=== PATIENT | female | born 1950 | race Caucasian/White ===

== ENCOUNTER 2017-02-03 17:28 | Inpatient (IN) | payer MEDICARE, OTHER ==
[~2017-02-03] VITALS: Ht 162.6 cm; Wt 91.6 kg
[~2017-02-03 17:28] MED LIST: CATALYN PO; CHOL200035 PO; CYRUTA PLUS PO; DICL250C8 PO; DIGO250T15 PO; DILT360C20 PO; DILT360C30 PO; FURO40TA4 PO; GFN600TCR PO; HCT25T PO; KRIL1CAP6 PO; LEVO5TAB12 PO; POTA10TA36 PO; POTA99TA15 PO; Rivaroxaban PO; SITA1TAB2 PO; SITA1TAB3 PO; TRIA1TAB3 PO; UBIQ100C PO; ZOLP12.541 PO; [UNRECOGNIZED DRUG - OTHER] MM
[2017-02-03] MEDS ORDERED: DILTIAZEM 25 MG/5 ML INJ (CARDIZEM) VIAL ONE (17:43)
[2017-02-03] MEDS ORDERED: DILTIAZEM 100 MG/VIAL (CARDIZEM) ADD-VANTAGE IV ONE (17:43)
[2017-02-03] MEDS ORDERED: NS (IVPB) 100 ML ONE (17:44)
[2017-02-03] MEDS ORDERED: SODIUM CHLORIDE (ADD-VANTAGE) 100 ML IV ONE (17:50)
--- NOTE | 2017-02-03 17:52 | ED Cardiac General ---
History of Present Illness General Chief Complaint: Cardiac/General Problems Stated Complaint: AFIB Source: patient Exam Limitations: no limitations (RYLAN EMERY MD) History of Present Illness Time seen by provider: 17:50 Initial Comments Patient has a history of paroxysmal A. fib. She had an episode of A. fib on Saturday which resolved. She woke up this morning with symptoms which did not go away. She is a little short of air and has had some intermittent chest pressure. She has been compliant with her medications. 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 She denies fevers or chills. She denies cough. (RYLAN EMERY MD) Initial Comments Care of this patient was assumed from Dr. Emery. Patient was interviewed and examined. She gives a history of paroxysmal atrial fibrillation with current symptoms starting Saturday and continuing intermittently until now. Her symptoms include irregular tachycardia, chest tightness, and jaw tightness. These are typical symptoms with episodes of atrial fibrillation. She was previously on rate controlling medications including Cardizem, systolic, and digoxin. She does not tolerate rate drooling medications very well due to fatigue and bradycardia. She was most recently on Bystolic which was stopped about 2 weeks ago. She was hoping to be off of rate controlling medications for not coming vacation and sees medications make her so fatigued and ill feeling. She is not presently on any rate controlling medication. Other mild associated symptoms include nausea and headache. She also reports of being on Keflex for a right upper extremity cellulitis which is improving. She sees Dr. Sawant for primary care. Her cardiology team consists of Dr. Baker, Dr. Stovall, and Dr. Stone. (ABIMAEL MAJOR MD) Allergies and Home Medications Allergies Coded Allergies: No Known Drug Allergies (Verified , 12/18/07) Home Medications Cephalexin 500 Mg Capsule, #28 (Reported) Chlorhexidine Gluconate 30 Ml Soln, 15 ML MM HS, (Reported) Dicloxacillin Sodium 250 Mg Capsule, 250 MG PO QID, #40 Ref 0 Prescribed by: BRENDA SAWANT on 03/22/14 0901 Digoxin 0.25 Mg Tab, 0.25 MG PO DAILY, #30 Ref 5 Prescribed by: BRENDA SAWANT on 03/22/14 0901 Diltiazem Hcl 360 Mg Capsule.sa, 360 MG PO DAILY, (Reported) Guaifenesin 600 Mg Tab, 600 MG PO HS, (Reported) Krill/Om3/Dha/Epa/Om6/Lip/Astx 1 Each Capsule, 2 CAP PO DAILY, (Reported) Levocetirizine Dihydrochloride 5 Mg Tablet, 5 MG PO DAILY, (Reported) Potassium Chloride 10 Meq Tab.prt.sr, 20 MEQ PO DAILY, (Reported) TAKES 2 (10MEQ) TABLETS DAILY Sitagliptin Phos/Metformin Hcl 1 Each Tablet, 1 TAB PO DAILY, (Reported) Triamterene/Hydrochlorothiazid 1 Udtab Tablet, 1 TAB PO DAILY, (Reported) Ubiquinol 100 Mg Capsule, 100 MG PO DAILY, (Reported) Zolpidem Tartrate 12.5 Mg Tab.mphase, 12.5 MG PO HS, (Reported) [Catalyn] , 2 CAP PO DAILY, (Reported) [Cyruta Plus] , 2 TAB PO DAILY, (Reported) [Rivaroxaban] 20 MG TABLET, 20 MG PO DAILY@1700, #30 Ref 5 Prescribed by: BRENDA SAWANT on 03/22/14 0901 Review of Systems Constitutional: malaise, weakness EENTM: No Symptoms Reported Respiratory: Shortness of Air Cardiovascular: Chest Pain, Irregular Heart Rate, Palpitations Gastrointestinal: No Symptoms Reported Musculoskeletal: no symptoms reported Skin: no symptoms reported (RYLAN EMERY MD) All Other Systems Reviewed Negative Unless Noted: Yes (RYLAN EMERY MD) Past Nsswedz-Cleumz-Dlcxsy Hx Patient Social History Alcohol Use: Denies Use Smoking Status: Never a Smoker (RYLAN EMERY MD) Immunizations Up To Date Tetanus Booster (TDap): More than 5yrs (RYLAN EMERY MD) Surgeries Surgeries: Cardiac (alcohol septic ablation) (ABIMAEL MAJOR MD) Respiratory Hx Respiratory Disorders: No (RYLAN EMERY MD) Cardiovascular Hx Cardiac Disorders: Yes (MURMUR) (RYLAN EMERY MD) Hx Cardiac Disorders: Yes (hypertrophic obstructive cardiomyopathy) Cardiac Disorders: Atrial Fibrillation (paroxysmal) (ABIMAEL MAJOR MD) Neurological Hx Neurological Disorders: Yes Neurological Disorders: Stroke (ABIMAEL MAJOR MD) 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 System Hx 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 Disorders: No Sexually Transmitted Disease: No HIV/AIDS: No Female 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 Disorders: Denies (RYLAN EMERY MD) Genitourinary Hx Genitourinary Disorders: No (RYLAN EMERY MD) Gastrointestinal Hx Gastrointestinal Disorders: Yes Gastrointestinal Disorders: Gastroesophageal Reflux (RYLAN EMERY MD) Musculoskeletal Hx Musculoskeletal Disorders: Yes Musculoskeletal Disorders: Arthritis (RYLAN EMERY MD) Endocrine Hx Endocrine Disorders: No (RYLAN EMERY MD) HEENT HX ENT Disorders: Yes (CATARACTS REMOVED) HEENT Disorders: Cataract (RYLAN EMERY MD) Cancer Hx Cancer: No (RYLAN EMERY MD) Psychosocial Hx Psychiatric Problems: Yes Behavioral Health Disorders: Sleep Difficulties (RYLAN EMERY MD) Integumentary HX Skin/Integumentary Disorder: No (RYLAN EMERY MD) HX Skin/Integumentary Disorder: Yes (strip cellulitis) (ABIMAEL MAJOR MD) Blood Transfusions Hx Blood Disorders: No (RYLAN EMERY MD) Reviewed Nursing Assessment Reviewed/Agree w Nursing PMH: Yes (RYLAN EMERY MD) Family Medical History Family Medial History: Cataract 19 FATHER Chest pain 19 FATHER Congenital heart disease 19 MOTHER Congestive heart failure 19 MOTHER Family history: Arthritis 19 FATHER 19 MOTHER Family history: Hypertension 19 FATHER 19 MOTHER Headache 19 MOTHER ([place]) Hearing loss 19 FATHER ([place] Myocardial infarction 19 FATHER No Family History of: Abdominal aortic aneurysm Ham's disease Alcoholism Aphasia Cancer Cancer of colon Cystic fibrosis Dementia Dysphagia Family history: Allergy Family history: Alzheimer's disease Family history: Asthma Family history: Breast disease Family history: Cardiovascular disease Family history: Coronary thrombosis Family history: Diabetes mellitus Family history: Gastrointestinal disease Family history: Glaucoma Family history: Osteoporosis Family history: Thyroid disorder Heart disease Hereditary disease History of - anemia History of - disorder History of - respiratory disease History of drug abuse Human immunodeficiency virus (HIV) seropositivity Hypercholesterolemia Infertile Kidney disease Malignant neoplasm of lung Parkinson's disease Prostate cancer Psychotic disorder Seizure disorder Stroke Tuberculosis Visual impairment (RYLAN EMERY MD) Family Medial History: Cataract 19 FATHER Chest pain 19 FATHER Congenital heart disease 19 MOTHER Congestive heart failure 19 MOTHER Family history: Arthritis 19 FATHER 19 MOTHER Family history: Hypertension 19 FATHER 19 MOTHER Headache 19 MOTHER ([place]) Hearing loss 19 FATHER ([place]) Myocardial infarction 19 FATHER No Family History of: Abdominal aortic aneurysm Ham's disease Alcoholism Aphasia Cancer Cancer of colon Cystic fibrosis Dementia Dysphagia Family history: Allergy Family history: Alzheimer's disease Family history: Asthma Family history: Breast disease Family history: Cardiovascular disease Family history: Coronary thrombosis Family history: Diabetes mellitus Family history: Gastrointestinal disease Family history: Glaucoma Family history: Osteoporosis Family history: Thyroid disorder Heart disease Hereditary disease History of - anemia History of - disorder History of - respiratory disease History of drug abuse Human immunodeficiency virus (HIV) seropositivity Hypercholesterolemia Infertile Kidney disease Malignant neoplasm of lung Parkinson's disease Prostate cancer Psychotic disorder Seizure disorder Stroke Tuberculosis Visual impairment (ABIMAEL MAJOR MD) Physical Exam Vital Signs Vital Sign - Last 12Hours 02/03/17 02/03/17 17:30 17:56 Temp 97.2 Pulse 156 Resp 18 B/P (MAP) 156/112 Pulse Ox 97 (ABIMAEL MAJOR MD) Vital Signs Capillary Refill : (RYLAN EMERY MD) General Appearance: No Apparent Distress, WD/WN Neck: Supple Respiratory: Lungs Clear, Normal Breath Sounds Cardiovascular: Irregularly Irregular, Tachycardia Gastrointestinal: Soft Extremity: Normal Inspection, No Pedal Edema Neurologic/Psychiatric: Alert, No Motor/Sensory Deficits Skin: Normal Color, Warm/Dry (RYLAN EMERY MD) Progress/Results/Core Measures Results/Orders Lab Results Laboratory Tests Test 02/03/17 17:42 Range/Units White Blood Count 9.9 4.3-11.0 10^3/uL Red Blood Count 5.52 4.35-5.85 10^6/uL Hemoglobin 15.8 11.5-16.0 G/DL Hematocrit 47 35-52 % Mean Corpuscular Volume 85 80-99 FL Mean Corpuscular Hemoglobin 29 25-34 PG Mean Corpuscular Hemoglobin Concent 34 32-36 G/DL Red Cell Distribution Width 14.4 10.0-14.5 % Platelet Count 264 130-400 10^3/uL Mean Platelet Volume 11.3 H 7.4-10.4 FL Neutrophils (%) (Auto) 65 42-75 % Lymphocytes (%) (Auto) 24 12-44 % Monocytes (%) (Auto) 9 0-12 % Eosinophils (%) (Auto) 1 0-10 % Basophils (%) (Auto) 1 0-10 % Neutrophils # (Auto) 6.5 1.8-7.8 X 10^3 Lymphocytes # (Auto) 2.4 1.0-4.0 X 10^3 Monocytes # (Auto) 0.9 0.0-1.0 X 10^3 Eosinophils # (Auto) 0.1 0.0-0.3 10^3/uL Basophils # (Auto) 0.1 0.0-0.1 10^3/uL Sodium Level 134 L 135-145 MMOL/L Potassium Level 3.5 L 3.6-5.0 MMOL/L Chloride Level 98 98-107 MMOL/L Carbon Dioxide Level 24 21-32 MMOL/L Anion Gap 12 5-14 MMOL/L Blood Urea Nitrogen 12 7-18 MG/DL Creatinine 1.23 0.60-1.30 MG/DL Estimat Glomerular Filtration Rate 44 BUN/Creatinine Ratio 10 Glucose Level 128 H 70-105 MG/DL Calcium Level 10.8 H 8.5-10.1 MG/DL Magnesium Level 1.6 L 1.8-2.4 MG/DL Total Bilirubin 0.6 0.1-1.0 MG/DL Aspartate Amino Transf (AST/SGOT) 32 5-34 U/L Alanine Aminotransferase (ALT/SGPT) 29 0-55 U/L Alkaline Phosphatase 99 40-136 U/L Troponin I < 0.30 <0.30 NG/ML Total Protein 6.8 6.4-8.2 G/DL Albumin 3.9 3.2-4.5 G/DL TSH [place] Testing 1.73 0.35-4.94 UIU/ML Digoxin Level < 0.30 L 0.80-2.00 NG/ML (ABIMAEL MAJOR MD) My Orders Orders - ABIMAEL MAJOR MD Cbc With Automated Diff (02/03/17 18:08) Comprehensive Metabolic Panel (02/03/17 18:08) Digoxin (02/03/17 18:08) Magnesium (02/03/17 18:08) Thyroid Analyzer (02/03/17 18:08) Troponin I (02/03/17 18:08) Saline Lock/Iv-Start (02/03/17 18:08) Ekg Tracing (02/03/17 18:08) Monitor-Rhythm Ecg Trace Only (02/03/17 18:08) Chest 1 View, Ap/Pa Only (02/03/17 19:08) Magnesium Oxide Tablet (Mag Ox Tablet) (02/03/17 19:15) (ABIMAEL MAJOR MD) Medications Given in ED Current Medications Medications Dose Ordered Sig/Vinod Route Start Time Stop Time Status Last Admin Dose Admin Diltiazem HCl 25 mg STK-MED ONCE .ROUTE 02/03/17 17:43 02/03/17 17:49 DC 02/03/17 17:51 10 MG Diltiazem HCl 100 mg STK-MED ONCE IV 02/03/17 17:43 02/03/17 17:48 DC 02/03/17 17:56 100 MG Sodium Chloride 100 ml @ ud STK-MED ONCE .ROUTE 02/03/17 17:44 02/03/17 17:50 DC 02/03/17 17:56 0 MLS/HR Sodium Chloride 100 ml @ ud STK-MED ONCE IV 02/03/17 17:50 02/03/17 17:55 DC 02/03/17 17:57 100 MLS/HR (ABIMAEL MAJOR MD) Vital Signs/I&O Vital Sign - Last 12Hours 02/03/17 02/03/17 17:30 17:56 Temp 97.2 Pulse 156 90 Resp 18 18 B/P (MAP) 156/112 133/92 Pulse Ox 97 (ABIMAEL MAJOR MD) Progress Note : Time: 19:21 Progress Note Patient is still tachycardic on Cardizem 10 mg per hour. This is being titrated up to 15 mg. Case was discussed with Dr. Lawler and Dr. Johnson who agreed with admission and Cardizem drip. Magnesium oxide is being given for hypomagnesemia. Patient was reexamined. Lungs were clear to auscultation bilaterally. She was comfortably sitting in bed. Heart was tachycardic and irregular. Right upper extremity was a little swollen from cellulitis. Patient was allowed to take her next dose of Keflex in the ER. (ABIMAEL MAJOR MD) ECG Initial ECG Rhythm: A Fib/Flutter Initial ECG Intervals: Normal Initial ECG Intervals Right bundle-branch block (RYLAN EMERY MD) Departure Communication Time/Spoke to Admitting Phy: 19:[address] Lawler Time/Spoke to Consulting Physi: 19:14 Communication/Consulting Dr. Johnson (ABIMAEL MAJOR MD) Impression Impression: Primary Impression: Atrial fibrillation with rapid ventricular response Additional Impressions: Chest tightness Hypomagnesemia Right arm cellulitis Disposition: ADMITTED INPATIENT Condition: Improved Decision to Admit Reason: Admit from ER (General) Decision to Admit/Date: Feb 03, 2017 Time/Decision to Admit Time: 18:10 (ABIMAEL MAJOR MD) Departure-Patient Inst. Referrals: BRENDA SAWANT DO (PCP/Family) Primary Care Physician RYLAN EMERY MD Feb 03, 2017 17:52 ABIMAEL MAJOR MD Feb 03, 2017 19:24
[2017-02-03] MEDS ORDERED: CEPH500C PO (18:08)
[2017-02-03 18:17] LABS: BASOPHILS # (AUTO) 0.1 10^3/uL (0.0-0.1); BASOPHILS % (AUTO) 1 % (0-10); EOSINOPHILS # (AUTO) 0.1 10^3/uL (0.0-0.3); EOSINOPHILS % (AUTO) 1 % (0-10); LYMPHOCYTES # (AUTO) 2.4 X 10^3 (1.0-4.0); LYMPHOCYTES % (AUTO) 24 % (12-44); MEAN CORPUSCULAR HEMOGLOBIN 29 PG (25-34); MEAN CORPUSCULAR HGB CONC 34 G/DL (32-36); MEAN CORPUSCULAR VOLUME 85 FL (80-99); MEAN PLATELET VOLUME 11.3 FL (7.4-10.4); MONOCYTES # (AUTO) 0.9 X 10^3 (0.0-1.0); MONOCYTES % (AUTO) 9 % (0-12); NEUTROPHILS # (AUTO) 6.5 X 10^3 (1.8-7.8); NEUTROPHILS % (AUTO) 65 % (42-75); PLATELET COUNT 264 10^3/uL (130-400); RED BLOOD COUNT 5.52 10^6/uL (4.35-5.85); RED CELL DISTRIBUTION WIDTH 14.4 % (10.0-14.5); WHITE BLOOD COUNT 9.9 10^3/uL (4.3-11.0)
[2017-02-03 18:31] LABS: ALANINE AMINOTRANSFERASE 29 U/L (0-55); ALBUMIN 3.9 G/DL (3.2-4.5); ANION GAP 12 MMOL/L (5-14); ASPARTATE AMINO TRANSFERASE 32 U/L (5-34); BILIRUBIN,TOTAL 0.6 MG/DL (0.1-1.0); BLOOD UREA NITROGEN 12 MG/DL (7-18); BUN/CREATININE RATIO 10; CALCIUM 10.8 MG/DL (8.5-10.1); CARBON DIOXIDE 24 MMOL/L (21-32); CHLORIDE 98 MMOL/L (98-107); CREATININE SERUM 1.23 MG/DL (0.60-1.30); GFR ESTIMATED 44; GLUCOSE 128 MG/DL (70-105); MAGNESIUM 1.6 MG/DL (1.8-2.4); POTASSIUM 3.5 MMOL/L (3.6-5.0); SODIUM 134 MMOL/L (135-145); TOTAL PROTEIN 6.8 G/DL (6.4-8.2)
[2017-02-03 18:51] LABS: DIGOXIN < 0.30 NG/ML (0.80-2.00); TROPONIN I < 0.30 NG/ML (<0.30)
[2017-02-03] MEDS ORDERED: MAGNESIUM OXIDE (MAG-OX)400 MG TAB PO ONE (19:15)
--- NOTE | 2017-02-03 19:31 | Diagnostic Imaging Report ---
INDICATION: Atrial fib. COMPARISON: 03/23/2014. FINDINGS: Single view examination of the chest fails to reveal evidence of active parenchymal pathology or pleural effusion. The cardiac silhouette is normal. IMPRESSION: Negative chest. No significant change since previous exam. Dictated by: Dictated on workstation # [id number]
[2017-02-03 21:07] VITALS: BP 129/76
[2017-02-03 22:00] VITALS: BP 118/82
[2017-02-03] MEDS ORDERED: DILTIAZEM DRIP 100 MG/NS 100 ML IV SCH ×2 (22:30)
[2017-02-03] MEDS ORDERED: ONDANSETRON 4 MG/2 ML (SDV) Z0FRAN IV PRN (22:30)
[2017-02-03 23:00] VITALS: BP 136/116
[2017-02-04] VITALS (22 sets, daily range): BP systolic 94–154; BP diastolic 59–124
[2017-02-04 04:10] LABS: BASOPHILS % (AUTO) 0 % (0-10); EOSINOPHILS # (AUTO) 0.2 10^3/uL (0.0-0.3); EOSINOPHILS % (AUTO) 3 % (0-10); LYMPHOCYTES % (AUTO) 23 % (12-44); MEAN CORPUSCULAR HEMOGLOBIN 29 PG (25-34); MEAN CORPUSCULAR HGB CONC 34 G/DL (32-36); MEAN CORPUSCULAR VOLUME 84 FL (80-99); MEAN PLATELET VOLUME 10.4 FL (7.4-10.4); MONOCYTES # (AUTO) 0.8 X 10^3 (0.0-1.0); MONOCYTES % (AUTO) 10 % (0-12); NEUTROPHILS # (AUTO) 5.4 X 10^3 (1.8-7.8); NEUTROPHILS % (AUTO) 64 % (42-75); PLATELET COUNT 232 10^3/uL (130-400); RED BLOOD COUNT 5.05 10^6/uL (4.35-5.85); RED CELL DISTRIBUTION WIDTH 14.3 % (10.0-14.5); WHITE BLOOD COUNT 8.5 10^3/uL (4.3-11.0)
[2017-02-04 04:32] LABS: ANION GAP 12 MMOL/L (5-14); BLOOD UREA NITROGEN 11 MG/DL (7-18); BUN/CREATININE RATIO 14; CARBON DIOXIDE 22 MMOL/L (21-32); CHLORIDE 99 MMOL/L (98-107); CREATININE SERUM 0.81 MG/DL (0.60-1.30); GFR ESTIMATED > 60; GLUCOSE 103 MG/DL (70-105); MAGNESIUM 1.8 MG/DL (1.8-2.4); PHOSPHORUS 3.1 MG/DL (2.3-4.7); POTASSIUM 3.1 MMOL/L (3.6-5.0); SODIUM 133 MMOL/L (135-145)
[2017-02-04] MEDS: MAGNESIUM 1 GM/100 ML IVPB 100 ML IV SCH (06:00)
[2017-02-04] MEDS: POTASSIUM CL 10MEQ/50ML IVPB 50 ML IV SCH (06:00)
[2017-02-04] MEDS: KCL 20 MEQ TAB (K-DUR) PO SCH (06:00)
[2017-02-04] MEDS ORDERED: KCL 20 MEQ TAB (K-DUR) PO ONE ×2 (06:30→08:30)
--- NOTE | 2017-02-04 08:11 | History & Physical-Hospitalist ---
HPI History of Present Illness: HPI/Chief Complaint this is a 66-year-old white female with long-standing history of paroxysmal atrial fibrillation. Her rate has evidently been difficult to control off and on and she is seeing Dr. Breanna Gonzalez, and Dr. Stone in [place]. She had mowed the grass on Saturday and then noticed that she had had some increased heart rate with some jaw tightness. This lasted for short time. Then yesterday it began having increased heart rate palpitations jaw pain and chest heaviness. She presented to the emergency room where she was found to be in atrial fibrillation with rapid ventricular response. Overnight she has been on a Cardizem drip for her A. fib which she remains in, but her rate remains difficult to control. She has had breakfast this morning and we were reconciling her medications when interviewed her. Otherwise she was getting ready to go to [place] and is feeling well Source: patient Exam Limitations: no limitations Date Seen 02/04/17 Attending Physician Sher Lawler MD PCP Jadiel Cain DO Referring Physician Date of Admission Feb 03, 2017 at 7:17 pm Home Medications & Allergies Home Medications co Q 10 Krill oil micro k 10 david wan Xarelto 20 mg /d aldactazide 25/25 daily diovan 40 mg /d ambien 10 mg hs Allergies Allergies Coded Allergies No Known Drug Allergies (Verified12/18/07) Past Vycvufo-Ssrvyf-Jsyhih Hx Patient Social History Marrital Status: single Employed/Student: retired Alcohol Use: Denies Use Recreational Drug Use: No Smoking Status: Never a Smoker Physical Abuse Screen: No Sexual Abuse: No Recent Foreign Travel: No Contact w/other who traveled: No Recent Infectious Disease Expo: No Immunizations Up To Date Tetanus Booster (TDap): More than 5yrs Seasonal Allergies Seasonal Allergies: Yes Surgeries Surgeries: Cardiac (alcohol septic ablation) Respiratory Hx Respiratory Disorders: No Cardiovascular Hx Cardiovascular Disorders: Yes (hypertrophic obstructive cardiomyopathy) Cardiac Disorders: Atrial Fibrillation (paroxysmal) Neurological Hx Neurological Disorders: Yes Neurological Disorders: Stroke 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 System Hx 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 Disorders: No Sexually Transmitted Disease: No HIV/AIDS: No Female 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 Disorders: Denies Genitourinary Hx Genitourinary Disorders: No Gastrointestinal Hx Gastrointestinal Disorders: Yes Gastrointestinal Disorders: Gastroesophageal Reflux Musculoskeletal Hx Musculoskeletal Disorders: Yes Musculoskeletal Disorders: Arthritis Endocrine Hx Endocrine Disorders: No HEENT HX ENT Disorders: Yes (CATARACTS REMOVED) HEENT Disorders: Cataract Cancer Hx Cancer: No Psychosocial Hx Psychiatric Problems: Yes Behavioral Health Disorders: Sleep Difficulties Integumentary HX Skin/Integumentary Disorder: Yes (strip cellulitis) Blood Transfusions Hx Blood Disorders: No Reviewed Nursing Assessment Reviewed/Agree w Nursing PMH: Yes Family Medical History Family Hx: Cataract 19 FATHER Chest pain 19 FATHER Congenital heart disease 19 MOTHER Congestive heart failure 19 MOTHER Family history: Arthritis 19 FATHER 19 MOTHER Family history: Hypertension 19 FATHER 19 MOTHER Headache 19 MOTHER ([place]) Hearing loss 19 FATHER ([place]) Myocardial infarction 19 FATHER No Family History of: Abdominal aortic aneurysm Ham's disease Alcoholism Aphasia Cancer Cancer of colon Cystic fibrosis Dementia Dysphagia Family history: Allergy Family history: Alzheimer's disease Family history: Asthma Family history: Breast disease Family history: Cardiovascular disease Family history: Coronary thrombosis Family history: Diabetes mellitus Family history: Gastrointestinal disease Family history: Glaucoma Family history: Osteoporosis Family history: Thyroid disorder Heart disease Hereditary disease History of - anemia History of - disorder History of - respiratory disease History of drug abuse Human immunodeficiency virus (HIV) seropositivity Hypercholesterolemia Infertile Kidney disease Malignant neoplasm of lung Parkinson's disease Prostate cancer Psychotic disorder Seizure disorder Stroke Tuberculosis Visual impairment Review of Systems Constitutional: see HPI, weight gain EENTM: no symptoms reported Respiratory: dyspnea on exertion Cardiovascular: chest pain, palpitations Gastrointestinal: no symptoms reported Genitourinary: no symptoms reported Musculoskeletal: no symptoms reported Skin: no symptoms reported Psychiatric/Neurological: No Symptoms Reported Physical Exam Physical Exam Vital Signs Vital Sign - Last 12Hours 02/03/17 02/03/17 17:30 17:56 Temp 97.2 Pulse 156 Resp 18 B/P (MAP) 156/112 Pulse Ox 97 Capillary Refill : Less Than 3 Seconds General Appearance: No Apparent Distress, WD/WN HEENT: Normal ENT Inspection Neck: Normal Inspection, Supple Respiratory: Chest Non Tender, Lungs Clear, Normal Breath Sounds, No Accessory Muscle Use, No Respiratory Distress Cardiovascular: Irregularly Irregular, Tachycardia Gastrointestinal: No Organomegaly, Non Tender, Soft Rectal: Deferred Extremity: Normal Capillary Refill, Normal Inspection, Non Tender, No Calf Tenderness Neurologic/Psychiatric: Alert, Oriented x3, No Motor/Sensory Deficits, Normal Mood/Affect Skin: Normal Color, Warm/Dry Lymphatic: No Adenopathy Results Results/Procedures Lab Laboratory Tests 02/03/17 17:42 02/04/17 04:02 Assessment/Plan Admission Diagnosis 1. A. fib with RVR 2. Hypertrophic cardiomyopathy 3. Obesity 4. Hypomagnesemia 5. Hypokalemia Plan for cardiology consult continue Cardizem drip and try and obtain rate control Copy Copies To 1: JADIEL CAIN DO Clinical Quality Measures DVT/VTE Risk/Contraindication: Risk Factor Score Per Nursin RFS Level Per Nursing on Admit: 2=Moderate SHER LAWLER MD Feb 04, 2017 8:11 am
--- NOTE | 2017-02-04 09:00 | Diagnostic Imaging Report ---
INDICATION: Arrhythmia. EXAMINATION: Portable chest at 4:47 AM. FINDINGS: The heart size and pulmonary vascularity are normal. The lungs are clear. There are no effusions or pneumothoraces. IMPRESSION: Negative chest. Dictated by: Dictated on workstation # [id number]
--- NOTE | 2017-02-04 09:07 | Consultation-Cardiology ---
HPI-Cardiology Cardiology Consultation: Date of Consultation 02/04/17 Date of Admission 02-03-17 Attending Physician Laura Lawler MD Admitting Physician Jadiel Cain DO Consulting Physician Bita Johnson MD HPI: Chief Complaint: A-fib with RVR Ms. Cruz is a 66 year old female admitted to ICU 12 from the ED. She reports last week she was mowing grass and sustained an insect bite to her right hand. She reports she went to Urgent Care and was diagnosed with cellulitis. She was started on Keflex and the swelling has improved. She reports on Saturday night around 11 p.m. she was getting ready to go to bed and she began to have tightness in her jaw. She states she noticed her heart was out of rhythm and she was having some shortness of breath. She states she was able to go to sleep and when she got up on Saturday morning she still was not feeling well. She reports Review of Systems-Cardiology All Other Systems Reviewed Negative Unless Noted: Yes [id number] Hx Patient Social History Marrital Status: single Employed/Student: retired Alcohol Use: Denies Use Recreational Drug Use: No Smoking Status: Never a Smoker Recent Foreign Travel: No Recent Infectious Disease Expo: No Hospitalization with Isolation: Denies Physical Abuse Screen: No Sexual Abuse: No Immunizations Up To Date Tetanus Booster (TDap): More than 5yrs Past Medical History PMH As described under Assessment. Family Medical History Family History: Cataract 19 FATHER Chest pain 19 FATHER Congenital heart disease 19 MOTHER Congestive heart failure 19 MOTHER Family history: Arthritis 19 FATHER 19 MOTHER Family history: Hypertension 19 FATHER 19 MOTHER Headache 19 MOTHER (MIGRAINES) Hearing loss 19 FATHER ([place]) Myocardial infarction 19 FATHER No Family History of: Abdominal aortic aneurysm Ham's disease Alcoholism Aphasia Cancer Cancer of colon Cystic fibrosis Dementia Dysphagia Family history: Allergy Family history: Alzheimer's disease Family history: Asthma Family history: Breast disease Family history: Cardiovascular disease Family history: Coronary thrombosis Family history: Diabetes mellitus Family history: Gastrointestinal disease Family history: Glaucoma Family history: Osteoporosis Family history: Thyroid disorder Heart disease Hereditary disease History of - anemia History of - disorder History of - respiratory disease History of drug abuse Human immunodeficiency virus (HIV) seropositivity Hypercholesterolemia Infertile Kidney disease Malignant neoplasm of lung Parkinson's disease Prostate cancer Psychotic disorder Seizure disorder Stroke Tuberculosis Visual impairment Allergies and Home Medications Allergies Coded Allergies: No Known Drug Allergies (Verified , 12/18/07) Home Medications Albuterol Sulfate 1 Puff Puff, 2 PUFF IH Q6H PRN for CONGESTION, (Reported) 1 PUFF = 90 MCG Cephalexin 500 Mg Capsule, 500 PO QID, (Reported) FILLED 01/29/17 #28 FOR A 7 DAY THERAPY Krill/Om3/Dha/Epa/Om6/Lip/Astx 1 Each Capsule, 1 CAP PO DAILY, (Reported) Lactobacillus Rhamnosus GG 1 Each Capsule, 1 CAP PO DAILY, (Reported) Loratadine 10 Mg Tablet, 10 MG PO DAILY, (Reported) Multivitamin 1 Each Tablet, 1 TAB PO DAILY, (Reported) Potassium Chloride 10 Meq Tab.prt.sr, 10 MEQ PO DAILY, (Reported) Rivaroxaban 20 Mg Tablet, 20 MG PO DAILY, (Reported) Triamterene/Hydrochlorothiazid 1 Each Capsule, 1 CAP PO DAILY, (Reported) Ubidecarenone 100 Mg Capsule, 100 MG PO DAILY, (Reported) Valsartan 40 Mg Tablet, 40 MG PO DAILY, (Reported) Zolpidem Tartrate 12.5 Mg Tab.mphase, 10 MG PO HS, (Reported) Physical Exam-Cardiology Physical Exam Vital Signs/I&O Vital Sign - Last 12Hours 02/04/17 02/04/17 02/04/17 02/04/17 00:43 01:00 01:00 02:00 Pulse 75 84 68 65 Resp 19 28 21 B/P (MAP) 112/71 94/79 111/71 Pulse Ox 95 95 93 02/04/17 02/04/17 02/04/17 02/04/17 03:00 04:00 04:00 05:00 Temp 98.2 Pulse 76 84 134 Resp 18 19 39 B/P (MAP) 111/66 119/68 116/99 Pulse Ox 91 95 93 93 02/04/17 02/04/17 02/04/17 06:00 07:00 08:00 Temp 98.0 Pulse 43 106 Resp 20 B/P (MAP) 111/59 Pulse Ox 95 Intake and Output 02/04/17 00:00 Intake Total 150 ml Output Total 200 ml Balance -50 ml Capillary Refill : Less Than 3 Seconds Data Review Labs Laboratory Tests 02/03/17 17:42: White Blood Count 9.9, Red Blood Count 5.52, Hemoglobin 15.8, Hematocrit 47, Mean Corpuscular Volume 85, Mean Corpuscular Hemoglobin 29, Mean Corpuscular Hemoglobin Concent 34, Red Cell Distribution Width 14.4, Platelet Count 264, Mean Platelet Volume 11.3H, Neutrophils (%) (Auto) 65, Lymphocytes (%) (Auto) 24 , Monocytes (%) (Auto) 9, Eosinophils (%) (Auto) 1, Basophils (%) (Auto) 1, Neutrophils # (Auto) 6.5, Lymphocytes # (Auto) 2.4, Monocytes # (Auto) 0.9, Eosinophils # (Auto) 0.1, Basophils # (Auto) 0.1, Sodium Level 134L, Potassium Level 3.5L, Chloride Level 98, Carbon Dioxide Level 24, Anion Gap 12, Blood Urea Nitrogen 12, Creatinine 1.23, Estimat Glomerular Filtration Rate 44, BUN/ Creatinine Ratio 10, Glucose Level 128H, Calcium Level 10.8H, Magnesium Level 1.6L, Total Bilirubin 0.6, Aspartate Amino Transf (AST/SGOT) 32, Alanine Aminotransferase (ALT/SGPT) 29, Alkaline Phosphatase 99, Troponin I < 0.30, Total Protein 6.8, Albumin 3.9, TSH [place] Testing 1.73, Digoxin Level < 0.30L 02/04/17 04:02: White Blood Count 8.5, Red Blood Count 5.05, Hemoglobin 14.5, Hematocrit 42, Mean Corpuscular Volume 84, Mean Corpuscular Hemoglobin 29, Mean Corpuscular Hemoglobin Concent 34, Red Cell Distribution Width 14.3, Platelet Count 232, Mean Platelet Volume 10.4, Neutrophils (%) (Auto) 64, Lymphocytes (%) (Auto) 23 , Monocytes (%) (Auto) 10, Eosinophils (%) (Auto) 3, Basophils (%) (Auto) 0, Neutrophils # (Auto) 5.4, Lymphocytes # (Auto) 2.0, Monocytes # (Auto) 0.8, Eosinophils # (Auto) 0.2, Basophils # (Auto) 0.0, Sodium Level 133L, Potassium Level 3.1L, Chloride Level 99, Carbon Dioxide Level 22, Anion Gap 12, Blood Urea Nitrogen 11, Creatinine 0.81, Estimat Glomerular Filtration Rate > 60, BUN/ Creatinine Ratio 14, Glucose Level 103, Calcium Level 10.0, Magnesium Level 1.8 , Phosphorus Level 3.1 A/P-Cardiology Assessment/Admission Diagnosis Paroxysmal atrial fibrillation, diagnosed in March 2015 which is managed per Dr. Stone and Dr. Gonzalez at [facility]. Patient reports multiple medication intolerances including, Verapamil, Digxoin, beta blockers and Multaq. She sees Dr. Gonzalez [id number] score is 6, yearly risk of stroke without oral anticoagulation is 6.7 percent. Continue Xarelto. Chest pain nonspecific etiology, stress test September 2015 negative for ischemia or infarct per Dr. Baker Hypertrophic obstructive cardiomyopathy - h/o alcohol ablation in March [address] Stone at [facility] - followed by Dr. 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 Patient was not on oral anticoagulations at that time. Treated in [facility]. History of cellulitis, back surgery, 2 knee replacement surgery. History of easy bruising while on oral anticoagulation Discussion and Recomendations Complex management issue. She has a h/o PAF for which she has been following with Dr. Gonzalez and Dr. Stone at [facility]. She has a h/o multiple medication intolerances. She is currently on IV Diltiazem and her rate is controlled. We will therefore change her to oral Diltiazem. We will continue her Xarelto for stroke prophylaxis. Her blood pressure is somewhat low, albeit asymptomatic, so we will hold off on Diovan for now. We will continue her Aldactazide. Replace her electrolytes and monitor lab closely. We would like to thank the medical services for this consult. Further recommendations will be based on her hospital course. This consult is being scribed by ESTHER Lees on behalf of Dr. Johnson after discussion regarding plan of care. Clinical Quality Measures DVT/VTE Risk/Contraindication: Risk Factor Score Per Nursin RFS Level Per Nursing on Admit: 2=Moderate Physician Assessment Physician Assessment Lungs: good bilat air entry; diminished at the bases Cor: irreg A&R * As documented in our note above * I reviewed her records * We will try to switch to oral dilt * The option of elec CV was also reviewed. She favors conservative management * I answered her questions in detail JORI MCCRACKEN RESIDENTIAL SUPERVISOR Feb 04, 2017 09:07 BITA JOHNSON MD FACP FAC CCDS Feb 04, 2017 12:26
[2017-02-04] MEDS ORDERED: DILTIAZEM 180 MG (CARDIZEM CD) CAP PO NR (10:00)
[2017-02-04] MEDS ORDERED: RIVAROXABAN 20 MG TABLET (XARELTO) PO SCH (10:00)
[2017-02-04] MEDS ORDERED: UBID100C44 PO (10:23)
[2017-02-04] MEDS ORDERED: RIVA20TA PO (10:23)
[2017-02-04] MEDS ORDERED: MULT1TAB69 PO (10:23)
[2017-02-04] MEDS ORDERED: LORA10TA7 PO (10:23)
[2017-02-04] MEDS ORDERED: LACT1CAP39 PO (10:23)
[2017-02-04] MEDS ORDERED: RT-ALBUINH IH (10:23)
[2017-02-04] MEDS ORDERED: VALS40TA8 PO (10:23)
[2017-02-04] MEDS ORDERED: TRIA1CAP PO (10:23)
[2017-02-04] MEDS ORDERED: ACETAMINOPHEN 500 MG TAB (TYLENOL) PO PRN (11:30)
[2017-02-04] MEDS ORDERED: ACETAMINOPHEN 325 MG TABLET/CAPLET (TYLENOL) ONE (11:36)
[2017-02-04] MEDS ORDERED: ACETAMINOPHEN 325 MG TABLET/CAPLET (TYLENOL) PO PRN (11:45)
[2017-02-04] MEDS ORDERED: RT-ALBUTEROL HFA (VENTOLIN) PER PUFF IH PRN (15:45)
[2017-02-04] MEDS ORDERED: NON-FORMULARY MEDICATION 1 EA EA PO SCH ×2 (15:45→17:00)
[2017-02-04] MEDS ORDERED: RT-ALBUTEROL SULF 2.5 MG/3 ML PRE-MIX VIAL IH PRN (16:15)
[2017-02-04] MEDS ORDERED: NON-FORMULARY MEDICATION 1 EA EA (Cephalexin 500 MG) PO SCH (17:00)
[2017-02-04] MEDS: CEPHALEXIN 250 MG (KEFLEX) CAP PO SCH ×2 (17:27→22:25)
[2017-02-04] MEDS: TRIAMTERENE/HCTZ 75-50 (MAXZIDE,DYAZIDE) TABLET PO SCH (17:37)
[2017-02-04] MEDS ORDERED: ZOLPIDEM 5 MG (AMBIEN) TAB PO SCH (21:00)
[2017-02-04] MEDS ORDERED: NON-FORMULARY MEDICATION 1 EA EA (Zolpidem Tartrate 10 MG) PO SCH (21:00)
[2017-02-05] VITALS (13 sets, daily range): BP systolic 111–132; BP diastolic 55–85
[2017-02-05 04:23] LABS: BASOPHILS % (AUTO) 1 % (0-10); EOSINOPHILS # (AUTO) 0.3 10^3/uL (0.0-0.3); EOSINOPHILS % (AUTO) 5 % (0-10); LYMPHOCYTES # (AUTO) 1.9 X 10^3 (1.0-4.0); LYMPHOCYTES % (AUTO) 27 % (12-44); MEAN CORPUSCULAR HEMOGLOBIN 29 PG (25-34); MEAN CORPUSCULAR HGB CONC 34 G/DL (32-36); MEAN CORPUSCULAR VOLUME 85 FL (80-99); MEAN PLATELET VOLUME 10.8 FL (7.4-10.4); MONOCYTES # (AUTO) 0.7 X 10^3 (0.0-1.0); MONOCYTES % (AUTO) 9 % (0-12); NEUTROPHILS # (AUTO) 4.1 X 10^3 (1.8-7.8); NEUTROPHILS % (AUTO) 58 % (42-75); PLATELET COUNT 229 10^3/uL (130-400); RED BLOOD COUNT 4.92 10^6/uL (4.35-5.85); RED CELL DISTRIBUTION WIDTH 14.3 % (10.0-14.5)
[2017-02-05 04:46] LABS: ANION GAP 8 MMOL/L (5-14); BLOOD UREA NITROGEN 12 MG/DL (7-18); BUN/CREATININE RATIO 14; CALCIUM 10.2 MG/DL (8.5-10.1); CARBON DIOXIDE 24 MMOL/L (21-32); CHLORIDE 101 MMOL/L (98-107); CREATININE SERUM 0.87 MG/DL (0.60-1.30); GFR ESTIMATED > 60; GLUCOSE 106 MG/DL (70-105); MAGNESIUM 1.7 MG/DL (1.8-2.4); PHOSPHORUS 2.8 MG/DL (2.3-4.7); POTASSIUM 4.1 MMOL/L (3.6-5.0); SODIUM 133 MMOL/L (135-145)
[2017-02-05] MEDS: MAGNESIUM 1 GM/100 ML IVPB 100 ML IV SCH ×3 (06:08→07:15)
[2017-02-05] MEDS: KCL 20 MEQ TAB (K-DUR) PO SCH (06:08)
[2017-02-05] MEDS: POTASSIUM CL 10MEQ/50ML IVPB 50 ML IV SCH (06:08)
[2017-02-05] MEDS ORDERED: KCL 10 MEQ TAB (MICRO K) PO SCH (07:00)
[2017-02-05] MEDS: CEPHALEXIN 250 MG (KEFLEX) CAP PO SCH ×2 (08:43→13:39)
[2017-02-05] MEDS: TRIAMTERENE/HCTZ 75-50 (MAXZIDE,DYAZIDE) TABLET PO SCH (08:57)
[2017-02-05] MEDS ORDERED: RIVAROXABAN 20 MG TABLET (XARELTO) PO SCH ×3 (09:00→17:00)
[2017-02-05] MEDS ORDERED: VALSARTAN 40 MG PO SCH (09:00)
[2017-02-05] MEDS ORDERED: NON-FORMULARY MEDICATION 1 EA EA (Potassium Chloride (K-Dur) 10 MEQ) PO SCH (09:00)
[2017-02-05] MEDS ORDERED: VALSARTAN 80 MG (DIOVAN) TAB PO SCH (09:00)
[2017-02-05] MEDS ORDERED: DILTIAZEM 180 MG (CARDIZEM CD) CAP PO SCH (09:00)
--- NOTE | 2017-02-05 09:12 | Diagnostic Imaging Report ---
INDICATION: Arrhythmia. EXAMINATION: Portable chest at 5:07 AM. FINDINGS: The heart size and pulmonary vascularity are normal. The lungs are clear. There are no effusions or pneumothoraces. IMPRESSION: Negative chest. Dictated by: Dictated on workstation # [id number]
--- NOTE | 2017-02-05 10:50 | Progress Note-Cardiology ---
Cardiology SOAP Progress Note Subjective: Overall feeling better this morning. No c/o palpitations, CP, dyspnea, syncope or near syncope. Objective: I&O/Vital Signs Vital Sign - Last 12Hours 02/05/17 02/05/17 02/05/17 02/05/17 03:00 04:00 04:00 05:00 Temp 98.2 Pulse 60 71 61 Resp 18 21 22 B/P (MAP) 111/64 115/74 124/68 Pulse Ox 94 94 92 O2 Flow Rate 2.00 2.00 2.00 02/05/17 02/05/17 02/05/17 06:00 07:00 13:00 Pulse 67 62 88 Resp 16 B/P (MAP) 126/69 Pulse Ox 92 O2 Flow Rate 2.00 Intake and Output 02/05/17 00:00 Intake Total 550 ml Output Total 700 ml Balance -150 ml Weight (Pounds): 202 Weight (Ounces): 1.6 Weight (Calculated Kilograms): 91.814143 Constitutional: AAO x 3 Respiratory: chest expansion is symmetric, chest is bilaterally symmetric, lungs clear to auscultation Cardiovascular: irregularly irregular, No JVD, S1 and S2 Gastrointestional: No tender, soft, audible bowel sounds Extremities: no lower extremity edema bilateral Neurologic/Psychiatric: grossly intact Skin: No rash, No ulcerations Results/Procedures: Labs Laboratory Tests 02/05/17 04:07: White Blood Count 7.0, Red Blood Count 4.92, Hemoglobin 14.1, Hematocrit 42, Mean Corpuscular Volume 85, Mean Corpuscular Hemoglobin 29, Mean Corpuscular Hemoglobin Concent 34, Red Cell Distribution Width 14.3, Platelet Count 229, Mean Platelet Volume 10.8H, Neutrophils (%) (Auto) 58, Lymphocytes (%) (Auto) 27 , Monocytes (%) (Auto) 9, Eosinophils (%) (Auto) 5, Basophils (%) (Auto) 1, Neutrophils # (Auto) 4.1, Lymphocytes # (Auto) 1.9, Monocytes # (Auto) 0.7, Eosinophils # (Auto) 0.3, Basophils # (Auto) 0.0, Sodium Level 133L, Potassium Level 4.1, Chloride Level 101, Carbon Dioxide Level 24, Anion Gap 8, Blood Urea Nitrogen 12, Creatinine 0.87, Estimat Glomerular Filtration Rate > 60, BUN/ Creatinine Ratio 14, Glucose Level 106H, Calcium Level 10.2H, Phosphorus Level 2.8, Magnesium Level 1.7L Microbiology 02/03/17 MRSA Screen - Final, Complete MRSA not isolated Laboratory Tests 02/03/17 17:42 02/04/17 04:02 02/05/17 04:07 A/P: Assessment: Paroxysmal atrial fibrillation with RVR. She has been started on long-acting diltiazem during this hosp and that has controlled heart rate and she has tolerated it well. Rhythm is currently sinus Patient reports multiple medication intolerances including, Verapamil, Digxoin, beta blockers and Multaq. She sees Dr. Gonzalez [id number] score is 6, yearly risk of stroke without oral anticoagulation is 6.7 percent. Continue Xarelto. Chest pain nonspecific etiology, stress test September 2015 negative for ischemia or infarct per Dr. Baker Hypertrophic obstructive cardiomyopathy - h/o alcohol ablation in March [address] Stone at [facility] - followed by Dr. 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 Patient was not on oral anticoagulations at that time. Treated in [facility]. History of cellulitis, back surgery, 2 knee replacement surgery. History of easy bruising while on oral anticoagulation Plan: Complex management issue. She has a h/o PAF for which she has been following with Dr. Gonzalez and Dr. Stone at [facility]. - rate improved She has a h/o multiple medication intolerances. Rate controlled with oral Diltiazem Increase ambulation Possible d/c home today with outpt f/u this week with Dr. Baker Continue her Xarelto for stroke prophylaxis. Physician Assessment Physician Assessment Lungs: good bilat air entry Cor: reg with soft LINDA at card base A&R * As documented in our note above * She has been started on long-acting diltiazem during this hosp and that has controlled heart rate and she has tolerated it well * We have stopped losartan (to avoid hypotension after initiation of diltiazem) * We have advised continuation of OAC * We have advised close outpatient f/u with Dr Baker, her harness racing handicapper JORI MCCRACKEN Feb 05, 2017 10:50 DEMETRI RICHARDSON MD FACP FACC CCDS Feb 05, 2017 15:03
--- NOTE | 2017-02-05 13:16 | Progress Note-Hospitalist ---
Standard Progress Note Progress Notes/Assess & Plan Date Seen 02/05/17 Diagnosis 1. A. fib with RVR 2. Hypertrophic cardiomyopathy 3. Obesity 4. Hypomagnesemia 5. Hypokalemia Plan for cardiology consult continue Cardizem drip and try and obtain rate control Assess & Plan/Chief Complaint The patient is a 66-year-old white female with chronic atrial fibrillation. She is also known to have a hypertrophic cardiomyopathy. She was admitted after presenting to the emergency room in rapid ventricular response. She reports that in the past these have lasted only for minutes but the episode that brought her to the emergency room had lasted for several hours before she gave up. Despite the atrial fibrillation she is quite active with yard and garden maintenance. She had planned to take a trip to [place] which this episode seems to have interrupted. She is feeling quite well today. Her rate is controlled. Physical exam: The patient is alert and quite pleasant. Lungs are clear to auscultation. CV is irregular but with controlled rate. Abdomen is soft. Ankles show no pedal edema. Impression: Chronic atrial fibrillation with an episode of rapid ventricular response. Rate is now controlled. 2.hypertrophic cardiomyopathy by history. Plan: Discharge when cardiology judges appropriate. Labs Laboratory Tests 02/03/17 17:42 02/04/17 04:02 02/05/17 04:07 DAGO KAMINSKI MD Feb 05, 2017 13:16
[2017-02-05] MEDS ORDERED: DILT180C64 PO (14:58)
== END 2017-02-05 16:35 | disposition home or self-care (01) | DRG 309 ==
LOC: EDUNIT# 17:28 → ER 17:31 → ICU 19:17 → UNDOADMOB 19:17 → ICU 20:54 → OBSVTOIN 02-04 08:56 → INTOOBSV 02-04 08:56 → ICU 02-04 14:23 → ENPENDDIS 02-05 17:00
PROVIDERS: ADMIT Internal Medicine; ATTEND Internal Medicine
DX: I48.0 Paroxysmal atrial fibrillation (principal); L03.113 Cellulitis of right upper limb; I10 Essential (primary) hypertension; E66.9 Obesity, unspecified; E87.6 Hypokalemia; E83.42 Hypomagnesemia; I42.1 Obstructive hypertrophic cardiomyopathy; R01.1 Cardiac murmur, unspecified; K21.9 Gastro-esophageal reflux disease without esophagitis; M19.91 Primary osteoarthritis, unspecified site; G47.9 Sleep disorder, unspecified; S60.561A Insect bite (nonvenomous) of right hand, initial encounter; W57.XXXA Bitten or stung by nonvenomous insect and other nonvenomous arthropods, initial encounter; Z68.34 Body mass index [BMI] 34.0-34.9, adult; Z79.01 Long term (current) use of anticoagulants; Z86.73 Personal history of transient ischemic attack (TIA), and cerebral infarction without residual deficits; Z96.653 Presence of artificial knee joint, bilateral
CPT/HCPCS: 36415; 71010; 80048; 80053; 80162; 83735; 84100; 84443; 84484; 85025; 87081; 93005; 93041; 99211; G0378

== ENCOUNTER → 2018-06-05 | Outpatient (CLI) | payer MEDICARE, OTHER ==
[~2018-06-05] MED LIST changes: +CEPH500C PO; +DILT180C90 PO; +LACT1CAP39 PO; +LORA10TA7 PO; +MULT1TAB69 PO; +RIVA20TA PO; +RT-ALBUINH IH; +TRIA1CAP PO; +UBID100C44 PO; +VALS40TA9 PO
== END ==
LOC: WOUNDCARE 08:10
PROVIDERS: ATTEND Nurse Practitioner
DX: L97.212 Non-pressure chronic ulcer of right calf with fat layer exposed (principal); L03.115 Cellulitis of right lower limb; I87.2 Venous insufficiency (chronic) (peripheral)
CPT/HCPCS: 11042

== ENCOUNTER → 2018-06-12 | Outpatient (CLI) | payer MEDICARE, OTHER | LOC: WOUNDCARE 09:32 | PROVIDERS: ATTEND Nurse Practitioner | DX: I87.2 Venous insufficiency (chronic) (peripheral) (principal); L97.212 Non-pressure chronic ulcer of right calf with fat layer exposed; L03.115 Cellulitis of right lower limb | CPT/HCPCS: 15271; 87070; 87075; 87205 ==

== ENCOUNTER → 2018-06-19 | Outpatient (CLI) | payer MEDICARE, OTHER | LOC: WOUNDCARE 09:29 | PROVIDERS: ATTEND Nurse Practitioner | DX: I87.2 Venous insufficiency (chronic) (peripheral) (principal); L97.212 Non-pressure chronic ulcer of right calf with fat layer exposed; L03.115 Cellulitis of right lower limb | CPT/HCPCS: 15271 ==

== ENCOUNTER → 2018-06-26 | Outpatient (CLI) | payer MEDICARE, OTHER | LOC: WOUNDCARE 09:27 | PROVIDERS: ATTEND Nurse Practitioner | DX: I87.2 Venous insufficiency (chronic) (peripheral) (principal); L97.212 Non-pressure chronic ulcer of right calf with fat layer exposed; L03.115 Cellulitis of right lower limb | CPT/HCPCS: 99212 ==

== ENCOUNTER 2018-08-15 05:56 | Emergency (ER) | payer MEDICARE, OTHER ==
[~2018-08-15] VITALS: Ht 162.6 cm; Wt 88.5 kg
--- OUTSIDE RECORDS SUMMARY | 2018-08-15 06:11 | XMS REPORT | Encounter Summary ---
Author Author [facility] Organization [facility] Address Unknown Phone Unavailable Care Team Providers Care Rubber Stamp Dies Inspector Name Role Phone Jadiel Cain MD PCP Khalida Garcia RN Unavailable Unavailable Reason for Visit * Reason Comments Results CAROLYNN Encounter Details Care Team Description Date Type Department Christine Harding RN Results (CAROLYNN) 07/01/2018 Telephone Cardiovascular Medicine [facility] [place] [address] Social History Date Tobacco Use Types Packs/Day Years Used Quit: 02/03/2000 Former Smoker Smokeless Tobacco: Never Used Alcohol Use Drinks/Week oz/Week Comments No Very Rarley Sex Assigned at Date Recorded Not on file Industry Job Start Date Occupation Not on file Not on file Not on file Travel End Travel History Travel Start No recent travel history available. as of this encounter Functional Status Date of Assessment Functional Status Response 03/06/2016 Does the patient have a hearing impairment: No as of this encounter Miscellaneous Notes * Telephone Encounter - Christine Harding RN - 07/01/2018 12:50 PM CDT Called patient with CAROLYNN results and preliminary recommendations. Patient understands Dr. Mcdonnell is out of the office this week. She knows to expect a call from either our office or Dr. Mcdonnell's office no later than next week. Routing note to Dr. Mcdonnell's nurses to keep them in the loop. * Telephone Encounter - Christine Harding RN - 07/01/2018 12:49 PM CDT Norberto Stone MD Muehlebach, Gregory F, MD Cc: Christine Harding RN Naresh - I looked her CAROLYNN and there is a significant amount of basal septum that looks to be causing an issue. Any options for myectomy from your standpoint? in this encounter Plan of Treatment Not on fileas of this encounter Visit Diagnoses Not on filein this encounter
--- OUTSIDE RECORDS SUMMARY | 2018-08-15 06:11 | XMS REPORT | Encounter Summary ---
Author Author [facility] Organization [facility] Address Unknown Phone Unavailable Care Team Providers Care Training Development Director Name Role Phone Jadiel Cain MD PCP Khalida Garcia RN Unavailable Unavailable Reason for Visit * Reason Comments Medication Refill Encounter Details Care Team Description Date Type Department Christine Harding RN Medication Refill 07/10/2018 Refill Cardiovascular Medicine [facility] [place] [address] Social History Date Tobacco Use Types Packs/Day [...] hearing impairment: No as of this encounter Plan of Treatment Not on fileas of this encounter Visit Diagnoses Not on filein this encounter
--- OUTSIDE RECORDS SUMMARY | 2018-08-15 06:11 | XMS REPORT | Clinical Summary ---
Author Author [facility] Address Unknown Phone Unavailable Care Team Providers Care Teleprinter Installer Name Role Phone Jadiel Cain MD PCP Khalida Garcia RN Unavailable Unavailable Source Comments Some departments are not documenting in the electronic medical record. If you do not see the information that you expected, contact Release of Information in the Health Information Management department at [phone] for further assistance in locating additional records.[facility] Allergies Comments Active Allergy Reactions Severity Noted Date Hydrocodone ITCHING Medium 02/18/2018 Severe dizziness and tiredness Dronedarone SEE COMMENTS Low 10/21/2015 Urinary retention Disopyramide SEE COMMENTS Low 04/02/2017 Medications End Date Status Medication Sig Dispensed Refills Start Date Active coQ10 (ubiquinol) 100 mg Take 1 Cap by 0 cap mouth daily. Active vitamins, multiple cap Take 1 Cap by 0 mouth daily. Active KRILL OIL PO Take 1 Cap by 0 mouth daily. Active L. RHAMNOSUS GG/INULIN Take 2 Doses 0 (CULTURELLE PROBIOTICS by mouth PO)Indications: Raw daily. Probiotics or Vlad Indications: Raw Probiotics or Vlad Active other Take 1 Dose 0 medicationIndications: by mouth Magnesium L-Threonate daily. Active loratadine (CLARITIN) 10 Take 10 mg by 0 mg tablet mouth daily. Active potassium chloride(+) Take 1 Cap by 90 Cap 3 (MICRO-K) 10 mEq capsule mouth daily. 6 Take with a meal and a full glass of water. Active zolpidem (AMBIEN) 10 mg Take 10 mg by 0 tablet mouth at bedtime as needed for Sleep. Active albuterol (VENTOLIN HFA, Inhale 2 3 Inhaler 3 PROAIR HFA, PROVENTIL Puffs by 7 HFA) 90 mcg/actuation mouth into inhaler the lungs every 6 hours as needed for Wheezing or Shortness of Breath. Shake well before use. Active rivaroxaban (XARELTO) 20 Take 1 Tab by 30 Tab 0 mg tabletIndications: mouth daily 7 HOCM (hypertrophic with obstructive breakfast. cardiomyopathy) (HCC), 03/01/17 Paroxysmal atrial Resume 4 fibrillation (HCC), hours post Essential hypertension hemostasis post cardiac cath this evening. Take at or after 8 pm this evening. Active diltiazem SR (+) (TIAZAC) Take one 30 capsule 11 360 mg capsule capsule by 8 mouth daily. Active pantoprazole DR Take one 80 tablet 0 (PROTONIX) 40 mg tablet tablet by 8 mouth twice daily. Active bumetanide (BUMEX) 1 mg Take one 30 tablet 11 tabletIndications: Edema tablet by 8 mouth daily. Active spironolactone Take one 30 tablet 11 (ALDACTONE) 25 mg tablet tablet by 8 mouth daily. Take with food. 08/04/2018 Discontinued furosemide (LASIX) 20 mg Take 1.5 135 tablet 3 tablet tablets by 8 mouth every morning. Active Problems Problem Noted Date Acute on chronic diastolic CHF (congestive heart failure) 06/03/2018 History of phenotyping 05/13/2017 Overview: Genetic testing for HCM completed through [facility], deletion/duplication analysis and sequencing. [facility] accession number: [id number]. Date specimen obtained: 03/27/17. Result: negative for pathogenic variant. Genes evaluated: ACTC (ACTC1), ACTN2, CAV3, CSRP3, FHL1, GLA, JPH2, LAMP2, MTTG, MTTI, MTTK, MTTQ, MYPBC3, MYH7, MYL2, MYL3, PLN, PRKAG2, TCAP, TNNC1, TNNI3, TNNT2, TPM1, TTR,VCL. Junctional rhythm 04/30/2017 KERNS (dyspnea on exertion) 03/27/2017 Complications of immobility 02/12/2017 Prediabetes 03/08/2016 Anticoagulated - Xarelto 11/28/2015 Claustrophobia 11/28/2015 Persistent atrial fibrillation 10/07/2015 Overview: 08/29/15 Echo: LA size 4.9cm. EF 60%. LV function normal. Moderate MR. 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 No PE, PA pressure 40mmHg. 04/02/17 Successful direct current cardioversion from atrial fibrillation to sinus rhythm 04/30/17 ZioPatch: A ZIO Patch was worn for 11 days 5 hours. The rhythm is sinus at 46-90 BPM with a mean of 58 BPM. There are 2.6% isolated APDs (almost 24,000 beats). There are 111 atrial couplets and 5 triplets. There are 6 runs of tachycardia that range from 6 to 9 beats in duration. These are at a rate of about 140-150 BPM. Some of the SVT shows aberrancy, but there are narrow beats in it and there seems to be deformation of the T-wave in the beat before these runs of tachycardia, so I believe this is atrial with aberrancy and not ventricular, although I cannot state that with 100% certainty. There is a single isolated PVC. First-degree AV block is noted throughout. There is no second-degree block. There are no pauses. I do not see atrial fibrillation or atrial flutter. 04/21/18 Holter: An ambulatory Holter recording was started on 04/21/2018 1:55:06 PM with a duration of 48:00:00 hours. The average heart rate was 59 bpm during the day, 56 bpm at night and 58 bpm over the complete recording. The maximum heart rate was 86 bpm at d3 10:12:03. The minimum heart rate was 49 bpm at d2 00:58:42. The predominating rhythm was Sinus Bradycardia with Wide QRS Complexes. Frequent Supraventricular Ectopic Beats were observed including Couplets, Triplets and rare runs of PAC's. Rare Ventricular Ectopic Beats were recognized. No Tachycardic Events were demonstrated. No Bradycardic Events were noted. No Heart Blocks were present. No Pauses 2.0 seconds or greater in duration were detected. 05/22/18 Successful direct current cardioversion from atrial fibrillation to sinus rhythm Essential hypertension 10/07/2015 History of embolic stroke 10/07/2015 Overview: 08/29/15: Carotid duplex: Normal with no atherosclerotic lesions. HOCM (hypertrophic obstructive cardiomyopathy) 10/07/2015 Overview: 03/06/16 Successful alcohol septal ablation of the first septal molybdenum steamer operator, with a significant improvement in the LVOT obstruction at rest, as well as with PVC and Valsalva - Dr. Stone 07/10/16 Echo: Normal ejection fraction, LVEF% 60%. Probably grade II (moderate) left ventricular diastolic dysfunction. Moderate mitral valve regurgitation. Mild tricuspid regurgitation. Normal pulmonary artery pressure with estimated systolic PAP=30mm Hg. Mildly increased LVOT gradient at rest (18 mmHg) and with Valsalva (~ 26 mmHg) 03/22/17 Echo: Normal LV cavity size with moderate concentric LVH and normal systolic function, EF ~ 60-65%. There is subvalvular mitral apparatus systolic anterior motion (DEBBY), best appreciate in parasternal long and M-mode imaging. There is LVOT turbulence by color Doppler. At rest, peak LVOT gradient=23 mmHg; With valsalva, peak LVOT gradient=27 mmHg. Diastolic function is normal according to the most recent guideline update. Normal right ventricle size and qualitative systolic function. Although the objective measurements of the left atrium are mildly enlarged, qualitatively the size is moderate-severely dilated. Interatrial septum persistent bows towards the right atrium, likely indicative of increased left atrial pressureThere is mild mitral annular calcification without stenosis. Mild regurgitation is likely secondary to DEBBY. Aortic valve is sclerotic without stenosis and trace regurgitation. Estimated peak systolic PA pressure=27 mmHg 03/04/17 LHC: Hypertrophic obstructive cardiomyopathy with a [id number] gradient with amyl nitrate of 40 mmHg 03/21/17 TC-PYP Cardiac Amyloid: This study is not suggestive of ATTR cardiac amyloidosis and is negative. There appears to be blood pool activity but no significant myocardial uptake. The calculated heart/contralateral lung ratio is in the low equivocal zone but there appears to be no convincing evidence for myocardial uptake of tracer qualitatively. A negative scan does not exclude AL amyloidosis. 04/21/18 Echo: Left Ventricle: Normal size. Normal ejection fraction. Technically very difficult study, unable to visualize basal septum or presence of Mitral DEBBY (s/p Septal Myomectomy), Peak gradient of 46mmHg, increases to 69mmhg with valsalva. Elevated left atrial pressure. Right Ventricle: Normal size and ejection fraction. Aortic Valve: Mildly calcified aortic valve without significant stenosis. No regurgitation. Estimated Peak Systolic PA Pressure: 39 mmHg Encounters Care Team Description Date Type Specialty Christine Harding RN Labs Only (BMP) 08/11/2018 Documentation Cardiology Christine Harding RN Ankle swelling 08/11/2018 Telephone Cardiology Norberto Stone MD Cardiac Eval (2 month f/u- HOCM, afib, discuss ablation) 08/04/2018 Office Visit Cardiology Jarocho Boles RN Results 07/11/2018 Telephone Cardiothoracic Surgery Christine Harding RN Results (CAROLYNN - pt calling for results) 07/10/2018 Telephone Cardiology Christine Harding RN Medication Refill 07/10/2018 Refill Cardiology Christine Harding RN Results (CAROLYNN) 07/01/2018 Telephone Cardiology Alex Bailey MD 06/25/2018 Anesthesia Cardiology Event Camilo Yanes MD 06/25/2018 Hospital Cardiology Encounter Christine Harding RN Appointment Request (post CAROLYNN) 06/25/2018 Telephone Cardiology Eliana Angelo RN Pre-Procedure Instructions 06/24/2018 Telephone Cardiology Jennifer Parekh RN Other (LM to c/b for cta instructions) 06/18/2018 Documentation Cardiology Mike Loya RN Precertification (Medicare) 06/16/2018 Documentation Cardiology Norberto Stone MD Cardiac Eval (wants to discuss A-fib management ) 06/13/2018 Office Visit Cardiology Grover Mcdonnell MD HOCM (hypertrophic obstructive cardiomyopathy) (HCC) (Primary Dx) 06/10/2018 Office Visit Cardiothoracic Surgery Daisha Choudhury RN Medication Update (checking to see how soon it will be before the donut hole) 06/09/2018 Telephone Cardiology Olga Villanueva RN Patient Questions (ulcer and sleep study) 06/06/2018 Telephone Cardiology Kim May RN Persistent atrial fibrillation (HCC) (Primary Dx) 06/04/2018 Orders Only Cardiology Kim May RN Other (CTA requested) 06/04/2018 Telephone Cardiology Camilo Yanes MD Persistent atrial fibrillation (HCC) 06/04/2018 Prep for Case Cardiology Camilo Yanes MD Atrial fibrillation (Discuss AFib Ablation); New To Provider (Referred by LDB/MAW ) 06/02/2018 Office Visit Cardiology Christine Harding RN Atrial fibrillation 05/26/2018 Telephone Cardiology Christine Harding RN Results (holter) 05/23/2018 Documentation Cardiology Gogo Sena MD 05/22/2018 Anesthesia Cardiology Event Minal PelletierAMELIA 05/22/2018 Hospital Cardiology Encounter Eufemia Rooney Pre-Certification (Approval) 05/22/2018 Documentation Cardiology Aury Schneider RN Pre-Procedure Instructions (DCCV scheduled for 05/22/2018) 05/21/2018 Telephone Cardiology Aury Schneider RN Paroxysmal atrial fibrillation (Primary Dx) 05/21/2018 Orders Only Cardiology Christine Harding RN Paroxysmal atrial fibrillation (HCC) (Primary Dx) 05/19/2018 Pre-Admit Cardiology Orders Only Christine Harding RN Atrial fibrillation 05/19/2018 Telephone Cardiology from Last 3 Months Family History Medical History Relation Name Comments Coronary Artery Disease Father Sudden Cardiac Father Coronary Artery Disease Mother High Cholesterol Mother Hypertension Mother Relation Name Status Comments Father Mother Social History Date Tobacco Use Types Packs/Day Years Used Quit: 02/03/2000 Former Smoker Smokeless Tobacco: Never Used Alcohol Use Drinks/Week oz/Week Comments No Very Rarley Sex Assigned at Date Recorded Not on file Industry Job Start Date Occupation Not on file Not on file Not on file Travel End Travel History Travel Start No recent travel history available. Last Filed Vital Signs Time Taken Vital Sign Reading 08/04/2018 11:04 AM EMPLOYMENT CASE MANAGER Blood Pressure 120/80 08/04/2018 11:04 AM EMPLOYMENT CASE MANAGER Pulse 60 03/01/2017 6:45 PM CDT Temperature 36.7 C (98.1 F) - Respiratory Rate - 06/25/2018 9:41 AM CDT Oxygen Saturation 92% - Inhaled Oxygen - Concentration 08/04/2018 11:04 AM EMPLOYMENT CASE MANAGER Weight 93.9 kg (207 lb) 08/04/2018 11:04 AM EMPLOYMENT CASE MANAGER Height 162.6 cm (5' 4") 08/04/2018 11:04 AM EMPLOYMENT CASE MANAGER Body Mass Index 35.53 Plan of Treatment Health Maintenance Due Date Last Done Comments HEPATITIS C SCREENING 1951 PHYSICAL (COMPREHENSIVE) 1958 EXAM DILATED EYE EXAM 1969 DTAP/TDAP VACCINES (1 - 1969 Tdap) FOOT EXAM 1969 MICROALBUMIN 1969 BREAST CANCER SCREENING 1991 COLORECTAL CANCER 2001 SCREENING SHINGLES RECOMBINANT 2001 VACCINE (1 of 2) HBA1C 04/03/2016 10/04/2015 OSTEOPOROSIS 2016 SCREENING/MONITORING PNEUMONIA (PCV13/PPSV23) 2016 VACCINES (1 of 2 - PCV13) INFLUENZA VACCINE 04/02/2018 Procedures Comments Procedure Name Priority Date/Time Associated Diagnosis BASIC METABOLIC PANEL Routine 08/11/2018 HOCM (hypertrophic obstructive cardiomyopathy) (HCC) Acute on chronic diastolic CHF (congestive heart failure) (HCC) ECG-SCAN 07/30/2018 8:30 AM EMPLOYMENT CASE MANAGER ECG-SCAN 07/30/2018 8:30 AM EMPLOYMENT CASE MANAGER ECG-SCAN 06/27/2018 3:29 PM CDT CAROLYNN W/O CONTRAST Routine 06/25/2018 Persistent atrial 9:06 AM CDT fibrillation (HCC) ECG-SCAN 06/05/2018 8:00 AM CDT ECG/QRS Routine 06/02/2018 ECG-SCAN 05/29/2018 4:23 PM CDT CARDIOVERSION, EXTERNAL Routine 05/22/2018 Paroxysmal atrial 11:36 AM CDT fibrillation (HCC) POC POTASSIUM 05/22/2018 10:44 AM CDT ECG 12-LEAD Routine 05/22/2018 10:19 AM CDT ECG 12-LEAD Routine 05/22/2018 10:19 AM CDT from Last 3 Months Results * BASIC METABOLIC PANEL (08/11/2018) Sodium 143 [facility] [place] Potassium 3.9 [facility] [place] Chloride 106 [facility] [place] CO2 28 [facility] [place] Blood Urea Nitrogen 12 [facility] [place] Creatinine 1.0 [facility] [place] Glucose 131 (H) [facility] [place] Calcium 10.1 [facility] [place] eGFR Non 59 (L) >60 [facility] [place] eGFR [facility] [place] Anion Gap 13 [facility] [place] Specimen Blood - Blood Narrative Performed At Performing Organization Address City/State/Zipcode Phone Number [facility] [address] , [place] [address] 10A * ECG-SCAN (07/30/2018 8:30 AM EMPLOYMENT CASE MANAGER) Narrative Performed At Ordered by an unspecified provider. * ECG-SCAN (07/30/2018 8:30 AM EMPLOYMENT CASE MANAGER) Narrative Performed At Ordered by an unspecified provider. * ECG-SCAN (06/27/2018 3:29 PM CDT) Narrative Performed At Ordered by an unspecified provider. * TRANSESOPHAGEAL ECHOCARDIOGRAM (06/25/2018 9:06 AM CDT) BSA 2.03 m2 [facility] CV ECHO PV LEARNING SUPPORT RESOURCE ROOM TEACHER PHILLIP Ch OTHER OUTSIDE LAB Cardiology Ultrasound Siemens [id number] OTHER [facility] Machine Vn Nyquist 0.32 m/s OTHER [facility] LAB Radius 0.6 cm OTHER [facility] Mr max kamaljit 5.2 m/s OTHER [facility] ECHO EF 55 % OTHER [facility] MR PISA EROA 0.14 cm2 OTHER [facility]SIDE LAB MV vena contracta 0.27 cm OTHER OUTSIDE LAB Narrative Performed At OTHER OUTSIDE LAB 1. The ventricular septum is imaged at various angles on the Omniplane. In image #50 taken at 135 degrees on the Omniplane, the basal septum measures approximately 1.5 cm in diameter, the site of prior apparent septal alcohol ablation measures approximately 0.84 cm in diameter, the mid ventricular septum distal to the ablation site measures approximately 1.7 cm in diameter and the apical septum measures approximately 1.3 cm in diameter.Evidence for systolic anterior motion of the mitral valve can be seen in image #59.The peak transaortic velocity, taken in the transgastric view with the patient under sedation, appears to be approximately 2.1 m/s suggesting a peak gradient of 18 mmHg. 2. Contractility appears to vary with variable diastolic filling periods. There appears to be a septal wall motion abnormality, possibly consistent with prior septal alcohol ablation. No other regional wall motion abnormalities are seen. Overall LV systolic function appears normal. The estimated left ventricular ejection fraction is 55%. 3. Right ventricular contractility appears normal. 4. Severe left atrial enlargement.Mild right atrial enlargement. 5. Moderate mitral valve regurgitation.Mild tricuspid valve regurgitation. 6. No pericardial effusion is seen. 7. No thrombus is noted in the left atrial appendage or the left atrium. 8. A patent foramen ovale is demonstrated by color flow Doppler. Performing Organization Address City/State/Zipcode Phone Number OTHER OUTSIDE LAB * ECG-SCAN (06/05/2018 8:00 AM CDT) Narrative Performed At Ordered by an unspecified provider. * ECG/QRS (06/02/2018) QRS DURATION 148 OTHER [facility] Performing Organization Address City/State/Zipcode Phone Number OTHER OUTSIDE LAB * ECG-SCAN (05/29/2018 4:23 PM CDT) Narrative Performed At Ordered by an unspecified provider. * CARDIOVERSION, EXTERNAL (05/22/2018 11:36 AM CDT) Narrative Performed At OTHER OUTSIDE LAB DATE OF PROCEDURE: 05/22/2018 PROCEDURES PERFORMED Direct current synchronized cardioversion (200 joules biphasic current with Medtronic LifePak 12 Biphasic Defibrillator). INDICATIONS The patient is a 68 y.o. year old patient with symptomatic atrial fibrillation. Patient is chronically anticoagulated with Xarelto. ANESTHESIA Monitored Anesthesia Care supervised by Anesthesiology Staff. INFORMED CONSENT The planned procedure including conscious sedation was explained at length with patient. This included a detailed description of the procedure, procedure rationale, risks, benefits, & available alternatives. Ample time was allowed for feedback. Patient's questions were addressed and answered. Pt verbalized understanding and wished to proceed. Written informed consent was signed by the patient and was placed in the patient's chart as part of their permanent medical record. PROCEDURAL DETAILS Anesthesiology staff physician was present and supervised sedation & anesthesia.Heart rate, blood pressure, pulse oximetry, telemetry monitoring, and level of consciousness were monitored by myself, anesthesiology, and nursing staff. Cardioverter pads were placed with the anterior pad in the right parasternal position & the posterior pad in the left parasternal position. After adequate sedation, a synchronized 200 joules biphasic current was delivered to the patient with subsequent conversion to sinus rhythm.This was confirmed on 12 lead ECG. There were no procedural complications. Post-procedure, the patient was neurologically intact and hemodynamically stable. Aftercare and follow-up instructions were provided to the patient. CONCLUSIONS Successful direct current cardioversion from atrial fibrillation to sinus rhythm. Performing Organization Address City/State/Zipcode Phone Number OTHER OUTSIDE LAB * POC POTASSIUM (05/22/2018 10:44 AM CDT) Potassium-POC 3.7 3.5 - 5.1 MMOL/L [facility] Performing Organization Address City/State/Zipcode Phone Number [facility] [address] [place] [address] from Last 3 Months Insurance Payer Benefit Subscriber ID Type Phone Address Plan / Group MEDICARE MEDICARE xxxxxxxxxxx Medicare PART A AND B CIGNA CIGNA xxxxxxxxxx Medicare MEDICARE SUPPLEMENT Advance Directives Patient has advance care planning documents, and code status on file. For more information, please contact: [facility] [address] [place] [address] Date Inactivated Comments Code Status Date Activated 03/09/2016 12:59 PM Full Code 03/06/2016 10:31 AM Provider has discussed Code Status No, more discussion w/Patient or Family? needed 11/30/2015 6:05 PM Full Code 11/28/2015 1:21 PM Provider has discussed Code Status No, more discussion w/Patient or Family? needed
--- OUTSIDE RECORDS SUMMARY | 2018-08-15 06:11 | XMS REPORT | Encounter Summary ---
Author Author [facility] Organization [facility] Address Unknown Phone Unavailable Care Team Providers Care Circular Saw Operator Name Role Phone Jadiel Cain MD PCP Khalida Garcia RN Unavailable Unavailable Reason for Visit * Reason Comments Labs Only BMP Encounter Details Care Team Description Date Type Department Christine Harding RN Labs Only (BMP) 08/11/2018 Documentation Cardiovascular Medicine [facility] [place] [address] Social History Date Tobacco Use [...] Treatment Not on fileas of this encounter Procedures Comments Procedure Name Priority Date/Time Associated Diagnosis BASIC METABOLIC PANEL Routine 08/11/2018 HOCM (hypertrophic obstructive cardiomyopathy) (HCC) Acute on chronic diastolic CHF (congestive heart failure) (HCC) in this encounter Results * BASIC METABOLIC PANEL (08/11/2018) Sodium 143 [facility] [place] Potassium 3.9 [facility] [place] Chloride 106 [facility] [place] CO2 28 [facility] [place] Blood Urea Nitrogen 12 [facility] [place] Creatinine 1.0 [facility] [place] Glucose 131 (H) [facility] [place] Calcium 10.1 [facility] [place] eGFR Non 59 (L) >60 [facility] [place] eGFR [facility] [place] Anion Gap 13 [facility] [place] Specimen Blood - Blood Narrative Performed At Performing Organization Address City/State/Zipcode Phone Number [facility] [place] [address] [place] [address] 10A in this encounter Visit Diagnoses Diagnosis HOCM (hypertrophic obstructive cardiomyopathy) (HCC) Hypertrophic obstructive cardiomyopathy Acute on chronic diastolic CHF (congestive heart failure) (HCC) Acute on chronic diastolic heart failure in this encounter
--- OUTSIDE RECORDS SUMMARY | 2018-08-15 06:11 | XMS REPORT | Encounter Summary ---
Author Author [facility] Organization [facility] Address Unknown Phone Unavailable Care Team Providers Care Design Engineering Specialist Name Role Phone Jadiel Cain MD PCP Khalida Garcia RN Unavailable Unavailable Reason for Visit * Reason Comments Ankle swelling Encounter Details Care Team Description Date Type Department Christine Harding RN Ankle swelling 08/11/2018 Telephone Cardiovascular Medicine [facility] [place] [address] Social History Date Tobacco Use [...] Telephone Encounter - Christine Harding RN - 08/13/2018 3:36 PM QUALITY CONTROL ANALYST Spoke with patient. The BID bumex dosing is improving her LE swelling. One leg is almost completely resolved. She will take another day or two of BID dosing then resume 1 mg daily. She will not hesitate to call if any questions/ concerns. ITY CONTROL ANALYST * Telephone Encounter - Christine Harding RN - 08/11/2018 4:36 PM QUALITY CONTROL ANALYST Discussed with Dr. Stone. Increase Bumex to 1 mg BID. Spoke with patient. She is agreeable. She will take her afternoon dose at 1PM to assist with nighttime urinary frequency. She will call back on Saturday to let us know how she is doing. We will plan for a repeat BMP at [facility] next week. ITY CONTROL ANALYST * Telephone Encounter - Christine Harding RN - 08/11/2018 3:54 PM QUALITY CONTROL ANALYST Patient left a message on the nurse line today indicating her bilateral LE swelling has not improved at all since medication changes were made one week ago. Lasix and potassium were discontinued. Bumex 1 mg daily was initiated. Spironolactone 25 mg daily was also added. Patient states she still is unable to tie her shoes due to the swelling. She had a repeat BMP today. Results show creatinine is 1.0 and K+ is 3.9. NA 143. Routing note to Dr. Stone for input. ITY CONTROL ANALYST in this encounter Plan of Treatment Not on fileas of this encounter Visit Diagnoses Not on filein this encounter
--- OUTSIDE RECORDS SUMMARY | 2018-08-15 06:11 | XMS REPORT | Encounter Summary ---
Author Author [facility] Organization [facility] Address Unknown Phone Unavailable Care Team Providers Care Pot Firer Name Role Phone Jadiel Cain MD PCP Khalida Garcia RN Unavailable Unavailable Reason for Visit * Reason Comments Results CAROLYNN - pt calling for results Encounter Details Care Team Description Date Type Department Randy Hood RN Results (CAROLYNN - pt calling for results) 07/10/2018 Telephone Cardiovascular Medicine [facility] [place] [address] Social History Date Tobacco Use [...] as of this encounter Miscellaneous Notes * Addendum Note - Randy Hood RN - 07/31/2018 4:49 PM RESIDENTIAL NURSE Addended by: RANDY HOOD on: 07/31/2018 04:49 PM Modules accepted: Orders DENTIAL NURSE * Telephone Encounter - Randy Hood RN - 07/31/2018 4:13 PM RESIDENTIAL NURSE Discussed with Dr. Stone in clinic today. His recommendation is for patient to proceed with a-fib ablation with Dr. Yanes. Connected with patient over the phone and reviewed recommendations. Patient verbalizes an understanding but would like to meet with Dr. Stone in clinic to discuss further. Offered patient several appt dates/times in the next couple of weeks. She will check with her friend (transportation) to see which date will work best. She will call back tomorrow to let us know. Incidentally patient mentions she is having increased bilateral LE swelling and decreased urine output. She denies worsening SOB. Faxing a BMP/BNP lab order to [facility] in [place] . DENTIAL NURSE * Telephone Encounter - Randy Hood RN - 07/31/2018 4:10 PM RESIDENTIAL NURSE Grover Mcdonnell MD Wiley, Norberto Cerrato MD Cc: Randy Hood RN I reviewed echo and septum is less than 1.5cm which does not kristy well for surgical resection. GM DENTIAL NURSE * Telephone Encounter - Randy Hood RN - 07/11/2018 7:59 AM RESIDENTIAL NURSE Patient called 07/[address] Mcdonnell has had the chance to review her CAROLYNN results. Advised patient I would send a message to Dr. Mcdonnell 's nurses to please check into this and notify patient with the recommendations/ plan. DENTIAL NURSE in this encounter Plan of Treatment Order Schedule Name Priority Associated Diagnoses Expected: 07/31/2018 (Approximate), Expires: 07/31/2019 BASIC METABOLIC PANEL Routine HOCM (hypertrophic obstructive cardiomyopathy) (HCC) Persistent atrial fibrillation (HCC) Expected: 07/31/2018 (Approximate), Expires: 07/31/2019 BNP (B-TYPE NATRIURETIC PEPTI) Routine HOCM (hypertrophic obstructive cardiomyopathy) (HCC) Essential hypertension as of this encounter Visit Diagnoses Diagnosis HOCM (hypertrophic obstructive cardiomyopathy) (HCC) - Primary Hypertrophic obstructive cardiomyopathy Persistent atrial fibrillation (HCC) Atrial fibrillation Essential hypertension Unspecified essential hypertension in this encounter
--- OUTSIDE RECORDS SUMMARY | 2018-08-15 06:11 | XMS REPORT | Encounter Summary ---
Author Author [facility] Organization [facility] Address Unknown Phone Unavailable Care Team Providers Care Truck Driver Helper Name Role Phone Jadiel Cain MD PCP Khalida Garcia RN Unavailable Unavailable Reason for Referral * (Routine) Referred By Contact Referred To Contact Status Reason Specialty Diagnoses / Procedures Norberto Stone MD [address] [employer] [facility] [address] [place] [address] New Request Procedures REQUEST FOR CARDIOLOGY APPOINTMENT Reason for Visit * Reason Comments Cardiac Eval 2 month f/u- HOCM, afib, discuss ablation Encounter Details Care Team Description Date Type Department Norberto Stone MD [address] [facility] [address] [place] [address] Cardiac Eval (2 month f/u- HOCM, afib, discuss ablation) 08/04/2018 Office Visit Cardiovascular Medicine [place] [address] [address] [place] [address] Social History Date Tobacco Use [...] travel history available. as of this encounter Last Filed Vital Signs Time Taken Vital Sign Reading 08/04/2018 11:04 AM ELECTRICAL TESTS SUPERVISOR Blood Pressure 120/80 08/04/2018 11:04 AM ELECTRICAL TESTS SUPERVISOR Pulse 60 - Temperature - - Respiratory Rate - - Oxygen Saturation - - Inhaled Oxygen - Concentration 08/04/2018 11:04 AM ELECTRICAL TESTS SUPERVISOR Weight 93.9 kg (207 lb) 08/04/2018 11:04 AM ELECTRICAL TESTS SUPERVISOR Height 162.6 cm (5' 4") 08/04/2018 11:04 AM ELECTRICAL TESTS SUPERVISOR Body Mass Index 35.53 in this encounter Functional Status Date of Assessment Functional Status Response 03/06/2016 Does the patient have a hearing impairment: No as of this encounter Patient Instructions * Patient Instructions* Norberto Stone MD - 08/04/2018 10:45 AM ELECTRICAL TESTS SUPERVISOR Stop the Lasix Start Bumex 1mg daily Start Spironolactone 25mg daily Hold you potassium Lets follow up in a month TRICAL TESTS SUPERVISOR in this encounter Progress Notes * Norberto Stone MD - 08/04/2018 10:45 AM ELECTRICAL TESTS SUPERVISOR Date of Service: 08/04/2018 Marilou Cruz is a 68 y.o. female. HPI Mrs. Cruz is a 68-year-old female with a history of hypertrophic cardiomyopathy. We have been working to optimize her symptoms and recently obtained a transesophageal echo which suggested an interventricular septum less than 1.5 cm. She was seen by cardiothoracic surgery and was felt not to be a good candidate for septal reduction via a surgical approach. Overall, we have had some difficulties managing her symptoms and does not clearly fit with the severity of her outflow tract obstruction. We did discuss continuing to work with medications to optimize her. Vitals: 08/04/18 1104 BP: 120/80 Pulse: 60 Weight: 93.9 kg (207 lb) Height: 1.626 m (5' 4") Body mass index is 35.53 kg/m. Past Medical History Patient Active Problem List Diagnosis Date Noted Acute on chronic diastolic CHF (congestive heart failure) (HCC) 06/03/2018 History of phenotyping 05/13/2017 Genetic testing for HCM completed through [employer], deletion/duplication analysis and sequencing. [employer] accession number: [id number]. Date specimen obtained: 03/27/17. Result: negative for pathogenic variant. Genes evaluated: ACTC (ACTC1), ACTN2, CAV3, CSRP3, FHL1, GLA, JPH2, LAMP2, MTTG, MTTI, MTTK, MTTQ , MYPBC3, MYH7, MYL2, MYL3, PLN, PRKAG2, TCAP, TNNC1, TNNI3, TNNT2, TPM1, TTR, VCL. Junctional rhythm 04/30/2017 KERNS (dyspnea on exertion) 03/27/2017 Complications of immobility 02/12/2017 Prediabetes 03/08/2016 Anticoagulated - Xarelto 11/28/2015 Claustrophobia 11/28/2015 Persistent atrial fibrillation (HCC) 10/07/2015 08/29/15 Echo: LA size 4.9cm. EF 60%. [...] heart rate was 49 bpm at d2 00 :58:42. The predominating rhythm was Sinus Bradycardia with [...] hypertension 10/07/2015 History of embolic stroke 10/07/2015 08/29/15: Carotid duplex: Normal with no atherosclerotic lesions. 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 Mild regurgitation is likely secondary to DBEBY. Aortic valve is sclerotic without stenosis and trace regurgitation. Estimated peak systolic PA pressure=27 mmHg 03/04/17 LHC: Hypertrophic obstructive cardiomyopathy with a [id number] gradient with amyl nitrate of 40 mmHg [...] Estimated Peak Systolic PA Pressure: 39 mmHg Review of Systems Constitution: Negative. HENT: Positive for congestion and tinnitus. Eyes: Positive for photophobia. Cardiovascular: Positive for dyspnea on exertion, irregular heartbeat and leg swelling. Respiratory: Positive for cough, shortness of breath and sputum production. Endocrine: Negative. Hematologic/Lymphatic: Bruises/bleeds easily. Skin: Negative. Musculoskeletal: Positive for arthritis, back pain, joint pain and stiffness. Gastrointestinal: Negative. Genitourinary: Negative. Neurological: Negative. Psychiatric/Behavioral: The patient has insomnia. Allergic/Immunologic: Negative. All other systems reviewed and are negative. Physical Exam Physical Exam General Appearance: alert and oriented, no acute distress Skin: warm, moist, no ulcers Head: normocephalic, symmetric Eyes: EOMI, PERRL, sclera are clear and without icterus ENT: unremarkable, nares patent Neck Veins: neck veins are flat, neck veins are not distended Carotid Arteries: normal carotid upstroke bilaterally, no bruits Chest Inspection: chest is normal in appearance Auscultation/Percussion: lungs clear to auscultation, no rales, rhonchi, wheezes or friction rub appreciated Cardiac Rhythm: regular rhythm and normal rate Cardiac Auscultation: Normal S1 & S2, no S3 or S4, no rub - normal pmi Murmurs: 1/6 LINDA RUSB Extremities: no lower extremity edema bilaterally; 2+ symmetric distal pulses Muskuloskeletal: no obvious deformity Abdominal Exam: soft, non-tender, no masses, bowel sounds normal Neurologic Exam: neurological assessment grossly intact Mood and Affect: Appropriate Problems Addressed Today Encounter Diagnoses Name Primary? HOCM (hypertrophic obstructive cardiomyopathy) ([facility]) Yes Acute on chronic diastolic CHF (congestive heart failure) ([facility]) Assessment and Plan 1. Hypertrophic obstructive cardiomyopathy -we will continue to work on optimizing her regimen. She is currently on diltiazem 360 mg daily and I like to avoid afterload reduction which may exacerbate her outflow tract obstruction. She does have quite a bit of volume overload and given such, I would like to increase her Lasix to 40 mg daily and add spironolactone 25 mg daily. We will repeat her basic metabolic profile in a week to ensure her potassium does not significantly increase and I will discontinue her potassium. On her physical exam today, she did not have a significant resting more provokable murmur suggesting the outflow tract obstruction severity is less. 2. Paroxysmal atrial fibrillation -she is currently anticoagulated with Xarelto and we are focusing on rate control. She is fairly consistent with her discussion today stating that she really cannot tell whether or not she is in or out of rhythm. I do feel that the likelihood of maintaining sinus rhythm is low given her underlying structural issues so she may not fully benefit from a symptom standpoint from pulmonary vein isolation for her atrial fibrillation. I would like to see her back within the next couple weeks. Thanks for allowing me to participate in her care. Current Medications (including today's revisions) albuterol (VENTOLIN HFA, PROAIR HFA, PROVENTIL HFA) 90 mcg/actuation inhaler Inhale 2 Puffs by mouth into the lungs every 6 hours as needed for Wheezing or Shortness of Breath. Shake well before use. bumetanide (BUMEX) 1 mg tablet Take one tablet by mouth daily. coQ10 (ubiquinol) 100 mg cap Take 1 Cap by mouth daily. diltiazem SR (+) (TIAZAC) 360 mg capsule Take one capsule by mouth daily. KRILL OIL PO Take 1 Cap by mouth daily. L. RHAMNOSUS GG/INULIN (CULTURELLE PROBIOTICS PO) Take 2 Doses by mouth daily. Indications: Raw Probiotics or Vlad loratadine (CLARITIN) 10 mg tablet Take 10 mg by mouth daily. other medication Take 1 Dose by mouth daily. pantoprazole DR (PROTONIX) 40 mg tablet Take one tablet by mouth twice daily. potassium chloride(+) (MICRO-K) 10 mEq capsule Take 1 Cap by mouth daily. Take with a meal and a full glass of water. rivaroxaban (XARELTO) 20 mg tablet Take 1 Tab by mouth daily with breakfast. 03/01/17 Resume 4 hours post hemostasis post cardiac cath this evening. Take at or after 8 pm this evening. spironolactone (ALDACTONE) 25 mg tablet Take one tablet by mouth daily. Take with food. vitamins, multiple cap Take 1 Cap by mouth daily. zolpidem (AMBIEN) 10 mg tablet Take 10 mg by mouth at bedtime as needed for Sleep. TRICAL TESTS SUPERVISOR in this encounter Plan of Treatment Not on fileas of this encounter Results * BASIC METABOLIC PANEL (08/11/2018) Sodium 143 [facility] [place] Potassium 3.9 [facility] [place] Chloride 106 [facility] [place] [facility]2 [facility] Blood Urea Nitrogen 12 [facility] [place] Creatinine 1.0 [facility] [place] Glucose 131 (H) [facility] [place] Calcium 10.1 [facility] [place] eGFR Non 59 (L) >60 [facility] [place] eGFR [facility] [place] Anion Gap 13 [facility] [place] Specimen Blood - Blood Narrative Performed At Performing Organization Address City/State/Zipcode Phone Number [facility] [address] [place] [address] [phone] in this encounter Visit Diagnoses Diagnosis HOCM (hypertrophic obstructive cardiomyopathy) (HCC) - Primary Hypertrophic obstructive cardiomyopathy Acute on chronic diastolic CHF (congestive heart failure) (HCC) Acute on chronic diastolic heart failure in this encounter
--- OUTSIDE RECORDS SUMMARY | 2018-08-15 06:11 | XMS REPORT | Encounter Summary ---
Author Author [facility] Organization [facility] Address Unknown Phone Unavailable Care Team Providers Care Food Broker Name Role Phone Jadiel Cain MD PCP Khalida Garcia RN Unavailable Unavailable Reason for Visit * Reason Comments Results Encounter Details Care Team Description Date Type Department Jarocho Boles RN Results 07/11/2018 Telephone [facility] [place] [address] Social History Date Tobacco Use [...] encounter Miscellaneous Notes * Telephone Encounter - Jarocho Boles RN - 07/11/2018 1:33 PM STAFF DEVELOPMENT COORDINATOR Spoke with Dr. Mcdonnell regarding follow up on patient's CAROLYNN. He does not feel the myectomy is a good option, and would like her to further discuss with Dr. Stone. Dr. Mcdonnell will update Dr. Stone. Called patient and updated her on results. Patient verbalizes understanding and denies any further questions. Message to PHILLIP Diez with Dr. Stone as an update as well. F DEVELOPMENT COORDINATOR in this encounter Plan of Treatment Not on fileas of this encounter Visit Diagnoses Not on filein this encounter
--- OUTSIDE RECORDS SUMMARY | 2018-08-15 06:12 | XMS REPORT | Encounter Summary ---
Author Author [facility] Organization [facility] Address Unknown Phone Unavailable Care Team Providers Care Nursing Coordinator Name Role Phone Jadiel Cain MD PCP Khalida Garcia RN Unavailable Unavailable Reason for Visit * Reason Comments Appointment Request post CAROLYNN Encounter Details Care Team Description Date Type Department Christine Harding RN Appointment Request (post CAROLYNN) 06/25/2018 Telephone Cardiovascular Medicine [facility] [place] [address] Social History Date Tobacco Use [...] Telephone Encounter - Christine Harding RN - 06/25/2018 11:02 AM CDT Left message for patient with a reminder that Dr. Stone is out of the office this week and the plan is to have him review the CAROLYNN results early next week. Advised patient we would call with the plan once he has reviewed. Provided the direct nursing phone number for her to call if further questions. * Telephone Encounter - Christine Harding RN - 06/25/2018 11:02 AM CDT ----- Message from MICKIE Warner sent at 06/25/2018 9:36 AM CDT ----- Regarding: follow-up with Dr. Stone Patito had her CAROLYNN today. She is questioning when her follow-up with Dr. Stone will be. Could you give her a call, either later today or tomorrow? Thank you. Jing in this encounter Plan of Treatment Not on fileas of this encounter Visit Diagnoses Not on filein this encounter
--- OUTSIDE RECORDS SUMMARY | 2018-08-15 06:12 | XMS REPORT | Encounter Summary ---
Author Author [facility] Organization [facility] Address Unknown Phone Unavailable Care Team Providers Care Wool Hat Finisher Name Role Phone Jadiel Cain MD PCP Khalida Garcia RN Unavailable Unavailable Reason for Referral * Test (Routine) Referred By Contact Referred To Contact Status Reason Specialty Diagnoses / Procedures Camilo Yanes MD [address] [place] [address] [facility] [place] [address] No Auth Needed Cardiology Diagnoses Persistent atrial fibrillation (HCC) P rocedures TRANSESOPHAGEAL ECHOCARDIOGRAM [place] ECHO TRANSESOPHAG R-T 2D W/PRB IMG ACQUISJ I&R * Test (Routine) Referred By Contact Referred To Contact Status Reason Specialty Diagnoses / [place] [address] [place] [address] [facility] [place] [address] No Auth Needed Cardiology Diagnoses Persistent atrial fibrillation (HCC) P rocedures TRANSESOPHAGEAL ECHOCARDIOGRAM MN ECHO TRANSESOPHAG R-T 2D W/PRB IMG ACQUISJ I&R Reason for Visit * Test (Routine) Referred By Contact Referred To Contact Status Reason Specialty Diagnoses / [place] [address] [place] [address] [facility] [place] [address] No Auth Needed Cardiology Diagnoses Persistent atrial fibrillation (HCC) P rocedures TRANSESOPHAGEAL ECHOCARDIOGRAM MN ECHO TRANSESOPHAG R-T 2D W/PRB IMG ACQUISJ I&R Encounter Details Care Team Description Date Type Department Camilo Yanes MD [address] [place] [address] 06/25/2018 Hospital Cardiovascular Medicine Encounter [facility] [place] [address] Social History Date Tobacco Use [...] Vital Signs Time Taken Vital Sign Reading 06/25/2018 9:41 AM CDT Blood Pressure 121/76 06/25/2018 9:41 AM CDT Pulse 106 - Temperature - - Respiratory Rate - 06/25/2018 9:41 AM CDT Oxygen Saturation 92% - Inhaled Oxygen - Concentration 06/25/2018 9:06 AM CDT Weight 91.2 kg (201 lb) 06/25/2018 9:06 AM CDT Height 162.6 cm (5' 4") 06/25/2018 9:06 AM CDT Body Mass Index 34.5 in this encounter Functional Status Date of Assessment Functional Status Response 03/06/2016 Does the patient have a hearing impairment: No as of this encounter Discharge Instructions * Patient Instructions* Adeola Thorpe BSN - 06/25/2018 9:14 AM CDT in this encounter Medications at Time of Discharge Start Date End Date Medication Sig Dispensed Refills 11/30/2016 albuterol (VENTOLIN HFA, Inhale 2 3 Inhaler 3 PROAIR HFA, PROVENTIL Puffs by HFA) 90 mcg/actuation mouth into inhaler the lungs every 6 hours as needed for Wheezing or Shortness of Breath. Shake well before use. coQ10 (ubiquinol) 100 mg Take 1 Cap by 0 cap mouth daily. 06/02/2018 diltiazem SR (+) (TIAZAC) Take one 30 capsule 11 360 mg capsule capsule by mouth daily. KRILL OIL PO Take 1 Cap by 0 mouth daily. L. RHAMNOSUS GG/INULIN Take 2 Doses 0 (CULTURELLE PROBIOTICS by mouth PO)Indications: Raw daily. Probiotics or Vlad Indications: Raw Probiotics or Vlad loratadine (CLARITIN) 10 Take 10 mg by 0 mg tablet mouth daily. other Take 1 Dose 0 medicationIndications: by mouth Magnesium L-Threonate daily. 06/26/[address] Take one 80 tablet 0 (PROTONIX) 40 mg tablet tablet by mouth twice daily. 04/18/2016 potassium chloride(+) Take 1 Cap by 90 Cap 3 (MICRO-K) 10 mEq capsule mouth daily. Take with a meal and a full glass of water. 03/01/2017 rivaroxaban (XARELTO) 20 Take 1 Tab by 30 Tab 0 mg tabletIndications: mouth daily HOCM (hypertrophic with obstructive breakfast. cardiomyopathy) ([facility]), 03/01/17 Paroxysmal atrial Resume 4 fibrillation (HCC), hours post Essential hypertension hemostasis post cardiac cath this evening. Take at or after 8 pm this evening. vitamins, multiple cap Take 1 Cap by 0 mouth daily. zolpidem (AMBIEN) 10 mg Take 10 mg by 0 tablet mouth at bedtime as needed for Sleep. 07/10/2018 furosemide (LASIX) 20 mg Take 30 mg by 0 tablet mouth every morning. as of this encounter Progress Notes * Adeola Thorpe BSN - 06/25/2018 8:22 AM CDT Pre-Operative Assessment for CAROLYNN or Cardioversion Date of Service: 06/25/2018 Marilou Cruz is a 68 y.o. y.o. female. : 1950 Procedure to be performed: CAROLYNN Expected Procedure Date: 06-25-2018 Indication: HOCM Patient appears alert and oriented: Yes NPO: for greater than 8 hours Inpatient IV status: None Isolation status: None Last CAROLYNN date: 02/15/2016 Last Cardioversion date: 06/25/2018 Anticoagulation Results Anticoagulant: rivaroxaban (Xarelto) Missed dose: No Last MAC INR Flow Sheet Entry: Last recorded Lab results: No results found for: INR No results found for: PTT Allergies Allergies Allergen Reactions Hydrocodone ITCHING Multaq [Dronedarone] SEE COMMENTS Severe dizziness and tiredness Norpace [Disopyramide] SEE COMMENTS Urinary retention Vitals Estimated body mass index is 37.98 kg/m as calculated from the following: Height as of this encounter: 1.549 m (5' 1"). Weight as of this encounter: 91.2 kg (201 lb). Diagnostic Tests White Blood Cells Date Value Ref Range Status 02/18/2017 10.08 (H) 5.0 - 10.0 Final Hemoglobin Date Value Ref Range Status 02/18/2017 14.8 Final Hematocrit Date Value Ref Range Status 02/18/2017 44.3 Final Platelet Count Date Value Ref Range Status 02/18/2017 283 Final Sodium Date Value Ref Range Status 02/24/2018 140 Final Potassium Date Value Ref Range Status 02/24/2018 3.9 Final Magnesium Date Value Ref Range Status 03/09/2016 1.8 1.6 - 2.6 MG/DL Final Blood Urea Nitrogen Date Value Ref Range Status 02/24/2018 18 Final Creatinine Date Value Ref Range Status 02/24/2018 0.9 Final Glucose Date Value Ref Range Status 02/24/2018 91 Final Blood Cultures Resulted Micro Last 72 Hrs No results found Echo procedures within the past 30 days: No results found. Device Information on File No results found for: GENERATOR, EPDEVTYP Current Medications Current Outpatient Prescriptions on File Prior to Encounter Medication Sig Dispense Refill albuterol (VENTOLIN HFA, PROAIR HFA, PROVENTIL HFA) 90 mcg/actuation inhaler Inhale 2 Puffs by mouth into the lungs every 6 hours as needed for Wheezing or Shortness of Breath. Shake well before use. 3 Inhaler 3 coQ10 (ubiquinol) 100 mg cap Take 1 Cap by mouth daily. diltiazem SR (+) (TIAZAC) 360 mg capsule Take one capsule by mouth daily. 30 capsule 11 furosemide (LASIX) 20 mg tablet Take 30 mg by mouth every morning. KRILL OIL PO Take 1 Cap by mouth daily. L. RHAMNOSUS GG/INULIN (CULTURELLE PROBIOTICS PO) Take 2 Doses by mouth daily. Indications: Raw Probiotics or Vlad loratadine (CLARITIN) 10 mg tablet Take 10 mg by mouth daily. other medication Take 1 Dose by mouth daily. [START ON 06/26/2018] pantoprazole DR (PROTONIX) 40 mg tablet Take one tablet by mouth twice daily. 80 tablet 0 potassium chloride(+) (MICRO-K) 10 mEq capsule Take 1 Cap by mouth daily. Take with a meal and a full glass of water. 90 Cap 3 rivaroxaban (XARELTO) 20 mg tablet Take 1 Tab by mouth daily with breakfast. 03/01/17 Resume 4 hours post hemostasis post cardiac cath this evening. Take at or after 8 pm this evening. 30 Tab vitamins, multiple cap Take 1 Cap by mouth daily. zolpidem (AMBIEN) 10 mg tablet Take 10 mg by mouth at bedtime as needed for Sleep. No current facility-administered medications on file prior to encounter. Past Medical History Past Medical History: Diagnosis Date Anticoagulated - Xarelto 11/28/2015 Claustrophobia 11/28/2015 CVA, old, hemiparesis (HCC) Essential hypertension 10/07/2015 History of embolic stroke 10/07/2015 08/29/15: Carotid duplex: Normal with no atherosclerotic lesions. HOCM (hypertrophic obstructive cardiomyopathy) ([facility]) HTN (hypertension) Hypertrophic cardiomyopathy ([facility]) 10/07/2015 PAF (paroxysmal atrial fibrillation) ([facility]) Paroxysmal atrial fibrillation 10/07/2015 08/29/15: Echo: LA size 4.9cm. EF 60%. LV function normal. Moderate MR. 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 No PE, PA pressure 40mmHg. Type 2 diabetes mellitus without complication ([facility]) 02/03/2016 Past Surgical History Past Surgical History: Procedure Laterality Date HX BACK SURGERY HX HYSTERECTOMY HX JOINT REPLACEMENT bilat knees HX TONSILLECTOMY Social History Social History Substance Use Topics Smoking status: Former Smoker Quit date: 02/03/2000 Smokeless tobacco: Never Used Alcohol use No Comment: David Croft Additional Comments: None Probe Assessment (only for CAROLYNN procedures): Positive for: GERD Sedation Assessment: Positive for: COPD / Asthma, Sleep Apnea/DANUTA and Smoker * Adeola Thorpe BSN - 06/25/2018 8:21 AM CDT Peripheral IV Insertion Note: Patient Side: left Line Orientation:Forearm IV Catheter Size: 22G Number of Attempts:1. IV capped and flushed with Normal Saline. IV site without redness, swelling, or pain. New dressing placed. After procedure IV cannula removed intact and hemostasis achieved. * Adeola Thorpe BSN - 06/25/2018 8:20 AM CDT Care Plan Care Category & Patient Outcome Goal Met Treatment/ Interventions Plan of the Day RN Name Cardiovascular Hemodynamic stability and adequate peripheral perfusion. Yes Refer to patient's chart. Monitor VS per sedation standard. Monitor ECG continuously. Assess/maintain IV patency. MICKIE Warner Respiratory Patent airway, ease of respiration, and adequate oxygenation. Yes Refer to patient's chart. Maintain open airway. Assess respirations. Monitor O2 saturations. Titrate O2 to keep sat>=95% or baseline. MICKIE Warner Psychological/Emotional/Spiritual [place] with procedure with support in place. Spiritual needs are addressed. Yes Refer to patient's chart. Provide adequate and thorough instructions. Provide a caring and supportive environment. Communicate patients concerns with other members of the health team. MICKIE Warner Pain Patients pain goal met. Yes Refer to patient's chart. Prepare patient for potentially uncomfortable procedure. Observe for verbal/nonverbal complaints of pain. Assess pain. Provide comfort measures. MICKIE Warner Safety/Fall Risk Free from injury, security maintained. Yes High Risk Refer to patient's chart. Follow nursing standard of practice for high risks fall patients. MICKIE Warner Knowledge Base Verbalize understanding of procedure/information provided. Yes Refer to patient's chart. Describe the procedure along with what symptoms to expect. Evaluate patients understanding of procedure. Encourage patient to ask questions. Provide additional information as needed. MICKIE Warner in this encounter Miscellaneous Notes * Procedures (Immed Post or Bedside) - GolCaptora, Ranulfo B, MD - 06/25/2018 10:06 AM CDT Immediate Post Procedure Note Date: 06/25/2018 Attending Physician: Dr. Stone Performing Provider: Ranulfo Peres MD Consent: Consent obtained from patient. Time out performed: Consent obtained, correct patient verified, correct procedure verified, correct site verified, patient marked as necessary. Pre/Post Procedure Diagnosis: Hypertrophic cardiomyopathy Indications: Evaluate ventricular septum Anesthesia: MAC (Monitored Anesthesia Care) Procedure(s): Transesophageal echo Doppler study Findings: Ventricular septal hypertrophy Estimated Blood Loss: None/Negligible Specimen(s) Removed/Disposition: None Complications: None Patient Tolerated Procedure: Well Post-Procedure Condition: stable Ranulfo Peres MD Pager [phone] * Procedures (Immed Post or Bedside) - Ranulfo Peres MD - 06/25/2018 8:25 AM CDT Pre-Operative Assessment for CAROLYNN or Cardioversion Date of Service: 06/25/2018 Marilou Cruz is a 68 y.o. y.o. female. : 1950 History and Physical Exam I reviewed H&P from 06/13/18 . No changes noted. Assessment I reviewed: nurse pre-procedure assessment (including past medical history, allergies, medications, labs) NPO status Acceptable I assessed the patient's airways and noted: no abnormalities I requested Anesthesia consult I discussed risks and alternatives of this type of sedation and the procedure with the patient Physical Status Classification ([place] Society of Anesthesiologists): ASA III (A patient with a severe systemic disease that limits activity, but is not incapacitating) Sedation/Medication Plan Sedation plan per Anesthesiology in this encounter Plan of Treatment Not on fileas of this encounter Procedures Comments Procedure Name Priority Date/Time Associated Diagnosis ECG-SCAN 06/27/2018 3:29 PM CDT CAROLYNN W/O CONTRAST Routine 06/25/2018 Persistent atrial 9:06 AM CDT fibrillation (HCC) in this encounter Results * ECG-SCAN (06/27/2018 3:29 PM CDT) Narrative Performed At Ordered by an unspecified provider. * TRANSESOPHAGEAL ECHOCARDIOGRAM (06/25/2018 9:06 AM CDT) BSA 2.03 m2 OTHER OUTSIDE LAB CV ECHO PV CINDER BLOCK MAKER PHILLIP Ch OTHER OUTSIDE LAB Cardiology Ultrasound Siemens [id number] OTHER OUTSIDE LAB Machine Vn Nyquist 0.32 [...] Address City/State/Zipcode Phone Number OTHER OUTSIDE LAB in this encounter Visit Diagnoses Diagnosis Persistent atrial fibrillation (HCC) Atrial fibrillation in this encounter
--- OUTSIDE RECORDS SUMMARY | 2018-08-15 06:12 | XMS REPORT | Encounter Summary ---
Author Author [facility] Organization [facility] Address Unknown Phone Unavailable Care Team Providers Care Tram Inspector Name Role Phone Jadiel Cain MD PCP Khalida Garcia RN Unavailable Unavailable Reason for Visit * Reason Comments Other LM to c/b for cta instructions Encounter Details Care Team Description Date Type Department Jennifer Parekh RN Other (LM to c/b for cta instructions) 06/18/2018 Documentation Cardiovascular Medicine [facility] [place], [place] [id number] Social History Date Tobacco Use Types Packs/Day [...]
--- OUTSIDE RECORDS SUMMARY | 2018-08-15 06:12 | XMS REPORT | Encounter Summary ---
Author Author [facility] Organization [facility] Address Unknown Phone Unavailable Care Team Providers Care Drum Handler Name Role Phone Jadiel Cain MD PCP Khalida Garcia RN Unavailable Unavailable Reason for Visit * Reason Comments Medication Update checking to see how soon it will be before the donut hole Encounter Details Care Team Description Date Type Department Daisha Choudhury RN Medication Update (checking to see how soon it will be before the donut hole) 06/09/2018 Telephone Cardiovascular Medicine [facility] [place] [address] Social History Date Tobacco Use Types Packs/Day [...] encounter Miscellaneous Notes * Telephone Encounter - Riri Choudhury RN - 06/09/2018 2:52 PM CDT Pt is checking with her pharmacist to see when she will be in the donut hole. The answer will depend upon if she would like to do Tikosyn or not. Pt to call back with [employer] ( [facility] )hua ----- Message from Riri Choudhury RN sent at 06/06/2018 6:11 PM CDT ----- Regarding: FW: Tikosyn cost From: Camilo Yanes MD Sent: 06/04/2018 4:35 PM To: Ml Noonan RN Subject: RE: Tikosyn cost We could try sotalol but she has been very symptomatic with beta-blockers before and she may not tolerate it. ----- Message ----- From: Ml Noonan RN Sent: 06/04/2018 1:07 PM To: Riri Choudhury RN Subject: FW: Tikosyn cost Like you know she is to see Dr. Rowell for Dr. Mcdonnell possible surgical myectomy and surgical AF ablation. 104 AM she has an appointment with wound care regarding pretibial wound. She requested we call her back in the afternoon regarding AF abl and tikosyn initiation. I have her on the schedule for [facility] with [facility] 07/03 followed by Tikosyn initiation. I also have her tentatively scheduled with PAT on 06/26 at 2 pm and CCTA same day. If you would please review with cost of Tikosyn with her to make sure this is affordable. If not switch to sotalol if ok with [facility]. If this is ok then please review instructions with her that I have started. THANK-YOU! ----- Message ----- From: Fina Chavarria Sent: 06/03/2018 10:40 AM To: Ml Noonan RN Subject: RE: Tikosyn cost I spoke with Daniela at [facility]. She checked Dofetilide 500mcg BID to be refilled at local pharmacy NO PA needed 30 day co pay will be $143.33 90 day co pay will be $429.66 ----- Message ----- From: Ml Noonan RN Sent: 06/02/2018 5:31 PM To: Fina Chavarria Subject: Tikosyn cost Would you please check on cost of Tikosyn for this patient? Thank-you! in this encounter Plan of Treatment Not on fileas of this encounter Visit Diagnoses Not on filein this encounter
--- OUTSIDE RECORDS SUMMARY | 2018-08-15 06:12 | XMS REPORT | Encounter Summary ---
Author Author [facility] Organization [facility] Address Unknown Phone Unavailable Care Team Providers Care Hazardous Waste Material Technician Name Role Phone Jadiel Cain MD PCP Khalida Garcia RN Unavailable Unavailable Reason for Visit * Reason Comments Patient Questions ulcer and sleep study Encounter Details Care Team Description Date Type Department Olga Villanueva RN Patient Questions (ulcer and sleep study) 06/06/2018 Telephone Cardiovascular Medicine [address] [place] [address] Social History Date Tobacco Use [...] encounter Miscellaneous Notes * Telephone Encounter - Olga Villanueva RN - 06/06/2018 1:19 PM CDT Called pt to review pt's questions. Pt stated that her leg is infection, pt will receive a different abx next week () to start after culture comes back "debreidment done and leg is wrapped and elevated." Advised patient to ask questions about sleep study when they call her to schedule. Pt verbalized understanding. Pt had no additional questions or concerns at this time. * Telephone Encounter - Olga Villanueva RN - 06/06/2018 1:15 PM CDT ----- Message from Jeni Peterson LPN sent at 06/06/2018 11:48 AM CDT ----- Regarding: [facility]- f/u ulcer on leg VM from patient on triage line. 1- She is f/u on wound care appointment. She has hematoma on leg and ulceration. They did treatment and she is to go back next . 2- she has sleep study question, is it going to be wrist worn or is it all the electrodes. Call back at home. in this encounter Plan of Treatment Not on fileas of this encounter Visit Diagnoses Not on filein this encounter
--- OUTSIDE RECORDS SUMMARY | 2018-08-15 06:12 | XMS REPORT | Encounter Summary ---
Author Author [facility] Organization [facility] Address Unknown Phone Unavailable Care Team Providers Care Pizza Hut Team Member Name Role Phone Jadiel Cain MD PCP Khalida Garcia RN Unavailable Unavailable Reason for Visit * Reason Comments Precertification Medicare Encounter Details Care Team Description Date Type Department Mike Loya RN Precertification (Medicare) 06/16/2018 Documentation Cardiovascular Medicine [facility] [place] [address] Social History Date Tobacco Use Types Packs/Day [...] hearing impairment: No as of this encounter Progress Notes * Mike Loya RN - 06/16/2018 3:26 PM CDT Medicare is listed as patient's primary insurance coverage. Pre-certification is not required for hospitalizations. in this encounter Plan of Treatment Not on fileas of this encounter Visit Diagnoses Not on filein this encounter
--- OUTSIDE RECORDS SUMMARY | 2018-08-15 06:12 | XMS REPORT | Encounter Summary ---
Author Author [facility] Organization [facility] Address Unknown Phone Unavailable Care Team Providers Care Hand Decorator Name Role Phone Jadiel Cain MD PCP Khalida Garcia RN Unavailable Unavailable Encounter Details Care Team Description Date Type Department Alex Bailey MD [address] [place], [place] [id number] 06/25/2018 Anesthesia Cardiovascular Medicine Event [id number] [address] [place], [place] [id number] Anesthesia Record Responsible Anesthesiologist Anesthesia Start Time Anesthesia Stop Time Procedure Name Alex Bailey MD 06/25/18 0816 06/25/18 0914 TRANSESOPHAGEAL ECHOCARDIOGRAM Date Time Event Comment 717 AN Equip Check 2017 0803 0816 Anes Start 0816 An Start Data 0816 Start Supplemental O2 0816 Anesthesia Ready 0911 an stop data 0914 An Stop 0914 Handoff to RN I completed my SBAR handoff to the receiving nurse. Meds Name Total lidocaine (2%) 200 mg/10mL Injection 50 mg syringe propofol (DIPRIVAN) 200 mg/ 20 mL 100 mg injection (VIAL) propofol (DIPRIVAN) infusion 300.96 mg diltiazem (cardIZEM) injection 10 mg phenylephrine (FOZIA-SYNEPHRINE) 0.1 mg/mL 300 mcg injection (SYRINGE) * Name O2 * No blood administrations on file. Removal Type Details Placement Puncture 03/01/17; 1628; Right; Femoral 03/01/17 1628 by Vivi Og RN ([place]) in this encounter Social History Date Tobacco Use Types Packs/Day [...] Visit Diagnoses Not on filein this encounter Administered Medications Action Date Dose Rate Site Medication Order MAR Action 06/25/2018 8:24 AM CDT 5 mg diltiazem (cardIZEM) injection Given INTRA-PROCEDURE MED, Starting Sat06/25/18 at 0818, Until Sat06/25/18 at 09, Anesthesia Intra-op 5 mg Given 06/25/2018 8:18 AM CDT 06/25/2018 8:30 AM CDT 50 mg lidocaine (PF) injection Given INTRA-PROCEDURE MED, Starting Sat06/25/18 at 0830, Until Sat06/25/18 at 0937, Anesthesia Intra-op 06/25/2018 9:09 AM CDT 100 mcg phenylephrine in NS injection syringe Given INTRA-PROCEDURE MED, Starting Sat06/25/18 at 0857, Until Sat06/25/18 at 0937, Symptomatic Hypotension, Anesthesia Intra-op 100 mcg Given 06/25/2018 9:02 AM CDT 100 mcg Given 06/25/2018 8:57 AM CDT 06/25/2018 8:32 AM CDT 100 mcg/kg/min 54.7 mL/hr propofol (DIPRIVAN) infusion Given - New 20 mL, Intravenous, INTRA-PROCEDURE Bag MED(CONT), Starting Sat06/25/18 at 0832, Until Sat06/25/18 at 0937, Anesthesia Intra-op 06/25/2018 8:40 AM CDT 30 mg propofol (DIPRIVAN) injection Given INTRA-PROCEDURE MED, Starting Sat06/25/18 at 0833, Until Sat06/25/18 at 0937, Anesthesia Intra-op 20 mg Given 06/25/2018 8:36 AM CDT 50 mg Given 06/25/2018 8:33 AM CDT in this encounter
--- OUTSIDE RECORDS SUMMARY | 2018-08-15 06:12 | XMS REPORT | Encounter Summary ---
Author Author [facility] Organization [facility] Address Unknown Phone Unavailable Care Team Providers Care Coffee Maker Name Role Phone Jadiel Cain MD PCP Khalida Garcia RN Unavailable Unavailable Reason for Visit * Reason Comments Cardiac Eval wants to discuss A-fib management Encounter Details Care Team Description Date Type Department Norberto Stone MD [address] [place] [address] Cardiac Eval (wants to discuss A-fib management ) 06/13/2018 Office Visit Cardiovascular Medicine [facility] [place] [address] Social History Date Tobacco Use [...] Vital Signs Time Taken Vital Sign Reading 06/13/2018 12:38 PM CDT Blood Pressure 152/96 06/13/2018 12:38 PM CDT Pulse 87 - Temperature - - Respiratory Rate - - Oxygen Saturation - - Inhaled Oxygen - Concentration 06/13/2018 12:38 PM CDT Weight 91.2 kg (201 lb) 06/13/2018 12:38 PM CDT Height 162.6 cm (5' 4") 06/13/2018 12:38 PM CDT Body Mass Index 34.5 in this encounter Functional Status Date of Assessment Functional Status Response 03/06/2016 Does the patient have a hearing impairment: No as of this encounter Patient Instructions * Patient Instructions* Norberto Stone MD - 06/13/2018 12:45 PM CDT Lets plan to alternate the lasix Lets plan to get a CAROLYNN in this encounter Progress Notes * Norberto Stone MD - 06/13/2018 12:45 PM CDT Date of Service: 06/13/2018 Marilou Cruz is a 68 y.o. female. JOLENE Hickman is a 68-year-old female with a history of hypertrophic cardiomyopathy. She initially underwent an alcohol septal ablation with a significant improvement in her outflow tract obstruction. Since that time, she has developed progressive symptoms once again and her most recent echocardiogram demonstrated a resting gradient in the mid 40s with a provokable gradient in the upper 60s. She has been in rather persistent atrial fibrillation and recently saw electrophysiology. They suggested that there may be some benefit to a repeat atrial fibrillation ablation, but also suggested seeing cardiothoracic surgery for possible myectomy. She was seen by Dr. Mcdonnell to discuss options and is can be scheduled for a transesophageal echocardiogram to better assess cardiac structure and function. Today in the office, we did discuss the plan and she is agreeable. Vitals: 06/13/18 1238 BP: (!) 152/96 Pulse: 87 Weight: 91.2 kg (201 lb) Height: 1.626 m (5' 4") Body mass index is 34.5 kg/m. Past Medical History Patient Active Problem List Diagnosis Date Noted Acute on chronic diastolic CHF (congestive heart failure) (HCC) 06/03/2018 History of phenotyping 05/13/2017 Genetic testing for HCM completed through [employer], deletion/duplication analysis and sequencing. [employer] accession number: [id number]. Date specimen obtained: 03/27/17. Result: negative for [...] no atherosclerotic lesions. HOCM (hypertrophic obstructive cardiomyopathy) (HCC) 10/07/2015 03/06/16 Successful alcohol septal ablation of the first septal aoc operations intelligence chief, with a significant improvement in the LVOT [...] 03/04/17 LHC: Hypertrophic obstructive cardiomyopathy with a imjm-lh-lsat gradient with amyl nitrate of 40 mmHg [...] mmHg Review of Systems Constitution: Negative. HENT: Negative. Eyes: Negative. Cardiovascular: Negative. Respiratory: Negative. Endocrine: Negative. Hematologic/Lymphatic: Negative. Skin: Negative. Musculoskeletal: Negative. Gastrointestinal: Negative. Genitourinary: Negative. Neurological: Negative. Psychiatric/Behavioral: Negative. Allergic/Immunologic: Negative. Physical Exam Physical Exam General Appearance: alert [...] S4, no rub - normal pmi Murmurs: 3/6 LINDA RUSB Extremities: no lower extremity edema bilaterally; 2+ symmetric distal pulses Muskuloskeletal: no obvious deformity Abdominal Exam: soft, non-tender, no masses, bowel sounds normal Neurologic Exam: neurological assessment grossly intact Mood and Affect: Appropriate Problems Addressed Today Encounter Diagnoses Name Primary? HOCM (hypertrophic obstructive cardiomyopathy) (HCC) Yes Persistent atrial fibrillation (HCC) Assessment and Plan 1. Hypertrophic obstructive cardiomyopathy with a significant outflow tract obstruction. We will plan to obtain a transesophageal echocardiogram to get a better assessment of her left ventricular outflow tract. Depending on the anatomy, it may be more suitable for a surgical approach to her outflow tract obstruction. As soon as we get this workup completed, I will plan to discuss options with cardiothoracic surgery as well as Marylou to discern plan forward. I do feel that the outflow tract obstruction will need to be dealt with prior to pursuing the atrial fibrillation ablation given the low likelihood of success with her atrial enlargement in the setting of a persistent significant outflow tract obstruction. I am not can make any current changes to her regimen. She states her blood pressures been mostly well controlled at home. She has been intolerant to higher doses of Lasix as well as other negative inotropic agents. There may be a role for disopyramide depending on her plan. Current Medications (including today's revisions) albuterol (VENTOLIN HFA, PROAIR HFA, PROVENTIL HFA) 90 mcg/actuation inhaler Inhale 2 Puffs by mouth into the lungs every 6 hours as needed for Wheezing or Shortness of Breath. Shake well before use. coQ10 (ubiquinol) 100 mg cap Take 1 Cap by mouth daily. diltiazem SR (+) (TIAZAC) 360 mg capsule Take one capsule by mouth daily. furosemide (LASIX) 20 mg tablet Take 20 mg by mouth every morning. KRILL OIL [...] mouth at bedtime as needed for Sleep. in this encounter Plan of Treatment Not on fileas of this encounter Visit Diagnoses Diagnosis HOCM (hypertrophic obstructive cardiomyopathy) (HCC) - Primary Hypertrophic obstructive cardiomyopathy Persistent atrial fibrillation (HCC) Atrial fibrillation in this encounter
--- OUTSIDE RECORDS SUMMARY | 2018-08-15 06:12 | XMS REPORT | Encounter Summary ---
Author Author [facility] Organization [facility] Address Unknown Phone Unavailable Care Team Providers Care Spot Billing Clerk Name Role Phone Jadiel Cain MD PCP Khalida Garcia RN Unavailable Unavailable Reason for Visit * Reason Comments Pre-Procedure Instructions Encounter Details Care Team Description Date Type Department Eliana Angelo RN Pre-Procedure Instructions 06/24/2018 Telephone Cardiovascular Medicine [facility] [place] [address] Social History Date Tobacco Use [...] this encounter Patient Instructions * Patient Instructions* Eliana Angelo RN - 06/24/2018 12:09 PM CDT This is a reminder that you have a scheduled CAROLYNN on 06/25/18 at 0800. Please remember to not eat or drink after midnight except for sips of water ONLY with morning medications which should include all heart medications such as : blood pressure medications, antiarrhythmic and blood thinners if you normally take those in the morning. Please do not take any diuretics or vitamins. Additionally, please do not consume any mints or cough drops the day of your procedure. Please arrive 30 minutes before your appointment time in order to be prepared for the procedure. You must have a delivery driver/customer service present or available to escort you home. If you have any questions please feel free to contact your [facility] ( [facility]) procedure nurses at [phone]. in this encounter Plan of Treatment Not on fileas of this encounter Visit Diagnoses Not on filein this encounter
--- OUTSIDE RECORDS SUMMARY | 2018-08-15 06:12 | XMS REPORT | Encounter Summary ---
Author Author [facility] Organization [facility] Address Unknown Phone Unavailable Care Team Providers Care Cullet Crusher And Washer Name Role Phone Jadiel Cain MD PCP Khalida Garcia RN Unavailable Unavailable Reason for Referral * CTA Procedure (Routine) Referred By Contact Referred To Contact Status Reason Specialty Diagnoses / Procedures Camilo Yanes MD [address] [place] [address] [facility] [place] [address] No Auth Needed Cardiology Diagnoses Persistent atrial fibrillation (HCC) P rocedures CT CARDIAC STRUCTURE WO/W CONT CHG CT HEART CONTRAST EVAL CARDIAC STRUCTURE&MORPH * CTA Procedure (Routine) Referred By Contact Referred To Contact Status Reason Specialty Diagnoses / Procedures Camilo Yanes MD [address] [place] [address] [facility] [place] [address] New Request Cardiology Diagnoses Persistent atrial fibrillation (HCC) P rocedures CT LMTD CHEST W CARDIAC Encounter Details Care Team Description Date Type Department Kim May RN Persistent atrial fibrillation (HCC) (Primary Dx) 06/04/2018 Orders Only Cardiovascular Medicine [facility] [place] [address] Social History Date Tobacco Use Types Packs/Day [...] as of this encounter Plan of Treatment Order Schedule Name Priority Associated Diagnoses Expected: 06/04/2018 (Approximate), Expires: 06/04/2019 CT LMTD CHEST W CARDIAC Routine Persistent atrial fibrillation (HCC) Expected: 06/04/2018 (Approximate), Expires: 06/04/2019 CT CARDIAC STRUCTURE WO/W CONT Routine Persistent atrial fibrillation (HCC) as of this encounter Visit Diagnoses Diagnosis Persistent atrial fibrillation (HCC) - Primary Atrial fibrillation in this encounter
--- OUTSIDE RECORDS SUMMARY | 2018-08-15 06:12 | XMS REPORT | Encounter Summary ---
Author Author [facility] Organization [facility] Address Unknown Phone Unavailable Care Team Providers Care Motor And Chassis Inspector Name Role Phone Jadiel Cain MD PCP Khalida Garcia RN Unavailable Unavailable Reason for Visit * Reason Comments Cardiac Eval Myectomy/Maze New To Provider Encounter Details Care Team Description Date Type Department Grover Mcdonnell MD [address] [facility] [address] [place] [address] HOCM (hypertrophic obstructive cardiomyopathy) (HCC) ( Primary Dx) 06/10/2018 Office Visit [facility] [place] [address] Social History Date Tobacco Use [...] Vital Signs Time Taken Vital Sign Reading 06/10/2018 11:36 AM CDT Blood Pressure 150/96 06/10/2018 11:36 AM CDT Pulse 82 - Temperature - - Respiratory Rate - 06/10/2018 11:36 AM CDT Oxygen Saturation 97% - Inhaled Oxygen - Concentration 06/10/2018 11:36 AM CDT Weight 89.4 kg (197 lb) 06/10/2018 11:36 AM CDT Height 162.6 cm (5' 4") 06/10/2018 11:36 AM CDT Body Mass Index 33.81 in this encounter Functional Status Date of Assessment Functional Status Response 03/06/2016 Does the patient have a hearing impairment: No as of this encounter Progress Notes * Grover Mcdonnell MD - 06/10/2018 11:45 AM CDT Date of Service: 06/10/2018 Subjective: Marilou Cruz is a 68 y.o. female. History of Present IllnessThank you for the referral of your pleasant patient Marilou Cruz. As you know Marilou Cruz is a 68 y.o. female who you have been following for HOCM. She has a history of a.fib s/p ablation, HTN, obesity, HOCM s/p alcohol ablation with Dr. Stone 03/06/16, chronic anticoagulation, and CVA without residual. She has been followed with Dr. Stone and Dr. Yanes for some time. She does have a history of an alcohol ablation as well as multiple cardioversions with recurrent atrial fibrillation. Most recently she was seen by Dr. Yanes and felt she could possibly benefit from myectomy. Overall her symptoms have included shortness of breath which is been ongoing for several years which is unchanged whether she is in a normal sinus rhythm or atrial fibrillation. She denies any lightheadedness, palpitations or syncope. She does have occasional chest tightness with rest and exertion as well as lower extremity edema. In April she did have trauma to her right lower extremity and has been following with wound care for this. She states that she has not tolerated multiple antiarrhythmic medications in the past and wishes to avoid these. She has tolerated her anticoagulation without issue. Left heart cath 01/2017 revealed: FINDINGS: LEFT HEART CATHETERIZATION: Baseline left ventricular end-diastolic pressure was 8 mmHg. The gradient across the left ventricular outflow tract at rest was 5 mmHg. With Valsalva, the left ventricular outflow tract gradient increased to between 20 and 30 mmHg. With amyl nitrate, the tohk-em-qgov gradient across the left ventricular outflow tract was 40 mmHg. With PVC, she did augment significant gradients intermittently of up greater than 100 mmHg, but the baseline gradients without ectopy only demonstrated a csfb-bp-oxyu gradient of 40 mmHg. Cardiac MRI 11/14/16 revealed: 1. Asymmetric basal and mid left ventricular septal hypertrophy status post septal ablation. At the site of the alcohol septal ablation there is marked wall thinning and transmural delayed hyperenhancement indicating full-thickness scarring. There is also some mild faint delayed myocardial hyperenhancement in the thickened portion of the anterolateral myocardium. 2. Mild systolic anterior motion of the anterior mitral valve leaflet with associated central jet mitral valve regurgitation and turbulence in the left ventricular 3. outflow tract suggesting a left ventricular outflow tract gradient which was not quantitated. 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 4. Normal global left ventricular systolic function. 5. 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 Early cross over of first pass gadolinium contrast does not exclude the presence of a patent foramen ovale. 6. The site of the basal septal ablation has a transmural thickness thin scar with adjacent myocardial edema. 7. Right ventricular chamber size and function appear to be normal. The right atrial chamber dimension appears to be normal. 8. The left atrial and right atrial appendages appear to be free of thrombus. The only venous anatomy appears to be normal angiography was not performed. 9. Trileaflet aortic valve. 10. The origins of the coronary arteries appear to be normal but are not well visualized. Other than the lack of perfusion to the alcohol septal ablation site the remainder the left ventricular myocardium appears to have homogeneous perfusion at rest. TTE 04/21/18 revealed: Left Ventricle: Normal size. Normal ejection fraction. Technically very difficult study, unable to visualize basal septum or presence of Mitral DEBBY (s/ p Septal Myomectomy), Peak gradient of 46mmHg, increases to 69mmhg with valsalva. Elevated left atrial pressure. Right Ventricle: Normal size and ejection fraction. Aortic Valve: Mildly calcified aortic valve without significant stenosis. No regurgitation Estimated Peak Systolic PA Pressure: 39 mmHg All imaging was reviewed at length today by Dr. Mcdonnell. These results were discussed with the patient at length. She is here today to discuss possible surgical interventions. Review of Systems Constitution: Negative. HENT: Positive for tinnitus. Eyes: Positive for photophobia and visual disturbance. Cardiovascular: Positive for dyspnea on exertion, irregular heartbeat and leg swelling. Respiratory: Positive for cough and shortness of breath. Endocrine: Negative. Hematologic/Lymphatic: Bruises/bleeds easily. Skin: Positive for poor wound healing. Musculoskeletal: Positive for arthritis, back pain, joint pain and stiffness. Gastrointestinal: Negative. Genitourinary: Negative. Neurological: Negative. Psychiatric/Behavioral: The patient has insomnia. Allergic/Immunologic: Positive for environmental allergies. Objective: albuterol (VENTOLIN HFA, PROAIR HFA, PROVENTIL HFA) [...] mouth at bedtime as needed for Sleep. Vitals: 06/10/18 1136 BP: (!) 150/96 Pulse: 82 SpO2: 97% Weight: 89.4 kg (197 lb) Height: 1.626 m (5' 4") Body mass index is 33.81 kg/m. Physical Exam Constitutional: She is oriented to person, place, and time. She appears well- developed and well-nourished. obese HENT: Head: Normocephalic and atraumatic. Eyes: Pupils are equal, round, and reactive to light. Conjunctivae and EOM are normal. Neck: Normal range of motion. Neck supple. Cardiovascular: Normal rate, S1 normal and S2 normal. An irregularly irregular rhythm present. Exam reveals distant heart sounds. Pulmonary/Chest: Effort normal and breath sounds normal. Abdominal: Soft. Bowel sounds are normal. Musculoskeletal: Normal range of motion. Edema: 2+ RLE, 1+ LLE. Neurological: She is alert and oriented to person, place, and time. Skin: Skin is warm. RLE wound with dressing C/D/I Psychiatric: She has a normal mood and affect. Her behavior is normal. Judgment and thought content normal. Assessment: 1. HOCM s/p alcohol ablation 2. A.fib 3. Chronic anticoagulation 4. HTN 5. Obesity 6. Hx CVA Will obtain CAROLYNN and once reviewed further recommendations to follow. ITZEL Syed 06/10/18 @ 1084. Assessment and Plan: I had the pleasure of seeing Marilou Cruz in the office today with her sisters concerning her hypertrophic cardiomyopathy. As you know, this 68-year- old female has been followed for some time now with this diagnosis. There has also been a family history of this diagnosis. She also has a history of atrial fibrillation and has had multiple ablations. She underwent an alcohol ablation in March of [address] Stone. She states that following that, she has had some improvement, but since then has had continued decline in her symptoms. She states she is primarily short of breath with activity. She states that this is unchanged whether she is in sinus rhythm or AFib. She has had no syncopal episodes. She does have occasional chest pain. She underwent an echocardiogram. This was a transthoracic echo. I have reviewed these images. The images are of poor quality. Her septum is difficult to assess. Her gradient on the echo measures a peak of 46 mmHg which does increase with Valsalva, but it is difficult to tell given the poor windows. I also reviewed her MRI. There is thinning from the area of the septal ablation. It is difficult for me to tell how much she would benefit from surgical excision viewing her MRI. Mrs Cruz presents with a difficult problem. Her atrial fibrillation has been ablated in the past but is persistent and I suspect will be difficult to identify intraoperatively. I do not think that pulmonary vein isolation alone will be beneficial for her given that she probably has remote sites of activation consistent with her hypertrophic cardiomyopathy. We could certainly perform pulmonary vein isolation with the hopes that she would then be able to have further procedures by EP which would be directed by catheter evaluation. I am not sure that she would benefit from septal resection. It is difficult to tell by this transthoracic echo, and I think that a transesophageal echo would benefit me to make better surgical decisions. I have reviewed this in the office today with her and her family. She is scheduled to see Dr. Norberto Stone. I will ask him to perform transesophageal echo for better assessment. I am concerned that she has already had reasonable septal thinning with the alcohol ablation, and I am not sure there is much surgical resection to be completed that would add much benefit. I have reviewed all this in great detail in the office today with her and her family. All of their questions were answered. They do become somewhat confused with the term ablation and whether this applied to her hypertrophic cardiomyopathy or her atrial fibrillation, and they often intermix these terms. I will follow up once her transesophageal echo is performed. If you have any further questions concerning her care, please feel free to call. (DOC:[id number]) in this encounter Plan of Treatment Not on fileas of this encounter Visit Diagnoses Diagnosis HOCM (hypertrophic obstructive cardiomyopathy) (HCC) - Primary Hypertrophic obstructive cardiomyopathy in this encounter
--- OUTSIDE RECORDS SUMMARY | 2018-08-15 06:13 | XMS REPORT | Encounter Summary ---
Author Author [facility] Organization [facility] Address Unknown Phone Unavailable Care Team Providers Care Wastewater Plant Civil Engineer Name Role Phone Jadiel Cain MD PCP Khalida Garcia RN Unavailable Unavailable Reason for Visit * Reason Comments Pre-Certification Approval Encounter Details Care Team Description Date Type Department Eufemia Rooney Pre-Certification (Approval) 05/22/2018 Documentation Cardiovascular Medicine [facility] [place] [address] Social History Date Tobacco Use [...] as of this encounter Progress Notes * Eufemia Rooney - 05/22/2018 8:39 AM CDT Medicare (Primary) no pre cert needed. in this encounter Plan of Treatment Not on fileas of this encounter Procedures Comments Procedure Name Priority Date/Time Associated Diagnosis ECG-SCAN 07/30/2018 8:30 AM SUPERVISOR VENDOR QUALITY ECG-SCAN 07/30/2018 8:30 AM SUPERVISOR VENDOR QUALITY in this encounter Results * ECG-SCAN (07/30/2018 8:30 AM SUPERVISOR VENDOR QUALITY) Narrative Performed At Ordered by an unspecified provider. * ECG-SCAN (07/30/2018 8:30 AM SUPERVISOR VENDOR QUALITY) Narrative Performed At Ordered by an unspecified provider. in this encounter Visit Diagnoses Not on filein this encounter
--- OUTSIDE RECORDS SUMMARY | 2018-08-15 06:13 | XMS REPORT | Encounter Summary ---
Author Author [facility] Organization [facility] Address Unknown Phone Unavailable Care Team Providers Care Rural Mail Contractor Name Role Phone Jadiel Cain MD PCP Khalida Garcia RN Unavailable Unavailable Encounter Details Care Team Description Date Type Department Christine Harding RN Paroxysmal atrial fibrillation (HCC) (Primary Dx) 05/19/2018 Pre-Admit Cardiovascular Medicine Orders Only [facility] [place] [address] Social History Date Tobacco Use [...] on fileas of this encounter Results * CARDIOVERSION, EXTERNAL (05/22/2018 11:36 AM CDT) [...] LAB in this encounter Visit Diagnoses Diagnosis Paroxysmal atrial fibrillation (HCC) - Primary Atrial fibrillation in this encounter
--- OUTSIDE RECORDS SUMMARY | 2018-08-15 06:13 | XMS REPORT | Encounter Summary ---
Author Author [facility] Organization [facility] Address Unknown Phone Unavailable Care Team Providers Care Director Of Teacher Education Name Role Phone Jadiel Cain MD PCP Khalida Garcia RN Unavailable Unavailable Reason for Visit * Reason Comments Results holter Encounter Details Care Team Description Date Type Department Christine Harding RN Results (holter) 05/23/2018 [facility] [place] [address] Social History Date Tobacco Use Types Packs/Day [...] as of this encounter Progress Notes * Christine Harding RN - 05/23/2018 7:44 AM CDT Holter report finalized. Reviewed with Dr. Stone last evening. No concerns. Mailed a copy to patient's home today (prelim report was given to patient in clinic yesterday). in this encounter Plan of Treatment Not on fileas of this encounter Visit Diagnoses Not on filein this encounter
--- OUTSIDE RECORDS SUMMARY | 2018-08-15 06:13 | XMS REPORT | Encounter Summary ---
Author Author [facility] Organization [facility] Address Unknown Phone Unavailable Care Team Providers Care Reservations Agent Name Role Phone Jadiel Cain MD PCP Khalida Garcia RN Unavailable Unavailable Reason for Visit * Reason Comments Atrial fibrillation Encounter Details Care Team Description Date Type Department Christine Harding RN Atrial fibrillation 05/19/2018 Telephone Cardiovascular Medicine [facility] [place] [address] Social History Date Tobacco Use [...] Telephone Encounter - Christine Harding RN - 05/19/2018 3:50 PM CDT EKG received from Dr. Cain's office, showing a-fib with a rate of 97. Reviewed with Minal Pelletier APRN. Also discussed plan with PHILLIP Trammell - nurse with Dr. Blanchard. Patient needs a cardioversion this week. Patient could have this done through our office or Dr. Baker, her dental office coordinator closer to home. Discussed with patient. She prefers to have the cardioversion at [facility]. Scheduled patient for DCCV this , 05/22 at 11AM. Per Valeri/ALEXX, patient may need to meet with an HRM physician to discuss a-fib ablation further. Patient prefers to hold on ablation discussions for now. We will reassess after this cardioversion. If patient returns to [facility] before , she will let us know so the appt can be cancelled. E-mailing pre-procedure instructions to her. Confirmed her e-mail address. * Telephone Encounter - Christine Harding RN - 05/19/2018 12:16 PM CDT Patient left a message on the nurse line indicating she was out mowing yesterday and the mower broke down. This was a frustrating situation for patient. She started feeling badly. She reports BP and HR were "high". She rested the rest of the day. She experienced jaw pain - similar to the pain she has when back in a-fib. BP improved throughout the evening. She believes she is in a-fib. Symptoms have improved this morning but she doesn't feel "quite right " and thinks the a-fib is persisting. She is anticoagulated on Xarelto. Patient does not want to go to the ED and lives approximately 2 hours outside . She is working on an appt today with her local PCP as she has another issue that she needs to discuss with him. Attempted reaching patient but no answer. Left a message for her to call and let us know if she was able to see her PCP and how she's feeling. Provided the direct phone number for her to call. in this encounter Plan of Treatment Not on fileas of this encounter Visit Diagnoses Not on filein this encounter
--- OUTSIDE RECORDS SUMMARY | 2018-08-15 06:13 | XMS REPORT | Encounter Summary ---
Author Author [facility] Organization [facility] Address Unknown Phone Unavailable Care Team Providers Care Home Teaching Grades 9 Thru 12 Teacher Name Role Phone Jadiel Cain MD PCP Khalida Garcia RN Unavailable Unavailable Encounter Details Care Team Description Date Type Department Aury Schneider RN Paroxysmal atrial fibrillation (Primary Dx) 05/21/2018 Orders Only Cardiovascular Medicine [facility] [place] [address] Social History Date Tobacco Use Types Packs/Day [...] fileas of this encounter Visit Diagnoses Diagnosis Paroxysmal atrial fibrillation - Primary Atrial fibrillation in this encounter
--- OUTSIDE RECORDS SUMMARY | 2018-08-15 06:13 | XMS REPORT | Encounter Summary ---
Author Author [facility] Organization [facility] Address Unknown Phone Unavailable Care Team Providers Care Investigation Officer Name Role Phone Jadiel Cain MD PCP Khalida Garcia RN Unavailable Unavailable Reason for Referral * Test (Routine) Referred By Contact Referred To Contact Status Reason Specialty Diagnoses / Procedures Camilo Yanes MD [address] [place] [address] [facility] [place] [address] No Auth Needed Cardiology Diagnoses Persistent atrial fibrillation (HCC) P rocedures TRANSESOPHAGEAL ECHOCARDIOGRAM NC ECHO TRANSESOPHAG R-T 2D W/PRB IMG ACQUISJ I&R Encounter Details Care Team Description Date Type Department Camilo Yanes MD [address] [place] [address] Persistent atrial fibrillation (HCC) 06/04/2018 Prep for [facility] Cardiovascular Medicine [facility] [place] [address] [address] [place], [place] [address] Social History Date Tobacco Use Types Packs/Day [...] on fileas of this encounter Results * TRANSESOPHAGEAL ECHOCARDIOGRAM (06/25/2018 9:06 AM CDT) BSA 2.03 m2 OTHER OUTSIDE LAB CV ECHO PV ASSEMBLER TESTER PHILLIP Ch OTHER OUTSIDE LAB Cardiology Ultrasound Siemens [id number] OTHER OUTSIDE LAB Machine Vn Nyquist 0.32 [...]
--- OUTSIDE RECORDS SUMMARY | 2018-08-15 06:13 | XMS REPORT | Encounter Summary ---
Author Author [facility] Organization [facility] Address Unknown Phone Unavailable Care Team Providers Care Meat Cutting Teacher Name Role Phone Jadiel Cain MD PCP Khalida Garcia RN Unavailable Unavailable Encounter Details Care Team Description Date Type Department Minal Pelletier APRN-Rj [address] [place] [address] 05/22/2018 Hospital Cardiovascular Medicine Encounter [facility] [address] [place] [address] Social History Date Tobacco Use [...] Vital Signs Time Taken Vital Sign Reading 05/22/2018 11:54 AM CDT Blood Pressure 157/96 05/22/2018 11:45 AM CDT Pulse 56 - Temperature - - Respiratory Rate - 05/22/2018 11:54 AM CDT Oxygen Saturation 96% - Inhaled Oxygen - Concentration 05/22/2018 10:34 AM CDT Weight 88.5 kg (195 lb) 05/22/2018 10:34 AM CDT Height 162.6 cm (5' 4") 05/22/2018 10:34 AM CDT Body Mass Index 33.47 in this encounter Functional Status Date of Assessment Functional Status Response 03/06/2016 Does the patient have a hearing impairment: No as of this encounter Discharge Instructions * Patient Instructions* Aury Schneider RN - 05/22/2018 11:42 AM CDT CARDIOLOGY PROCEDURES POST SEDATION INSTRUCTIONS Patient Name: Marilou Cruz Date: 05/22/2018 Please follow the instructions listed below: 1. Assess gag reflex once awake enough to eat. 2. If gag reflex has not returned; wait 20-30 minutes 3. Resume diet as prescribed when gag reflex is present. 4. Please have someone accompany you, as YOU SHOULD NOT drive or operate machinery for at least 12-24 hours following the procedure. There may be some residual effects from the sedatives during the procedure. Do not drive a vehicle for up to 24 hours after receiving sedation. Do not operate heavy or potentially harmful equipment Do not make legally binding decisions Do not drink alcohol for up to 24 hours Do not communicate through social media for 24 hours. 5. Other instructions: continue to take xarelto without any missed doses especially 30 days post cardioversion 6. If you have question or concerns about this procedure, please contact the Cardiology office at , and ask to speak to one of the nurses. Current Medications List: albuterol (VENTOLIN HFA, PROAIR HFA, PROVENTIL HFA) 90 mcg/actuation inhaler Inhale 2 Puffs by mouth into the lungs every 6 hours as needed for Wheezing or Shortness of Breath. Shake well before use. coQ10 (ubiquinol) 100 mg cap Take 1 Cap by mouth daily. diltiazem SA (+) (TIAZAC) 240 mg capsule TAKE ONE CAPSULE BY MOUTH DAILY flecainide (TAMBOCOR) 50 mg tablet Take 1.5 tablets by mouth twice daily. furosemide (LASIX) 20 mg tablet Take 1 tablet by mouth as Needed. for swelling. (Patient taking differently: Take 40 mg by mouth as Needed. for swelling.) KRILL OIL PO Take 1 Cap by mouth daily. L. RHAMNOSUS GG/INULIN (CULTURELLE PROBIOTICS PO) Take 2 Doses by mouth daily. Indications: Raw Probiotics or Vlad loratadine (CLARITIN) 10 mg tablet Take 10 mg by mouth daily. other medication Take 2 Each by mouth twice daily. Indications: Magnesium L- Threonate potassium chloride(+) (MICRO-K) 10 mEq capsule Take [...] mouth at bedtime as needed for Sleep. Discharge Instructions for Cardioversion Your healthcare provider performed a procedure called cardioversion. Your healthcare provider used a controlled electric shock or a medicine to briefly stop all electrical activity in your heart. This helped restore your hearts normal rhythm. Here are some instructions to follow while you recover. Home care Because cardioversion typically requires sedation, you won't be able to drive home. You will need a ride. Wait at least 24 hours before driving a car or operating heavy machinery after receiving sedating medicines. Dont be alarmed if the skin on your chest is irritated or feels like it is sunburned. Your healthcare provider may prescribe a soothing lotion to relieve this discomfort.These minor symptoms will go away in a few days. Ask your healthcare provider about medicines to keep your heart rhythm steady. If you were prescribed medicine, take it as instructed by your healthcare provider. Dont skip doses or take double doses. Cardioversion requires blood thinners for at least 4 weeks to prevent a delayed risk of stroke when treating atrial fibrillation or atrial flutter. Be sure you discuss which medicine you are taking to prevent stroke. Ask when you need to have your medicine levels checked, and whether you may be able to stop taking it in the future or whether it is recommended that you take it for life. Some of these blood-thinning medicines will have the dose adjusted, and interact with other medicines or foods. Your healthcare team will give you full instructions on what to watch out for. Report bleeding or symptoms of stroke immediately to your healthcare team and seek emergency medical attention. Learn to take your own pulse. Keep a record of your results. Ask your healthcare provider when you should seek emergency medical attention. He or she will tell you which pulse rate reading is dangerous. Keep in mind this procedure may need to be repeated if the abnormal heart rhythm returns. After the procedure, your healthcare provider will tell you if the treatment worked or if you will need further treatments or medication. Follow-up care Make a follow-up appointment, or as directed. Call 911 Call 911right away if you have: Chest pain Shortness of breath Loss of vision, speech, or strength or coordination in any body part When to call your healthcare provider Call your healthcare provider right away if you: Feel faint,dizzy, or lightheaded Have chest pain with increased activity Have irregular heartbeat or fast pulse Have bleeding issues from blood-thinning medicines Date Last Reviewed: 10/31/201619990057-7862 [employer]. [address] [place] [address]. All rights reserved. This information is not intended as a substitute for professional medical care. Always follow your healthcare professional's instructions. Instructions Given To: pt and friend, Eleonora Instructions Given By: Aury Schneider RN in this encounter Medications at Time of [...] 1 Cap by 0 cap mouth daily. KRILL OIL PO Take 1 Cap by 0 mouth daily. L. RHAMNOSUS GG/INULIN Take 2 Doses 0 (CULTURELLE PROBIOTICS by mouth PO)Indications: Raw daily. Probiotics or Vlad Indications: Raw Probiotics or Vlad loratadine (CLARITIN) 10 Take 10 mg by 0 mg tablet mouth daily. other Take 1 Dose 0 medicationIndications: by mouth Magnesium L-Threonate daily. 04/18/2016 potassium chloride(+) Take 1 Cap by 90 Cap 3 (MICRO-K) 10 mEq capsule mouth daily. Take with a meal and a full glass of water. 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 Take at or after 8 pm this evening. vitamins, multiple cap Take 1 Cap by 0 mouth daily. zolpidem (AMBIEN) 10 mg Take 10 mg by 0 tablet mouth at bedtime as needed for Sleep. 04/24/2018 06/02/2018 diltiazem SA (+) (TIAZAC) TAKE ONE 90 capsule 3 240 mg capsule CAPSULE BY MOUTH DAILY 11/05/2017 06/02/2018 flecainide (TAMBOCOR) 50 Take 1.5 270 tablet 3 mg tablet tablets by mouth twice daily. 11/11/2017 06/10/2018 furosemide (LASIX) 20 mg Take 1 tablet 90 tablet 0 tablet by mouth as Needed. for swelling. as of this encounter Progress Notes * Aruy Schneider RN - 05/22/2018 10:45 AM CDT Peripheral IV Insertion Note: Patient Side: right Line Orientation:Antecubital IV Catheter Size: 22G Number of Attempts:1. Placed by PHILLIP Tirado and POC drawn at that time. IV capped and flushed with Normal Saline. IV site without redness, swelling, or pain. New dressing placed. After procedure IV cannula removed intact and hemostasis achieved. in this encounter Plan of Treatment Not on fileas of this encounter Procedures Comments Procedure Name Priority Date/Time Associated Diagnosis ECG-SCAN 05/29/2018 4:23 PM CDT CARDIOVERSION, EXTERNAL Routine 05/22/2018 Paroxysmal atrial 11:36 AM CDT fibrillation (HCC) POC POTASSIUM 05/22/2018 10:44 AM CDT ECG 12-LEAD Routine 05/22/2018 10:19 AM CDT ECG 12-LEAD Routine 05/22/2018 10:19 AM CDT in this encounter Results * ECG-SCAN (05/29/2018 4:23 PM CDT) Narrative [...] fibrillation to sinus rhythm. Performing Organization Address City/State/[facility] [[email or web address] Phone Number OTHER OUTSIDE LAB * POC POTASSIUM (05/22/2018 10:44 AM CDT) Potassium-POC 3.7 3.5 - 5.1 MMOL/L MAIN LAB Performing Organization Address City/[facility] [[email or web address] Phone Number MAIN LAB [address] [place] [address] in this encounter Visit Diagnoses Diagnosis Paroxysmal atrial fibrillation (HCC) Atrial fibrillation in this encounter
--- OUTSIDE RECORDS SUMMARY | 2018-08-15 06:13 | XMS REPORT | Encounter Summary ---
Author Author [facility] Organization [facility] Address Unknown Phone Unavailable Care Team Providers Care Credentialing Analyst Name Role Phone Jadiel Cain MD PCP Khalida Garcia RN Unavailable Unavailable Reason for Visit * Reason Comments Atrial fibrillation Encounter Details Care Team Description Date Type Department Christine Harding RN Atrial fibrillation 05/26/2018 Telephone Cardiovascular Medicine [facility] [place] [address] Social History Date Tobacco Use [...] Telephone Encounter - Christine Harding RN - 05/26/2018 10:43 AM CDT Spoke with patient. She underwent a cardioversion last , 05/22 for a- fib. She was converted back to NSR. Saturday she didn't feel well again although symptoms were not as severe as before the cardioversion. She is sure she is back in a-fib. Her main complaint is exertional fatigue, coughing and occasional chest tightness. She has no jaw pain this time as with previous a- fib episodes. She feels okay at rest. She started monitoring BP/HR on Saturday. Blood pressure has been "elevated". This mornin/118 with HR of 103. Patient states her diastolic readings have varied from 90s-120. She is unsure of other exact readings but believes her HR at the highest has been low 100's. Per last week's discussion with PHILLIP Trammell and ALEXX, it might be time to discuss a-fib ablation further. Scheduled patient to see Dr. Yanes in clinic one week from today (06/02 - 3:45 PM OP office). Appt work-in okayed per PHILLIP Bull. Patient has been intolerant to several antiarrhythmic medications and has not tolerated medication titration well. She remains on Xarelto, uninterrupted. Patient is asking about a repeat cardioversion. Per the outpatient CAROLYNN/DCCV schedule, there are no openings this week. If symptoms worsen or HR increases, patient will not hesitate to proceed to [facility] ED. She has also followed with Dr. Baker - databases software consultant closer to home. She may call his office this week to see if a repeat cardioversion this week is indicated given that patient had one last . Drs. Stone and Santo are out of the office this week. Patient will not hesitate to call our office if any further questions or concerns. She feels comfortable with the plan at this time. in this encounter Plan of Treatment Not on fileas of this encounter Visit Diagnoses Not on filein this encounter
--- OUTSIDE RECORDS SUMMARY | 2018-08-15 06:13 | XMS REPORT | Encounter Summary ---
Author Author [facility] Organization [facility] Address Unknown Phone Unavailable Care Team Providers Care Remote Advisor Name Role Phone Jadiel Cain MD PCP Khalida Garcia RN Unavailable Unavailable Encounter Details Care Team Description Date Type Department Gogo Sena MD [address] [place] [address] 05/22/2018 Anesthesia Cardiovascular Medicine Event [facility] [place], [place] [id number] Anesthesia Record Responsible Anesthesiologist Anesthesia Start Time Anesthesia Stop Time Procedure Name Gogo Sena MD 05/22/18 1059 05/22/18 1132 CARDIOVERSION, EXTERNAL Date Time Event Comment 1047 AN Equip Check 2017 1059 Anes Start 1059 An Start Data 1059 Start Supplemental O2 1059 Anesthesia Ready 1113 1132 an stop data 1132 Handoff to RN I completed my SBAR handoff to the receiving nurse. 1132 An Stop Meds Name Total propofol (DIPRIVAN) 200 mg/ 20 mL 50 mg injection (VIAL) sodium chloride 0.9 % infusion (500 250 mL mL bag) * Name O2 * No blood administrations on file. Removal Type Details Placement Puncture 03/01/17; 1628; Right; Femoral 03/01/17 1628 by Vivi Og, PHILLIP (Sheath) in this encounter Social History Date [...] Dose Rate Site Medication Order MAR Action 05/22/2018 11:23 AM CDT 50 mg propofol (DIPRIVAN) injection Given INTRA-PROCEDURE MED, Starting Irena 05/22/18 at 1123, Until Irena 05/22/18 at 1132, Anesthesia Intra-op 05/22/2018 10:48 AM CDT sodium chloride 0.9 % infusion Given - New INTRA-PROCEDURE MED(CONT), Starting Irena Bag 05/22/18 at 1048, Until Irena 05/22/18 at 1132, Anesthesia Intra-op in this encounter
--- OUTSIDE RECORDS SUMMARY | 2018-08-15 06:13 | XMS REPORT | Encounter Summary ---
Author Author [facility] Organization [facility] Address Unknown Phone Unavailable Care Team Providers Care Drawing Hand Name Role Phone Jadiel Cain MD PCP Khalida Garcia RN Unavailable Unavailable Reason for Visit * Reason Comments Other CTA requested Encounter Details Care Team Description Date Type Department Kim May RN Other (CTA requested) 06/04/2018 Telephone Cardiovascular Medicine [facility] [place] [address] Social History Date Tobacco Use [...] encounter Miscellaneous Notes * Telephone Encounter - Kim May RN - 06/04/2018 10:14 AM CDT ----- Message from Ml Noonan RN sent at 06/04/2018 8:53 AM CDT ----- Regarding: CCTA prior to LAAA Please arrange for CCTA on 06/26/18 prior to LAAA with [facility] 07/03/18. Thank-you! in this encounter Plan of Treatment Not on fileas of this encounter Visit Diagnoses Not on filein this encounter
--- OUTSIDE RECORDS SUMMARY | 2018-08-15 06:13 | XMS REPORT | Encounter Summary ---
Author Author [facility] Organization [facility] Address Unknown Phone Unavailable Care Team Providers Care Recycling Sorter Name Role Phone Jadiel Cain MD PCP Khalida Garcia RN Unavailable Unavailable Reason for Referral * Consult, Test & Treat Referred By Contact Referred To Contact Status Reason Specialty Diagnoses / Procedures Camilo Yanes MD [address] [place] [address] Rb - Sleep Disordr [facility] [address] [place] [address] New Request Specialty Services Sleep Center Diagnoses Required Paroxysmal atrial fibrillation (HCC) Reason for Visit * Reason Comments Atrial fibrillation Discuss AFib Ablation New To Provider Referred by ALEXX/XAVIER Encounter Details Care Team Description Date Type Department Camilo Yanes MD [address] [place], [place] [id number] Atrial fibrillation (Discuss AFib Ablation); New To Provider (Referred by ALEXX/XAVIER ) 06/02/2018 Office Visit Cardiovascular Medicine [facility] [address] [facility] [id number] [place] [address] Social History Date Tobacco Use Types Packs/Day [...] Vital Signs Time Taken Vital Sign Reading 06/02/2018 3:47 PM CDT Blood Pressure 160/100 06/02/2018 3:47 PM CDT Pulse 111 - Temperature - - Respiratory Rate - - Oxygen Saturation - - Inhaled Oxygen - Concentration 06/02/2018 3:47 PM CDT Weight 90.5 kg (199 lb 8 oz) 06/02/2018 3:47 PM CDT Height 162.6 cm (5' 4") 06/02/2018 3:47 PM CDT Body Mass Index 34.24 in this encounter Functional Status Date of Assessment Functional Status Response 03/06/2016 Does the patient have a hearing impairment: No as of this encounter Patient Instructions * Patient Instructions* Ml Noonan RN - 06/02/2018 3:45 PM CDT -Let us know what happens with the wound care visit -Home sleep study -Discontinue flecainide -Continue diltiazem -- increase to 360 mg daily (from 240 mg; once in sinus, will need to decrease) -Will arrange for atrial fibrillation ablation followed by dofetilide initiation -Follow-up: 1 month post-ablation -- please call us if you have symptoms in the interim -Will provide educational materials regarding: atrial fibrillation Please call us with any questions or concerns at [phone] in this encounter Progress Notes * Camilo Yanes MD - 06/02/2018 3:45 PM CDT Date of Service: 06/02/2018 Marilou Cruz is a 68 y.o. female. History of Present Illness: See Medical History/Course Below Ms. Marilou Cruz is a very pleasant 68-year-old woman referred by Norberto Stone MD for management of atrial fibrillation. She lives in [place], [place]. She is accompanied by her friend that she lives with. They live in a house. She has a brother in [place]. 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 She has a complicated history as documented below. She has seen Dr. Gonzalez and Dr. Blanchard in the past. She has had recurrent episodes of atrial fibrillation and has tried a multitude of antiarrhythmic drugs as documented below. Most recently, she was started on flecainide in March 2017. She underwent cardioversion on April 02, 2017. She did well until this May, at which time she had recurrence of atrial fibrillation once again. She underwent cardioversion, which was short-term successful on May 22, but she went back into atrial fibrillation within a few days. She feels more fatigued during the atrial fibrillation. She has chronic shortness of breath with exertion that she does not believe is worse with atrial fibrillation as compared with sinus rhythm. Her shortness of breath is significant enough that it is difficult for her to walk more than 50 feet without taking a break. She recently had right leg trauma and a pretibial wound, for which she saw urgent care last week. It had opened and become more smelly. She is due to follow up with wound care about this on . She was started on antibiotics. She denies orthopnea or paroxysmal nocturnal dyspnea. She has occasionally had some swelling, which has been worse the last week or two. She does not like to take her Lasix when she travels due to the frequent need to urinate. She denies history of syncope. She has undergone testing for hypertrophic cardiomyopathy as documented below. ([id number]) Impression: # Early Persistent atrial fibrillation Follows with Dr. Stone -[id number] N/A (HCM) -- Xarelto 20 mg daily -AAD: flecainide 75 bid (March 2017, breakthrough), diltiazem -- prior verapamil , metoprolol, Bystolic, disopyramide (anti-cholinergic side effects), Dronedarone (side effects) -- not been on sotalol before -Sx: fatigue -DANUTA: snoring, occasional daytime somnolence -- has claustrophobia -EtOH: minimal -08/29/15 Echo: LA size 4.9cm. EF 60%. LV function normal. Moderate MR. 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 No PE, PA pressure 40mmHg. -03/27/17 Dr. Blanchard: started flecainide -04/02/17 Successful direct current cardioversion from atrial fibrillation to sinus rhythm. Dr. Yanes confirmed atrial fibrillation -04/30/17 ZioPatch: 2.6% PACs, sinus at 46-90 BPM with a mean of 58 BPM, no definitive NSVT, no AF/Flutter -04/21/18 Holter: Sinus rhythm with rates between 49 and 86 bpm with mean heart rate of 58 bpm. 1999 PACs, 5 PVCs, no VT. 2 episodes of irregular rhythms that showed nonsustained SVT between 2.1 and 3.0 seconds 05/22/18 Successful direct current cardioversion from atrial fibrillation to sinus rhythm. Dr. Yanes confirmed atrial fibrillation -06/02/18 Dr. Yanes: ECG: Atrial fibrillation with a ventricular rate of 111 bpm and right bundle branch block, RAD # Hypertrophic cardiomyopathy with resting outflow tract obstruction s/p alcohol septal ablation # Acute on chronic diastolic heart failure -ICD Risk factors: FH of SCD: will ask LV wall thickness > 30 mm: no History of syncope: denies NSVT: no LGE on CMR: yes - predominantly in area of EtOH ablation -Meds: see above -Genetic testing: negative on 03/27/17 -- negative for ACTC (ACTC1), ACTN2, CAV3 , CSRP3, FHL1, GLA, JPH2, LAMP2, MTTG, MTTI, MTTK, MTTQ, MYPBC3, MYH7, MYL2, MYL3, PLN, PRKAG2, TCAP, TNNC1, TNNI3, TNNT2, TPM1, TTR,VCL. -Cardiac MRI: 11/14/16 -- LVEF 69%, maximal septal thickness 16 mm, this is just beyond the site of alcohol septal ablation, maximal wall thickness of the entire LV is at the base of the septum measuring 24 mm, RV EF 65%, full- thickness scar at the site of septal ablation, some adjacent edema around the site of septal ablation. Asymmetric basal and mid left ventricular septal hypertrophy status post septal ablation. Thanks delayed hyperenhancement in the thickened portion of the anterolateral myocardium. Severe left atrial enlargement with bowing of the interatrial septum, no TOMÁS thrombus. 03/06/16 Successful alcohol septal ablation of the first septal sanitation inspector, with a significant improvement in the LVOT [...] (DEBBY), best appreciate in parasternal long and 03/04/17 LHC: Hypertrophic obstructive cardiomyopathy with a cxdg-vt-nhbo gradient with amyl nitrate of 40 mmHg 03/21/17 TC-PYP Cardiac Amyloid: This study is not suggestive of ATTR cardiac amyloidosis and is negative. -04/21/18 Echo: Left Ventricle: Normal size. Normal ejection fraction. Technically very difficult study, unable to visualize basal septum or presence of Mitral DEBBY (s/p Septal Myomectomy), Peak gradient of 46mmHg, increases to 69mmhg with valsalva. Elevated left atrial pressure. Right Ventricle: Normal size and ejection fraction. Aortic Valve: Mildly calcified aortic valve without significant stenosis. No regurgitation. Estimated Peak Systolic PA Pressure: 39 mmHg # RBBB and RAD # Prior stroke 08/29/15: Carotid duplex: Normal with no atherosclerotic lesions. # Hypertension # R pre-tibial wound, traumatic # Obesity, Class I She has symptomatic early persistent atrial fibrillation in the setting of hypertrophic cardiomyopathy. We discussed risk factors for this including obesity and hypertrophic cardiomyopathy. We discussed symptom management and stroke risk. Her stroke risk is elevated, and, in fact, she has had a prior stroke. Given this, we will continue anticoagulation with as little interruption as possible. We discussed symptom management including rate and rhythm control. We discussed that patients with hypertrophic cardiomyopathy often benefit from rhythm control. Her antiarrhythmic drug options are limited as she has tried a multitude of medications and had side effects. She is on flecainide but has underlying conduction system disease which makes me a bit concerned as well. She has not tried dofetilide, and we are uncertain what this would cost for her. My recommendation would be to proceed with an ablation procedure and dofetilide. I suspect an ablation procedure alone would not likely keep her in normal rhythm, given she likely has significant scar tissue and has a severely enlarged left atrium. If she is to have consideration of myectomy, she could have a surgical ablation instead. I will discuss with Dr. Stone to see if this is being considered for her. If not, I would recommend proceeding with catheter ablation in the near future. She is a bit volume overloaded on exam today. She likely needs to go back on the Lasix that she had not taken today. I will defer further diuretic changes to Dr. Stone. ([id number]) We discussed multiple therapeutic options for the treatment of her atrial fibrillation, including undergoing an atrial fibrillation/left atrial antral isolation ablation. The details of the procedure and risks associated with undergoing an atrial fibrillation/TOMÁS ablation were discussed in detail including, but not limited to, , myocardial ischemia, stroke, cardiac perforation, pulmonary vein stenosis, diaphragmatic paralysis via phrenic nerve injury, catheter entrapment in the mitral valve or other location, bleeding, infection, deep vein thrombosis, vascular injury, and worsening atrial arrhythmias. We also discussed that there is a low risk of possible esophageal ulceration, atrial esophageal fistula, atrial bronchial fistula, or another complication requiring the need for major surgery to address. We also discussed that recurrent atrial fibrillation in the first 2-3 months post procedure is a part of the healing process and has no impact on the overall longer term success of the ablation. To try to reduce the incidence of these events, the plan will be for antiarrhythmic therapy to be restarted post procedure and continued for the first 3 months after ablation. We discussed that about 20-30% of patients will have recurrence of atrial fibrillation after the immediate post procedure period requiring the possible need for a repeat ablation procedure. Also discussed was that the 5 year cure rate of the procedure for her is approximately 50% with a higher rate if a repeat procedure is performed. All questions were answered to her satisfaction and she expressed verbal understanding of the procedure, the benefits, and risks. Ms. Cruz wishes to proceed with undergoing atrial fibrillation/left atrial antral isolation ablation. It is a pleasure sharing in the care of this patient. I will plan to follow up with her 1 month post ablation. Plan: -Will discuss with Dr. Stone -Let us know what happens with the wound care visit -Home sleep study -Discontinue flecainide -Continue diltiazem -- increase to 360 mg daily (from 240 mg; once in sinus, will need to decrease) -Will arrange for atrial fibrillation ablation followed by dofetilide initiation General anesthesia CT scan prior Energy: Cryo if anatomy favorable Mapping system: CARTO CAROLYNN: Yes Lesion plan: PVI alone CTI flutter line: only if inducible Post-ablation AAD plan: start dofetilide -Diuretics per Dr. Stone -- may need to increase the dose -We will need to work towards long-term weight loss -Follow-up: 1 month post-ablation -- please call us if you have symptoms in the interim -Will provide educational materials regarding: atrial fibrillation Please call us with any questions or concerns at [phone]. ADDENDUM 06/03/18: I spoke with Dr. Stone last night. He believes she may benefit from surgical myectomy. If this is to be performed, surgical ablation can be performed at the same time. I called and let the patient know regarding this discussion. We will go ahead and keep her on the schedule for catheter ablation in early July in case Dr. Mcdonnell does not believe she would be a good candidate for surgical myectomy and surgical AF ablation. We will try to arrange consultation with Dr. Mcdonnell this month. Medication List: albuterol (VENTOLIN HFA, PROAIR HFA, PROVENTIL [...] medication Take 1 Dose by mouth daily. potassium chloride(+) (MICRO-K) 10 mEq capsule [...] mouth at bedtime as needed for Sleep. Social History: Social History Substance Use Topics Smoking status: Former Smoker Quit date: 02/03/2000 Smokeless tobacco: Never Used Alcohol use No Comment: Very [place] Family History: family history includes Coronary Artery Disease in her father and mother; High Cholesterol in her mother; Hypertension in her mother; Sudden Cardiac in her father. Pertinent Studies: Labs: CBC w/Diff Lab Results Component Value Date/Time WBC 10.08 (H) 02/18/2017 RBC 5.06 (H) 02/18/2017 HGB 14.8 02/18/2017 HCT 44.3 02/18/2017 MCV 87.5 02/18/2017 MCH 29.2 02/18/2017 MCHC 33.4 02/18/2017 RDW 15.0 (H) 02/18/2017 PLTCT 283 02/18/2017 MPV 9.0 03/09/2016 04:16 AM No results found for: NEUT, ANC, LYMA, ALC, HORACE, AMC, EOSA, AEC, BASA, ABC Comprehensive Metabolic Profile Lab Results Component Value Date/Time NA 140 02/24/2018 K 3.9 02/24/2018 CL 103 02/24/2018 CO2 33.0 02/24/2018 GAP 8 02/24/2018 BUN 18 02/24/2018 CR 0.9 02/24/2018 GLU 91 02/24/2018 Lab Results Component Value Date/Time CA 9.8 02/24/2018 ALBUMIN 3.9 10/04/2015 TOTPROT 6.2 10/04/2015 ALKPHOS 72 10/04/2015 AST 21 10/04/2015 ALT 28 10/04/2015 TOTBILI 0.5 10/04/2015 GFR 65 02/24/2018 GFRAA >60 03/09/2016 08:10 AM Lab Results Component Value Date/Time ALKPHOS 72 10/04/2015 No results found for: TSH Lab Results Component Value Date/Time HGB 14.8 02/18/2017 WBC 10.08 (H) 02/18/2017 Echo Results (Last 3 results in the past 3 years) Echo EF LVIDD LA Size IVS LVPW Rest PAP (10/23/16) 65 (04/21/18) 4.86 (04/21/18) 4.69 (04/21/18) 1.56 (04/21/18) 1.29 (04/21/18) 39 (07/10/16) 60 (10/23/16) 4.2 (10/23/16) 4.3 (10/23/16) 1.3 (10/23/16) 1.2 (10/23/16) 27 (04/05/16) 55 (07/10/16) 3.5 (07/10/16) 4.3 (07/10/16) 1.4 (07/10/16) 1.0 (07/10/16) 30 ECG (personal interpretation) ECG dated today shows atrial fibrillation with a ventricular rate of 111 bpm with right bundle branch block and right axis deviation. There are nonspecific ST-T abnormalities Vitals: 06/02/18 1547 BP: (!) 160/100 Pulse: 111 Weight: 90.5 kg (199 lb 8 oz) Height: 1.626 m (5' 4") Body mass index is 34.24 kg/m. Past Medical History Patient Active Problem List Diagnosis Date Noted Acute on chronic diastolic CHF (congestive heart failure) (HCC) 06/03/2018 History of phenotyping 05/13/2017 Genetic testing for HCM completed through [facility], deletion/duplication analysis and sequencing. [facility] accession number: [id number]. Date specimen obtained: 03/27/17. Result: negative for [...] alcohol septal ablation of the first septal sanitation inspector, with a significant improvement in the LVOT [...] 03/04/17 LHC: Hypertrophic obstructive cardiomyopathy with a nkee-hd-[id number] gradient with amyl nitrate of 40 mmHg [...] for congestion and tinnitus. Eyes: Positive for pain and visual halos (right). Cardiovascular: Positive for dyspnea on exertion, irregular heartbeat and leg swelling. Respiratory: Positive for cough (sometimes) and shortness of breath. Endocrine: Positive for polyuria. Hematologic/Lymphatic: Bruises/bleeds easily. Skin: Positive for poor wound healing. Musculoskeletal: Positive for arthritis, back pain, joint pain and stiffness. Gastrointestinal: Negative. Genitourinary: Positive for nocturia. Neurological: Positive for headaches and numbness (fingers). Psychiatric/Behavioral: The patient has insomnia. Allergic/Immunologic: Positive for environmental allergies. Physical Exam BP (!) 160/100 (BP Source: Arm, Right Upper) | Pulse 111 | Ht 1.626 m (5' 4") | Wt 90.5 kg (199 lb 8 oz) | BMI 34.24 kg/m GENERAL APPEARANCE: Patient in no apparent distress. PSYCH: Appropriate NEURO: Alert and conversant VESSELS: JVD is elevated above the sternal notch (2 cm) ENT: Moist mucous membranes CARDIOVASCULAR: No parasternal lift Irregularly irregular rhythm and tachycardic. S1 and S2 present. +2/6 harsh systolic murmur. There is no pericardial rub GI: Abdomen nondistended No appreciable hepatomegaly in the upright position RESPIRATORY: Clear breath sounds bilaterally EXTREMITIES: There was no lower extremity edema SKIN: Dressing over R pre-tibial wound GAIT: Able to ambulate to the exam table Problems Addressed Today Encounter Diagnoses Name Primary? Persistent atrial fibrillation (HCC) Yes Paroxysmal atrial fibrillation HOCM (hypertrophic obstructive cardiomyopathy) (HCC) Acute on chronic diastolic CHF (congestive heart failure) (HCC) in this encounter Plan of Treatment Order Schedule Name Priority Associated Diagnoses Ordered: 06/02/2018 ECG 12-LEAD Routine Paroxysmal atrial fibrillation Order Schedule Name Priority Associated Diagnoses Ordered: 06/02/2018 AMB REFERRAL FOR SLEEP STUDIES Routine Paroxysmal atrial fibrillation as of this encounter Procedures Comments Procedure Name Priority Date/Time Associated Diagnosis ECG-SCAN 06/05/2018 8:00 AM CDT ECG/QRS Routine 06/02/2018 in this encounter Results * ECG-SCAN (06/05/2018 8:00 AM CDT) Narrative Performed At Ordered by an unspecified provider. * ECG/QRS (06/02/2018) QRS DURATION 148 OTHER OUTSIDE LAB Performing Organization Address City/State/Zipcode Phone Number OTHER OUTSIDE LAB in this encounter Visit Diagnoses Diagnosis Persistent atrial fibrillation (HCC) - Primary Atrial fibrillation Paroxysmal atrial fibrillation Atrial fibrillation HOCM (hypertrophic obstructive cardiomyopathy) (HCC) Hypertrophic obstructive cardiomyopathy Acute on chronic diastolic CHF (congestive heart failure) (HCC) Acute on chronic diastolic heart failure in this encounter
--- OUTSIDE RECORDS SUMMARY | 2018-08-15 06:13 | XMS REPORT | Encounter Summary ---
Author Author [facility] Organization [facility] Address Unknown Phone Unavailable Care Team Providers Care Jewelry Store Manager Name Role Phone Jadiel Cain MD PCP Khalida Garcia RN Unavailable Unavailable Reason for Visit * Reason Comments Pre-Procedure DCCV scheduled for 05/22/2018 Instructions Encounter Details Care Team Description Date Type Department Aury Schneider RN Pre-Procedure Instructions (DCCV scheduled for 05/22/2018) 05/21/2018 Telephone Cardiovascular Medicine [place] [address] [address] [place] [address] Social History Date Tobacco Use [...] encounter Miscellaneous Notes * Telephone Encounter - Aury Schneider RN - 05/21/2018 11:10 AM CDT Patient called regarding upcoming DCCV scheduled for 05/22/2018 NPO after midnight Medications to hold lasix and vitamins, but to take all other medications with sips of water especially xarelto, do not miss a dose. Patient instructed to have a drivers license examiner. Manuel, pt's friend, will drive patient home. Arrival Time 1030 Patient Called yes Labs Needed POC potassium Pt verbalized all understanding of instructions and no questions at this time. Pt also states she has not missed any doses of her xarelto in the past month. Pt states, "I always take it no matter what and never miss." in this encounter Plan of Treatment Not on fileas of this encounter Visit Diagnoses Not on filein this encounter
--- OUTSIDE RECORDS SUMMARY | 2018-08-15 06:14 | XMS REPORT | Continuity of Care Document ---
Author Author [facility] Organization [facility] Address Unknown Phone Unavailable Allergies Active Description Code Type Severity Reaction Onset Reported/Identified Relationship to Patient Clinical Status Yes No Known Drug Allergies [id number] Drug Allergy Unknown N/A 12/18/2007 Medications There is no data. Problems Date Dx Coded Attending Type Code Diagnosis Diagnosed By 03/22/2014 BRENDA SAWANT DO, Ot 038.9 SEPTICEMIA NOS 03/22/2014 BRENDA SAWANT DO Ot 054.9 HERPES SIMPLEX NOS 03/22/2014 BRENDA SAWANT DO Ot 275.2 DIS MAGNESIUM METABOLISM 03/22/2014 BRENDA SAWANT DO Ot 276.51 DEHYDRATION 03/22/2014 BRENDA SAWANT DO Ot 276.8 HYPOPOTASSEMIA 03/22/2014 BRENDA SAWANT DO Ot 397.0 TRICUSPID VALVE DISEASE 03/22/2014 BRENDA SAWANT DO Ot 401.9 HYPERTENSION NOS 03/22/2014 BRENDA SAWANT DO Ot 424.0 MITRAL VALVE DISORDER 03/22/2014 BRENDA SAWANT DO Ot 425.11 HYPERTROPHIC OBSTRUCTIVE CARDIOMYOPATHY 03/22/2014 BRENDA SAWANT DO Ot 427.31 ATRIAL FIBRILLATION 03/22/2014 BRENDA SAWANT DO Ot 477.9 ALLERGIC RHINITIS NOS 03/22/2014 BRENDA SAWANT DO Ot 682.6 CELLULITIS OF LEG 03/22/2014 BRENDA SAWANT DO Ot 715.90 OSTEOARTHROS NOS-UNSPEC 03/22/2014 BRENDA SAWANT DO Ot 780.52 INSOMNIA, UNSPECIFIED 03/22/2014 BRENDA SAWANT DO Ot 995.91 SEPSIS 04/02/2014 BRENDA SAWATN DO Ot 682.6 CELLULITIS OF LEG 12/17/2014 BRENDA SAWANT DO Ot 427.31 01/18/2015 BRENDA SAWANT DO, Ot 427.31 02/13/2015 SAWANT DO, BRENDA J Ot 427.31 ATRIAL FIBRILLATION 10/03/2015 JOANN GRANDE, PERRY Olea Ot I10 10/03/2015 PERRY DAVID MD Ot I42.1 10/03/2015 PERRY DAVID MD Ot I48.0 10/03/2015 PERRY DAVID MD Ot I63.9 10/13/2015 PERRY DAVID MD Ot I10 10/13/2015 PERRY DAVID MD Ot I42.1 10/13/2015 PERRY DAVID MD Ot I48.0 10/13/2015 PERRY DAVID MD Ot I63.9 05/28/2016 Ot 397.0 TRICUSPID VALVE DISEASE 05/28/2016 Ot 429.3 CARDIOMEGALY 05/28/2016 Ot 785.2 CARDIAC MURMURS NEC 05/28/2016 Ot 786.50 CHEST PAIN NOS 05/28/2016 BRENDA SAWANT DO Ot 427.31 ATRIAL FIBRILLATION 05/28/2016 PERRY DAVID MD Ot I10 ESSENTIAL (PRIMARY) HYPERTENSION 05/28/2016 PERRY DAVID MD Ot I42.1 OBSTRUCTIVE HYPERTROPHIC CARDIOMYOPATHY 05/28/2016 PERRY DAVID MD Ot I48.0 PAROXYSMAL ATRIAL FIBRILLATION 05/28/2016 PERRY DAVID MD Ot I63.9 CEREBRAL INFARCTION, UNSPECIFIED 05/30/2016 BRENDA SAWANT DO Ot R06.09 OTHER FORMS OF DYSPNEA 06/19/2016 BRENDA SAWANT DO Ot R06.09 OTHER FORMS OF DYSPNEA 02/05/2017 SHER ANDRADE MD Ot E66.9 OBESITY, UNSPECIFIED 02/05/2017 SHER ANDRADE MD Ot E83.42 HYPOMAGNESEMIA 02/05/2017 SHER ANDRADE MD Ot E87.6 HYPOKALEMIA 02/05/2017 SHER ANDRADE MD Ot G47.9 SLEEP DISORDER, UNSPECIFIED 02/05/2017 SHER ANDRADE MD Ot I10 ESSENTIAL (PRIMARY) HYPERTENSION 02/05/2017 SHER ANDRADE MD Ot I42.1 OBSTRUCTIVE HYPERTROPHIC CARDIOMYOPATHY 02/05/2017 SHER ANDRADE MD Ot I48.0 PAROXYSMAL ATRIAL FIBRILLATION 02/05/2017 SHER ANDRADE MD Ot K21.9 GASTRO-ESOPHAGEAL REFLUX DISEASE WITHOUT 02/05/2017 SHER ANDRADE MD Ot L03.113 CELLULITIS OF RIGHT UPPER LIMB 02/05/2017 SHER ANDRADE MD, Ot M19.91 PRIMARY OSTEOARTHRITIS, UNSPECIFIED SITE 02/05/2017 SHER ANDRADE MD, Ot R01.1 CARDIAC MURMUR, UNSPECIFIED 02/05/2017 SHER ANDRADE MD, Ot S60.561A INSECT BITE (NONVENOMOUS) OF RIGHT HAND, 02/05/2017 SHER ANDRADE MD, Ot W57.XXXA BIT/STUNG BY NONVENOM INSECT OTH NONVE 02/05/2017 SHER ANDRADE MD, Ot Z68.34 BODY MASS INDEX (BMI) 34.0-34.9, ADULT 02/05/2017 SHER ANDRADE MD, Ot Z79.01 HALFWAY (CURRENT) USE OF ANTICOAGULANT 02/05/2017 SHER ANDRADE MD, Ot Z86.73 PRSNL HX OF TIA (TIA), AND CEREB INFRC W 02/05/2017 SHER ANDRADE MD, Ot Z96.653 PRESENCE OF ARTIFICIAL KNEE JOINT, BILAT 06/02/2018 Ot 786.50 CHEST PAIN NOS 06/02/2018 BRENDA SAWANT DO Ot 427.31 ATRIAL FIBRILLATION 06/02/2018 PERRY DAVID MD Ot I10 ESSENTIAL (PRIMARY) HYPERTENSION 06/02/2018 PERRY DAVID MD Ot I42.1 OBSTRUCTIVE HYPERTROPHIC CARDIOMYOPATHY 06/02/2018 PERRY DAVID MD Ot I48.0 PAROXYSMAL ATRIAL FIBRILLATION 06/02/2018 PERRY DAVID MD Ot I63.9 CEREBRAL INFARCTION, UNSPECIFIED 06/02/2018 BRENDA SAWANT DO Ot R06.09 OTHER FORMS OF DYSPNEA 06/09/2018 ROCK CORNEJO APRN Ot I87.2 VENOUS INSUFFICIENCY (CHRONIC) (PERIPHER 06/09/2018 ROCK CORNEJO APRN Ot L03.115 CELLULITIS OF RIGHT LOWER LIMB 06/09/2018 ROCK CORNEJO APRN Ot L97.212 NON-PRESSURE CHRONIC ULCER OF RIGHT CALF 06/16/2018 ROCK CORNEJO APRN Ot I87.2 VENOUS INSUFFICIENCY (CHRONIC) (PERIPHER 06/16/2018 CLEMENTE, ROCK R ADVICE CLERK Ot L03.115 CELLULITIS OF RIGHT LOWER LIMB 06/16/2018 LCEMENTE, ROCK R ADVICE CLERK Ot L97.212 NON-PRESSURE CHRONIC ULCER OF RIGHT CALF 06/23/2018 CLEMENTE, ROCK R ADVICE CLERK Ot I87.2 VENOUS INSUFFICIENCY (CHRONIC) (PERIPHER 06/23/2018 CLEMENTE, ROCK R ADVICE CLERK Ot L03.115 CELLULITIS OF RIGHT LOWER LIMB 06/23/2018 CLEMENTE, ROCK R ADVICE CLERK Ot L97.212 NON-PRESSURE CHRONIC ULCER OF RIGHT CALF 07/01/2018 CLEMENTE, ROCK R ADVICE CLERK Ot I87.2 VENOUS INSUFFICIENCY (CHRONIC) (PERIPHER 07/01/2018 CLEMENTE, ROCK R ADVICE CLERK Ot L03.115 CELLULITIS OF RIGHT LOWER LIMB 07/01/2018 CLEMENTE, ROCK R ADVICE CLERK Ot L97.212 NON-PRESSURE CHRONIC ULCER OF RIGHT CALF 07/01/2018 CLEMENTE, ROCK R ADVICE CLERK Ot I87.2 VENOUS INSUFFICIENCY (CHRONIC) (PERIPHER 07/01/2018 CLEMENTE, ROCK R ADVICE CLERK Ot L03.115 CELLULITIS OF RIGHT LOWER LIMB 07/01/2018 CLEMENTE, ROCK R ADVICE CLERK Ot L97.212 NON-PRESSURE CHRONIC ULCER OF RIGHT CALF 07/01/2018 CLEMENTE, ROCK R ADVICE CLERK Ot I87.2 VENOUS INSUFFICIENCY (CHRONIC) (PERIPHER 07/01/2018 CLEMENTE, ROCK R ADVICE CLERK Ot L03.115 CELLULITIS OF RIGHT LOWER LIMB 07/01/2018 CLEMENTE, ROCK R ADVICE CLERK Ot L97.212 NON-PRESSURE CHRONIC ULCER OF RIGHT CALF 07/01/2018 CLEMENTE, ROCK R ADVICE CLERK Ot I87.2 VENOUS INSUFFICIENCY (CHRONIC) (PERIPHER 07/01/2018 CLEMENTE, ROCK R ADVICE CLERK Ot L03.115 CELLULITIS OF RIGHT LOWER LIMB 07/01/2018 CLEMENTE, ROCK R ADVICE CLERK Ot L97.212 NON-PRESSURE CHRONIC ULCER OF RIGHT CALF 07/21/2018 CLEMENTE, ROCK R ADVICE CLERK Ot I87.2 VENOUS INSUFFICIENCY (CHRONIC) (PERIPHER 07/21/2018 CLEMENTE, ROCK R ADVICE CLERK Ot L03.115 CELLULITIS OF RIGHT LOWER LIMB 07/21/2018 CLEMENTE, ROCK R ADVICE CLERK Ot L97.212 NON-PRESSURE CHRONIC ULCER OF RIGHT CALF Procedures There is no data. Results Test Result Range Complete blood count (CBC) with automated white blood cell (WBC) differential - 02/03/17 17:42 Blood leukocytes automated count (number/volume) 9.9 10*3/uL 4.3-11.0 Blood erythrocytes automated count (number/volume) 5.52 10*6/uL 4.35-5.85 Venous blood hemoglobin measurement (mass/volume) 15.8 g/dL 11.5-16.0 Blood hematocrit (volume fraction) 47 % 35-52 Automated erythrocyte mean corpuscular volume 85 [foz_us] 80-99 Automated erythrocyte mean corpuscular hemoglobin (mass per erythrocyte) 29 pg 25-34 Automated erythrocyte mean corpuscular hemoglobin concentration measurement ( mass/volume) 34 g/dL 32-36 Automated erythrocyte distribution width ratio 14.4 % 10.0-14.5 Automated blood platelet count (count/volume) 264 10*3/uL 130-400 Automated blood platelet mean volume measurement 11.3 [foz_us] 7.4-10.4 Automated blood neutrophils/100 leukocytes 65 % 42-75 Automated blood lymphocytes/100 leukocytes 24 % 12-44 Blood monocytes/100 leukocytes 9 % 0-12 Automated blood eosinophils/100 leukocytes 1 % 0-10 Automated blood basophils/100 leukocytes 1 % 0-10 Blood neutrophils automated count (number/volume) 6.5 10*3 1.8-7.8 Blood lymphocytes automated count (number/volume) 2.4 10*3 1.0-4.0 Blood monocytes automated count (number/volume) 0.9 10*3 0.0-1.0 Automated eosinophil count 0.1 10*3/uL 0.0-0.3 Automated blood basophil count (count/volume) 0.1 10*3/uL 0.0-0.1 Comprehensive metabolic panel - 02/03/17 17:42 Serum or plasma sodium measurement (moles/volume) 134 mmol/L 135-145 Serum or plasma potassium measurement (moles/volume) 3.5 mmol/L 3.6-5.0 Serum or plasma chloride measurement (moles/volume) 98 mmol/L 98-107 Carbon dioxide 24 mmol/L 21-32 Serum or plasma anion gap determination (moles/volume) 12 mmol/L 5-14 Serum or plasma urea nitrogen measurement (mass/volume) 12 mg/dL 7-18 Serum or plasma creatinine measurement (mass/volume) 1.23 mg/dL 0.60-1.30 Serum or plasma urea nitrogen/creatinine mass ratio 10 NRG Serum or plasma creatinine measurement with calculation of estimated glomerular filtration rate 44 NRG Serum or plasma glucose measurement (mass/volume) 128 mg/dL 70-105 Serum or plasma calcium measurement (mass/volume) 10.8 mg/dL 8.5-10.1 Serum or plasma total bilirubin measurement (mass/volume) 0.6 mg/dL 0.1-1.0 Serum or plasma alkaline phosphatase measurement (enzymatic activity/volume) 99 U/L 40-136 Serum or plasma aspartate aminotransferase measurement (enzymatic activity/ volume) 32 U/L 5-34 Serum or plasma alanine aminotransferase measurement (enzymatic activity/volume ) 29 U/L 0-55 Serum or plasma protein measurement (mass/volume) 6.8 g/dL 6.4-8.2 Serum or plasma albumin measurement (mass/volume) 3.9 g/dL 3.2-4.5 Magnesium - 02/03/17 17:42 Magnesium 1.6 mg/dL 1.8-2.4 Serum or plasma troponin i.cardiac measurement (mass/volume) - 02/03/17 17:42 Serum or plasma troponin i.cardiac measurement (mass/volume) < ng/ mL <0.30 Serum or plasma thyrotropin measurement by detection limit <=0.05 miu/l (units/ volume) - 02/03/17 17:42 Serum or plasma thyrotropin measurement by detection limit <=0.05 miu/l (units/ volume) 1.73 u[iU]/mL 0.35-4.94 Digoxin - 02/03/17 17:42 Digoxin < ng/mL 0.80-2.00 Methicillin resistant Staphylococcus aureus (MRSA) screening culture - 23:00 Methicillin resistant Staphylococcus aureus (MRSA) screening culture NEG NRG Complete blood count (CBC) with automated white blood cell (WBC) differential - 02/04/17 04:02 Blood leukocytes automated count (number/volume) 8.5 10*3/uL 4.3-11.0 Blood erythrocytes automated count (number/volume) 5.05 10*6/uL 4.35-5.85 Venous blood hemoglobin measurement (mass/volume) 14.5 g/dL 11.5-16.0 Blood hematocrit (volume fraction) 42 % 35-52 Automated erythrocyte mean corpuscular volume 84 [foz_us] 80-99 Automated erythrocyte mean corpuscular hemoglobin (mass per erythrocyte) 29 pg 25-34 Automated erythrocyte mean corpuscular hemoglobin concentration measurement ( mass/volume) 34 g/dL 32-36 Automated erythrocyte distribution width ratio 14.3 % 10.0-14.5 Automated blood platelet count (count/volume) 232 10*3/uL 130-400 Automated blood platelet mean volume measurement 10.4 [foz_us] 7.4-10.4 Automated blood neutrophils/100 leukocytes 64 % 42-75 Automated blood lymphocytes/100 leukocytes 23 % 12-44 Blood monocytes/100 leukocytes 10 % 0-12 Automated blood eosinophils/100 leukocytes 3 % 0-10 Automated blood basophils/100 leukocytes 0 % 0-10 Blood neutrophils automated count (number/volume) 5.4 10*3 1.8-7.8 Blood lymphocytes automated count (number/volume) 2.0 10*3 1.0-4.0 Blood monocytes automated count (number/volume) 0.8 10*3 0.0-1.0 Automated eosinophil count 0.2 10*3/uL 0.0-0.3 Automated blood basophil count (count/volume) 0.0 10*3/uL 0.0-0.1 Whole blood basic metabolic panel - 02/04/17 04:02 Serum or plasma sodium measurement (moles/volume) 133 mmol/L 135-145 Serum or plasma potassium measurement (moles/volume) 3.1 mmol/L 3.6-5.0 Serum or plasma chloride measurement (moles/volume) 99 mmol/L 98-107 Carbon dioxide 22 mmol/L 21-32 Serum or plasma anion gap determination (moles/volume) 12 mmol/L 5-14 Serum or plasma urea nitrogen measurement (mass/volume) 11 mg/dL 7-18 Serum or plasma creatinine measurement (mass/volume) 0.81 mg/dL 0.60-1.30 Serum or plasma urea nitrogen/creatinine mass ratio 14 NRG Serum or plasma creatinine measurement with calculation of estimated glomerular filtration rate > NRG Serum or plasma glucose measurement (mass/volume) 103 mg/dL 70-105 Serum or plasma calcium measurement (mass/volume) 10.0 mg/dL 8.5-10.1 Serum or plasma phosphate measurement (mass/volume) - 02/04/17 04:02 Serum or plasma phosphate measurement (mass/volume) 3.1 mg/dL 2.3-4.7 Magnesium - 02/04/17 04:02 Magnesium 1.8 mg/dL 1.8-2.4 Complete blood count (CBC) with automated white blood cell (WBC) differential - 02/05/17 04:07 Blood leukocytes automated count (number/volume) 7.0 10*3/uL 4.3-11.0 Blood erythrocytes automated count (number/volume) 4.92 10*6/uL 4.35-5.85 Venous blood hemoglobin measurement (mass/volume) 14.1 g/dL 11.5-16.0 Blood hematocrit (volume fraction) 42 % 35-52 Automated erythrocyte mean corpuscular volume 85 [foz_us] 80-99 Automated erythrocyte mean corpuscular hemoglobin (mass per erythrocyte) 29 pg 25-34 Automated erythrocyte mean corpuscular hemoglobin concentration measurement ( mass/volume) 34 g/dL 32-36 Automated erythrocyte distribution width ratio 14.3 % 10.0-14.5 Automated blood platelet count (count/volume) 229 10*3/uL 130-400 Automated blood platelet mean volume measurement 10.8 [foz_us] 7.4-10.4 Automated blood neutrophils/100 leukocytes 58 % 42-75 Automated blood lymphocytes/100 leukocytes 27 % 12-44 Blood monocytes/100 leukocytes 9 % 0-12 Automated blood eosinophils/100 leukocytes 5 % 0-10 Automated blood basophils/100 leukocytes 1 % 0-10 Blood neutrophils automated count (number/volume) 4.1 10*3 1.8-7.8 Blood lymphocytes automated count (number/volume) 1.9 10*3 1.0-4.0 Blood monocytes automated count (number/volume) 0.7 10*3 0.0-1.0 Automated eosinophil count 0.3 10*3/uL 0.0-0.3 Automated blood basophil count (count/volume) 0.0 10*3/uL 0.0-0.1 Whole blood basic metabolic panel - 02/05/17 04:07 Serum or plasma sodium measurement (moles/volume) 133 mmol/L 135-145 Serum or plasma potassium measurement (moles/volume) 4.1 mmol/L 3.6-5.0 Serum or plasma chloride measurement (moles/volume) 101 mmol/L 98-107 Carbon dioxide 24 mmol/L 21-32 Serum or plasma anion gap determination (moles/volume) 8 mmol/L 5-14 Serum or plasma urea nitrogen measurement (mass/volume) 12 mg/dL 7-18 Serum or plasma creatinine measurement (mass/volume) 0.87 mg/dL 0.60-1.30 Serum or plasma urea nitrogen/creatinine mass ratio 14 NRG Serum or plasma creatinine measurement with calculation of estimated glomerular filtration rate > NRG Serum or plasma glucose measurement (mass/volume) 106 mg/dL 70-105 Serum or plasma calcium measurement (mass/volume) 10.2 mg/dL 8.5-10.1 Serum or plasma phosphate measurement (mass/volume) - 02/05/17 04:07 Serum or plasma phosphate measurement (mass/volume) 2.8 mg/dL 2.3-4.7 Magnesium - 02/05/17 04:07 Magnesium 1.7 mg/dL 1.8-2.4 Bacteria identification in isolate by anaerobe culture - 06/12/18 09:55 Bacteria identification in isolate by anaerobe culture NOANA NRG Gram stain microscopy - 06/12/18 09:55 Gram stain microscopy REPORTED 06-13-2018, 0606. NRG Bacteria identification in wound by culture - 06/12/18 09:55 Bacteria identification in wound by culture NG NRG Encounters ACCT No. Visit Date/Time Discharge Status Pt. Type Provider Facility Loc./Unit Complaint [id number] 06/26/2018 09:27:00 06/26/2018 23:59:59 CLS Outpatient ROCK CORNEJO APRN [facility] WOUND[facility] [id number] 06/19/2018 09:29:00 06/19/2018 23:59:59 CLS Outpatient ROCK CORNEJO APRN [facility] [id number] 06/12/2018 09:32:00 06/12/2018 23:59:59 CLS Outpatient ROCK CORNEJO APRN [facility] [id number] 06/05/2018 08:10:00 06/05/2018 23:59:59 CLS Outpatient ROCK CORNEJO ADVICE CLERK [facility] [id number] 02/04/2017 08:56:00 02/05/2017 16:35:00 DIS Inpatient SANDNESS MD, SHER Patrick [facility] ICU AFIB W RVR, CHEST TIGHTNESS [id number] 05/28/2016 14:11:00 05/28/2016 23:59:59 CLS Outpatient BRENDA SAWANT DO [facility] RT EXERTIONAL DYSPNEA [id number] 09/28/2015 12:12:00 09/28/2015 23:59:59 CLS Outpatient PERRY DAVID MD [facility] CARD AFIB,CVA [id number] 02/14/2015 11:00:00 02/14/2015 23:59:59 CLS Preadmit BRENDA SAWANT DO [facility] CARD 427.31 [id number] 11/15/2014 11:16:00 02/13/2015 00:01:00 DIS Outpatient BRENDA SAWANT DO [facility] CARD 427.31 [id number] 03/29/2014 10:00:00 04/02/2014 12:45:00 DIS Outpatient BRENDA SAWANT DO [facility] WOUND[facility] RIGHT CALF CELLULITIS [id number] 03/11/2014 17:55:00 03/22/2014 11:00:00 DIS Inpatient BRENDA SAWANT DO [facility] 4TH CELLULITIS [id number] 08/15/2018 05:59:00 ACT Emergency LEIA EDGAR MD [facility] ER STIFF NECK, CAN'T SLEEP,N,LOW GRADE FEVER [id number] 12/23/2012 06:40:00 Document Registration [id number] 02/11/2012 13:06:00 Document Registration [id number] 07/10/2018 11:28:00 07/10/2018 23:59:00 DIS Outpatient BRENDA SAWANT [id number] 05/15/2017 10:58:00 05/15/2017 23:59:00 DIS Outpatient BRENDA SAWANT
[2018-08-15] MEDS ORDERED: KETOROLAC 60 MG/2 ML VIAL IM STA (07:20)
[2018-08-15] MEDS ORDERED: ORPHENADRINE 60 MG/2 ML (NORFLEX) AMP IM STA (07:20)
[2018-08-15] MEDS ORDERED: HYDROcodone/APAP 7.5 MG/325 MG (LORTAB, LORCET PLUS) TABLET PO STA (07:20)
--- NOTE | 2018-08-15 08:39 | ED General ---
General Chief Complaint: General Problems/Pain Stated Complaint: STIFF NECK, CAN'T SLEEP,N,LOW GRADE FEVER Nursing Triage Note: PT AMB TO ROOM #6 W/O DIFFICULTY. A&OX4. C/O NECK RIGIDITY THAT BEGAN 08/11/18. REPORTS WAS SEEN BY HER CHIROPRACTOR TWO TIMES THROUGHOUT WEEK REGARDING DISCOMFORT. REPORTS DIFFUSE BODY ACHES, LOW GRADE TEMPERATURE. Nursing Sepsis Screen: No Definite Risk Source of Information: Patient Exam Limitations: No Limitations History of Present Illness Date Seen by Provider: Aug 15, 2018 Time Seen by Provider: 07:10 Initial Comments Here with bilateral neck pain that started on the right side 4 days ago. She was seen by her chiropractor the next day and then again the next day for continued pain. Pain is now moved to the left side and actually has pain on both sides. It hurts when turning her head either way. She is taken her medications including Flexeril and it is not getting better. She was concerned because she thought she may have had a low-grade temperature yesterday. Afebrile today. Denies other systemic complaints. Timing/Duration: 4-5 Days, Getting Worse Severity: Moderate Associated Systoms: No Cough, No Nausea/Vomiting, No Shortness of Air, No Weakness Allergies and Home Medications Allergies Coded Allergies: No Known Drug Allergies (Verified , 12/18/07) Home Medications Albuterol Sulfate 1 Puff Puff, 2 PUFF IH Q6H PRN for CONGESTION, (Reported) 1 PUFF = 90 MCG Diltiazem HCl 180 Mg Cap.er.24h, 360 MG PO DAILY Prescribed by: JORI MCCRACKEN on 02/05/17 1458 Krill/Om3/Dha/Epa/Om6/Lip/Astx 1 Each Capsule, 1 CAP PO DAILY, (Reported) Lactobacillus Rhamnosus GG 1 Each Capsule, 1 CAP PO DAILY, (Reported) Loratadine 10 Mg Tablet, 10 MG PO DAILY, (Reported) Multivitamin 1 Each Tablet, 1 TAB PO DAILY, (Reported) Potassium Chloride 10 Meq Tab.prt.sr, 10 MEQ PO DAILY, (Reported) Rivaroxaban 20 Mg Tablet, 20 MG PO DAILY, (Reported) Triamterene/Hydrochlorothiazid 1 Each Capsule, 1 CAP PO DAILY, (Reported) Ubidecarenone 100 Mg Capsule, 100 MG PO DAILY, (Reported) Zolpidem Tartrate 12.5 Mg Tab.mphase, 10 MG PO HS, (Reported) Patient Home Medication List Home Medication List Reviewed: Yes Review of Systems Review of Systems Constitutional: see HPI; No chills Respiratory: no symptoms reported Cardiovascular: no symptoms reported Musculoskeletal: muscle pain, muscle stiffness; No muscle weakness; neck pain Skin: no symptoms reported Psychiatric/Neurological: No Symptoms Reported Past Nhfsidt-Wtxnjp-Pcnkwn Hx Past Med/Social Hx: Reviewed Nursing Past Med/Soc Hx Patient Social History Alcohol Use: Denies Use Recreational Drug Use: No Smoking Status: Never a Smoker 2nd Hand Smoke Exposure: No Recent Foreign Travel: No Contact w/Someone Who Travel: No Recent Infectious Disease Expo: No Immunizations Up To Date Tetanus Booster (TDap): More than 5yrs Seasonal Allergies Seasonal Allergies: Yes Past Medical History 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 Disorders: 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 Sexually Transmitted Disease: No HIV/AIDS: No Genitourinary: No Gastrointestinal: Yes Gastroesophageal Reflux Musculoskeletal: Yes Arthritis Endocrine: No Cataract Cancer: No Psychosocial: Yes Sleep Difficulties Integumentary: Yes (strip cellulitis) Blood Disorders: No Family Medical History Reviewed Nursing Family Hx Cataract 19 FATHER Chest pain 19 FATHER Congenital heart disease 19 MOTHER Congestive heart failure 19 MOTHER Family history: Arthritis 19 FATHER 19 MOTHER Family history: Hypertension 19 FATHER 19 MOTHER Headache 19 MOTHER (MIGRAINES) Hearing loss 19 FATHER (HOONAH) Myocardial infarction 19 FATHER No Family History of: Abdominal aortic aneurysm [place]'s disease Alcoholism Aphasia Cancer Cancer of colon Cystic fibrosis Dementia Dysphagia Family history: Allergy Family history: Alzheimer's disease Family history: Asthma Family history: Breast disease Family history: Cardiovascular disease Family history: Coronary thrombosis Family history: Diabetes mellitus Family history: Gastrointestinal disease Family history: Glaucoma Family history: Osteoporosis Family history: Thyroid disorder Heart disease Hereditary disease History of - anemia History of - disorder History of - respiratory disease History of drug abuse Human immunodeficiency virus (HIV) seropositivity Hypercholesterolemia Infertile Kidney disease Malignant neoplasm of lung Parkinson's disease Prostate cancer Psychotic disorder Seizure disorder Stroke Tuberculosis Visual impairment Physical Exam Vital Signs Vital Signs - First Documented 08/15/18 06:12 Temp 97.5 Pulse 85 Resp 18 B/P (MAP) 145/90 (108) Pulse Ox 97 O2 Delivery Room Air Capillary Refill : Less Than 3 Seconds Height, Weight, BMI Height: 5'4.00" Weight: 195lbs. 1.6oz. [id number]; 34.7 BMI Method:Stated General Appearance: WD/WN, Mild Distress (pain) Neck: Limited Range of Motion; No Lymphadenopathy (L), No Lymphadenopathy (R); Tender Lateral; No Tender Midline Respiratory: Lungs Clear, Normal Breath Sounds Cardiovascular: Regular Rate, Rhythm, No Murmur Back: Normal Inspection, No CVA Tenderness, No Vertebral Tenderness Neurologic/Psychiatric: Alert, Oriented x3, No Motor/Sensory Deficits Skin: Normal Color, Warm/Dry Progress/Results/Core Measures Suspected Sepsis Recent Fever Within 48 Hours: Yes Infection Criteria Present: None New/Unexplained Altered Menta: No Sepsis Screen: No Definite Risk SIRS Temperature:97.5 Pulse: 85 Respiratory Rate: 18 Blood Pressure 145 /90 Mean: 108 Results/Orders My Orders Orders - LEIA EDGAR MD Hydrocodone/Apap 7.5/325 Tab (Lortab 7. (08/15/18 07:20) Ketorolac Injection (Toradol Injection) (08/15/18 07:20) Orphenadrine Injection (Norflex Injectio (08/15/18 07:20) Vital Signs/I&O 08/15/18 06:12 Temp 97.5 Pulse 85 Resp 18 B/P (MAP) 145/90 (108) Pulse Ox 97 O2 Delivery Room Air Capillary Refill : Less Than 3 Seconds Blood Pressure Mean: 108 Progress Note : Progress Note Seen and evaluated. Toradol 60 mg IM, Norflex 60 mg IM and Lortab 7.5 one tab by mouth given. Monitor patient. 0835: Overall doing much better. She has hydrocodone at home. I will have her continue her medicines and we will do a short course of steroids outpatient. Discharged home with return precautions. Patient verbalize understanding instructions and agreement with plan. Departure Impression Primary Impression: Torticollis, acute Disposition: 01 HOME, SELF-CARE Condition: Improved Departure-Patient Inst. Decision time for Depature: 08:39 Referrals: BRENDA SAWANT DO (PCP/Family) Primary Care Physician Patient Instructions: Jeanna, Adult Add. Discharge Instructions: All discharge instructions reviewed with patient and/or family. Voiced understanding. Take medications as directed. You may use your hydrocodone as previously prescribed. You may use icy hot with lidocaine or salonpas with lidocaine patches or similar to area of concern to reduce pain. Follow-up with your Dr. in a few days for recheck. Return for worse pain, fever, vomiting, weakness, breathing problems or other concerns as needed. Scripts Prednisone (Prednisone) 20 Mg Tab 40 MG PO DAILY, #10 TAB 0 Refills Prov: LEIA EDGAR MD 08/15/18 LEIA EDGAR MD Aug 15, 2018 08:39
[2018-08-15] MEDS ORDERED: PRD20T PO (08:42)
[2018-08-15 08:52] VITALS: BP 132/87
== END 2018-08-15 08:50 | disposition home or self-care (01) ==
LOC: EDUNIT# 05:56 → ER 05:59
DX: M43.6 Torticollis (principal); I48.91 Unspecified atrial fibrillation; I42.9 Cardiomyopathy, unspecified; K21.9 Gastro-esophageal reflux disease without esophagitis; Z82.49 Family history of ischemic heart disease and other diseases of the circulatory system; Z86.73 Personal history of transient ischemic attack (TIA), and cerebral infarction without residual deficits; Z79.51 Long term (current) use of inhaled steroids; Z79.01 Long term (current) use of anticoagulants; Z98.890 Other specified postprocedural states; Z90.710 Acquired absence of both cervix and uterus; Z90.89 Acquired absence of other organs
CPT/HCPCS: 99284

== ENCOUNTER → 2020-02-16 | Outpatient (CLI) | payer MEDICARE, OTHER ==
[~2020-02-16] MED LIST changes: +DILT-28 PO; -DILT180C90 PO; +PRD20T PO; -RIVA20TA PO; +RIVA20TA2 PO
== END ==
LOC: WOUNDCARE 09:18
PROVIDERS: ATTEND Surgery
DX: I87.333 Chronic venous hypertension (idiopathic) with ulcer and inflammation of bilateral lower extremity (principal); I70.242 Atherosclerosis of native arteries of left leg with ulceration of calf; L97.222 Non-pressure chronic ulcer of left calf with fat layer exposed; L97.212 Non-pressure chronic ulcer of right calf with fat layer exposed; I50.9 Heart failure, unspecified
CPT/HCPCS: A6260; G0463; 99213

== ENCOUNTER → 2020-02-16 | Outpatient (CLI) | payer MEDICARE, OTHER ==
[2020-02-16 11:19] LABS: BASOPHILS % (AUTO) 0 % (0-10); EOSINOPHILS # (AUTO) 0.1 10^3/uL (0.0-0.3); EOSINOPHILS % (AUTO) 1 % (0-10); HEMATOCRIT 52 % (35-52); HEMOGLOBIN 17.6 G/DL (11.5-16.0); LYMPHOCYTES # (AUTO) 2.1 X 10^3 (1.0-4.0); LYMPHOCYTES % (AUTO) 20 % (12-44); MEAN CORPUSCULAR HEMOGLOBIN 30 PG (25-34); MEAN CORPUSCULAR HGB CONC 34 G/DL (32-36); MEAN CORPUSCULAR VOLUME 90 FL (80-99); MEAN PLATELET VOLUME 9.7 FL (7.4-10.4); MONOCYTES # (AUTO) 0.9 X 10^3 (0.0-1.0); MONOCYTES % (AUTO) 8 % (0-12); NEUTROPHILS # (AUTO) 7.4 X 10^3 (1.8-7.8); NEUTROPHILS % (AUTO) 71 % (42-75); PLATELET COUNT 260 10^3/uL (130-400); RED CELL DISTRIBUTION WIDTH 14.8 % (10.0-14.5); WHITE BLOOD COUNT 10.4 10^3/uL (4.3-11.0)
[2020-02-16 11:41] LABS: POTASSIUM 4.1 MMOL/L (3.6-5.0)
[2020-02-16 11:42] LABS: ALBUMIN 3.8 GM/DL (3.2-4.5); BILIRUBIN,TOTAL 0.7 MG/DL (0.1-1.0); CALCIUM 10.5 MG/DL (8.5-10.1); CREATININE SERUM 1.24 MG/DL (0.60-1.30); TOTAL PROTEIN 6.8 GM/DL (6.4-8.2)
== END ==
LOC: LAB 11:03
PROVIDERS: ATTEND Surgery
DX: I70.242 Atherosclerosis of native arteries of left leg with ulceration of calf (principal); L97.222 Non-pressure chronic ulcer of left calf with fat layer exposed; L97.212 Non-pressure chronic ulcer of right calf with fat layer exposed; L50.9 Urticaria, unspecified; I87.333 Chronic venous hypertension (idiopathic) with ulcer and inflammation of bilateral lower extremity
CPT/HCPCS: 36415; 80053; 85025

== ENCOUNTER → 2020-02-23 | Outpatient (CLI) | payer MEDICARE, OTHER ==
[~2020-02-23] MED LIST changes: +MULT-567 PO; -MULT1TAB69 PO
== END ==
LOC: WOUNDCARE 10:55
PROVIDERS: ATTEND Surgery
DX: I87.333 Chronic venous hypertension (idiopathic) with ulcer and inflammation of bilateral lower extremity (principal); L97.222 Non-pressure chronic ulcer of left calf with fat layer exposed; L97.212 Non-pressure chronic ulcer of right calf with fat layer exposed; I11.0 Hypertensive heart disease with heart failure; I50.9 Heart failure, unspecified; Z87.891 Personal history of nicotine dependence; I48.91 Unspecified atrial fibrillation; M19.90 Unspecified osteoarthritis, unspecified site; Z86.73 Personal history of transient ischemic attack (TIA), and cerebral infarction without residual deficits
CPT/HCPCS: 11042

== ENCOUNTER → 2020-03-01 | Outpatient (CLI) | payer MEDICARE, OTHER | LOC: WOUNDCARE 10:52 | PROVIDERS: ATTEND Surgery | DX: I87.332 Chronic venous hypertension (idiopathic) with ulcer and inflammation of left lower extremity (principal); L97.222 Non-pressure chronic ulcer of left calf with fat layer exposed; I50.9 Heart failure, unspecified; I96 Gangrene, not elsewhere classified | CPT/HCPCS: 11042 ==

== ENCOUNTER → 2020-03-08 | Outpatient (CLI) | payer MEDICARE, OTHER | LOC: WOUNDCARE 10:55 | PROVIDERS: ATTEND Surgery | DX: L97.222 Non-pressure chronic ulcer of left calf with fat layer exposed (principal); I87.332 Chronic venous hypertension (idiopathic) with ulcer and inflammation of left lower extremity; I50.9 Heart failure, unspecified; I96 Gangrene, not elsewhere classified | CPT/HCPCS: 11042 ==

== ENCOUNTER → 2020-03-15 | Outpatient (CLI) | payer MEDICARE, OTHER | LOC: WOUNDCARE 09:55 | PROVIDERS: ATTEND Surgery | DX: L97.222 Non-pressure chronic ulcer of left calf with fat layer exposed (principal); I87.332 Chronic venous hypertension (idiopathic) with ulcer and inflammation of left lower extremity; I50.9 Heart failure, unspecified; I96 Gangrene, not elsewhere classified | CPT/HCPCS: 11042 ==

== ENCOUNTER → 2020-03-24 | Outpatient (CLI) | payer MEDICARE, OTHER | LOC: WOUNDCARE 10:26 | PROVIDERS: ATTEND Orthopaedic Surgery Hand Surgery | DX: I96 Gangrene, not elsewhere classified (principal); I87.332 Chronic venous hypertension (idiopathic) with ulcer and inflammation of left lower extremity; L97.222 Non-pressure chronic ulcer of left calf with fat layer exposed; I50.9 Heart failure, unspecified | CPT/HCPCS: 97597; G0463 ==

== ENCOUNTER → 2020-03-29 | Outpatient (CLI) | payer MEDICARE, OTHER | LOC: WOUNDCARE 09:54 | PROVIDERS: ATTEND Surgery | DX: I87.332 Chronic venous hypertension (idiopathic) with ulcer and inflammation of left lower extremity (principal); L97.222 Non-pressure chronic ulcer of left calf with fat layer exposed; I50.9 Heart failure, unspecified | CPT/HCPCS: 99212 ==

== ENCOUNTER → 2020-06-13 | Outpatient (CLI) | payer MEDICARE, OTHER | LOC: WOUNDCARE 10:47 | PROVIDERS: ATTEND Surgery | DX: I87.331 Chronic venous hypertension (idiopathic) with ulcer and inflammation of right lower extremity (principal); L97.212 Non-pressure chronic ulcer of right calf with fat layer exposed; S81.801A Unspecified open wound, right lower leg, initial encounter | CPT/HCPCS: 11042; 11045 ==

== ENCOUNTER → 2020-06-21 | Outpatient (CLI) | payer MEDICARE, OTHER | LOC: WOUNDCARE 09:58 | PROVIDERS: ATTEND Surgery | DX: I87.331 Chronic venous hypertension (idiopathic) with ulcer and inflammation of right lower extremity (principal); L97.212 Non-pressure chronic ulcer of right calf with fat layer exposed; S81.801A Unspecified open wound, right lower leg, initial encounter; Z87.891 Personal history of nicotine dependence; I48.91 Unspecified atrial fibrillation; I10 Essential (primary) hypertension; M19.90 Unspecified osteoarthritis, unspecified site; Z96.653 Presence of artificial knee joint, bilateral; J30.2 Other seasonal allergic rhinitis; Z86.73 Personal history of transient ischemic attack (TIA), and cerebral infarction without residual deficits | CPT/HCPCS: 11042; 11045; G0463 ==

== ENCOUNTER → 2020-06-28 | Outpatient (CLI) | payer MEDICARE, OTHER | LOC: WOUNDCARE 09:54 | PROVIDERS: ATTEND Surgery | DX: I87.331 Chronic venous hypertension (idiopathic) with ulcer and inflammation of right lower extremity (principal); S81.801A Unspecified open wound, right lower leg, initial encounter; X58.XXXA Exposure to other specified factors, initial encounter; I96 Gangrene, not elsewhere classified; L97.212 Non-pressure chronic ulcer of right calf with fat layer exposed | CPT/HCPCS: 99213 ==

== ENCOUNTER → 2020-07-05 | Outpatient (CLI) | payer MEDICARE, OTHER | LOC: WOUNDCARE 09:56 | PROVIDERS: ATTEND Surgery | DX: S81.801A Unspecified open wound, right lower leg, initial encounter (principal); I87.331 Chronic venous hypertension (idiopathic) with ulcer and inflammation of right lower extremity; L97.212 Non-pressure chronic ulcer of right calf with fat layer exposed; I96 Gangrene, not elsewhere classified; X58.XXXA Exposure to other specified factors, initial encounter | CPT/HCPCS: 99213 ==

== ENCOUNTER → 2020-07-25 | Outpatient (CLI) | payer MEDICARE, OTHER | LOC: WOUNDCARE 14:26 | PROVIDERS: ATTEND Surgery | DX: I87.321 Chronic venous hypertension (idiopathic) with inflammation of right lower extremity (principal); L90.5 Scar conditions and fibrosis of skin | CPT/HCPCS: 99212 ==

== ENCOUNTER → 2020-12-06 | Outpatient (CLI) | payer MEDICARE, OTHER | LOC: WOUNDCARE 09:32 | PROVIDERS: ATTEND Surgery | DX: I87.331 Chronic venous hypertension (idiopathic) with ulcer and inflammation of right lower extremity (principal); L97.212 Non-pressure chronic ulcer of right calf with fat layer exposed; S81.801A Unspecified open wound, right lower leg, initial encounter | CPT/HCPCS: 99213 ==

== ENCOUNTER → 2020-12-12 | Outpatient (CLI) | payer MEDICARE, OTHER | LOC: WOUNDCARE 09:59 | PROVIDERS: ATTEND Surgery | DX: I96 Gangrene, not elsewhere classified (principal); L97.212 Non-pressure chronic ulcer of right calf with fat layer exposed; I87.331 Chronic venous hypertension (idiopathic) with ulcer and inflammation of right lower extremity; S81.801A Unspecified open wound, right lower leg, initial encounter | CPT/HCPCS: 97597; G0463 ==

== ENCOUNTER → 2020-12-22 | Outpatient (CLI) | payer MEDICARE, OTHER | LOC: WOUNDCARE 10:31 | PROVIDERS: ATTEND Surgery | DX: I87.331 Chronic venous hypertension (idiopathic) with ulcer and inflammation of right lower extremity (principal); L97.212 Non-pressure chronic ulcer of right calf with fat layer exposed; S81.801A Unspecified open wound, right lower leg, initial encounter; I96 Gangrene, not elsewhere classified | CPT/HCPCS: 11042; A6212; G0463 ==

== ENCOUNTER → 2020-12-29 | Outpatient (CLI) | payer MEDICARE, OTHER | LOC: WOUNDCARE 10:25 | PROVIDERS: ATTEND Surgery | DX: I87.331 Chronic venous hypertension (idiopathic) with ulcer and inflammation of right lower extremity (principal); L97.212 Non-pressure chronic ulcer of right calf with fat layer exposed; S81.801A Unspecified open wound, right lower leg, initial encounter | CPT/HCPCS: 11042; A6212; G0463 ==

== ENCOUNTER → 2021-01-05 | Outpatient (CLI) | payer MEDICARE, OTHER | LOC: WOUNDCARE 10:25 | PROVIDERS: ATTEND Surgery | DX: I96 Gangrene, not elsewhere classified (principal); I87.331 Chronic venous hypertension (idiopathic) with ulcer and inflammation of right lower extremity; L97.212 Non-pressure chronic ulcer of right calf with fat layer exposed; S81.801A Unspecified open wound, right lower leg, initial encounter | CPT/HCPCS: 11042; A6212; G0463 ==

== ENCOUNTER → 2021-01-19 | Outpatient (CLI) | payer MEDICARE, OTHER | LOC: WOUNDCARE 10:23 | PROVIDERS: ATTEND Surgery | DX: I87.331 Chronic venous hypertension (idiopathic) with ulcer and inflammation of right lower extremity (principal); L97.212 Non-pressure chronic ulcer of right calf with fat layer exposed; S81.801A Unspecified open wound, right lower leg, initial encounter | CPT/HCPCS: 99212 ==

== ENCOUNTER 2021-04-10 11:09 | Inpatient (IN) | payer MEDICARE, OTHER ==
[~2021-04-10] VITALS: Ht 162.6 cm; Wt 94.3 kg
[2021-04-10] MEDS ORDERED: MELATONIN 3 MG TABLET PO PRN (11:45)
[2021-04-10] MEDS ORDERED: BISACODYL 10 MG SUPP (DULCOLAX) PR PRN (11:45)
[2021-04-10] MEDS ORDERED: guaiFENesin/CODEINE (ROBITUSSIN AC) 10ML UDC PO PRN (11:45)
[2021-04-10] MEDS ORDERED: ONDANSETRON 4 MG (ZOFRAN) ORAL DISSOLVE TAB PO PRN (11:45)
[2021-04-10] MEDS ORDERED: LOPERAMIDE 2 MG (IMODIUM) TABLET PO PRN (11:45)
[2021-04-10] MEDS ORDERED: ALPRAZolam 0.25 MG (XANAX) TAB PO PRN (11:45)
[2021-04-10] MEDS ORDERED: DOCUSATE SODIUM 100 MG (COLACE) CAP PO PRN (11:45)
[2021-04-10] MEDS ORDERED: diphenhydrAMINE 25 MG TAB (BENADRYL) PO PRN (11:45)
[2021-04-10] MEDS ORDERED: CALCIUM CARBONATE 500 MG (TUMS) TAB.CHEW PO PRN (11:45)
[2021-04-10] MEDS ORDERED: FLEET ENEMA ADULT 1 EA BTL PR PRN (11:45)
[2021-04-10] MEDS ORDERED: LACTULOSE SYRUP 10GM/15ML (ENULOSE) 30ML UDC PO PRN (11:45)
[2021-04-10] MEDS ORDERED: KRIL1CAP18 PO (14:05)
[2021-04-10] MEDS ORDERED: SENN-109 PO (14:05)
[2021-04-10] MEDS ORDERED: POTA-53 PO (14:05)
[2021-04-10] MEDS ORDERED: MAGNESI PO (14:05)
[2021-04-10] MEDS ORDERED: CHOL500044 PO (14:05)
[2021-04-10] MEDS ORDERED: ATOR40TA70 PO (14:05)
[2021-04-10] MEDS ORDERED: TRAM50TA3 PO (14:05)
[2021-04-10] MEDS ORDERED: BUME1TAB8 PO (14:05)
[2021-04-10] MEDS ORDERED: [UNRECOGNIZED DRUG - OTHER] PO (14:05)
[2021-04-10] MEDS ORDERED: APIX5TAB PO (14:05)
[2021-04-10] MEDS ORDERED: OMEP40CA6 PO (14:05)
[2021-04-10] MEDS ORDERED: ACET325T38 PO (14:05)
[2021-04-10] MEDS ORDERED: SPIR25TA5 PO (14:05)
[2021-04-10] MEDS ORDERED: ASPI-1238 PO (14:05)
[2021-04-10 15:19] VITALS: BP 140/65
--- NOTE | 2021-04-10 15:20 | Physical Therapy Evaluation ---
PT Evaluation-General Medical Diagnosis Admission Date Apr 10, 2021 at 14:10 Medical Diagnosis: S/P REMOVAL OF LEFT ATRIAL THROMBUS AND MAZE PROCEDURE Onset Date: Apr 03, 2021 Therapy Diagnosis Therapy Diagnosis: impaired mobility, strength, endurance Height/Weight Height (Feet): 5 Height (Inches): 4.00 Weight (Pounds): 195 Weight (Ounces): 1.6 Precautions Precautions/Isolations: Fall Prevention, Standard Precautions Weight Bear Status sternal precautions Referral Physician: Daxa Pedroza DO Reason for Referral: Evaluation/Treatment Medical History Pertinent Medical History: Atrial Fib, CVA, GERD Social History Current Living Status: Friend Prior Prior Level of Function SCALE: Activities may be completed with or without assistive devices. 1-Uatkqrkwmv-hljowjc completes the activity by him/herself with no assistance from a helper. 5-Set-up or Clean-up Assistance-helper sets up or cleans up; patient completes activity. [place] assists only prior to or following the activity. 4-Supervision or Touching Assistance-helper provides verbal cues and/or touching/steadying and/or contact guard assistance as patient completes activity. Assistance may be provided throughout the activity or intermittently. 3-Partial/Moderate Assistance-helper does LESS THAN HALF the effort. [place] lifts, holds or supports trunk or limbs, but provides less than half the effort. 2-Substantial/Maximal Assistance-helper does MORE THAN HALF the effort. [place] lifts or holds trunk or limbs and provides more than half the effort. 4-Yhmonstgv-nkwhvq does ALL the effort. Patient does none of the effort to complete the activity. Or, the assistance of 2 or more helpers is required for the patient to complete the activity. If activity was not attempted, code reason: 7-Patient Refused. 9-Not Applicable-not attempted and the patient did not perform the activity before the current illness, exacerbation or injury. 10-Not Attempted due to Environmental Limitations-(lack of equipment, weather restraints, etc.). 88-Not Attempted due to Medical Conditions or Safety Concerns. Bed Mobility: 6 Transfers (B,C,W/C): 6 Gait: 6 Stairs: 6 Indoor Mobility (Ambulation): Independent Stairs: Independent Patient states she only ambulated short distance previously PT Evaluation-Current Subjective Patient comes to hospital via family transport, has no complaints of pain at rest. O2 was 94%, 79bpm, BP was 140/65. Will be co-treating with OT for part of tx due to poor patient mobility, poor endurance with activity, coordinate UE and LE during activity, safety and reduce risk of falls. Pt/Family Goals to be independent at home Objective Patient Orientation: Person, Place, Situation ROM/Strength ROM Lower Extremities WNL Strength Lower Extremities NT but has at least 3/5 by observable AROM of both lower extremities except for right hip flexion which is 3-/5 Integumentary/Posture Integumentary Patient has a lot of bruising all over, one particular alarming one is on her right foot. Patient has very fragile skin and multiple skin tears. MMT not performed at this time due to easy bruising and skin tears. Sensory Vision: Functional Hearing: Functional Sensation Right Lower Extremit: Intact Sensation Left Lower Extremity: Intact Transfers Roll Left & Right (QC): 3 Sit to Lying (QC): 2 Lying to Sitting/Side of Bed(Q: 2 Sit to Stand (QC): 3 Chair/Wph-me-Sewnp Xfer(QC): 4 Toilet Transfer (QC): 4 Car Transfer (QC): 3 Patient performs bed mobility with mod assist, supine <-> sit with max assist, sit <-> stand min assist, transfers CGA, car transfer mod assist. Patient needs cues for compliance with sternal precautions Gait Does the Patient Walk?: Yes Mode of Locomotion: Walk Anticipated Mode of Locomotion: Walk Walk 10 feet (QC): 4 Walk 50 ft with 2 Turns(QC): 88 Walk 150 ft (QC): 88 Walking 10ft/uneven surface-QC: 4 Distance: 20'x2, 30' Gait Assistive Device: FWW Comments/Gait Description Patient can ambulate 30' with a rolling walker with CGA (including 10' over an uneven surface). Patient ambulates slowly, has a trendelenburg gait, right shoulder drop Wheelchair Training Does the Pt Use a Wheelchair?: No Wheel 50 ft with 2 turns (QC): 88 Wheel 150 ft (QC): 88 can't do this due to sternal precautions Stairs 1 Step (curb) (QC): 88 4 Steps (QC): 88 12 Steps (QC): 88 Balance Sitting Static: Normal Sitting Dynamic: Normal Standing Static: Fair Standing Dynamic: Fair Picking up an Object (QC): 88 Treatment PT performed bed mobility and transfers, ambulation, standing and safety during bathing and dressing and ADL's, OT performed bathing, dressing, ADL's, UE posit ioning and safety during activity. Assessment/Needs Patient in recliner post tx with nurse call, phone, tray, all needs met. Patient has impaired mobility, strength, endurance. She needs a lot of assist for supine <-> sit and cues for compliance with her sternal precautions. Rehab Potential: Fair PT Short Term Goals Short Term Goals Time Frame: Apr 17, 2021 Roll Left & Right: 4 Sit to lyin Lying to sitting on side of be: 3 Sit to stand: 4 Chair/nce-so-npqxz transfer: 4 Walk 10 feet: 4 Walk 50 feet with two turns: 4 PT Mcc Goals Commission Specialist Goals PT Mcc Goals Time Frame: May 01, 2021 Roll Left & Right (QC): 6 Sit to Lying (QC): 4 (SBA) Lying-Sitting on Side/Bed(QC): 4 (SBA) Sit to Stand (QC): 6 Chair/Ptd-ps-Ecdeu Xfer(QC): 6 Toilet Transfer (QC): 6 Car Transfer (QC): 6 Does the Patient Walk: Yes Walk 10 feet (QC): 6 Walk 50ft with 2 Turns (QC): 6 Walk 150 ft (QC): 6 Walking 10ft on Uneven Surface: 6 1 Step (curb) (QC): 6 4 Steps (QC): 6 12 Steps (QC): 88 Picking up an Object (QC): 6 Wheel 50 feet with 2 turns (QC: 88 Wheel 150 feet: 88 PT Plan Problem List Problem List: Activity Tolerance, Functional Strength, Safety, Balance, Gait, Transfer, Bed Mobility, ROM Treatment/Plan Treatment Plan: Continue Plan of Care Treatment Plan: Bed Mobility, Education, Functional Activity Song, Functional Strength, Group Therapy, Gait, Safety, Therapeutic Exercise, Transfers Treatment Duration: May 01, 2021 Frequency: At least 5 of 7 days/Wk (IRF) Estimated Hrs Per Day: 1.5 hours per day Patient and/or Family Agrees t: Yes Safety Risks/Education Patient Education: Gait Training, Transfer Techniques, Reviewed Precautions, Co rrect Positioning, Safety Issues Teaching Recipient: Patient Teaching Methods: Demonstration, Discussion Response to Teaching: Reinforcement Needed Discharge Recommendations Plan Patient will perform bed mobility and transfer training, balance and endurance training, functional strengthening, stair training, gait training, and education, to improve functional mobility and independence at home. Therapy Discharge Recommendati: Scheduled Assistance, Home & Family, Post Acute PT Time/GCodes Time In: 1409 Time Out: 1550 Total Billed Treatment Time: 90 Total Billed Treatment 1 visit EVM 10' FA 80' PT eval from [id number], OT eval from [id number], co-treat from [id number] KENYETTA SLATER PT Apr 10, 2021 15:20
--- NOTE | 2021-04-10 15:57 | Progress Note ---
GÓMEZ PEÑA MED STUDENT 04/10/21 1557: Progress Note CC: S/P removal left atrial thrombus and maze procedure HPI: Marilou Cruz is a 70 year old white female who presents to the acute rehab unit by private conveyance after a 2 week hospital stay at after which having had a left atrial thrombectomy and MAZE procedure on 04-03-21. PMH is sig nificant for PAF, HTN, HLP, HOCM, chronic diastolic dysfunction, GERD, CKD stage 3, and a CVA in 2014 with minimal right sided residual weakness. She presents to receive aggressive inpatient therapy with hopes of being able to return home to reside with her roommate. Apparently on March 16 she was found lying on the floor by her roommate and was subsequently [place] [facility] [place] troponin and leukocyte counts were elevated along with dyspnea. She was subsequently transferred to for further care. She states she's suffering from generalized deconditioning and weakness after a prolonged inpatient hospital stay at . Denies fevers, chills, chest pain, nausea, vomiting, diarrhea, and headaches. Reports mild exertional SOB and orthopnea. PMH: Paroxysmal afib, Hypertrophic obstructive cardiomyopathy, chronic diastolic dysfunction, GERD, Obesity, HTN, DVT, PE, CKD stage 3, cardioversions x 2, and cellulitis. PSH: Hernia repair, Hysterectomy, Tonsillectomy, Watchman procedure, L atrial thrombectomy and maze procedure, alcohol septal ablation, Total knee arthroplasty R and L knee, carpal tunnel release, bunionectomy, cataract surg jose, lumbar spinal surgery Allergy: Seasonal allergies. No food or drug allergies. Medications: Acetaminophen 650mg po q6hr PRN, Albuterol sulfate 2 puff q6hr PRN, Apixaban 5mg po BID, ASA 81mg po daily, Atorvastatin 40mg tab po daily, Bumetanide 1mg po BID, Vitamin D3 125mcg po daily, Krill/OM- 3/Dha/Epa/Phospho/AST 1 tab po daily, Lactobacillus Rhamnosus GG 1 capsule po daily, Loratadine 10mg po daily, Omeprazole 40mg po daily PRN, Potassium Chloride 20 meq po daily, Sennosides/Docusate Sodium 2 tabs po BID, Spironolactone 25mg po daily, Tramadol 50-100mg po q6hr PRN, Co-Q-10 100mg po daily, Magnesi L Threonate 1 cap po daily. SH: Retired, lives at home with roommate. Former smoker, quit around 1999. ETOH socially, rarely. No recreational drug use now or in past. Minimal exercise. FH: Mom, HOCM. Dad, [place] ROS: General: Reports weakness and generalized malaise HEENT: Denies headache, blurry vision, sore throat, rhinorrhea, otorrhea Neck: Denies swelling or dysphagia CV: Denies palpitation, fluttering, chest pain, dizziness, or syncopal episodes Pulm: Reports nonproductive cough. Denies wheezing. Reports exertional SOB. GI: Denies nausea, vomiting, diarrhea, and constipation : Denies dysuria, frequency, incontinence Neuro: Denies headaches, blurry vision, dizziness, syncope Physical Exam: BP 140/65 P 79 RR 18 T 36.6 SPO2 ? RA General: Elderly female appearing older than stated age in no apparent distress HEENT: Atraumatic and normocephalic. PERRLA. EOMI. Nares patent bilaterally. Throat without erythema or exduates. CV: RRR. Radial pulses +2/4 bilat. Dorsalis pedis pulses +1/4 bilat. Cap refill <3seconds bilateral hands. 3+ pitting edema BLE to level of knees. Pulm: Lungs CTAB. No retractions. No accessory muscle use. Abdomen. BS positive x 4 quadrants. Nondistended and nontender to palpation diffusely. No rebound or guarding. Extremities: Warm and pink. Significant scattered ecchymosis and darkening of skin bilateral arms and legs. Neuro: Alert and oriented x 4. Cranial nerves 2-12 grossly intact. 4/5 muscle strength bilateral technical services manager. Plantar and dorsiflexion of right ankle 3/5 strenght. Skin: Midline sternal incision edges well approximated and healing well. No drainage or erythema noted. Several healing chest tube incision sites lower thorax with serous drainage without erythema. Chest tube incision on far R with serous drainage and dehisced. Others well approximated without drainage. Superficial skin tear to left anterior brachium open to air with serous drainage. Superficial skin tear to Right antermedial thigh open to air with scant serous oozing noted. Generalized ecchymosis noted to bilateral arms and legs. Labs: Images: Assessment: Debility S/P left atrial thrombectomy and MAZE procedure April 03 at [facility] S/P Watchman procedure December 2020 Paroxysmal atrial fibrillation HOCM CKD stage 3 HTN HLP GERD Hx of CVA 2014 w R sided residual weakness Obesity Hx of DVT Hx of PE Plan: CBC and CMP in AM Continue anticoagulation with eliquis Restart home medications PT, OT, ST consults Cardiac 2gm Na/day diet Oxgyen to keep 02 sat >90% PRN IS q2hr WA Cough and deep breathing Wide dionne wraps or compression stocking BLE RN to perform daily wound care/dressing changes to skin tears and chest tube sites Up with assist, activity to be further determined by PT and OT Vitals per protocol DAXA ANGULO DO 04/11/21 0633: Supervisory-Addendum Brief Verification & Attestation Participated in pt care: history, MDM, physical Personally performed: exam, history, MDM, supervision of care Care discussed with: Medical Student Procedures: n/a Results interpretation: Verified all documentation Verification and Attestation of Medical Student E/M Service A medical student performed and documented this service in my presence. I revi ewed and verified all information documented by the medical student and made modifications to such information, when appropriate. I personally performed the physical exam and medical decision making. Daxa Angulo, Apr 11, 2021,06:33 GÓMEZ PEÑA MED STUDENT Apr 10, 2021 15:57 DAXA ANGULO DO Apr 11, 2021 06:33
--- NOTE | 2021-04-10 16:00 | Occupational Therapy Eval ---
OT Evaluation-General/PLF Medical Diagnosis Admission Date Apr 10, 2021 at 14:10 Medical Diagnosis: S/P REMOVAL OF LEFT ATRIAL THROMBUS AND MAZE PROCEDURE Onset Date: Apr 03, 2021 Therapy Diagnosis Therapy Diagnosis: decreased ADL status, weakness Height/Weight Height (Feet): 5 Height (Inches): 4.00 Weight (Pounds): 195 Weight (Ounces): 1.6 Precautions Precautions/Isolations: Fall Prevention, Standard Precautions Comments Spinal Precautions Referral Physician: Daxa Pedroza DO Referral Reason: Evaluation/Treatment Medical History Pertinent Medical History: Atrial Fib (s/p watchmans device), CVA, GERD Additional Medical History CHF, HOCM s/p septal ablation 2015, CKD3, DVT, PE Current History 03-26-21 [facility] due to being found on floor and unable to get up. Afib upon arrival. Found to have atrial thrombus. s/p L atrial thrombus removal 04/03/21. 04/10 transfer to [facility] for continued medication management and skilled therapies. Social History Home: Single Level Current Living Status: Friend (Eleonora) Steps Into Home: 3 Pt states they are in the process of getting a railing installed on steps ADL-Prior Level of Function SCALE: Activities may be completed with or without assistive devices. 1-Hlxvswvypz-dwelnxf completes the activity by him/herself with no assistance from a helper. 5-Set-up or Clean-up Assistance-helper sets up or cleans up; patient completes activity. [place] assists only prior to or following the activity. 4-Supervision or Touching Assistance-helper provides verbal cues and/or touching/steadying and/or contact guard assistance as patient completes activity. Assistance may be provided throughout the activity or intermittently. 3-Partial/Moderate Assistance-helper does LESS THAN HALF the effort. Sk[place]more lifts, holds or supports trunk or limbs, but provides less than half the effort. 2-Substantial/Maximal Assistance-helper does MORE THAN HALF the effort. [place] lifts or holds trunk or limbs and provides more than half the effort. 4-Mzzeicyyd-dhpieg does ALL the effort. Patient does none of the effort to complete the activity. Or, the assistance of 2 or more helpers is required for the patient to complete the activity. If activity was not attempted, code reason: 7-Patient Refused. 9-Not Applicable-not attempted and the patient did not perform the activity before the current illness, exacerbation or injury. 10-Not Attempted due to Environmental Limitations-(lack of equipment, weather restraints, etc.). 88-Not Attempted due to Medical Conditions or Safety Concerns. ADL PLOF Comments Pt indicates IND with ADLs and functional mobility at PLOF, on AD/AE. She is able to complete cooking and cleaning, but does not run the vacuum. She also does yard work including mowing Self Care: Independent Functional Cognition: Independent DME/Equipment: Tub/Shower OT Current Status Subjective Pt agreeable to OT evaluation and OT/PT cotreat. No reports of pain. Mental Status/Objective Patient Orientation: Person, Place, Time, Situation Current Glasses/Contacts: Yes Hearing Aids: Yes Dentures/Partials: No Hand Dominance: Right Upper Extremity ROM WFL, BUE shoulder flexion to approx 130 degrees. Upper Extremity Coordination WFL Upper Extremity Sensation WFL Upper Extremity Strength grossly 3+/5 BUEs, not formally tested due to spinal precautions ADL-Treatment Eating (QC): 5 (set up per pt report) Oral Hygiene (QC): 4 (CGA standing at sink) Shower/Bathe Self (QC): 3 (Min A with washing feet and buttocks. Pt able to wash/dry all other parts.) Upper Body Dressing (QC): 3 (Assist with chest binder. Pt able to don/doff pullover shirt.) Lower Body Dressing (QC): 2 (Assist to thread BLEs, pt able to perform pant hike) On/Off Footwear (QC): 2 (Max A, pt able to doff gripper socks, assist to doff tedhose and don gripper socks) Toileting Hygiene (QC): 3 (Min A with clothing mangement) Other Treatments OT evaluation complete. OT/PT cotreat due to skill of 2 clinicians required which a auto electrical technician could not perform in order to coordinate UE/LEs and due to pts limitations, in strength, mobility, transfers, and activity tolerance. OT focused on ADLs, UE placement, and cues for sequencing and safety. PT focused on LE placement, overall gross movement, and transfers/mobility. Pt completed functional mobility and functional transfers, please refer to PT evaluation for QC scores. Pt completed ADLs as outlined above, taking rest breaks as needed, then transferring to recliner. Post tx, pt seated in recliner, call light in reach and all needs met. Bed mobility mod A, supine to/from sit Max A, sit to/from stand min A, CGA tr ansfers, mod A car transfer. Functional mobility 30' using FWW, slow and trendelenburg gait with R shoulder drop. Cues required to maintain sternal precautions. Education OT Patient Education: Correct positioning, Energy conservation, Exercise program, Modified ADL techniques, Progress toward Goal/Update tx plan, Purpose of tx/functional activities, Rehab process, Safety issues, Transfer techniques Teaching Recipient: Patient Teaching Methods: Discussion Response to Teaching: Verbalize Understanding OT Short Term Goals Short Term Goals Time Frame: Apr 21, 2021 Shower/bathe self: 4 Lower body dressin Putting on/taking off footwear: 4 OT Usp Goals Take Away Attendant Goals Time Frame: May 05, 2021 Eating (QC): 6 Oral Hygiene (QC): 6 Toileting Hygiene (QC): 6 Shower/Bathe Self (QC): 6 Upper Body Dressing (QC): 6 Lower Body Dressing (QC): 6 On/Off Footwear (QC): 6 Additional Goals: 1-Demonstrate ADL Tasks, 2-Verbalize Understanding, 3- ImproveStrength/Song 1=Demonstrate adherence to instructed precautions during ADL tasks. 2=Patient will verbalize/demonstrate understanding of assistive aaron abdelrahman/modifications for ADL. 3=Patient will improve strength/tolerance for activity to enable patient to perform ADL's. OT Education/Plan Problem List/Assessment Assessment: Decreased Activ Tolerance, Decreased UE Strength, Impaired Funct Balance, Impaired I ADL's, Impaired Self-Care Skills, Restricted Funct UE ROM Discharge Recommendations Plan/Recommendations: Continue POC Treatment Plan/Plan of Care Patient would benefit from OT for education, treatment and training to promote independence in ADL's, mobility, safety and/or upper extremity function for ADL's. Plan of Care: ADL Retraining, Functional Mobility, Group Exercise/Act as Ind, UE Funct Exercise/Act Treatment Duration: May 05, 2021 Frequency: At least 5 of 7 days/Wk (IRF) Estimated Hrs Per Day: 1.5 hours per day Rehab Potential: Fair Time/GCodes Start Time: 14:20 Stop Time: 15:50 Total Time Billed (hr/min): 90 Billed Treatment Time 2313-5913 OT evaluation, [id number] OT/PT cotreat 1, EVM (10'), FA 2 (35), ADL 3 (45) JANY MUÑOZ OT Apr 10, 2021 16:00
[2021-04-10] MEDS ORDERED: NON-FORMULARY MEDICATION 1 EA EA (Potassium Chloride (K-Tab ER) 20 MEQ) PO SCH (18:15)
[2021-04-10] MEDS ORDERED: RT-ALBUTEROL SULF 2.5 MG/3 ML PRE-MIX VIAL IH PRN (18:15)
[2021-04-10] MEDS ORDERED: ACETAMINOPHEN 325 MG TABLET PO PRN (18:15)
[2021-04-10] MEDS ORDERED: NON-FORMULARY MEDICATION 1 EA EA (Omeprazole 40 MG) PO PRN (18:15)
[2021-04-10] MEDS: BUMETANIDE 1 MG (BUMEX) TAB PO SCH (18:35)
[2021-04-10] MEDS ORDERED: PANTOPRAZOLE 40 MG (PROTONIX) TAB PO PRN (18:45)
[2021-04-10 20:07] VITALS: BP 134/69
[2021-04-10] MEDS: DOCUSATE SODIUM 100 MG (COLACE) CAP PO SCH (20:32)
[2021-04-10] MEDS: APIXABAN 5 MG (ELIQUIS) TABLET PO SCH (20:33)
[2021-04-10] MEDS: polyethylene glycoL POWDER 17 GM (MIRALAX) PACK PO SCH (20:47)
[2021-04-10] MEDS: SENNA W/DOCUSATE (SENOKOT S) TABLET PO SCH (20:48)
[2021-04-10] MEDS ORDERED: SENNA W/DOCUSATE (SENOKOT S) TABLET PO SCH (21:00)
--- NOTE | 2021-04-10 21:39 | PM&R Post Admission Assessment ---
PM&R HP Date of Visit: Apr 10, 2021 Time of Visit: 18:30 History of Present Illness CC: CVA HPI: This is a patient that was transferred from to inpatient rehab after critical illness at hospital after suffering an unresponsive episode found down on the floor ultimately diagnosed with B/L pulmonary emboli and suffered a stroke so she will need aggressive therapy in order to regain enough function to ambulate and improve independence and ADLs to return to independent living. Her primary care provider is Dr. Cain and primary ship/rec/doc control is Dr. Baker who will see her in consultation. 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 She does not wear oxygen at home. Note per ANTONIO Barry CC: S/P removal left atrial thrombus and maze procedure HPI: Marilou Cruz is a 70 year old white female who presents to the acute rehab unit by private conveyance after a 2 week hospital stay at after which having had a left atrial thrombectomy and MAZE procedure on 04-03-21. PMH is significant for PAF, HTN, HLP, HOCM, chronic diastolic dysfunction, GERD, CKD stage 3, and a CVA in 2014 with minimal right sided residual weakness. She presents to receive aggressive inpatient therapy with hopes of being able to return home to reside with her roommate. Apparently on March 16 she was found lying on the floor by her roommate and was subsequently transferred to [facility] [place] where her troponin and leukocyte counts were elevated along with dyspnea. She was subsequently transferred to for further care. She states she's suffering from generalized deconditioning and weakness after a prolonged inpatient hospital stay at . Denies fevers, chills, chest pain, nausea, vomiting, diarrhea, and headaches. Reports mild exertional SOB and orthopnea. PMH: Paroxysmal afib, Hypertrophic obstructive cardiomyopathy, chronic diastolic dysfunction, GERD, Obesity, HTN, DVT, PE, CKD stage 3, cardioversions x 2, and cellulitis. PSH: Hernia repair, Hysterectomy, Tonsillectomy, Watchman procedure, L atrial thrombectomy and maze procedure, alcohol septal ablation, Total knee arthroplasty R and L knee, carpal tunnel release, bunionectomy, cataract surgery, lumbar spinal surgery Allergy: Seasonal allergies. No food or drug allergies. Medications: Acetaminophen 650mg po q6hr PRN, Albuterol sulfate 2 puff q6hr PRN, Apixaban 5mg po BID, ASA 81mg po daily, Atorvastatin 40mg tab po daily, Bumetanide 1mg po BID, Vitamin D3 125mcg po daily, Krill/OM- 3/Dha/Epa/Phospho/AST 1 tab po daily, Lactobacillus Rhamnosus GG 1 capsule po daily, Loratadine 10mg po daily, Omeprazole 40mg po daily PRN, Potassium Chloride 20 meq po daily, Sennosides/Docusate Sodium 2 tabs po BID, Spironolactone 25mg po daily, Tramadol 50-100mg po q6hr PRN, Co-Q-10 100mg po daily, Magnesi L Threonate 1 cap po daily. SH: Retired, lives at home with roommate. Former smoker, quit around 1999. ETOH socially, rarely. No recreational drug use now or in past. Minimal exercise. FH: Mom, HOCM. Dad, MS ROS: General: Reports weakness and generalized malaise HEENT: Denies headache, blurry vision, sore throat, rhinorrhea, otorrhea Neck: Denies swelling or dysphagia CV: Denies palpitation, fluttering, chest pain, dizziness, or syncopal episodes Pulm: Reports nonproductive cough. Denies wheezing. Reports exertional SOB. GI: Denies nausea, vomiting, diarrhea, and constipation : Denies dysuria, frequency, incontinence Neuro: Denies headaches, blurry vision, dizziness, syncope Physical Exam: BP 140/65 P 79 RR 18 T 36.6 SPO2 ? RA General: Elderly female appearing older than stated age in no apparent distress HEENT: Atraumatic and normocephalic. PERRLA. EOMI. Nares patent bilaterally. Throat without erythema or exduates. CV: RRR. Radial pulses +2/4 bilat. Dorsalis pedis pulses +1/4 bilat. Cap refill <3seconds bilateral hands. 3+ pitting edema BLE to level of knees. Pulm: Lungs CTAB. No retractions. No accessory muscle use. Abdomen. BS positive x 4 quadrants. Nondistended and nontender to palpation diffusely. No rebound or guarding. Extremities: Warm and pink. Significant scattered ecchymosis and darkening of sk in bilateral arms and legs. Neuro: Alert and oriented x 4. Cranial nerves 2-12 grossly intact. 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 Plantar and dorsiflexion of right ankle 3/5 strenght. Skin: Midline sternal incision edges well approximated and healing well. No drainage or erythema noted. Several healing chest tube incision sites lower thorax with serous drainage without erythema. Chest tube incision on far R with serous drainage and dehisced. Others well approximated without drainage. Superficial skin tear to left anterior brachium open to air with serous drainage. Superficial skin tear to Right antermedial thigh open to air with scant serous oozing noted. Generalized ecchymosis noted to bilateral arms and legs. Labs: Images: Assessment: Debility S/P left atrial thrombectomy and MAZE procedure April 03 at [facility] S/P Watchman procedure December 2020 Paroxysmal atrial fibrillation HOCM CKD stage 3 HTN HLP GERD Hx of CVA 2014 w R sided residual weakness Obesity Hx of DVT Hx of PE Plan: CBC and CMP in AM Continue anticoagulation with eliquis Restart home medications PT, OT, ST consults Cardiac 2gm Na/day diet Oxgyen to keep 02 sat >90% PRN IS q2hr WA Cough and deep breathing Wide dionne wraps or compression stocking BLE RN to perform daily wound care/dressing changes to skin tears and chest tube sites Up with assist, activity to be further determined by PT and OT Vitals per protocol Past Qbilune-Ptiqku-Ajjkmk Hx Past Med/Social Hx: Reviewed Nursing Past Med/Soc Hx, Reviewed and Corrections made Patient Social History Marrital Status: single Employed/Student: retired Alcohol Use: Denies Use Smoking Status: Former Smoker 2nd Hand Smoke Exposure: No Immunizations Up To Date Tetanus Booster (TDap): More than 5yrs Seasonal Allergies Seasonal Allergies: Yes Past Medical History Surgeries: Cardiac, Hysterectomy, Tonsillectomy Currently Using CPAP: No Currently Using BIPAP: No Cardiac: Atrial Fibrillation Neurological: Stroke 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: No Sexually Transmitted Disease: No HIV/AIDS: No Female 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 Disorders: Denies Hysterectomy Gastrointestinal: Gastroesophageal Reflux Musculoskeletal: Arthritis HEENT: Cataract Psychosocial: Sleep Difficulties History of Blood Disorders: No Family History Cataract 19 FATHER Chest pain 19 FATHER Congenital heart disease 19 MOTHER Congestive heart failure 19 MOTHER Family history: Arthritis 19 FATHER 19 MOTHER Family history: Hypertension 19 FATHER 19 MOTHER Headache 19 MOTHER (MIGRAINES) Hearing loss 19 FATHER (SQUAXIN) Myocardial infarction 19 FATHER No Family History of: Abdominal aortic aneurysm [place]'s disease Alcoholism Aphasia Cancer Cancer of colon Cystic fibrosis Dementia Dysphagia Family history: Allergy Family history: Alzheimer's disease Family history: Asthma Family history: Breast disease Family history: Cardiovascular disease Family history: Coronary thrombosis Family history: Diabetes mellitus Family history: Gastrointestinal disease Family history: Glaucoma Family history: Osteoporosis Family history: Thyroid disorder Heart disease Hereditary disease History of - anemia History of - disorder History of - respiratory disease History of drug abuse Human immunodeficiency virus (HIV) seropositivity Hypercholesterolemia Infertile Kidney disease Malignant neoplasm of lung Parkinson's disease Prostate cancer Psychotic disorder Seizure disorder Stroke Tuberculosis Visual impairment Prior Level of Function Bed Mobility: 6 Transfers: 6 Gait: 6 Stairs: 6 Indoor Mobility (Ambulation): Independent Stairs: Independent Self Care: Independent Functional Cognition: Independent Current Level of Fuctioning Roll Left to Right: 3 Sit to Lyin Lying to Sitting/Side of Bed: 2 Sit to Stand: 3 Chair/Qlk-my-Rhucz Xfer: 4 Car Transfer: 3 Does the Patient Walk: Yes Mode of Locomotion: Walk Anticipated Mode of Locomotion: Walk Walk 10 feet: 4 Walk 50 ft with 2 Turns: 88 Walk 150 ft: 88 Walking 10ft on uneven surface: 4 Gait Assistive Device: FWW Does the Pt Use a Wheelchair: No Wheel 50 ft with 2 turns: 88 Wheel 150 ft: 88 1 Step (curb): 88 4 Steps: 88 12 Steps: 88 Picking up an Object: 88 Eatin (set up per pt report) Oral Hygiene: 4 (CGA standing at sink) Shower/Bathe Self: 3 (Min A with washing feet and buttocks. Pt able to wash/dry all other parts.) Upper Body Dressin (Assist with chest binder. Pt able to don/doff pullover shirt.) Lower Body Dressin (Assist to thread BLEs, pt able to perform pant hike) On/Off Footwear: 2 (Max A, pt able to doff gripper socks, assist to doff av hose and don gripper socks) Toileting Hygiene: 3 (Min A with clothing mangement) PM&R Allergy/Meds/Data Review Allergies Coded Allergies: No Known Drug Allergies (Verified , 12/18/07) Home Medications Scheduled Apixaban (Eliquis), 5 MG PO BID, (Reported) Aspirin (Aspirin EC), 81 MG PO DAILY, (Reported) Atorvastatin Calcium (Atorvastatin Calcium), 40 MG PO DAILY, (Reported) Bumetanide (Bumetanide), 1 MG PO BID, (Reported) Cholecalciferol (Vitamin D3) (Vitamin D3), 125 MCG PO DAILY, (Reported) Krill/Om-3/Dha/Epa/Phospho/Ast (Krill Oil 1,000 mg Softgel), 1 EACH PO DAILY, (Reported) Lactobacillus Rhamnosus GG (Culturelle), 1 CAP PO DAILY, (Reported) Loratadine (Loratadine), 10 MG PO DAILY, (Reported) Potassium Chloride (K-Tab ER), 20 MEQ PO DAILY W/ BREAKFAST, (Reported) Sennosides/Docusate Sodium (Senna-S Tablet), 2 EACH PO BID, (Reported) Spironolactone (Spironolactone), 25 MG PO DAILY, (Reported) Ubidecarenone (Co Q-10), 100 MG PO DAILY, (Reported) [Magnesi L Threonate], 1 CAP PO DAILY, (Reported) Scheduled PRN Acetaminophen (Tylenol), 650 MG PO Q6H PRN for PAIN-MILD (1-4), (Reported) Albuterol Sulfate (Ventolin Hfa), 2 PUFF IH Q6H PRN for SHORTNESS OF BREATH, (Reported) Omeprazole (Omeprazole), 40 MG PO DAILY PRN for HEARTBURN, (Reported) Tramadol HCl (Tramadol HCl), 50-100 MG PO Q6H PRN for PAIN-MILD (1-4), (Reported) Discontinued Medications Diltiazem HCl (Diltiazem 24Hr Cd), 360 MG PO DAILY Discontinued Reason: No Longer Taking Krill/Om3/Dha/Epa/Om6/Lip/Astx (Krill Oil 1,500 Mg Softgel), 1 CAP PO DAILY, (Reported) Discontinued Reason: Prescription changed Multivitamin (Multivitamins), 1 TAB PO DAILY, (Reported) Discontinued Reason: No Longer Taking Potassium Chloride (K-Dur), 10 MEQ PO DAILY, (Reported) Discontinued Reason: No Longer Taking Prednisone (Prednisone), 40 MG PO DAILY Discontinued Reason: No Longer Taking Rivaroxaban (Xarelto Tablet), 20 MG PO DAILY, (Reported) Discontinued Reason: No Longer Taking Triamterene/Hydrochlorothiazid (Dyazide 37.5-25 Capsule), 1 CAP PO DAILY, (Reported) Discontinued Reason: No Longer Taking Zolpidem Tartrate (Zolpidem Tartrate), 10 MG PO HS, (Reported) Discontinued Reason: No Longer Taking Current Medications Current Medications Reviewed Review of Systems Constitutional: see HPI, dizziness, malaise, weakness EENTM: no symptoms reported Respiratory: no symptoms reported Cardiovascular: no symptoms reported Gastrointestinal: no symptoms reported Genitourinary: no symptoms reported Musculoskeletal: back pain, joint pain Skin: no symptoms reported Psychiatric/Neurological: Depressed, Weakness All Other Systems Reviewed Negative Unless Noted: Yes Physical Exam Physical Exam Vital Signs Vital Signs - First Documented 04/10/21 04/10/21 15:19 20:07 Temp 36.6 Pulse 79 Resp 18 B/P (MAP) 140/65 (90) Pulse Ox 95 O2 Delivery Room Air Capillary Refill : Height, Weight, BMI Height: 5'4.00" Weight: 195lbs. 1.6oz. [id number]; 34.7 BMI Method:Stated General Appearance: No Apparent Distress, WD/WN, Chronically ill Eyes: Bilateral Eye Normal Inspection, Bilateral Eye PERRL HEENT: PERRL/EOMI, Normal ENT Inspection, Pharynx Normal Neck: Full Range of Motion, Normal Inspection, Non Tender, Supple, Carotid Bruit Respiratory: Chest Non Tender, Lungs Clear, Normal Breath Sounds, No Accessory Muscle Use, No Respiratory Distress Cardiovascular: Regular Rate, Rhythm, No Edema, No Gallop, No JVD, No Murmur, Normal Peripheral Pulses Gastrointestinal: Normal Bowel Sounds, No Organomegaly, No Pulsatile Mass, Non Tender, Soft Back: Normal Inspection, No CVA Tenderness, No Vertebral Tenderness Extremity: Normal Capillary Refill, Normal Inspection, Normal Range of Motion, Non Tender, No Calf Tenderness, No Pedal Edema Neurologic/Psychiatric: Alert, Oriented x3, Normal Mood/Affect, Motor Weakness (Right-sided 3/5) Skin: Normal Color, Warm/Dry Lymphatic: No Adenopathy PM&R Medical Assessment & Plan REHAB/MEDICAL ASSESSMENT AND PLAN: REHAB IMPAIRMENT GROUP: CVA ETIOLOGIC DIAGNOSIS: CVA The comorbidities that impact the patients function and/or functional outcome by: Severe debility, right-sided weakness, fall risk REHAB PLAN: The patient is being admitted to our comprehensive inpatient rehabilitation facility and can tolerate the intensity of service consisting of at least: 180 minutes of therapy a day, 5 out of 7 days a week Rehab treatment will consist of: PT and OT will focus on regaining function for ambulation with the use of assistive devices and increase independence in ADLs The patient/family has a good understanding of our discharge process and will benefit from an interdisciplinary inpatient rehabilitation program. The patient has potential to make improvement and is in need of at least two of the following multidisciplinary therapies including but not limited to physical, occupational, speech, and prosthetics and orthotics. Additionally the patient will need services from respiratory, nutritional services, wound care, psychology, etc. (Customize this to each patient). Given the patients complex condition and risk of further medical complications, rehabilitation services cannot be safely or effectively provided at a lower level of care such as a nursing home facility. BARRIERS TO DISCHARGE: Right-sided weakness ESTIMATED LOS: 14 days DISPOSITION: Home RELEVANT CHANGES SINCE PREADMISSION SCREENING: I have compared the patients medical and functional status at the time of the preadmission screening and there are: No changes PROGNOSIS: Good REHABILITATION GOALS: 1. PT and OT will focus on right sided weakness with the use of assistive devices to regain strength and return to independent living with increase ADL independence All the above goals were reviewed with the patient and he/she is in agreement. By signing this document, I acknowledge that I have personally performed a full physical examination on this patient within 24 hours of admission to this inpatient rehabilitation facility and have determined the patient to be able to tolerate the above course of treatment at an intensive level for a reasonable period of time. I will be completing a detailed individualized Plan of Care for this patient by day #4 of the patients stay based upon the Preadmission Screen, the Post-Admission Evaluation, and the therapy evaluations. Admission Dx/Comorbidities: (1) CVA (cerebral vascular accident) ICD Codes: I63.9 - Cerebral infarction, unspecified (2) Atrial fibrillation ICD Codes: I48.91 - Unspecified atrial fibrillation Assessment/Plan Assessment and Plan Assess & Plan/Chief Complaint Assessment: Debility S/P left atrial thrombectomy and MAZE procedure April 03 at [facility] S/P Watchman procedure December 2020 Paroxysmal atrial fibrillation HOCM CKD stage 3 HTN HLP GERD Hx of CVA 2014 w R sided residual weakness Obesity Hx of DVT Hx of PE Plan: Inpatient rehab protocol Dr. Baker consult Anticoagulation Monitor labs LEONIE ANGULO DO Apr 10, 2021 21:39
[2021-04-11 05:58] LABS: BASOPHILS % (AUTO) 0 % (0-10); EOSINOPHILS # (AUTO) 0.2 10^3/uL (0.0-0.3); EOSINOPHILS % (AUTO) 2 % (0-10); HEMATOCRIT 32 % (35-52); HEMOGLOBIN 10.2 g/dL (11.5-16.0); LYMPHOCYTES # (AUTO) 1.2 10^3/uL (1.0-4.0); LYMPHOCYTES % (AUTO) 13 % (12-44); MEAN CORPUSCULAR HEMOGLOBIN 28 pg (25-34); MEAN CORPUSCULAR HGB CONC 32 g/dL (32-36); MEAN CORPUSCULAR VOLUME 88 fL (80-99); MEAN PLATELET VOLUME 9.3 fL (9.0-12.2); MONOCYTES # (AUTO) 0.8 10^3/uL (0.0-1.0); MONOCYTES % (AUTO) 9 % (0-12); NEUTROPHILS # (AUTO) 6.9 10^3/uL (1.8-7.8); NEUTROPHILS % (AUTO) 72 % (42-75); PLATELET COUNT 374 10^3/uL (130-400); WHITE BLOOD COUNT 9.5 10^3/uL (4.3-11.0)
[2021-04-11 06:13] LABS: ALBUMIN 2.5 GM/DL (3.2-4.5); BILIRUBIN,TOTAL 0.8 MG/DL (0.1-1.0); CALCIUM 10.1 MG/DL (8.5-10.1); CREATININE SERUM 0.99 MG/DL (0.60-1.30); POTASSIUM 4.1 MMOL/L (3.6-5.0); TOTAL PROTEIN 5.5 GM/DL (6.4-8.2)
[2021-04-11] MEDS: BUMETANIDE 1 MG (BUMEX) TAB PO SCH ×2 (06:28→16:49)
[2021-04-11] MEDS: KCL 20 MEQ TAB (K-DUR) PO SCH (06:29)
--- NOTE | 2021-04-11 06:51 | PM&R Progress Note ---
Subjective HPI/CC On Admission Date Seen by Provider: Apr 11, 2021 Time Seen by Provider: 10:00 Subjective/Events-last exam 04/11/2021: Pt doing really well Slept on/off last night Skin tears are happening with the least amount of trauma Hgb 10.2 Manuel wraps will be placed on the legs Bowels moved yesterday Dr. Baker provided consultation and he is appreciated Increasing Melatonin because her sleep was still disrupted Review of Systems General: Fatigue Pulmonary: Dyspnea Objective Exam Vital Signs Vital Signs Date Time Temp Pulse Resp B/P (MAP) Pulse Ox O2 Delivery O2 Flow Rate FiO2 04/11/21 21:00 95 Room Air 04/11/21 20:00 35.7 69 18 148/82 (104) Capillary Refill : General Appearance: No Apparent Distress, WD/WN, Chronically ill HEENT: PERRL/EOMI, Normal ENT Inspection, Pharynx Normal Neck: Full Range of Motion, Normal Inspection, Non Tender, Supple, Carotid Bruit Respiratory: Chest Non Tender, Lungs Clear, Normal Breath Sounds, No Accessory Muscle Use, No Respiratory Distress Cardiovascular: Regular Rate, Rhythm, No Edema, No Gallop, No JVD, No Murmur, Normal Peripheral Pulses Gastrointestinal: Normal Bowel Sounds, No Organomegaly, No Pulsatile Mass, Non Tender, Soft Back: Normal Inspection, No CVA Tenderness, No Vertebral Tenderness Extremity: Normal Capillary Refill, Normal Inspection, Normal Range of Motion, Non Tender, No Calf Tenderness, No Pedal Edema Neurologic/Psychiatric: Alert, Oriented x3, Normal Mood/Affect, Motor Weakness (Right-sided 3/5) Skin: Normal Color, Warm/Dry Lymphatic: No Adenopathy Results/Procedures Lab Laboratory Tests 04/11/21 05:20 Patient resulted labs reviewed. FIM Transfers Therapy Code Descriptions/Definitions Functional [place] Measure: 0=Not Assessed/NA 4=Minimal Assistance 1=Total Assistance 5=Supervision or Setup 2=Maximal Assistance 6=Modified [place] 3=Moderate Assistance 7=Complete IndependenceSCALE: Activities may be completed with or without assistive devices. 4-Fxixddjqoa-udmibdo completes the activity by him/herself with no assistance from a helper. 5-Set-up or Clean-up Assistance-helper sets up or cleans up; patient completes activity. [place] assists only prior to or following the activity. 4-Supervision or Touching Assistance-helper provides verbal cues and/or touching/steadying and/or contact guard assistance as patient completes activity. Assistance may be provided throughout the activity or intermittently. 3-Partial/Moderate Assistance-helper does LESS THAN HALF the effort. [place] lifts, holds or supports trunk or limbs, but provides less than half the effort. 2-Substantial/Maximal Assistance-helper does MORE THAN HALF the effort. [place] lifts or holds trunk or limbs and provides more than half the effort. 6-Fghwbfhjt-fwjgze does ALL the effort. Patient does none of the effort to complete the activity. Or, the assistance of 2 or more helpers is required for the patient to complete the activity. If activity was not attempted, code reason: 7-Patient Refused. 9-Not Applicable-not attempted and the patient did not perform the activity before the current illness, exacerbation or injury. 10-Not Attempted due to Environmental Limitations-(lack of equipment, weather restraints, etc.). 88-Not Attempted due to Medical Conditions or Safety Concerns. Roll Left to Right (QC): 3 Sit to Lying (QC): 2 Sit to Stand (QC): 3 Chair/Zpz-gy-Smhtx Xfer(QC): 4 Car Transfer (QC): 3 Gait Training Does the Patient Walk?: Yes Walk 10 feet (QC): 4 Walk 50 ft with 2 Turns(QC): 88 Walk 150 ft (QC): 88 Walking 10ft/uneven surface-QC: 4 Gait Assistive Device: FWW Wheelchair Training Does the Pt Use a Wheelchair?: No Wheel 50 ft with 2 turns (QC): 88 Wheel 150 ft (QC): 88 Stair Training 1 Step (curb) (QC): 88 4 Steps (QC): 88 12 Steps (QC): 88 Balance Picking up an Object (QC): 88 ADL-Treatment Eating (QC): 5 (set up per pt report) Oral Hygiene (QC): 4 (CGA standing at sink) Shower/Bathe Self (QC): 3 (Min A with washing feet and buttocks. Pt able to wash/dry all other parts.) Upper Body Dressing (QC): 3 (Assist with chest binder. Pt able to don/doff pullover shirt.) Lower Body Dressing (QC): 2 (Assist to thread BLEs, pt able to perform pant hike) On/Off Footwear (QC): 2 (Max A, pt able to doff gripper socks, assist to doff tedhose and don gripper socks) Toileting Hygiene (QC): 3 (Min A with clothing mangement) Assessment/Plan Assessment and Plan Assess & Plan/Chief Complaint Assessment: Debility S/P left atrial thrombectomy and MAZE procedure April 03 at [facility] S/P Watchman procedure December 2020 Paroxysmal atrial fibrillation HOCM CKD stage 3 HTN HLP GERD Hx of CVA 2014 w R sided residual weakness Obesity Hx of DVT Hx of PE Plan: Inpatient rehab protocol Dr. Baker consult Anticoagulation Monitor labs 04/11/2021: Appreciate Dr. Baker Monitor for falls Skin tear management (1) CVA (cerebral vascular accident) (2) Atrial fibrillation LEONIE ANGULO DO Apr 11, 2021 06:51
--- NOTE | 2021-04-11 06:51 | Individualized Plan of Care ---
Individualized Plan of Care Rehab Nursing IPOC Order Admission Date Apr 10, 2021 at 14:10 Current Orders Orders Admission Order(Inpt,Obs,Sdc) (04/10/21 11:44) Vital Signs: Per Unit Policy ( 16,00 (04/10/21 11:44) Jason Weber (04/10/21 11:44) Sequential Compression Device .admit (04/10/21 11:44) Head Baker-Inpt Rehab Con (04/10/21 11:44) Rehab Nursing Orders-Ipoc (04/10/21 11:44) Physical Therapy Rehab Orders (04/10/21 11:44) Occupational Therapy Rehab Ord (04/10/21 11:44) Speech Therapy Rehab Orders (04/10/21 11:44) Cbc With Automated Diff (04/11/21 06:00) Comprehensive Metabolic Panel (04/11/21 06:00) Precautions (Aru) (04/10/21 11:44) Rehab-Intensity Of Therapy (04/10/21 11:44) Initiate Admission Nursing Pro .admission (04/10/21 11:44) Alprazolam Tablet (Xanax Tablet) (04/10/21 11:45) Calcium Carbonate Chew Tablet (Antacid C (04/10/21 11:45) Diphenhydramine Tablet (Benadryl Tablet) (04/10/21 11:45) Docusate Sodium Capsule (Colace Capsule) (04/10/21 21:00) Docusate Sodium Capsule (Colace Capsule) (04/10/21 11:45) Bisacodyl Suppository (Dulcolax Supposit (04/10/21 11:45) Lactulose Oral Solution (Enulose Oral So (04/10/21 11:45) Na Phos/Na Biphos Enema (Fleet Enema Vin (04/10/21 11:45) Guaifenesin/Codeine Syrup (Robitussin Ac (04/10/21 11:45) Loperamide Tablet (Imodium Tablet) (04/10/21 11:45) Melatonin Tablet (Melatonin Tablet) (04/10/21 11:45) Polyethylene Glycol Powder Pkt (Miralax (04/10/21 21:00) Ondansetron Oral Dissolve Tab (Zofran (04/10/21 11:45) Senna S Tablet (Senokot S Tablet) (04/10/21 21:00) Therapeutic Activity Goals: .PRN (04/10/21 11:44) Nursing Communication (Order) (04/10/21 ) Initiate Admission Nursing Pro .admission (04/10/21 11:44) Follow-Up Appointment (04/10/21 13:10) Admission Arrival Bed Request (04/10/21 14:18) Nursing Communication (Order) (04/10/21 15:03) Heart Healthy (04/10/21 Lunch) Patient Visit (04/10/21 ) Pt Eval Moderate Complexity (04/10/21 ) Functional Activities, Ea 15 (04/10/21 ) Acetaminophen Tablet/Caplet (Tylenol T (04/10/21 18:15) Albuterol Pre-Mix Nebs (Rt) (Proventil (04/10/21 18:15) Apixaban Tablet (Eliquis Tablet) (04/10/21 21:00) Aspirin Enteric Coated Tablet (Ecotrin T (04/11/21 09:00) Atorvastatin Tablet (Lipitor Tablet) (04/11/21 09:00) Bumetanide Tablet (Bumex Tablet) (04/10/21 18:30) Cholecalciferol Capsule/Tablet (Vitamin (04/11/21 09:00) Loratadine Tablet (Claritin Tablet) (04/11/21 09:00) Senna S Tablet (Senokot S Tablet) (04/10/21 21:00) Spironolactone Tablet (Aldactone Tablet) (04/11/21 09:00) Rx-Tramadol Hcl (Rx-Ultram) (04/10/21 18:15) (Nf) Krill/Om-3/Dha/Epa/Phospho/Ast (Kri (04/11/21 09:00) (Nf) Lactobacillus Rhamnosus Gg (Culture (04/11/21 09:00) (Nf) Omeprazole (04/10/21 18:15) (Nf) Potassium Chloride (K-Tab Er) (04/10/21 18:15) (Nf) Ubidecarenone (Co Q-10) (04/11/21 09:00) (Nf) [Magnesi L Threonate] (04/11/21 09:00) Lactobacillus Acidophilus Cap (Acidophil (04/11/21 09:00) Potassium Chloride (Tablet) (K Dur Table (04/11/21 07:00) Pantoprazole Tablet (Protonix Tablet) (04/10/21 18:45) Tramadol Tablet (Ultram Tablet) (04/10/21 18:45) [place] 3 Capsule (Fish Oil Capsule) (04/11/21 08:00) Consult Cardiology (04/10/21 18:46) Melatonin Tablet (Melatonin Tablet) (04/11/21 21:00) Patient Visit (04/11/21 ) Speech Sound Lang Comp (04/11/21 ) Treat. Speech/Lang/Voice (04/11/21 ) Patient Visit (04/11/21 ) Gait Training, Ea 15 Min (04/11/21 ) Exercise Therap, Ea 15 Min (04/11/21 ) Wheelchair Mgmt/Propulsn 15min (04/11/21 ) Rehab Nursing Orders: Ongoing Assess. of Cognitive Status, Ongoing Assess. of Function Status, Bladder Management, Bladder Scan, Bladder Training, Bowel Management, Bowel Training, Disease Management & Educaiton, DVT Prophylaxis, Fall Prevention, Fluid/Electrolyte/Nutrition Mgmt, Infection Prevention, Medication Management & Education, Management of Risks & Complications, Nutrition Management, Pain Management, Patient/Family Support, Safety Management Intensity of Therapy to be met Patient to be seen: Min.3h per day/5 of 7d PT IPOC Problem List: Activity Tolerance, Functional Strength, Safety, Balance, Gait, Transfer, Bed Mobility, ROM Treatment Plan: Continue Plan of Care Bed Mobility, Education, Functional Activity Song, Functional Strength, Group Therapy, Gait, Safety, Therapeutic Exercise, Transfers Treatment Duration: May 01, 2021 Frequency: At least 5 of 7 days/Wk (IRF) Estimated Hrs Per Day: 1.5 hours per day OT IPOC Problems: Decreased Activ Tolerance, Decreased UE Strength, Impaired Funct Balance, Impaired I ADL's, Impaired Self-Care Skills, Restricted Funct UE ROM OT Treatment, Training and Edu: Yes Plan of Care: ADL Retraining, Functional Mobility, Group Exercise/Act as Ind, UE Funct Exercise/Act Treatment Duration: May 05, 2021 Frequency: At least 5 of 7 days/Wk (IRF) Estimated Hrs Per Day: 1.[address] IPOC Speech Therapy Treatment Plan: Discontinue ST Treatment Duration: Apr 11, 2021 Frequency: Modified Program (IRF) Estimated Hrs Per Day: Other Head Baker/Case Mgmt Head Baker/Case Managemen: Discharge Planning Dietitian/Manager Infusion Dietitian/Manager Infusion to monitor nutritional status and make changes and/or recommendations as needed and work with speech pathology on dietary upgrades as the occur. Physician IPOC Medical Issues being managed closely and that require the 24 hour availability o f a physician: Recent critical illness with cardiac surgery will be at high risk for decompensation arrhythmia requiring cardiology management and close monitoring Medical Issues: Bowel/Bladder Function, DVT Prophylaxis, Falls Precautions, Fluid/Electrolyte/Nutrition Balance, Infection Protection, Pain Management, Swallowing Precautions Brief Synthesis of Preadmission Screen, Post-Admission Evaluation, and Therapy Evaluations: PT and OT will focus on regaining ambulatory skills with the use of assistive devices and increase independence in ADLs in order to return back to independent living Medical Prognosis: Good Anticipated Length of Stay: 10 days LEONIE ANGULO DO Apr 11, 2021 06:51
[2021-04-11 07:48] VITALS: BP 137/79
[2021-04-11] MEDS: OMEGA 3 (FISH OIL) 1000 MG CAP PO SCH (08:27)
[2021-04-11] MEDS: LACTOBACILLUS ACIDOPHILUS (PROBIOTIC) CAPSULE PO SCH (08:28)
[2021-04-11] MEDS: DOCUSATE SODIUM 100 MG (COLACE) CAP PO SCH ×2 (08:28→20:33)
[2021-04-11] MEDS: LORATADINE (CLARITIN) 10 MG TAB PO SCH (08:28)
[2021-04-11] MEDS: SPIRONOLACTONE 25 MG (ALDACTONE) TAB PO SCH (08:28)
[2021-04-11] MEDS: SENNA W/DOCUSATE (SENOKOT S) TABLET PO SCH ×2 (08:28→20:35)
[2021-04-11] MEDS: ASPIRIN E.C. 81 MG (ECOTRIN) TAB PO SCH (08:28)
[2021-04-11] MEDS: VITAMIN D3 125 MCG (5,000 UNITS) CAPSULE PO SCH (08:28)
[2021-04-11] MEDS: APIXABAN 5 MG (ELIQUIS) TABLET PO SCH ×2 (08:29→20:33)
[2021-04-11] MEDS: polyethylene glycoL POWDER 17 GM (MIRALAX) PACK PO SCH ×2 (08:29→20:35)
[2021-04-11] MEDS ORDERED: NON-FORMULARY MEDICATION 1 EA EA (Krill/Om-3/Dha/Epa/Phospho/Ast (Krill Oil 1,000 mg Softg PO SCH (09:00)
[2021-04-11] MEDS ORDERED: MAGNESI PO SCH (09:00)
[2021-04-11] MEDS ORDERED: NON-FORMULARY MEDICATION 1 EA EA (Lactobacillus Rhamnosus GG (Culturelle) 1 CAP) PO SCH (09:00)
[2021-04-11] MEDS ORDERED: NON-FORMULARY MEDICATION 1 EA EA (Ubidecarenone (Co Q-10) 100 MG) PO SCH (09:00)
[2021-04-11] MEDS ORDERED: [UNRECOGNIZED DRUG - OTHER] PO SCH (09:00)
--- NOTE | 2021-04-11 09:22 | Occupational Ther Daily Note ---
OT Current Status-Daily Note Subjective Pt agreeable to OT tx, does not verbalize pain during tx. Mental Status/Objective Patient Orientation: Person, Place, Time, Situation ADL-Treatment Therapy Code Descriptions/Definitions Functional [place] Measure: 0=Not Assessed/NA 4=Minimal Assistance 1=Total Assistance 5=Supervision or Setup 2=Maximal Assistance 6=Modified [place] 3=Moderate Assistance 7=Complete IndependenceSCALE: Activities may be completed with or without assistive devices. 0-Rqyggwptkh-fnprois completes the activity by him/herself with no assistance from a helper. 5-Set-up or Clean-up Assistance-helper sets up or cleans up; patient completes activity. Dora assists only prior to or following the activity. 4-Supervision or Touching Assistance-helper provides verbal cues and/or touching/steadying and/or contact guard assistance as patient completes activity. Assistance may be provided throughout the activity or intermittently. 3-Partial/Moderate Assistance-helper does LESS THAN HALF the effort. Dora lifts, holds or supports trunk or limbs, but provides less than half the effort. 2-Substantial/Maximal Assistance-helper does MORE THAN HALF the effort. Dora lifts or holds trunk or limbs and provides more than half the effort. 0-Xexsxgkdf-grpjbw does ALL the effort. Patient does none of the effort to c omplete the activity. Or, the assistance of 2 or more helpers is required for the patient to complete the activity. If activity was not attempted, code reason: 7-Patient Refused. 9-Not Applicable-not attempted and the patient did not perform the activity before the current illness, exacerbation or injury. 10-Not Attempted due to Environmental Limitations-(lack of equipment, weather restraints, etc.). 88-Not Attempted due to Medical Conditions or Safety Concerns. Upper Body Dressing (QC): 5 (set up of pull worker shirt (pt already had chest binder on)) Lower Body Dressing (QC): 3 (Assist RLE, pt able to don LLE and perform pant hike) On/Off Footwear: 2 (Pt able to doff gripper socks using AE. Manuel wraps donned as pt unable to tolerate TEDhose. Assist gripper socks.) Other Treatment [id number]: Pt seated EOB, agreeable to OT tx. Pt donned pull worker shirt at EOB, set up assistance. She then used FWW to transfer into bathroom and onto toilet, completed toileting then transferred to w/c. OT educated pt on using AE for LE dressing, pt able to don pants (assist donning RLE). Pt doffed socks using account solutions analyst, small skin tear from the account solutions analyst. Nurse present to place bandage. Manuel wraps applied to BLEs for swelling, as pt unable to tolerate TEDhose. OT educated pt on using sock aide to don gripper socks, pt able to don half way without difficulty, OT assisted donning the rest of the way due to sternal precautions. Pt sat at sink and put in her contacts and combed her hair. [id number] OT/PT cotreat due to skill of 2 clincians required which a music rehabilitation therapist could not perform in order to decrease fall risk, coordinate UE/LEs, and due to pt's limitations in activity tolerance, mobility/transfers. OT focused on UE placement, cues for sequencing and safety, PT focused on ambulation, and gross overall movement. Pt performed functional mobility around [facility] common area, x2 trials with seated rest break between. Pt required cues for UE placement with t ransfers and cues to widen ROYA while performing functional mobility. Please refer to PT note for distance with functional mobility. CGA sit to stand from elevated surface, mod A from lower surfaces. Skilled cues for UE placement in order to maintain sternal precautions Education OT Patient Education: Correct positioning, Energy conservation, Exercise program, Modified ADL techniques, Progress toward Goal/Update tx plan, Purpose of tx/functional activities, Reviewed precautions, Rehab process, Safety issues, Transfer techniques Teaching Recipient: Patient Teaching Methods: Discussion Response to Teaching: Verbalize Understanding OT Short Term Goals Short Term Goals Time Frame: Apr 21, 2021 Shower/bathe self: 4 Lower body dressin Putting on/taking off footwear: 4 OT Assisted Goals Assisted Goals Time Frame: May 05, 2021 Eating (QC): 6 Oral Hygiene (QC): 6 Toileting Hygiene (QC): 6 Shower/Bathe Self (QC): 6 Upper Body Dressing (QC): 6 Lower Body Dressing (QC): 6 On/Off Footwear (QC): 6 Additional Goals: 1-Demonstrate ADL Tasks, 2-Verbalize Understanding, 3- ImproveStrength/Song 1=Demonstrate adherence to instructed precautions during ADL tasks. 2=Patient will verbalize/demonstrate understanding of assistive devices/modifications for ADL. 3=Patient will improve strength/tolerance for activity to enable patient to perform ADL's. OT Education/Plan Problem List/Assessment Assessment: Decreased Activ Tolerance, Decreased UE Strength, Impaired Funct Balance, Impaired I ADL's, Impaired Self-Care Skills Discharge Recommendations Plan/Recommendations: Continue POC Treatment Plan/Plan of Care Patient would benefit from OT for education, treatment and training to promote independence in ADL's, mobility, safety and/or upper extremity function for ADL's. Plan of Care: ADL Retraining, Functional Mobility, Group Exercise/Act as Ind, UE Funct Exercise/Act Treatment Duration: May 05, 2021 Frequency: At least 5 of 7 days/Wk (IRF) Estimated Hrs Per Day: 1.5 hours per day Rehab Potential: Fair Time/GCodes Start Time: 08:00 Stop Time: 09:15 Total Time Billed (hr/min): 75 Billed Treatment Time [id number] OT tx, [id number] OT/PT cotreat 1, ADL 4 (60'), FA (15') JANY MUÑOZ OT Apr 11, 2021 09:22
--- NOTE | 2021-04-11 09:34 | Consultation-Cardiology ---
HPI-Cardiology Cardiology Consultation Date of Consultation 04/11/21 Date of Admission Time Seen by Provider: 08:40 Indication: PAF, HOCM HPI Patient is a 70 y/o female with history of PAF with hx of Watchman in December 2020, HOCM with septal ablation in 2015, HTN, hx of DVT/PE, currently in inpatient rehab after having prolonged stay at where she underwent left atrial thrombectomy and MAZE procedure with Dr. Wise on 04/03/21. Complaining of some generalized fatigue and weakness, reports some increased peripheral edema. Denies any chest pain or increased dyspnea. Primary family practice md in [facility] Medications & Allergies Allergies: Coded Allergies: No Known Drug Allergies (Verified , 12/18/07) Home Medication List Reviewed: Yes TCX-Ucbrve-Pbcgtk Hx Patient Social History Marital Status: single Employed/Student: retired Smoking Status: Former Smoker 2nd Hand Smoke Exposure: No Have you traveled recently?: No Alcohol Use?: Yes Immunizations Up To Date Tetanus Booster (TDap): More than 5yrs Past Medical History PAF, HOCM, HTN Family Medical History Family History: Cataract 19 FATHER Chest pain 19 FATHER Congenital heart disease 19 MOTHER Congestive heart failure 19 MOTHER Family history: Arthritis 19 FATHER 19 MOTHER Family history: Hypertension 19 FATHER 19 MOTHER Headache 19 MOTHER ([place]) Hearing loss 19 FATHER ([place]) Myocardial infarction 19 FATHER No Family History of: Abdominal aortic aneurysm Ham's disease Alcoholism Aphasia Cancer Cancer of colon Cystic fibrosis Dementia Dysphagia Family history: Allergy Family history: Alzheimer's disease Family history: Asthma Family history: Breast disease Family history: Cardiovascular disease Family history: Coronary thrombosis Family history: Diabetes mellitus Family history: Gastrointestinal disease Family history: Glaucoma Family history: Osteoporosis Family history: Thyroid disorder Heart disease Hereditary disease History of - anemia History of - disorder History of - respiratory disease History of drug abuse Human immunodeficiency virus (HIV) seropositivity Hypercholesterolemia Infertile Kidney disease Malignant neoplasm of lung Parkinson's disease Prostate cancer Psychotic disorder Seizure disorder Stroke Tuberculosis Visual impairment Review of Systems-General Review of Systems Constitutional: see HPI, dizziness, malaise, weakness EENTM: no symptoms reported Respiratory: no symptoms reported Cardiovascular: no symptoms reported Gastrointestinal: no symptoms reported Genitourinary: no symptoms reported Musculoskeletal: back pain, joint pain Skin: no symptoms reported Psychiatric/Neurological: Depressed, Weakness All Other Systems Reviewed Negative Unless Noted: Yes Reviewed Test Results Reviewed Test Results Lab Laboratory Tests 04/11/21 05:20: White Blood Count 9.5, Red Blood Count 3.65L, Hemoglobin 10.2L, Hematocrit 32L, Mean Corpuscular Volume 88, Mean Corpuscular Hemoglobin 28, Mean Corpuscular Hemoglobin Concent 32, Red Cell Distribution Width 15.2H, Platelet Count 374, Mean Platelet Volume 9.3, Immature Granulocyte % (Auto) 4, Neutrophils (%) (Auto) 72, Lymphocytes (%) (Auto) 13, Monocytes (%) (Auto) 9, Eosinophils (%) (Auto) 2, Basophils (%) (Auto) 0, Neutrophils # (Auto) 6.9, Lymphocytes # (Auto) 1.2, Monocytes # (Auto) 0.8, Eosinophils # (Auto) 0.2, Basophils # (Auto) 0.0, Immature Granulocyte # (Auto) 0.4H, Sodium Level 136, Potassium Level 4.1, Chloride Level 97L, Carbon Dioxide Level 29, Anion Gap 10, Blood Urea Nitrogen 14, Creatinine 0.99, Estimat Glomerular Filtration Rate 56, BUN/Creatinine Ratio 14, Glucose Level 93, Calcium Level 10.1, Corrected Calcium 11.3H, Total Bilirubin 0.8, Aspartate Amino Transf (AST/SGOT) 19, Alanine Aminotransferase (ALT/SGPT) 8, Alkaline Phosphatase 70, Total Protein 5.5L, Albumin 2.5L Physical Exam Physical Exam Vital Signs Vital Signs - First Documented 04/10/21 04/10/21 15:19 20:07 Temp 36.6 Pulse 79 Resp 18 B/P (MAP) 140/65 (90) Pulse Ox 95 O2 Delivery Room Air Capillary Refill : Height, Weight, BMI Height: 5'4.00" Weight: 195lbs. 1.6oz. [id number]; 34.7 BMI Method:Stated General Appearance: No Apparent Distress, WD/WN, Chronically ill Eyes: Bilateral Eye Normal Inspection, Bilateral Eye PERRL HEENT: PERRL/EOMI, Normal ENT Inspection, Pharynx Normal Neck: Full Range of Motion, Normal Inspection, Non Tender, Supple, Carotid Bruit Respiratory: Chest Non Tender, Lungs Clear, Normal Breath Sounds, No Accessory Muscle Use, No Respiratory Distress Cardiovascular: Regular Rate, Rhythm, No Gallop, No JVD, No Murmur, Normal Peripheral Pulses, Other (+2 edema BLE) Gastrointestinal: Normal Bowel Sounds, No Organomegaly, No Pulsatile Mass, Non Tender, Soft Back: Normal Inspection, No CVA Tenderness, No Vertebral Tenderness Extremity: Normal Capillary Refill, Normal Inspection, Normal Range of Motion, Non Tender, No Calf Tenderness, No Pedal Edema Neurologic/Psychiatric: Alert, Oriented x3, Normal Mood/Affect, Motor Weakness (Right-sided 3/5) Skin: Normal Color, Warm/Dry Lymphatic: No Adenopathy A/P-Cardiology Admission Diagnosis PAF HOCM HTN HLP Assessment/Plan Paroxysmal atrial fibrillation, hx of Watchman procedure 12/21. S/P left atrial thrombectomy and MAZE procedure April 03, [address] Wise at . Maintained on Eliquis, continue to monitor. HOCM, hx of septal ablation in 2015. 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 HLP, monitored as outpatient. CKD, stage 3, continue to monitor renal function Hyperparathyroidism, has follow up appt with seam checker as outpatient. GERD Hx of CVA 2014 w R sided residual weakness Obesity Thank you for allowing us to participate in the management of Ms. Cruz. This is Drea Pelletier PA-C, as a scribe for Dr. Baker. I have seen and evaluated the patient with Drea, examined and interviewed the patient, reviewed her record, discussed the management plan and agree with the current scribed note. Patient has paroxysmal atrial fibrillation, underwent watchman procedure, had left atrial thrombectomy and maze procedure done on April 03, 2021, history of septal ablation for HOCM and history of DVT/PE maintained on oral anticoagulation She is recovering slowly, continue with physical therapy Monitor renal function closely DREA PALOMINO Apr 11, 2021 09:34 PERRY BAKER MD Apr 11, 2021 12:36
--- NOTE | 2021-04-11 10:41 | Physical Therapy Daily Note ---
PT Daily Note-Current Subjective Pt working with OT upon arrival. Pt agrees to short PT/Ot co-treat then finish tx with just PT. Pain Numeric Pain Scale: 7 Location: Right Location Body Site: Knee Pain Description: Burning, Sharp Mental Status Patient Orientation: Person, Place, Time, Situation Transfers SCALE: Activities may be completed with or without assistive devices. 8-Ucybezhvmm-qxcyzco completes the activity by him/herself with no assistance from a helper. 5-Set-up or Clean-up Assistance-helper sets up or cleans up; patient completes activity. [place] assists only prior to or following the activity. 4-Supervision or Touching Assistance-helper provides verbal cues and/or touching/steadying and/or contact guard assistance as patient completes activity. Assistance may be provided throughout the activity or intermittently. 3-Partial/Moderate Assistance-helper does LESS THAN HALF the effort. [place] lifts, holds or supports trunk or limbs, but provides less than half the effort. 2-Substantial/Maximal Assistance-helper does MORE THAN HALF the effort. [place] lifts or holds trunk or limbs and provides more than half the effort. 6-Dcezpemlm-onbvcs does ALL the effort. Patient does none of the effort to complete the activity. Or, the assistance of 2 or more helpers is required for the patient to complete the activity. If activity was not attempted, code reason: 7-Patient Refused. 9-Not Applicable-not attempted and the patient did not perform the activity before the current illness, exacerbation or injury. 10-Not Attempted due to Environmental Limitations-(lack of equipment, weather restraints, etc.). 88-Not Attempted due to Medical Conditions or Safety Concerns. Sit to Stand (QC): 4 Weight Bearing sternal precautions Gait Training Does the Patient Walk?: Yes Distance: 150' Walk 10 feet (QC): 4 Walk 50 ft with 2 Turns(QC): 4 Walk 150 ft (QC): 4 Gait Persons Needed: 2 Gait Assistive Device: FWW Pt is encouraged to widen ROYA. Pt takes frequent RB as fatigued. Wheelchair Training Does the Pt Use a Wheelchair?: Yes Wheel 50 ft with 2 turns (QC): 4 Wheel 150 ft (QC): 4 Type of Wheelchair: Manual Exercises Supine Ex: Ankle pumps, Quad Set, Glut sets, Heel Slides, Short Arc Quads, Straight leg raise, Hip abd/add Supine Reps: 15 Seated Therapy Exercises: Ankle pumps, Long arc quads, Hip flexion, Hamstring Curls, Glut set Seated Reps: 15 NuStep Minutes: 10 NuStep Workload: 4 Treatments [id number] OT/PT cotreat due to skill of 2 clincians required which a clinical rehab liaison could not perform in order to decrease fall risk, coordinate UE/LEs, and due to pt's limitations in activity tolerance, mobility/transfers. OT focused on UE placement, cues for sequencing and safety, PT focused on ambulation, and gross overall movement. Pt performed functional mobility around MDU common area, x2 trials with seated rest break between. Pt required cues for UE placement with transfers and cues to widen ROYA while performing functional mobility. 915-1030: Pt works on [facility] mobility then takes RB. SWITCH CREW SUPERVISOR reviews written HEP for Seated & Supine EX. Pt completes Seated Ex then takes RB. Pt uses NuStep for 10m at WL 4, short RB. Pt transfers back to [facility] and propels in hallway. Pt transfers back to recliner at end of tx. All needs met, call light in hand. Plodding Machine Operator & ST arrive to visit with pt. Assessment Current Status: Good Progress Pt reports discomfort/pain in R skin tear on knee, limiting ROM. Pt fatigues and needs frequent RB but pt reports not being very active previous to ARU visit. PT Short Term Goals Short Term Goals Time Frame: Apr 17, 2021 Roll Left & Right: 4 Sit to lyin Lying to sitting on side of be: 3 Sit to stand: 4 Chair/bxq-gp-pgios transfer: 4 Walk 10 feet: 4 Walk 50 feet with two turns: 4 PT Mcfp Goals Compactor Driver Goals PT Compactor Driver Goals Time Frame: May 01, 2021 Roll Left & Right (QC): 6 Sit to Lying (QC): 4 (SBA) Lying-Sitting on Side/Bed(QC): 4 (SBA) Sit to Stand (QC): 6 Chair/Ybx-nz-Yhtnu Xfer(QC): 6 Toilet Transfer (QC): 6 Car Transfer (QC): 6 Does the Patient Walk: Yes Walk 10 feet (QC): 6 Walk 50ft with 2 Turns (QC): 6 Walk 150 ft (QC): 6 Walking 10ft on Uneven Surface: 6 1 Step (curb) (QC): 6 4 Steps (QC): 6 12 Steps (QC): 88 Picking up an Object (QC): 6 Wheel 50 feet with 2 turns (QC: 88 Wheel 150 feet: 88 PT Plan Problem List Problem List: Activity Tolerance, Functional Strength, Transfer Treatment/Plan Treatment Plan: Continue Plan of Care Treatment Plan: Bed Mobility, Education, Functional Activity Song, Functional Strength, Group Therapy, Gait, Safety, Therapeutic Exercise, Transfers Treatment Duration: May 01, 2021 Frequency: At least 5 of 7 days/Wk (IRF) Estimated Hrs Per Day: 1.5 hours per day Patient and/or Family Agrees t: Yes Safety Risks/Education Patient Education: Gait Training, Transfer Techniques, Correct Positioning, Safety Issues Teaching Recipient: Patient Teaching Methods: Discussion Response to Teaching: Verbalize Understanding Time/GCodes Time In: 915 Time Out: 1030 Total Billed Treatment Time: 75 Total Billed Treatment Co-treat w/OT for 15m ([id number]) 1, GT x2 (25m), EX x2 (35m) & WCH (15m) CLAUDIO PEREZ SWITCH CREW SUPERVISOR Apr 11, 2021 10:41
--- NOTE | 2021-04-11 10:42 | ST Cognitive Linguistic Eval ---
Speech Evaluation-General Medical Diagnosis S/P REMOVAL OF LEFT ATRIAL THROMBUS AND MAZE PROCEDURE Onset Date: Apr 03, 2021 Therapy Diagnosis Therapy Diagnosis: Cognitive-communication Precautions Precautions/Isolations: Fall Prevention, Standard Precautions Referral Referring Physician: Dr. Pedroza Medical History Pertinent Medical History: Atrial Fib, CVA, GERD Reviewed History: No Social History Current Living Status: Friend (Eleonora) Speech PLF-Current Status Prior Level of Function Patient lives with her friend Eleonora who assists her with her daily needs. Subjective Patient was pleasant and cooperative with the cognitive assessment. Language Eval: Auditory Comprehends Simple Yes/No Ques: Functional Indent/Objects Multiple Pearson: Functional Ident/Pics in Multiple Pearson: Functional Follows 1-Step Commands: Functional Follows Complex Directions: Functional Follows General Conversations: Functional Language Eval: Verbal Language Completes Spontaneous Greeting: Functional Produces Auto, Serial Info: Functional Imitates Simple Words/Phrases: Functional Word Finding: Functional Requests Basic Needs: Functional States Basic Personal Info: Functional Expresses Complex Ideas: Mild Objective Cognitive Domain Attention: WNL Memory: Mild Problem Solving: Functional Executive Functions: WNL Visuospatial Skills: Moderate Composite Severity Rating: Mild Clock Drawing Severity Rating: WNL Objective Formal/Standardized Tests [facility] Mental Status ([facility]) Results 25/30, Mild Neurocognitive Disorder range of function Oral Motor/Speech Production Within Normal Limits Impression Patient is a pleasant 70 y/o female who was admitted to ARU from s/p heart surgery. Patient was given the SLUMS with a score of 25/30 obtained. This is within the MNCD range of function. Patient has mild difficulty with memory problem solving and word finding. Speech Patient Assess Expression of Ideas/Wants: Exhibits (3) Understanding Verbal Content: Usually Understands (3) Brief Interview-Mental Status: Yes Repetition of Three Words: Three (3) Temporal Orientation: Year: Correct (3) Temporal Orientation: Month: Accurate within 5 days(2) Temporal Orientation: Day: Incorrect or No Answer(0) Recall : Wear to say "Sock": Yes,after cueing (1) Recall : Color: Yes, no cue required (2) Recall : Bed: Yes,after cueing (1) Memory/Recall Ability: Current season, That he or she is in a hsp/hsp unit Speech Short Term Goals Short Term Goals Short Term Goals 1) The patient will complete memory tasks with 80% or greater with minimal cues. 2) The patient will complete word finding tasks with 80% or greater with minimal cues. 3) The patient will complete safety awareness tasks with 80% or greater with minimal cues. Speech Intermediate Goals Intermediate Goals Patient will improve cognitive communication abilities so that she may require less assist. Speech-Plan Patient/Family Goals Patient/Family Goals: Patient plans on returning to her home where she lives with her friend. Treatment Plan Speech Therapy Treatment Plan: Continue Plan of Care Treatment Duration: May 05, 2021 Frequency: 4 times per week (Patient will receive skilled ST 4-5x per week) Estimated Hrs Per Day: .5 hour per day Rehab Potential: Fair Barriers to Learning: Patient's recent health decline Pt/Family Agrees to Plan: Yes Safety Risks/Education Teaching Recipient: Patient Teaching Methods: Discussion Response to Teaching: Verbalize Understanding Education Topics Provided: Safety within her room, communication of wants/needs Time Speech Therapy Time In: 10:30 Speech Therapy Time Out: 11:00 Total Billed Time: 30 Billed Treatment Time 1, DA STEPHENSON [address] ST Apr 11, 2021 10:42
[2021-04-11 20:00] VITALS: BP 148/82
[2021-04-11] MEDS: MELATONIN 3 MG TABLET PO SCH (20:34)
--- NOTE | 2021-04-12 06:26 | PM&R Progress Note ---
Subjective HPI/CC On Admission Date Seen by Provider: Apr 12, 2021 Time Seen by Provider: 11:00 Subjective/Events-last exam 04/12/2021: Pt doing a lot better Slept better with increased Melatonin Legs are better with wraps Oozing of her right leg is improved Lisa is following the wounds 04/11/2021: Pt doing really well Slept on/off last night Skin tears are happening with the least amount of trauma Hgb 10.2 Manuel wraps will be placed on the legs Bowels moved yesterday Dr. Baker provided consultation and he is appreciated Increasing Melatonin because her sleep was still disrupted Review of Systems General: Fatigue Musculoskeletal: leg pain Objective Exam Vital Signs Vital Signs Date Time Temp Pulse Resp B/P (MAP) Pulse Ox O2 Delivery O2 Flow Rate FiO2 04/12/21 20:12 Room Air 04/12/21 07:57 36.8 70 18 146/88 (107) 93 Capillary Refill : General Appearance: No Apparent Distress, WD/WN, Chronically ill HEENT: PERRL/EOMI, Normal ENT Inspection, Pharynx Normal Neck: Full Range of Motion, Normal Inspection, Non Tender, Supple, Carotid Bruit Respiratory: Chest Non Tender, Lungs Clear, Normal Breath Sounds, No Accessory Muscle Use, No Respiratory Distress Cardiovascular: Regular Rate, Rhythm, No Edema, No Gallop, No JVD, No Murmur, Normal Peripheral Pulses Gastrointestinal: Normal Bowel Sounds, No Organomegaly, No Pulsatile Mass, Non Tender, Soft Back: Normal Inspection, No CVA Tenderness, No Vertebral Tenderness Extremity: Normal Capillary Refill, Normal Inspection, Normal Range of Motion, Non Tender, No Calf Tenderness, No Pedal Edema Neurologic/Psychiatric: Alert, Oriented x3, Normal Mood/Affect, Motor Weakness (Right-sided 3/5) Skin: Normal Color, Warm/Dry Lymphatic: No Adenopathy Results/Procedures Lab Patient resulted labs reviewed. FIM Transfers Therapy Code Descriptions/Definitions Functional [place] Measure: 0=Not Assessed/NA 4=Minimal Assistance 1=Total Assistance 5=Supervision or Setup 2=Maximal Assistance 6=Modified [place] 3=Moderate Assistance 7=Complete IndependenceSCALE: Activities may be completed with or without assistive devices. 6-Kyoyxuiowy-ijrtftg completes the activity by him/herself with no assistance from a helper. 5-Set-up or Clean-up Assistance-helper sets up or cleans up; patient completes activity. [place] assists only prior to or following the activity. 4-Supervision or Touching Assistance-helper provides verbal cues and/or touching/steadying and/or contact guard assistance as patient completes activity. Assistance may be provided throughout the activity or intermittently. 3-Partial/Moderate Assistance-helper does LESS THAN HALF the effort. [place] lifts, holds or supports trunk or limbs, but provides less than half the effort. 2-Substantial/Maximal Assistance-helper does MORE THAN HALF the effort. [place] lifts or holds trunk or limbs and provides more than half the effort. 9-Uchwnvtoc-fjrfrx does ALL the effort. Patient does none of the effort to complete the activity. Or, the assistance of 2 or more helpers is required for the patient to complete the activity. If activity was not attempted, code reason: 7-Patient Refused. 9-Not Applicable-not attempted and the patient did not perform the activity before the current illness, exacerbation or injury. 10-Not Attempted due to Environmental Limitations-(lack of equipment, weather restraints, etc.). 88-Not Attempted due to Medical Conditions or Safety Concerns. Roll Left to Right (QC): 3 Sit to Lying (QC): 2 Sit to Stand (QC): 4 Chair/Oyr-vd-Goxxi Xfer(QC): 4 Car Transfer (QC): 3 Gait Training Does the Patient Walk?: Yes Distance: 150' Walk 10 feet (QC): 4 Walk 50 ft with 2 Turns(QC): 4 Walk 150 ft (QC): 4 Walking 10ft/uneven surface-QC: 4 Gait Persons Needed: 2 Gait Assistive Device: FWW Wheelchair Training Does the Pt Use a Wheelchair?: Yes Wheel 50 ft with 2 turns (QC): 4 Wheel 150 ft (QC): 4 Type of Wheelchair: Manual Stair Training 1 Step (curb) (QC): 88 4 Steps (QC): 88 12 Steps (QC): 88 Balance Picking up an Object (QC): 88 ADL-Treatment Eating (QC): 5 (set up per pt report) Oral Hygiene (QC): 4 (CGA standing at sink) Shower/Bathe Self (QC): 3 (Min A with washing feet and buttocks. Pt able to wash/dry all other parts.) Upper Body Dressing (QC): 5 (set up of ladle puller shirt (pt already had chest binder on)) Lower Body Dressing (QC): 3 (Assist RLE, pt able to don LLE and perform pant hike) On/Off Footwear (QC): 2 (Pt able to doff gripper socks using AE. Manuel wraps donned as pt unable to tolerate TEDhose. Assist gripper socks.) Toileting Hygiene (QC): 3 (Min A with clothing mangement) Assessment/Plan Assessment and Plan Assess & Plan/Chief Complaint Assessment: Debility S/P left atrial thrombectomy and MAZE procedure April 03 at [facility] S/P Watchman procedure December 2020 Paroxysmal atrial fibrillation HOCM CKD stage 3 HTN HLP GERD Hx of CVA 2014 w R sided residual weakness Obesity Hx of DVT Hx of PE Plan: Inpatient rehab protocol Dr. Baker consult Anticoagulation Monitor labs 04/11/2021: Appreciate Dr. Baker Monitor for falls Skin tear management 04/12/2021: Wrapped legs Melatonin Appreciate cardiology (1) CVA (cerebral vascular accident) (2) Atrial fibrillation LEONIE ANGULO DO Apr 12, 2021 06:25
[2021-04-12] MEDS: KCL 20 MEQ TAB (K-DUR) PO SCH (06:34)
[2021-04-12] MEDS: BUMETANIDE 1 MG (BUMEX) TAB PO SCH ×2 (06:34→17:57)
[2021-04-12 07:57] VITALS: BP 146/88
[2021-04-12] MEDS: LACTOBACILLUS ACIDOPHILUS (PROBIOTIC) CAPSULE PO SCH (08:42)
[2021-04-12] MEDS: OMEGA 3 (FISH OIL) 1000 MG CAP PO SCH (08:42)
[2021-04-12] MEDS: SENNA W/DOCUSATE (SENOKOT S) TABLET PO SCH ×2 (08:42→21:58)
[2021-04-12] MEDS: APIXABAN 5 MG (ELIQUIS) TABLET PO SCH ×2 (08:42→21:55)
[2021-04-12] MEDS: LORATADINE (CLARITIN) 10 MG TAB PO SCH (08:42)
[2021-04-12] MEDS: SPIRONOLACTONE 25 MG (ALDACTONE) TAB PO SCH (08:42)
[2021-04-12] MEDS: VITAMIN D3 125 MCG (5,000 UNITS) CAPSULE PO SCH (08:42)
[2021-04-12] MEDS: DOCUSATE SODIUM 100 MG (COLACE) CAP PO SCH ×2 (08:42→21:58)
[2021-04-12] MEDS: ASPIRIN E.C. 81 MG (ECOTRIN) TAB PO SCH (08:42)
[2021-04-12] MEDS: polyethylene glycoL POWDER 17 GM (MIRALAX) PACK PO SCH ×2 (08:43→21:58)
--- NOTE | 2021-04-12 09:05 | Occupational Ther Daily Note ---
OT Current Status-Daily Note Subjective Pt agreeable to OT Tx. Pt reports no pain during tx. Pt informs this therapist that she should be showering twice a day, and was concerned about it. OT looked at order history and talked with pt's nurse, orders indicate wound should be cleaned twice a day. No orders for frequency of shower. OT informed pt, and pt verbalized understanding. Mental Status/Objective Patient Orientation: Person, Place, Time, Situation ADL-Treatment Therapy Code Descriptions/Definitions Functional [place] Measure: 0=Not Assessed/NA 4=Minimal Assistance 1=Total Assistance 5=Supervision or Setup 2=Maximal Assistance 6=Modified [place] 3=Moderate Assistance 7=Complete IndependenceSCALE: Activities may be completed with or without assistive devices. 9-Pwqfhpgeiq-tnxsctf completes the activity by him/herself with no assistance from a helper. 5-Set-up or Clean-up Assistance-helper sets up or cleans up; patient completes activity. [place] assists only prior to or following the activity. 4-Supervision or Touching Assistance-helper provides verbal cues and/or to uching/steadying and/or contact guard assistance as patient completes activity. Assistance may be provided throughout the activity or intermittently. 3-Partial/Moderate Assistance-helper does LESS THAN HALF the effort. [place] lifts, holds or supports trunk or limbs, but provides less than half the effort. 2-Substantial/Maximal Assistance-helper does MORE THAN HALF the effort. [place] lifts or holds trunk or limbs and provides more than half the effort. 2-Mspwwulqr-hgpkue does ALL the effort. Patient does none of the effort to complete the activity. Or, the assistance of 2 or more helpers is required for the patient to complete the activity. If activity was not attempted, code reason: 7-Patient Refused. 9-Not Applicable-not attempted and the patient did not perform the activity before the current illness, exacerbation or injury. 10-Not Attempted due to Environmental Limitations-(lack of equipment, weather restraints, etc.). 88-Not Attempted due to Medical Conditions or Safety Concerns. Shower/Bathe Self (QC): 4 (CGA in stand, pt able to wash/dry all parts using LH sponge as needed, min verbal cues to wash all parts.) Upper Body Dressing (QC): 3 (Min A with chest binder, pt able to don/doff candy puller shirt with set up assist) Lower Body Dressing (QC): 3 (Min A with pant hike, pt able to doff/don pant/underwear) On/Off Footwear: 2 (Pt able to doff gripper socks, assist to don dionne wraps and gripper socks.) Toileting Hygiene (QC): 3 (Min A with pant hike. Pt able to perform hygiene.) Toilet Transfer (QC): 3 (CGA onto toilet, mod A off of toilet.) Other Treatment [id number] OT tx: Pt seated EOB, agreeable to OT Tx. Pt used FWW to perform functional mobility to bathroom and onto toilet. Pt completed toileting, required mod A to stand from toilet, then pt transferred to IL. Pt completed shower, OT educated pt on using LH sponge to wash RLE lower leg and foot. Pt then transferred to w/c to get dressed. Pt sat at sink to brush hair and put in contacts independently. Pt's nurse present to change dressing on LEs. [id number] OT/PT cotreat due to skill of 2 clincians required which a electrostatic powder coating technician could not perform in order to decrease fall risk, coordinate UE/LEs, and due to pt's limitations in activity tolerance, mobility/transfers. OT focused on UE placement, cues for sequencing and safety, PT focused on ambulation, and gross overall movement. Pt performed functional mobility around ARU common area, CGA using FWW, skilled cues for UE placement to maintain sternal precautions with transfers. (Please refer to PT note for distance) Post tx, pt with PT for continued tx, all needs met. CGA sit to stand from elevated surface, mod A from lower surfaces. Skilled cues for UE placement in order to maintain sternal precautions Education OT Patient Education: Correct positioning, Modified ADL techniques, Progress toward Goal/Update tx plan, Purpose of tx/functional activities, Reviewed precautions, Rehab process, Safety issues, Transfer techniques Teaching Recipient: Patient Teaching Methods: Discussion Response to Teaching: Verbalize Understanding OT Short Term Goals Short Term Goals Time Frame: Apr 21, 2021 Shower/bathe self: 4 Lower body dressin Putting on/taking off footwear: 4 OT Paper Core Machine Operator Goals [facility] Goals Time Frame: May 05, 2021 Eating (QC): 6 Oral Hygiene (QC): 6 Toileting Hygiene (QC): 6 Shower/Bathe Self (QC): 6 Upper Body Dressing (QC): 6 Lower Body Dressing (QC): 6 On/Off Footwear (QC): 6 Additional Goals: 1-Demonstrate ADL Tasks, 2-Verbalize Understanding, 3- ImproveStrength/Song 1=Demonstrate adherence to instructed precautions during ADL tasks. 2=Patient will verbalize/demonstrate understanding of assistive devices/modifications for ADL. 3=Patient will improve strength/tolerance for activity to enable patient to perform ADL's. OT Education/Plan Problem List/Assessment Assessment: Decreased Activ Tolerance, Decreased UE Strength, Impaired Funct Balance, Impaired I ADL's, Impaired Self-Care Skills Discharge Recommendations Plan/Recommendations: Continue POC Treatment Plan/Plan of Care Patient would benefit from OT for education, treatment and training to promote independence in ADL's, mobility, safety and/or upper extremity function for ADL's. Plan of Care: ADL Retraining, Functional Mobility, Group Exercise/Act as Ind, UE Funct Exercise/Act Treatment Duration: May 05, 2021 Frequency: At least 5 of 7 days/Wk (IRF) Estimated Hrs Per Day: 1.5 hours per day Rehab Potential: Fair Time/GCodes Start Time: 08:00 Stop Time: 09:15 Total Time Billed (hr/min): 75 Billed Treatment Time [id number] OT tx, [id number] OT/PT cotreat 1, ADL 4 (60'), FA (15') JANY MUÑOZ OT Apr 12, 2021 09:05
--- NOTE | 2021-04-12 09:40 | Cardiology Progress Note ---
Subjective Date Seen by Provider: Apr 12, 2021 Time Seen by Provider: 08:45 Subjective/Events-last exam Patient is sitting up at bedside, denies any chest pain or dyspnea. Review of Systems General: No Chills, No Night Sweats, No Fatigue, No Malaise, No Appetite, No Other HEENT: No Head Aches, No Visual Changes, No Eye Pain, No Ear Pain, No Dysphasia, No Sinus Congestion, No Post Nasal Drip, No Sore Throat, No Other Pulmonary: No Dyspnea, No Cough, No Pleuritic Chest Pain, No Other Cardiovascular: No: Chest Pain, Palpitations, Orthopnea, Paroxysmal Noc. Dyspnea, Edema, Lt Headedness, Other Objective-Cardiology Exam Last Set of Vital Signs Vital Signs 04/12/21 04/12/21 07:57 09:00 Temp 36.8 Pulse 70 Resp 18 B/P (MAP) 146/88 (107) Pulse Ox 93 O2 Delivery Room Air General: Alert, Oriented X3, Cooperative HEENT: Atraumatic, PERRLA Neck: Supple, No JVD, No Thyromegaly Lungs: Clear to Auscultation, Normal Air Movement Heart: Regular Rate, Normal S1, Normal S2, No Murmurs Abdomen: Normal Bowel Sounds, Soft, No Tenderness, No Hepatosplenomegaly, No Masses Extremities: No Clubbing, No Cyanosis, No Edema, Normal Pulses, No Tenderness/Swelling Skin: No Rashes, No Breakdown, No Significant Lesion Neuro: Normal Gait, Normal Speech, Strength at 5/5 X4 Ext, Normal Tone, Sensation Intact Psych/Mental Status: Mental Status NL, Mood NL A/P-Cardiology Admission Diagnosis PAF HOCM HTN HLP Assessment/Plan Paroxysmal atrial fibrillation, hx of Watchman procedure 12/21. S/P left atrial thrombectomy and MAZE procedure April 03, [address] Wise at . Maintained on Eliquis, continue to monitor. DVT/bilateral PE, maintained on Eliquis Nonobstructive CAD per cardiac catheterization done at March 2021. HOCM, hx of septal ablation in 2015. Carotid artery stenosis with occluded L ICA. Hypertension, controlled, continue to monitor. HLP, monitored as outpatient. CKD, stage 3, continue to monitor renal function Hyperparathyroidism, has follow up appt with marketing operations analyst as outpatient. GERD Hx of CVA 2014 w R sided residual weakness Obesity Patient was seen and evaluated with Drea, examination performed, management plan was discussed, agree with the current scribed note, I made few changes to the note using Italic font Patient was seen at bedside laying down comfortably, complain of fatigue No chest pain or shortness of breath Recovering slowly Continue physical therapy, monitor blood pressure and lipids Supervisory-Addendum Brief Supervisory Addendum Participated in pt care: history, MDM, physical Personally performed: exam, history, MDM Care discussed with: PA Results interpretation: Verified all documentation DREA PALOMINO Apr 12, 2021 09:40 PERRY DAVID MD Apr 12, 2021 15:30
--- NOTE | 2021-04-12 10:40 | Speech Therapy Daily Note ---
Speech Daily Progress Note Subjective Date Seen by Provider: Apr 12, 2021 Time Seen by Provider: 00:30 Patient was resting in her recliner following her OT and PT session. Objective Patient completed safety awareness tasks/questions related to her daily needs at 80% with 15% cues. Assessment Assessment Current Status: Good Progress Treatment Plan Continue Plan of Care Speech Short Term Goals Short Term Goals Short Term Goals 1) The patient will complete memory tasks with 80% or greater with minimal cues. 2) The patient will complete word finding tasks with 80% or greater with minimal cues. 3) The patient will complete safety awareness tasks with 80% or greater with minimal cues. Speech Production Bow Maker Goals Production Bow Maker Goals Patient will improve cognitive communication abilities so that she may require less assist. Speech-Plan Patient/Family Goals Patient/Family Goals: Patient plans on returning to her home where she lives with her friend. Treatment Plan Speech Therapy Treatment Plan: Continue Plan of Care Treatment Duration: Apr 25, 2021 Frequency: 4 times per week (Patient will receive skilled ST 4-5x per week) Estimated Hrs Per Day: .5 hour per day Rehab Potential: Fair Barriers to Learning: Patient's recent health decline Pt/Family Agrees to Plan: Yes Safety Risks/Education Teaching Recipient: Patient Teaching Methods: Demonstration, Discussion Response to Teaching: Verbalize Understanding Education Topics Provided: Continued safety within her room and communication Time Speech Therapy Time In: 10:30 Speech Therapy Time Out: 11:00 Total Billed Time: 30 Billed Treatment Time [address] Apr 12, 2021 10:40
--- NOTE | 2021-04-12 12:07 | Physical Therapy Daily Note ---
PT Daily Note-Current Subjective Pt sitting in [facility] in room with B LE being dressed & wrapped for wounds. Pt agrees to short co-treat w/OT then finish individual PT tx. Pain Numeric Pain Scale: 7 Location: Right Location Body Site: Calf Pain Description: Sharp Mental Status Patient Orientation: Person, Place, Time, Situation Transfers SCALE: Activities may be completed with or without assistive devices. 6-Mksqejiipc-cqqfaoo completes the activity by him/herself with no assistance from a helper. 5-Set-up or Clean-up Assistance-helper sets up or cleans up; patient completes activity. [place] assists only prior to or following the activity. 4-Supervision or Touching Assistance-helper provides verbal cues and/or touching/steadying and/or contact guard assistance as patient completes activ ity. Assistance may be provided throughout the activity or intermittently. 3-Partial/Moderate Assistance-helper does LESS THAN HALF the effort. [place] lifts, holds or supports trunk or limbs, but provides less than half the effort. 2-Substantial/Maximal Assistance-helper does MORE THAN HALF the effort. [place] lifts or holds trunk or limbs and provides more than half the effort. 3-Yafzmyeea-zbqgfi does ALL the effort. Patient does none of the effort to complete the activity. Or, the assistance of 2 or more helpers is required for the patient to complete the activity. If activity was not attempted, code reason: 7-Patient Refused. 9-Not Applicable-not attempted and the patient did not perform the activity before the current illness, exacerbation or injury. 10-Not Attempted due to Environmental Limitations-(lack of equipment, weather restraints, etc.). 88-Not Attempted due to Medical Conditions or Safety Concerns. Sit to Stand (QC): 3 Weight Bearing Full Weight Bearing Full Weight Bearing sternal precautions Gait Training Does the Patient Walk?: Yes Distance: 150' Walk 10 feet (QC): 4 Walk 50 ft with 2 Turns(QC): 4 Walk 150 ft (QC): 4 Gait Persons Needed: 1 Gait Assistive Device: FWW VC for sternal precautions while transferring. Exercises Seated Therapy Exercises: Ankle pumps, Long arc quads, Hip flexion, Hip abd/add, Glut set Seated Reps: 15 Treatments [id number] OT/PT cotreat due to skill of 2 clincians required which a rehabilitation case coordinator could not perform in order to decrease fall risk, coordinate UE/LEs, and due to pt's limitations in activity tolerance, mobility/transfers. OT focused on UE placement, cues for sequencing and safety, PT focused on ambulation, and gross overall movement. Pt performed functional mobility around ARU common area, CGA using FWW, skilled cues for UE placement to maintain sternal precautions with transfers. (Please refer to PT note for distance) Post tx, pt with PT for continued tx, all needs met. CGA sit to stand from elevated surface, mod A from lower surfaces. Skilled cues for UE placement in order to maintain sternal precautions [id number]: Pt propels WCH in hallway then completes Seated Ex with RB as needed. Pt returns to room to rest in recliner with all needs met, call light in hand. Assessment Current Status: Good Progress Pt needs VC to keep sternal precautions. PT Short Term Goals Short Term Goals Time Frame: Apr 17, 2021 Roll Left & Right: 4 Sit to lyin Lying to sitting on side of be: 3 Sit to stand: 4 Chair/plo-mb-tswuf transfer: 4 Walk 10 feet: 4 Walk 50 feet with two turns: 4 PT Retirement Goals Stencil Cutter Goals PT Stencil Cutter Goals Time Frame: May 01, 2021 Roll Left & Right (QC): 6 Sit to Lying (QC): 4 (SBA) Lying-Sitting on Side/Bed(QC): 4 (SBA) Sit to Stand (QC): 6 Chair/Cqa-tr-Waqit Xfer(QC): 6 Toilet Transfer (QC): 6 Car Transfer (QC): 6 Does the Patient Walk: Yes Walk 10 feet (QC): 6 Walk 50ft with 2 Turns (QC): 6 Walk 150 ft (QC): 6 Walking 10ft on Uneven Surface: 6 1 Step (curb) (QC): 6 4 Steps (QC): 6 12 Steps (QC): 88 Picking up an Object (QC): 6 Wheel 50 feet with 2 turns (QC: 88 Wheel 150 feet: 88 PT Plan Problem List Problem List: Activity Tolerance, Functional Strength Treatment/Plan Treatment Plan: Continue Plan of Care Treatment Plan: Bed Mobility, Education, Functional Activity Song, Functional Strength, Group Therapy, Gait, Safety, Therapeutic Exercise, Transfers Treatment Duration: May 01, 2021 Frequency: At least 5 of 7 days/Wk (IRF) Estimated Hrs Per Day: 1.5 hours per day Patient and/or Family Agrees t: Yes Safety Risks/Education Patient Education: Gait Training, Transfer Techniques, Correct Positioning, Safety Issues Teaching Recipient: Patient Teaching Methods: Discussion Response to Teaching: Verbalize Understanding Time/GCodes Time In: 900 Time Out: 945 Total Billed Treatment Time: 45 Total Billed Treatment Co-treat 15m (900-787) 1, GT (15m), WCH (15m) & EX (15m) CLAUDIO PEREZ TEACHER DRAMA Apr 12, 2021 12:07
[2021-04-12] MEDS ORDERED: DILT360C30 PO (13:47)
[2021-04-12] MEDS ORDERED: ZOLP10TA PO (13:47)
--- NOTE | 2021-04-12 15:10 | Physical Therapy Daily Note ---
PT Daily Note-Current Subjective Pt sitting in recliner upon arrival. Pt agrees to PT. Pain Numeric Pain Scale: 3 Location: Right Location Body Site: Calf Pain Description: Burning, Sharp Mental Status Patient Orientation: Person, Place, Situation Transfers SCALE: Activities may be completed with or without assistive devices. 6-Mksicjmnnw-iairoqk completes the activity by him/herself with no assistance from a helper. 5-Set-up or Clean-up Assistance-helper sets up or cleans up; patient completes activity. [place] assists only prior to or following the activity. 4-Supervision or Touching Assistance-helper provides verbal cues and/or touching/steadying and/or contact guard assistance as patient completes activity. Assistance may be provided throughout the activity or intermittently. 3-Partial/Moderate Assistance-helper does LESS THAN HALF the effort. [place] lifts, holds or supports trunk or limbs, but provides less than half the effort. 2-Substantial/Maximal Assistance-helper does MORE THAN HALF the effort. [place] lifts or holds trunk or limbs and provides more than half the effort. 7-Anaiyxgtf-vdofhn does ALL the effort. Patient does none of the effort to complete the activity. Or, the assistance of 2 or more helpers is required for the patient to complete the activity. If activity was not attempted, code reason: 7-Patient Refused. 9-Not Applicable-not attempted and the patient did not perform the activity before the current illness, exacerbation or injury. 10-Not Attempted due to Environmental Limitations-(lack of equipment, weather restraints, etc.). 88-Not Attempted due to Medical Conditions or Safety Concerns. Sit to Lying (QC): 5 Sit to Stand (QC): 3 Weight Bearing Full Weight Bearing Full Weight Bearing sternal precautions Exercises Supine Ex: Ankle pumps, Quad Set, Glut sets, Heel Slides, Short Arc Quads, Straight leg raise, Hip abd/add Supine Reps: 15 Treatments Pt asks to change back into hospital gown and lay in bed after finished with PT. Pt transfers from recliner to standing and SPT to EOB. Pt doffs clothes & dons hospital gown then transfers to bed. Pt completes Supine Ex with RB as needed. All needs met, call light in hand at end of tx. Assessment Current Status: Fair Progress Pt is fatigued by end of tx. PT Short Term Goals Short Term Goals Time Frame: Apr 17, 2021 Roll Left & Right: 4 Sit to lyin Lying to sitting on side of be: 3 Sit to stand: 4 Chair/sbi-vk-kwzkm transfer: 4 Walk 10 feet: 4 Walk 50 feet with two turns: 4 PT Longterm Goals Longterm Goals PT Longterm Goals Time Frame: May 01, 2021 Roll Left & Right (QC): 6 Sit to Lying (QC): 4 (SBA) Lying-Sitting on Side/Bed(QC): 4 (SBA) Sit to Stand (QC): 6 Chair/Tea-yv-Notqn Xfer(QC): 6 Toilet Transfer (QC): 6 Car Transfer (QC): 6 Does the Patient Walk: Yes Walk 10 feet (QC): 6 Walk 50ft with 2 Turns (QC): 6 Walk 150 ft (QC): 6 Walking 10ft on Uneven Surface: 6 1 Step (curb) (QC): 6 4 Steps (QC): 6 12 Steps (QC): 88 Picking up an Object (QC): 6 Wheel 50 feet with 2 turns (QC: 88 Wheel 150 feet: 88 PT Plan Problem List Problem List: Activity Tolerance, Functional Strength Treatment/Plan Treatment Plan: Continue Plan of Care Treatment Plan: Bed Mobility, Education, Functional Activity Song, Functional Strength, Group Therapy, Gait, Safety, Therapeutic Exercise, Transfers Treatment Duration: May 01, 2021 Frequency: At least 5 of 7 days/Wk (IRF) Estimated Hrs Per Day: 1.5 hours per day Patient and/or Family Agrees t: Yes Safety Risks/Education Patient Education: Transfer Techniques, Reviewed Precautions, Correct Positioning Teaching Recipient: Patient Teaching Methods: Discussion Response to Teaching: Verbalize Understanding Time/GCodes Time In: 1330 Time Out: 1400 Total Billed Treatment Time: 30 Total Billed Treatment 1, FA (10m) & EX (20m) CLAUDIO PEREZ MACHINIST SUPERVISOR Apr 12, 2021 15:10
[2021-04-12 20:00] VITALS: BP 143/69
[2021-04-12] MEDS: MELATONIN 3 MG TABLET PO SCH (21:56)
[2021-04-13] MEDS: BUMETANIDE 1 MG (BUMEX) TAB PO SCH ×2 (06:50→15:38)
[2021-04-13] MEDS: KCL 20 MEQ TAB (K-DUR) PO SCH (06:50)
[2021-04-13] MEDS: DOCUSATE SODIUM 100 MG (COLACE) CAP PO SCH ×2 (07:38→21:39)
[2021-04-13] MEDS: SPIRONOLACTONE 25 MG (ALDACTONE) TAB PO SCH (07:38)
[2021-04-13] MEDS: VITAMIN D3 125 MCG (5,000 UNITS) CAPSULE PO SCH (07:38)
[2021-04-13] MEDS: LACTOBACILLUS ACIDOPHILUS (PROBIOTIC) CAPSULE PO SCH (07:39)
[2021-04-13] MEDS: OMEGA 3 (FISH OIL) 1000 MG CAP PO SCH (07:39)
[2021-04-13] MEDS: ASPIRIN E.C. 81 MG (ECOTRIN) TAB PO SCH (07:39)
[2021-04-13] MEDS: SENNA W/DOCUSATE (SENOKOT S) TABLET PO SCH ×2 (07:39→21:40)
[2021-04-13] MEDS: LORATADINE (CLARITIN) 10 MG TAB PO SCH (07:39)
[2021-04-13] MEDS: APIXABAN 5 MG (ELIQUIS) TABLET PO SCH ×2 (07:39→21:37)
[2021-04-13 07:40] VITALS: BP 147/75
[2021-04-13] MEDS: polyethylene glycoL POWDER 17 GM (MIRALAX) PACK PO SCH ×2 (08:14→21:38)
--- NOTE | 2021-04-13 08:30 | Cardiology Progress Note ---
Subjective Date Seen by Provider: Apr 13, 2021 Time Seen by Provider: 08:05 Subjective/Events-last exam Patient is sitting up at bedside, denies any chest pain or dyspnea. Review of Systems General: No Chills, No Night Sweats, No Fatigue, No Malaise, No Appetite, No Other HEENT: No Head Aches, No Visual Changes, No Eye Pain, No Ear Pain, No Dysphasia, No Sinus Congestion, No Post Nasal Drip, No Sore Throat, No Other Pulmonary: No Dyspnea, No Cough, No Pleuritic Chest Pain, No Other Cardiovascular: No: Chest Pain, Palpitations, Orthopnea, Paroxysmal Noc. Dyspnea, Edema, Lt Headedness, Other Objective-Cardiology Exam Last Set of Vital Signs Vital Signs 04/13/21 04/13/21 07:40 09:24 Temp 36.4 Pulse 76 Resp 18 B/P (MAP) 147/75 (99) Pulse Ox 92 O2 Delivery Room Air General: Alert, Oriented X3, Cooperative HEENT: Atraumatic, PERRLA Neck: Supple, No JVD, No Thyromegaly Lungs: Clear to Auscultation, Normal Air Movement Heart: Regular Rate, Normal S1, Normal S2, No Murmurs Abdomen: Normal Bowel Sounds, Soft, No Tenderness, No Hepatosplenomegaly, No Masses Extremities: No Clubbing, No Cyanosis, No Edema, Normal Pulses, No Tenderness/Swelling Skin: No Rashes, No Breakdown, No Significant Lesion Neuro: Normal Gait, Normal Speech, Strength at 5/5 X4 Ext, Normal Tone, Sensation Intact Psych/Mental Status: Mental Status NL, Mood NL A/P-Cardiology Admission Diagnosis PAF HOCM HTN HLP Assessment/Plan Paroxysmal atrial fibrillation, hx of Watchman procedure 12/21. S/P left atrial thrombectomy and MAZE procedure April 03, [address] Wise at . Maintained on Eliquis, continue to monitor. DVT/bilateral PE, maintained on Eliquis Nonobstructive CAD per cardiac catheterization done at March 2021. HOCM, hx of septal ablation in 2015. Carotid artery stenosis with occluded L ICA. Hypertension, controlled, continue to monitor. HLP, monitored as outpatient. 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 GERD Hx of CVA 2014 w R sided residual weakness Obesity Patient was seen and evaluated with Drea, examination performed, management plan was discussed, agree with the current scribed note, I made few changes to the note using Italic font Patient was seen during physical therapy session, doing better, no new complaint Blood pressure is better controlled Continue to monitor, no changes from cardiology standpoint DREA PALOMINO Apr 13, 2021 08:30 PERRY DAVID MD Apr 13, 2021 12:35
--- NOTE | 2021-04-13 08:44 | Occupational Ther Daily Note ---
OT Current Status-Daily Note Subjective Pt seated EOB, agreeable to OT Tx. ADL-Treatment Therapy Code Descriptions/Definitions Functional [place] Measure: 0=Not Assessed/NA 4=Minimal Assistance 1=Total Assistance 5=Supervision or Setup 2=Maximal Assistance 6=Modified [place] 3=Moderate Assistance 7=Complete IndependenceSCALE: Activities may be completed with or without assistive devices. 1-Hdpgxodqhm-ojrggwo completes the activity by him/herself with no assistance from a helper. 5-Set-up or Clean-up Assistance-helper sets up or cleans up; patient completes activity. [place] assists only prior to or following the activity. 4-Supervision or Touching Assistance-helper provides verbal cues and/or touching/steadying and/or contact guard assistance as patient completes activity. Assistance may be provided throughout the activity or intermittently. 3-Partial/Moderate Assistance-helper does LESS THAN HALF the effort. [place] lifts, holds or supports trunk or limbs, but provides less than half the effort. 2-Substantial/Maximal Assistance-helper does MORE THAN HALF the effort. [place] lifts or holds trunk or limbs and provides more than half the effort. 0-Pvobusgpo-cjhjmf does ALL the effort. Patient does none of the effort to complete the activity. Or, the assistance of 2 or more helpers is required for the patient to complete the activity. If activity was not attempted, code reason: 7-Patient Refused. 9-Not Applicable-not attempted and the patient did not perform the activity before the current illness, exacerbation or injury. 10-Not Attempted due to Environmental Limitations-(lack of equipment, weather restraints, etc.). 88-Not Attempted due to Medical Conditions or Safety Concerns. Oral Hygiene (QC): 6 (IND seated at sink) Upper Body Dressing (QC): 5 (set up with gizzard puller shirt only (chest binder already donned)) Lower Body Dressing (QC): 4 (CGA in stand for pant hike. Pt able to thread LLE, difficulty with RLE, able to use AE to thread, then complete pant hike.) Toileting Hygiene (QC): 4 (CGA for clothing management, pt able to complete hygiene seated) Toilet Transfer (QC): 3 (CGA to sit on toilet, Mod A off of toilet. ) Other Treatment Pt seated EOB, agreeable to OT Tx. Pt donned clothing at EOB, donning shirt with set up assistance. Pt threaded LLE into pants, difficulty threading RLE. OT handed pt supervisor dried yeast, pt hesitant to use due to skin tear caused last time. OT informed pt she had dionne wraps on her legs to protect them, she then threaded RLE into pants using supervisor dried yeast. CGA in stand for pant hike, CGA sit to stand from EOB (elevated surface). Pt used FWW to perform functional mobility to bathroom. Pt completed toileting, required moderate assistance for sit to stand from toilet, CGA for pant hike. Pt transferred to w/c and sat at sink to complete oral care and hair brushing independently. Pt propelled w/c to therapy gym using LEs (UEs not used due to sternal precautions.). In order to increase BUE Strength and activity tolerance, pt complete peg task, placing/removing 1" pegs from foam pegboard, alternating hands, 1lb wrist weight BUEs. Pt then removed beads from moderate resistance theraputty in order to increase fine motor strength and coordination. Pt placed/removed graded clothespins (1-5 lbs), x2 sets BUEs. Post tx, pt seated up in w/c in therapy gym, PT present to continue tx. Education OT Patient Education: Correct positioning, Energy conservation, Exercise program, Modified ADL techniques, Progress toward Goal/Update tx plan, Purpose o f tx/functional activities, Reviewed precautions, Rehab process, Safety issues, Transfer techniques Teaching Recipient: Patient Teaching Methods: Discussion Response to Teaching: Verbalize Understanding, Reinforcement Needed OT Short Term Goals Short Term Goals Time Frame: Apr 21, 2021 Shower/bathe self: 4 Lower body dressin Putting on/taking off footwear: 4 OT Mcfp Goals Mcfp Goals Time Frame: May 05, 2021 Eating (QC): 6 Oral Hygiene (QC): 6 Toileting Hygiene (QC): 6 Shower/Bathe Self (QC): 6 Upper Body Dressing (QC): 6 Lower Body Dressing (QC): 6 On/Off Footwear (QC): 6 Additional Goals: 1-Demonstrate ADL Tasks, 2-Verbalize Understanding, 3- ImproveStrength/Song 1=Demonstrate adherence to instructed precautions during ADL tasks. 2=Patient will verbalize/demonstrate understanding of assistive devices/modifications for ADL. 3=Patient will improve strength/tolerance for activity to enable patient to perform ADL's. OT Education/Plan Problem List/Assessment Assessment: Decreased Activ Tolerance, Decreased UE Strength, Impaired Funct Balance, Impaired I ADL's, Impaired Self-Care Skills Discharge Recommendations Plan/Recommendations: Continue POC Treatment Plan/Plan of Care Patient would benefit from OT for education, treatment and training to promote independence in ADL's, mobility, safety and/or upper extremity function for ADL's. Plan of Care: ADL Retraining, Functional Mobility, Group Exercise/Act as Ind, UE Funct Exercise/Act Treatment Duration: May 05, 2021 Frequency: At least 5 of 7 days/Wk (IRF) Estimated Hrs Per Day: 1.5 hours per day Rehab Potential: Fair Time/GCodes Start Time: 08:00 Stop Time: 09:15 Total Time Billed (hr/min): 75 Billed Treatment Time 1, ADL (20'), FA 4 (55') JANY MUÑOZ OT Apr 13, 2021 08:44
--- NOTE | 2021-04-13 10:00 | Physical Therapy Daily Note ---
PT Daily Note-Current Subjective Pt sitting in [facility] in Therapy Gym just finishing OT upon arrival. Pt agrees to PT. Pain Location: No Pain Reported Mental Status Patient Orientation: Person, Place, Time, Situation Transfers SCALE: Activities may be completed with or without assistive devices. 1-Syxitznghl-axqoqwh completes the activity by him/herself with no assistance from a helper. 5-Set-up or Clean-up Assistance-helper sets up or cleans up; patient completes activity. [place] assists only prior to or following the activity. 4-Supervision or Touching Assistance-helper provides verbal cues and/or touching/steadying and/or contact guard assistance as patient completes activity. Assistance may be provided throughout the activity or intermittently. 3-Partial/Moderate Assistance-helper does LESS THAN HALF the effort. [place] lifts, holds or supports trunk or limbs, but provides less than half the effort. 2-Substantial/Maximal Assistance-helper does MORE THAN HALF the effort. [place] lifts or holds trunk or limbs and provides more than half the effort. 0-Ukzpvifnw-dbvklc does ALL the effort. Patient does none of the effort to complete the activity. Or, the assistance of 2 or more helpers is required for the patient to complete the activity. If activity was not attempted, code reason: 7-Patient Refused. 9-Not Applicable-not attempted and the patient did not perform the activity before the current illness, exacerbation or injury. 10-Not Attempted due to Environmental Limitations-(lack of equipment, weather restraints, etc.). 88-Not Attempted due to Medical Conditions or Safety Concerns. Sit to Stand (QC): 4 Weight Bearing Full Weight Bearing Full Weight Bearing sternal precautions Gait Training Does the Patient Walk?: Yes Distance: 150' Walk 10 feet (QC): 4 Walk 50 ft with 2 Turns(QC): 4 Walk 150 ft (QC): 4 Gait Persons Needed: 1 Gait Assistive Device: FWW Wheelchair Training Does the Pt Use a Wheelchair?: Yes Wheel 50 ft with 2 turns (QC): 5 Wheel 150 ft (QC): 5 Type of Wheelchair: Manual Exercises Seated Therapy Exercises: Ankle pumps, Long arc quads, Hip flexion, Hip abd/add, Glut set Seated Reps: 15 Treatments Pt completes Seated Ex with RB as needed. Pt stands and amb. in hallway. Pt returns to room to rest in recliner, repositioned at needed. All needs met, call light in hand. Assessment Current Status: Good Progress Pt is gaining strength and mobility but needs VC to keep sternal precautions. PT Short Term Goals Short Term Goals Time Frame: Apr 17, 2021 Roll Left & Right: 4 Sit to lyin Lying to sitting on side of be: 3 Sit to stand: 4 Chair/mcv-fs-usdrk transfer: 4 Walk 10 feet: 4 Walk 50 feet with two turns: 4 PT Electrical Installer Goals Electrical Installer Goals PT Electrical Installer Goals Time Frame: May 01, 2021 Roll Left & Right (QC): 6 Sit to Lying (QC): 4 (SBA) Lying-Sitting on Side/Bed(QC): 4 (SBA) Sit to Stand (QC): 6 Chair/Pbo-us-Dyiie Xfer(QC): 6 Toilet Transfer (QC): 6 Car Transfer (QC): 6 Does the Patient Walk: Yes Walk 10 feet (QC): 6 Walk 50ft with 2 Turns (QC): 6 Walk 150 ft (QC): 6 Walking 10ft on Uneven Surface: 6 1 Step (curb) (QC): 6 4 Steps (QC): 6 12 Steps (QC): 88 Picking up an Object (QC): 6 Wheel 50 feet with 2 turns (QC: 88 Wheel 150 feet: 88 PT Plan Problem List Problem List: Activity Tolerance, Safety, Transfer Treatment/Plan Treatment Plan: Continue Plan of Care Treatment Plan: Bed Mobility, Education, Functional Activity Song, Functional Strength, Group Therapy, Gait, Safety, Therapeutic Exercise, Transfers Treatment Duration: May 01, 2021 Frequency: At least 5 of 7 days/Wk (IRF) Estimated Hrs Per Day: 1.5 hours per day Patient and/or Family Agrees t: Yes Safety Risks/Education Patient Education: Gait Training, Transfer Techniques, Correct Positioning, Safety Issues Teaching Recipient: Patient Teaching Methods: Discussion Response to Teaching: Verbalize Understanding Time/GCodes Time In: 915 Time Out: 1000 Total Billed Treatment Time: 45 Total Billed Treatment 1, EX (20m), GT (15m) & FA (10m) CLAUDIO PEREZ TEACHER EMOTIONALLY IMPAIRED Apr 13, 2021 10:00
--- NOTE | 2021-04-13 10:09 | Speech Therapy Daily Note ---
Speech Daily Progress Note Subjective Date Seen by Provider: Apr 13, 2021 Time Seen by Provider: 00:30 Patient was resting in her recliner when I entered her room. Objective Patient completed temporal orientation tasks with calendar, schedule and clock with 85% given 10% cues. Assessment Assessment Current Status: Good Progress Treatment Plan Continue Plan of Care Speech Short Term Goals Short Term Goals Short Term Goals 1) The patient will complete memory tasks with 80% or greater with minimal cues. 2) The patient will complete word finding tasks with 80% or greater with minimal cues. 3) The patient will complete safety awareness tasks with 80% or greater with minimal cues. Speech Fci Goals Fci Goals Patient will improve cognitive communication abilities so that she may require less assist. Speech-Plan Patient/Family Goals Patient/Family Goals: Patient plans on returning to her home where she lives with her friend. Treatment Plan Speech Therapy Treatment Plan: Continue Plan of Care Treatment Duration: Apr 25, 2021 Frequency: 4 times per week (Patient will receive skilled ST 4-5x per week) Estimated Hrs Per Day: .5 hour per day Rehab Potential: Fair Barriers to Learning: Patient's recent decline in health, mild cognitive deficits Pt/Family Agrees to Plan: Yes Safety Risks/Education Teaching Recipient: Patient, Primary Caregiver, Significant Other Teaching Methods: Demonstration Response to Teaching: Verbalize Understanding, Return Demonstration Education Topics Provided: Continued safety within her room and communication Time Speech Therapy Time In: 10:00 Speech Therapy Time Out: 10:30 Total Billed Time: 30 Billed Treatment Time 1[address] Apr 13, 2021 10:09
--- NOTE | 2021-04-13 12:27 | PM&R Progress Note ---
Subjective HPI/CC On Admission Date Seen by Provider: Apr 13, 2021 Time Seen by Provider: 12:30 Subjective/Events-last exam 04/13/2021: Pt doing really well No bowels moving yet so laxatives given Checked meds and labs No falls 04/12/2021: Pt doing a lot better Slept better with increased Melatonin Legs are better with wraps Oozing of her right leg is improved Lisa is following the wounds 04/11/2021: Pt doing really well Slept on/off last night Skin tears are happening with the least amount of trauma Hgb 10.2 Manuel wraps will be placed on the legs Bowels moved yesterday Dr. Baker provided consultation and he is appreciated Increasing Melatonin because her sleep was still disrupted Review of Systems General: Fatigue, Malaise Pulmonary: Dyspnea Musculoskeletal: leg pain Objective Exam Vital Signs Vital Signs Date Time Temp Pulse Resp B/P (MAP) Pulse Ox O2 Delivery O2 Flow Rate FiO2 04/13/21 21:40 Room Air 04/13/21 20:00 36.7 95 18 137/80 (99) 92 Capillary Refill : General Appearance: No Apparent Distress, WD/WN, Chronically ill HEENT: PERRL/EOMI, Normal ENT Inspection, Pharynx Normal Neck: Full Range of Motion, Normal Inspection, Non Tender, Supple, Carotid Bruit Respiratory: Chest Non Tender, Lungs Clear, Normal Breath Sounds, No Accessory Muscle Use, No Respiratory Distress Cardiovascular: Regular Rate, Rhythm, No Edema, No Gallop, No JVD, No Murmur, Normal Peripheral Pulses Gastrointestinal: Normal Bowel Sounds, No Organomegaly, No Pulsatile Mass, Non Tender, Soft Back: Normal Inspection, No CVA Tenderness, No Vertebral Tenderness Extremity: Normal Capillary Refill, Normal Inspection, Normal Range of Motion, Non Tender, No Calf Tenderness, No Pedal Edema Neurologic/Psychiatric: Alert, Oriented x3, Normal Mood/Affect, Motor Weakness (Right-sided 3/5) Skin: Normal Color, Warm/Dry Lymphatic: No Adenopathy Results/Procedures Lab Patient resulted labs reviewed. FIM Transfers Therapy Code Descriptions/Definitions Functional [place] Measure: 0=Not Assessed/NA 4=Minimal Assistance 1=Total Assistance 5=Supervision or Setup 2=Maximal Assistance 6=Modified [place] 3=Moderate Assistance 7=Complete IndependenceSCALE: Activities may be completed with or without assistive devices. 9-Mkqtjcftld-qmqqgmz completes the activity by him/herself with no assistance from a helper. 5-Set-up or Clean-up Assistance-helper sets up or cleans up; patient completes activity. [place] assists only prior to or following the activity. 4-Supervision or Touching Assistance-helper provides verbal cues and/or touching/steadying and/or contact guard assistance as patient completes activity. Assistance may be provided throughout the activity or intermittently. 3-Partial/Moderate Assistance-helper does LESS THAN HALF the effort. [place] lifts, holds or supports trunk or limbs, but provides less than half the effort. 2-Substantial/Maximal Assistance-helper does MORE THAN HALF the effort. [place] lifts or holds trunk or limbs and provides more than half the effort. 3-Xufvfftfy-wfatmt does ALL the effort. Patient does none of the effort to complete the activity. Or, the assistance of 2 or more helpers is required for the patient to complete the activity. If activity was not attempted, code reason: 7-Patient Refused. 9-Not Applicable-not attempted and the patient did not perform the activity before the current illness, exacerbation or injury. 10-Not Attempted due to Environmental Limitations-(lack of equipment, weather restraints, etc.). 88-Not Attempted due to Medical Conditions or Safety Concerns. Roll Left to Right (QC): 3 Sit to Lying (QC): 5 Sit to Stand (QC): 4 Chair/Ipe-ru-Kjbib Xfer(QC): 4 Car Transfer (QC): 3 Gait Training Does the Patient Walk?: Yes Distance: 150' Walk 10 feet (QC): 4 Walk 50 ft with 2 Turns(QC): 4 Walk 150 ft (QC): 4 Walking 10ft/uneven surface-QC: 4 Gait Persons Needed: 1 Gait Assistive Device: FWW Wheelchair Training Does the Pt Use a Wheelchair?: Yes Wheel 50 ft with 2 turns (QC): 5 Wheel 150 ft (QC): 5 Type of Wheelchair: Manual Stair Training 1 Step (curb) (QC): 88 4 Steps (QC): 88 12 Steps (QC): 88 Balance Picking up an Object (QC): 88 ADL-Treatment Eating (QC): 5 (set up per pt report) Oral Hygiene (QC): 6 (IND seated at sink) Shower/Bathe Self (QC): 4 (CGA in stand, pt able to wash/dry all parts using LH sponge as needed, min verbal cues to wash all parts.) Upper Body Dressing (QC): 5 (set up with box puller shirt only (chest binder already donned)) Lower Body Dressing (QC): 4 (CGA in stand for pant hike. Pt able to thread LLE, difficulty with RLE, able to use AE to thread, then complete pant hike.) On/Off Footwear (QC): 2 (Pt able to doff gripper socks, assist to don manuel wraps and gripper socks.) Toileting Hygiene (QC): 4 (CGA for clothing management, pt able to complete hygiene seated) Toilet Transfer (QC): 3 (CGA to sit on toilet, Mod A off of toilet. ) Assessment/Plan Assessment and Plan Assess & Plan/Chief Complaint Assessment: Debility S/P left atrial thrombectomy and MAZE procedure April 03 at [facility] S/P Watchman procedure December 2020 Paroxysmal atrial fibrillation HOCM CKD stage 3 HTN HLP GERD Hx of CVA 2014 w R sided residual weakness Obesity Hx of DVT Hx of PE Plan: Inpatient rehab protocol Dr. Baker consult Anticoagulation Monitor labs 04/11/2021: Appreciate Dr. Baker Monitor for falls Skin tear management 04/12/2021: Wrapped legs Melatonin Appreciate cardiology 04/13/2021: Continue wrapping legs Slept very well last night Close monitoring (1) CVA (cerebral vascular accident) (2) Atrial fibrillation LEONIE ANGULO DO Apr 13, 2021 12:27
--- NOTE | 2021-04-13 13:31 | Physical Therapy Daily Note ---
PT Daily Note-Current Subjective Pt sitting in recliner upon arrival. Pt agrees to PT. Pain Numeric Pain Scale: 4 Location: Right Location Body Site: Calf Pain Description: Ache Mental Status Patient Orientation: Person, Place, Time, Situation Transfers SCALE: Activities may be completed with or without assistive devices. 2-Uozvuktavs-zfugirl completes the activity by him/herself with no assistance from a helper. 5-Set-up or Clean-up Assistance-helper sets up or cleans up; patient completes activity. [place] assists only prior to or following the activity. 4-Supervision or Touching Assistance-helper provides verbal cues and/or touching/steadying and/or contact guard assistance as patient completes activity. Assistance may be provided throughout the activity or intermittently. 3-Partial/Moderate Assistance-helper does LESS THAN HALF the effort. [place] lifts, holds or supports trunk or limbs, but provides less than half the effort. 2-Substantial/Maximal Assistance-helper does MORE THAN HALF the effort. [place] lifts or holds trunk or limbs and provides more than half the effort. 6-[place]-thrnwh does ALL the effort. Patient does none of the effort to com plete the activity. Or, the assistance of 2 or more helpers is required for the patient to complete the activity. If activity was not attempted, code reason: 7-Patient Refused. 9-Not Applicable-not attempted and the patient did not perform the activity before the current illness, exacerbation or injury. 10-Not Attempted due to Environmental Limitations-(lack of equipment, weather restraints, etc.). 88-Not Attempted due to Medical Conditions or Safety Concerns. Sit to Stand (QC): 4 Toilet Transfer (QC): 4 Weight Bearing Full Weight Bearing Full Weight Bearing sternal precautions Gait Training Does the Patient Walk?: Yes Distance: 150' Walk 10 feet (QC): 4 Walk 50 ft with 2 Turns(QC): 4 Walk 150 ft (QC): 4 Gait Persons Needed: 1 Gait Assistive Device: FWW Treatments TF to standing and amb. in hallway, taking RB due to fatigue. Pt returns to room to use BR then returns to recliner to rest. Nurse attends to RANDA wrap on R LE as it has started to bleed. All needs met, call light in hand. Assessment Current Status: Good Progress Pt is improving with mobility. PT Short Term Goals Short Term Goals Time Frame: Apr 17, 2021 Roll Left & Right: 4 Sit to lyin Lying to sitting on side of be: 3 Sit to stand: 4 Chair/sif-jq-jczys transfer: 4 Walk 10 feet: 4 Walk 50 feet with two turns: 4 PT Assisted Goals Automobile Racer Goals PT Automobile Racer Goals Time Frame: May 01, 2021 Roll Left & Right (QC): 6 Sit to Lying (QC): 4 (SBA) Lying-Sitting on Side/Bed(QC): 4 (SBA) Sit to Stand (QC): 6 Chair/Fal-ww-Uaudc Xfer(QC): 6 Toilet Transfer (QC): 6 Car Transfer (QC): 6 Does the Patient Walk: Yes Walk 10 feet (QC): 6 Walk 50ft with 2 Turns (QC): 6 Walk 150 ft (QC): 6 Walking 10ft on Uneven Surface: 6 1 Step (curb) (QC): 6 4 Steps (QC): 6 12 Steps (QC): 88 Picking up an Object (QC): 6 Wheel 50 feet with 2 turns (QC: 88 Wheel 150 feet: 88 PT Plan Problem List Problem List: Activity Tolerance, Functional Strength Treatment/Plan Treatment Plan: Continue Plan of Care Treatment Plan: Bed Mobility, Education, Functional Activity Song, Functional Strength, Group Therapy, Gait, Safety, Therapeutic Exercise, Transfers Treatment Duration: May 01, 2021 Frequency: At least 5 of 7 days/Wk (IRF) Estimated Hrs Per Day: 1.5 hours per day Patient and/or Family Agrees t: Yes Safety Risks/Education Patient Education: Gait Training, Transfer Techniques, Correct Positioning Teaching Recipient: Patient Teaching Methods: Discussion Response to Teaching: Verbalize Understanding Time/GCodes Time In: 1300 Time Out: 1330 Total Billed Treatment Time: 30 Total Billed Treatment 1, GT (20m) & FA (10m) CLAUDIO PEREZ AEROPHYSICIST Apr 13, 2021 13:31
[2021-04-13 20:00] VITALS: BP 137/80
[2021-04-13] MEDS: MELATONIN 3 MG TABLET PO SCH (21:37)
[2021-04-14] MEDS: BUMETANIDE 1 MG (BUMEX) TAB PO SCH ×2 (06:41→16:44)
[2021-04-14] MEDS: KCL 20 MEQ TAB (K-DUR) PO SCH (06:41)
[2021-04-14 07:59] VITALS: BP 142/77
[2021-04-14] MEDS: SPIRONOLACTONE 25 MG (ALDACTONE) TAB PO SCH (08:14)
[2021-04-14] MEDS: SENNA W/DOCUSATE (SENOKOT S) TABLET PO SCH ×2 (08:14→21:00)
[2021-04-14] MEDS: DOCUSATE SODIUM 100 MG (COLACE) CAP PO SCH ×2 (08:14→21:05)
[2021-04-14] MEDS: APIXABAN 5 MG (ELIQUIS) TABLET PO SCH ×2 (08:14→21:04)
[2021-04-14] MEDS: LACTOBACILLUS ACIDOPHILUS (PROBIOTIC) CAPSULE PO SCH (08:14)
[2021-04-14] MEDS: ASPIRIN E.C. 81 MG (ECOTRIN) TAB PO SCH (08:14)
[2021-04-14] MEDS: LORATADINE (CLARITIN) 10 MG TAB PO SCH (08:14)
[2021-04-14] MEDS: OMEGA 3 (FISH OIL) 1000 MG CAP PO SCH (08:14)
[2021-04-14] MEDS: VITAMIN D3 125 MCG (5,000 UNITS) CAPSULE PO SCH (08:14)
[2021-04-14] MEDS: polyethylene glycoL POWDER 17 GM (MIRALAX) PACK PO SCH ×2 (08:15→21:00)
--- NOTE | 2021-04-14 09:09 | Cardiology Progress Note ---
Subjective Date Seen by Provider: Apr 14, 2021 Time Seen by Provider: 09:08 Subjective/Events-last exam Patient was seen at bedside, sitting comfortably, no new complaint. Feeling better Review of Systems General: No Chills, No Night Sweats, No Fatigue, No Malaise, No Appetite, No Other HEENT: No Head Aches, No Visual Changes, No Eye Pain, No Ear Pain, No Dysphasia, No Sinus Congestion, No Post Nasal Drip, No Sore Throat, No Other Pulmonary: No Dyspnea, No Cough, No Pleuritic Chest Pain, No Other Cardiovascular: No: Chest Pain, Palpitations, Orthopnea, Paroxysmal Noc. Dyspnea, Edema, Lt Headedness, Other Objective-Cardiology Exam Last Set of Vital Signs Vital Signs 04/14/21 07:59 Temp 36.1 Pulse 81 Resp 18 B/P (MAP) 142/77 (98) Pulse Ox 92 O2 Delivery Room Air General: Alert, Oriented X3, Cooperative HEENT: Atraumatic, PERRLA Neck: Supple, No JVD, No Thyromegaly Lungs: Clear to Auscultation, Normal Air Movement Heart: Regular Rate, Normal S1, Normal S2, No Murmurs Abdomen: Normal Bowel Sounds, Soft, No Tenderness, No Hepatosplenomegaly, No Masses Extremities: No Clubbing, No Cyanosis, No Edema, Normal Pulses, No Tenderness/Swelling Skin: No Rashes, No Breakdown, No Significant Lesion Neuro: Normal Gait, Normal Speech, Strength at 5/5 X4 Ext, Normal Tone, Sensation Intact Psych/Mental Status: Mental Status NL, Mood NL A/P-Cardiology Admission Diagnosis PAF HOCM HTN HLP Assessment/Plan Paroxysmal atrial fibrillation, hx of Watchman procedure 12/21. S/P left atrial thrombectomy and MAZE procedure April 03, [address] Wise at . Maintained on Eliquis, continue to monitor. DVT/bilateral PE, maintained on Eliquis Nonobstructive CAD per cardiac catheterization done at March 2021. HOCM, hx of septal ablation in 2015. Carotid artery stenosis with occluded L ICA. Hypertension, controlled, continue to monitor. HLP, monitored as outpatient. 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 GERD Hx of CVA 2014 w R sided residual weakness Obesity PERRY DAVID MD Apr 14, 2021 09:09
--- NOTE | 2021-04-14 10:09 | Occupational Ther Daily Note ---
OT Current Status-Daily Note Subjective Pt alert, sitting in recliner. Pt agrees to therapy. No c/o pain. Mental Status/Objective Patient Orientation: Person, Place, Time, Situation Attachments: Other-See Comments (chest binder) ADL-Treatment Pt agrees to shower. Discussed using BSC at night to simulate home environment. Pt stated that she places BSC beside bed at night since she has a long walk to her bathroom. Pt uses [employer] at this time and will not be using at home. Will attempt to have pt use BSC at night by placing at EOB. Pt ambulates using FWW to bathroom and transfers to toilet with supervision then min A to stand up from toilet. Pt required assistance to cleanse after BM. Pt doffed socks sitting on toilet. Pt transferred into shower with SBA using FWW, grabbars and shower bench. Pt was SBA for shower while using shower bench, grabbars, hand held shower and LH sponge. After set up, pt able to don/doff chest binder by self. After set up, pt able to don/doff shirt by self. After set up, pt able to don/doff pants with SBA for safety. Nrsg wanted pt's B LE to air dry before donning bandages, wraps and socks. After therapy, pt sitting in recliner with call light/phone in reach. All needs met in room. Therapy Code Descriptions/Definitions Functional [place] Measure: 0=Not Assessed/NA 4=Minimal Assistance 1=Total Assistance 5=Supervision or Setup 2=Maximal Assistance 6=Modified [place] 3=Moderate Assistance 7=Complete IndependenceSCALE: Activities may be completed with or without assistive devices. 5-Ifvmfhubiz-wgqicpy completes the activity by him/herself with no assistance from a helper. 5-Set-up or Clean-up Assistance-helper sets up or cleans up; patient completes activity. [place] assists only prior to or following the activity. 4-Supervision or Touching Assistance-helper provides verbal cues and/or touching/steadying and/or contact guard assistance as patient completes activity. Assistance may be provided throughout the activity or intermittently. 3-Partial/Moderate Assistance-helper does LESS THAN HALF the effort. [place] lifts, holds or supports trunk or limbs, but provides less than half the effort. 2-Substantial/Maximal Assistance-helper does MORE THAN HALF the effort. [place] lifts or holds trunk or limbs and provides more than half the effort. 3-Pkoijzzqc-wcxfle does ALL the effort. Patient does none of the effort to complete the activity. Or, the assistance of 2 or more helpers is required for the patient to complete the activity. If activity was not attempted, code reason: 7-Patient Refused. 9-Not Applicable-not attempted and the patient did not perform the activity before the current illness, exacerbation or injury. 10-Not Attempted due to Environmental Limitations-(lack of equipment, weather restraints, etc.). 88-Not Attempted due to Medical Conditions or Safety Concerns. Eating (QC): 6 Shower/Bathe Self (QC): 4 Upper Body Dressing (QC): 5 Lower Body Dressing (QC): 4 Toileting Hygiene (QC): 3 Toilet Transfer (QC): 4 OT Short Term Goals Short Term Goals Time Frame: Apr 21, 2021 Shower/bathe self: 4 Lower body dressin Putting on/taking off footwear: 4 OT Loan Consultant Goals Loan Consultant Goals Time Frame: May 05, 2021 Eating (QC): 6 Oral Hygiene (QC): 6 Toileting Hygiene (QC): 6 Shower/Bathe Self (QC): 6 Upper Body Dressing (QC): 6 Lower Body Dressing (QC): 6 On/Off Footwear (QC): 6 Additional Goals: 1-Demonstrate ADL Tasks, 2-Verbalize Understanding, 3- ImproveStrength/Song 1=Demonstrate adherence to instructed precautions during ADL tasks. 2=Patient will verbalize/demonstrate understanding of assistive devices/modifications for ADL. 3=Patient will improve strength/tolerance for activity to enable patient to perform ADL's. OT Education/Plan Problem List/Assessment Assessment: Decreased Activ Tolerance, Decreased UE Strength, Impaired Self- Care Skills Discharge Recommendations Plan/Recommendations: Continue POC Treatment Plan/Plan of Care Patient would benefit from OT for education, treatment and training to promote independence in ADL's, mobility, safety and/or upper extremity function for ADL's. Plan of Care: ADL Retraining, Functional Mobility, Group Exercise/Act as Ind, UE Funct Exercise/Act Treatment Duration: May 05, 2021 Frequency: At least 5 of 7 days/Wk (IRF) Estimated Hrs Per Day: 1.5 hours per day Rehab Potential: Fair Time/GCodes Start Time: 07:30 Stop Time: 08:45 Total Time Billed (hr/min): 75 Billed Treatment Time 1 visit-ADL 5 (75 min) SAMIR GERARDO Apr 14, 2021 10:09
--- NOTE | 2021-04-14 10:39 | Speech Therapy Daily Note ---
Speech Daily Progress Note Subjective Date Seen by Provider: Apr 14, 2021 Time Seen by Provider: 00:30 Patient was sitting in her recliner working on her tablet following her OT therapy which included a shower. Assessment Assessment Current Status: Good Progress Treatment Plan Continue Plan of Care Speech Short Term Goals Short Term Goals Short Term Goals 1) The patient will complete memory tasks with 80% or greater with minimal cues. 2) The patient will complete word finding tasks with 80% or greater with minimal cues. 3) The patient will complete safety awareness tasks with 80% or greater with minimal cues. Speech Assisted Goals Leather Softener Goals Patient will improve cognitive communication abilities so that she may require less assist. Speech-Plan Patient/Family Goals Patient/Family Goals: The patient plans on returning to her home where she lives with her friend. Treatment Plan Speech Therapy Treatment Plan: Continue Plan of Care Treatment Duration: Apr 25, 2021 Frequency: 4 times per week (Patient will receive skilled ST 4-5x per week) Estimated Hrs Per Day: .5 hour per day Rehab Potential: Fair Barriers to Learning: Patient's recent health decline Pt/Family Agrees to Plan: Yes Safety Risks/Education Teaching Recipient: Patient Teaching Methods: Demonstration, Discussion Response to Teaching: Verbalize Understanding, Return Demonstration Education Topics Provided: Continued safety and communication of wants/needs Time Speech Therapy Time In: 10:30 Speech Therapy Time Out: 11:00 Total Billed Time: 30 Billed Treatment Time 1DA [address] Apr 14, 2021 10:39
--- NOTE | 2021-04-14 12:49 | PM&R Progress Note ---
Subjective HPI/CC On Admission Date Seen by Provider: Apr 14, 2021 Time Seen by Provider: 12:00 Subjective/Events-last exam 04/14/2021: Pt doing really well Denies any significant new problems Took a shower today Wound evaluation managed by wound care 04/13/2021: Pt doing really well No bowels moving yet so laxatives given Checked meds and labs No falls 04/12/2021: Pt doing a lot better Slept better with increased Melatonin Legs are better with wraps Oozing of her right leg is improved Lisa is following the wounds 04/11/2021: Pt doing really well Slept on/off last night Skin tears are happening with the least amount of trauma Hgb 10.2 Manuel wraps will be placed on the legs Bowels moved yesterday Dr. Baker provided consultation and he is appreciated Increasing Melatonin because her sleep was still disrupted Review of Systems General: Fatigue Pulmonary: Dyspnea Musculoskeletal: leg pain Objective Exam Vital Signs Vital Signs Date Time Temp Pulse Resp B/P (MAP) Pulse Ox O2 Delivery O2 Flow Rate FiO2 04/14/21 20:00 Room Air 04/14/21 19:52 36.6 91 16 142/81 (101) 96 Capillary Refill : General Appearance: No Apparent Distress, WD/WN, Chronically ill HEENT: PERRL/EOMI, Normal ENT Inspection, Pharynx Normal Neck: Full Range of Motion, Normal Inspection, Non Tender, Supple, Carotid Bruit Respiratory: Chest Non Tender, Lungs Clear, Normal Breath Sounds, No Accessory Muscle Use, No Respiratory Distress Cardiovascular: Regular Rate, Rhythm, No Edema, No Gallop, No JVD, No Murmur, Normal Peripheral Pulses Gastrointestinal: Normal Bowel Sounds, No Organomegaly, No Pulsatile Mass, Non Tender, Soft Back: Normal Inspection, No CVA Tenderness, No Vertebral Tenderness Extremity: Normal Capillary Refill, Normal Inspection, Normal Range of Motion, Non Tender, No Calf Tenderness, No Pedal Edema Neurologic/Psychiatric: Alert, Oriented x3, Normal Mood/Affect, Motor Weakness (Right-sided 3/5) Skin: Normal Color, Warm/Dry Lymphatic: No Adenopathy Results/Procedures Lab Patient resulted labs reviewed. FIM Transfers Therapy Code Descriptions/Definitions Functional [place] Measure: 0=Not Assessed/NA 4=Minimal Assistance 1=Total Assistance 5=Supervision or Setup 2=Maximal Assistance 6=Modified [place] 3=Moderate Assistance 7=Complete IndependenceSCALE: Activities may be completed with or without assistive devices. 4-Xtusomlxda-whnajex completes the activity by him/herself with no assistance from a helper. 5-Set-up or Clean-up Assistance-helper sets up or cleans up; patient completes activity. [place] assists only prior to or following the activity. 4-Supervision or Touching Assistance-helper provides verbal cues and/or touching/steadying and/or contact guard assistance as patient completes activity. Assistance may be provided throughout the activity or intermittently. 3-Partial/Moderate Assistance-helper does LESS THAN HALF the effort. [place] lifts, holds or supports trunk or limbs, but provides less than half the effort. 2-Substantial/Maximal Assistance-helper does MORE THAN HALF the effort. [place] lifts or holds trunk or limbs and provides more than half the effort. 3-Owkcwtqff-jvfqeg does ALL the effort. Patient does none of the effort to c omplete the activity. Or, the assistance of 2 or more helpers is required for the patient to complete the activity. If activity was not attempted, code reason: 7-Patient Refused. 9-Not Applicable-not attempted and the patient did not perform the activity before the current illness, exacerbation or injury. 10-Not Attempted due to Environmental Limitations-(lack of equipment, weather restraints, etc.). 88-Not Attempted due to Medical Conditions or Safety Concerns. Roll Left to Right (QC): 3 Sit to Lying (QC): 5 Sit to Stand (QC): 4 Chair/Eof-ye-Nbbmy Xfer(QC): 4 Car Transfer (QC): 3 Gait Training Does the Patient Walk?: Yes Distance: 150' Walk 10 feet (QC): 4 Walk 50 ft with 2 Turns(QC): 4 Walk 150 ft (QC): 4 Walking 10ft/uneven surface-QC: 4 Gait Persons Needed: 1 Gait Assistive Device: FWW Wheelchair Training Does the Pt Use a Wheelchair?: Yes Wheel 50 ft with 2 turns (QC): 5 Wheel 150 ft (QC): 5 Type of Wheelchair: Manual Stair Training 1 Step (curb) (QC): 88 4 Steps (QC): 88 12 Steps (QC): 88 Balance Picking up an Object (QC): 88 ADL-Treatment Eating (QC): 6 Oral Hygiene (QC): 6 (IND seated at sink) Shower/Bathe Self (QC): 4 Upper Body Dressing (QC): 5 Lower Body Dressing (QC): 4 On/Off Footwear (QC): 2 (Pt able to doff gripper socks, assist to don manuel wraps and gripper socks.) Toileting Hygiene (QC): 3 Toilet Transfer (QC): 4 Assessment/Plan Assessment and Plan Assess & Plan/Chief Complaint Assessment: Debility S/P left atrial thrombectomy and MAZE procedure April 03 at [facility] S/P Watchman procedure December 2020 Paroxysmal atrial fibrillation HOCM CKD stage 3 HTN HLP GERD Hx of CVA 2014 w R sided residual weakness Obesity Hx of DVT Hx of PE Plan: Inpatient rehab protocol Dr. Baker consult Anticoagulation Monitor labs 04/11/2021: Appreciate Dr. Baker Monitor for falls Skin tear management 04/12/2021: Wrapped legs Melatonin Appreciate cardiology 04/13/2021: Continue wrapping legs Slept very well last night Close monitoring 04/14/2021: Wound care appreciated Manuel wraps to legs Monitor closely (1) CVA (cerebral vascular accident) (2) Atrial fibrillation LEONIE ANGULO DO Apr 14, 2021 12:49
--- NOTE | 2021-04-14 13:00 | Physical Therapy Daily Note ---
PT Daily Note-Current Subjective Patient sitting in chair upon PT arrival, agreeable to treatment. Rates pain at 0/10 currently. Mental Status Patient Orientation: Person, Place, Time, Situation Transfers SCALE: Activities may be completed with or without assistive devices. 2-Qckpaichee-nhihsgh completes the activity by him/herself with no assistance from a helper. 5-Set-up or Clean-up Assistance-helper sets up or cleans up; patient completes activity. [place] assists only prior to or following the activity. 4-Supervision or Touching Assistance-helper provides verbal cues and/or touching/steadying and/or contact guard assistance as patient completes act ivity. Assistance may be provided throughout the activity or intermittently. 3-Partial/Moderate Assistance-helper does LESS THAN HALF the effort. [place] lifts, holds or supports trunk or limbs, but provides less than half the effort. 2-Substantial/Maximal Assistance-helper does MORE THAN HALF the effort. [place] lifts or holds trunk or limbs and provides more than half the effort. 4-Vppkxrris-tinjbj does ALL the effort. Patient does none of the effort to complete the activity. Or, the assistance of 2 or more helpers is required for the patient to complete the activity. If activity was not attempted, code reason: 7-Patient Refused. 9-Not Applicable-not attempted and the patient did not perform the activity before the current illness, exacerbation or injury. 10-Not Attempted due to Environmental Limitations-(lack of equipment, weather restraints, etc.). 88-Not Attempted due to Medical Conditions or Safety Concerns. Sit to Stand (QC): 4 Chair/Vez-ri-Hvdnq Xfer(QC): 4 Toilet Transfer (QC): 4 Weight Bearing Full Weight Bearing Full Weight Bearing sternal precautions Gait Training Does the Patient Walk?: Yes Distance: 200 Walk 10 feet (QC): 5 Walk 50 ft with 2 Turns(QC): 5 Walk 150 ft (QC): 5 Gait Persons Needed: 1 Gait Assistive Device: FWW Exercises Supine Ex: Ankle pumps, Quad Set, Glut sets Supine Reps: 20 Seated Therapy Exercises: Long arc quads, Hip flexion, Hamstring Curls, Hip abd/add Seated Reps: 20 NuStep Minutes: 10 NuStep Workload: 5 Treatments Visit, Gait, Therapeutic Exercise Assessment Current Status: Good Progress Patient sitting in W/C upon PT arrival, agreeable to treatment. Patient performs all observed transfers with CGA and verbal cues. Patient ambulates 120 feet, then 200 feet with FWW with CGA and verbal cues for safety, progression, posture within he ability and conservation of energy. Patient performs w/c mobility x 100 feet, then 120 feet with SBA and verbal cues. Patient performs LE therapeutic exercise as listed above. Patient in chair post treatment with all needs met, nursing notified, call light in reach. PT Short Term Goals Short Term Goals Time Frame: Apr 17, 2021 Roll Left & Right: 4 Sit to lyin Lying to sitting on side of be: 3 Sit to stand: 4 Chair/uuc-qo-grcqt transfer: 4 Walk 10 feet: 4 Walk 50 feet with two turns: 4 PT Nursing Home Goals [employer] Worker Goals PT [employer] Worker Goals Time Frame: May 01, 2021 Roll Left & Right (QC): 6 Sit to Lying (QC): 4 (SBA) Lying-Sitting on Side/Bed(QC): 4 (SBA) Sit to Stand (QC): 6 Chair/Zwu-gp-Saiab Xfer(QC): 6 Toilet Transfer (QC): 6 Car Transfer (QC): 6 Does the Patient Walk: Yes Walk 10 feet (QC): 6 Walk 50ft with 2 Turns (QC): 6 Walk 150 ft (QC): 6 Walking 10ft on Uneven Surface: 6 1 Step (curb) (QC): 6 4 Steps (QC): 6 12 Steps (QC): 88 Picking up an Object (QC): 6 Wheel 50 feet with 2 turns (QC: 88 Wheel 150 feet: 88 PT Plan Treatment/Plan Treatment Plan: Continue Plan of Care Treatment Plan: Bed Mobility, Education, Functional Activity Song, Functional Strength, Group Therapy, Gait, Safety, Therapeutic Exercise, Transfers Treatment Duration: May 01, 2021 Frequency: At least 5 of 7 days/Wk (IRF) Estimated Hrs Per Day: 1.5 hours per day Patient and/or Family Agrees t: Yes Time/GCodes Time In: 1100 Time Out: 1200 Total Billed Treatment Time: 60 Total Billed Treatment Visit, Gait (2), Exercise (2) MICHELLE ENCINAS PT Apr 14, 2021 13:00
--- NOTE | 2021-04-14 14:38 | Physical Therapy Daily Note ---
PT Daily Note-Current Subjective Patient sitting in chair having just finished lunch upon PT arrival, agreeable to treatment. Reports no new significant pain, but notes "my quads are really sore." Mental Status Patient Orientation: Person, Place, Time, Situation Transfers SCALE: Activities may be completed with or without assistive devices. 6-Fdjpmdpkyc-jvjmqtj completes the activity by him/herself with no assistance from a helper. 5-Set-up or Clean-up Assistance-helper sets up or cleans up; patient completes activity. [place] assists only prior to or following the activity. 4-Supervision or Touching Assistance-helper provides verbal cues and/or touchin g/steadying and/or contact guard assistance as patient completes activity. Assistance may be provided throughout the activity or intermittently. 3-Partial/Moderate Assistance-helper does LESS THAN HALF the effort. [place] lifts, holds or supports trunk or limbs, but provides less than half the effort. 2-Substantial/Maximal Assistance-helper does MORE THAN HALF the effort. [place] lifts or holds trunk or limbs and provides more than half the effort. 0-Dcokgazek-veusen does ALL the effort. Patient does none of the effort to complete the activity. Or, the assistance of 2 or more helpers is required for the patient to complete the activity. If activity was not attempted, code reason: 7-Patient Refused. 9-Not Applicable-not attempted and the patient did not perform the activity before the current illness, exacerbation or injury. 10-Not Attempted due to Environmental Limitations-(lack of equipment, weather restraints, etc.). 88-Not Attempted due to Medical Conditions or Safety Concerns. Sit to Stand (QC): 5 Chair/Vog-rt-Ipmkc Xfer(QC): 5 Toilet Transfer (QC): 5 Weight Bearing Full Weight Bearing Full Weight Bearing sternal precautions Gait Training Does the Patient Walk?: Yes Distance: 140 Walk 10 feet (QC): 5 Walk 50 ft with 2 Turns(QC): 5 Walk 150 ft (QC): 5 Gait Persons Needed: 1 Gait Assistive Device: FWW Wheelchair Training Does the Pt Use a Wheelchair?: Yes Exercises Supine Ex: Ankle pumps, Quad Set, Glut sets Supine Reps: 20 Seated Therapy Exercises: Ankle pumps, Long arc quads, Hip flexion, Hip abd/add Seated Reps: 20 Treatments Visit, Gait, Ex Assessment Current Status: Good Progress Patient sitting in W/C upon PT arrival, agreeable to treatment. Patient performs all observed transfers with CGA and verbal cues. Patient ambulates 140 feet, then 100 feet with FWW with CGA and verbal cues for safety, progression, posture within he ability and conservation of energy. Patient performs LE therapeutic exercise as listed above. Patient in chair post treatment with all needs met, nursing notified, call light in reach. PT Short Term Goals Short Term Goals Time Frame: Apr 17, 2021 Roll Left & Right: 4 Sit to lyin Lying to sitting on side of be: 3 Sit to stand: 4 Chair/elq-hq-nxvhv transfer: 4 Walk 10 feet: 4 Walk 50 feet with two turns: 4 PT Clinical Appeals Auditor Goals Skilled Nursing Goals PT Clinical Appeals Auditor Goals Time Frame: May 01, 2021 Roll Left & Right (QC): 6 Sit to Lying (QC): 4 (SBA) Lying-Sitting on Side/Bed(QC): 4 (SBA) Sit to Stand (QC): 6 Chair/Obs-uv-Xheyz Xfer(QC): 6 Toilet Transfer (QC): 6 Car Transfer (QC): 6 Does the Patient Walk: Yes Walk 10 feet (QC): 6 Walk 50ft with 2 Turns (QC): 6 Walk 150 ft (QC): 6 Walking 10ft on Uneven Surface: 6 1 Step (curb) (QC): 6 4 Steps (QC): 6 12 Steps (QC): 88 Picking up an Object (QC): 6 Wheel 50 feet with 2 turns (QC: 88 Wheel 150 feet: 88 PT Plan Treatment/Plan Treatment Plan: Continue Plan of Care Treatment Plan: Bed Mobility, Education, Functional Activity Song, Functional Strength, Group Therapy, Gait, Safety, Therapeutic Exercise, Transfers Treatment Duration: May 01, 2021 Frequency: At least 5 of 7 days/Wk (IRF) Estimated Hrs Per Day: 1.5 hours per day Patient and/or Family Agrees t: Yes Time/GCodes Time In: 1300 Time Out: 1330 Total Billed Treatment Time: 30 Total Billed Treatment Visit, Gait, Ex MICHELLE ENCINAS PT Apr 14, 2021 14:38
[2021-04-14 19:52] VITALS: BP 142/81
[2021-04-14] MEDS: MELATONIN 3 MG TABLET PO SCH (21:05)
[2021-04-15] MEDS: BUMETANIDE 1 MG (BUMEX) TAB PO SCH ×2 (06:34→17:02)
[2021-04-15] MEDS: KCL 20 MEQ TAB (K-DUR) PO SCH (06:34)
[2021-04-15] MEDS: LACTOBACILLUS ACIDOPHILUS (PROBIOTIC) CAPSULE PO SCH (07:29)
[2021-04-15] MEDS: DOCUSATE SODIUM 100 MG (COLACE) CAP PO SCH ×2 (07:29→20:52)
[2021-04-15] MEDS: VITAMIN D3 125 MCG (5,000 UNITS) CAPSULE PO SCH (07:29)
[2021-04-15] MEDS: SPIRONOLACTONE 25 MG (ALDACTONE) TAB PO SCH (07:29)
[2021-04-15] MEDS: ASPIRIN E.C. 81 MG (ECOTRIN) TAB PO SCH (07:29)
[2021-04-15] MEDS: SENNA W/DOCUSATE (SENOKOT S) TABLET PO SCH ×2 (07:29→20:52)
[2021-04-15] MEDS: LORATADINE (CLARITIN) 10 MG TAB PO SCH (07:29)
[2021-04-15] MEDS: OMEGA 3 (FISH OIL) 1000 MG CAP PO SCH (07:29)
[2021-04-15 07:30] VITALS: BP 136/71
[2021-04-15] MEDS: polyethylene glycoL POWDER 17 GM (MIRALAX) PACK PO SCH ×2 (07:30→20:52)
[2021-04-15] MEDS: APIXABAN 5 MG (ELIQUIS) TABLET PO SCH ×2 (07:30→20:52)
--- NOTE | 2021-04-15 09:07 | Physical Therapy Daily Note ---
PT Daily Note-Current Subjective Pt up in chair, agreeable. Does not rate but reports plantar fascia pain with ambulation. "I am doing way more here than I would be doing at home. He really worked me yesterday, I am sore". Mental Status Patient Orientation: Person, Place, Time, Situation Transfers SCALE: Activities may be completed with or without assistive devices. 5-Jcbswkccah-ajeqddk completes the activity by him/herself with no assistance from a helper. 5-Set-up or Clean-up Assistance-helper sets up or cleans up; patient completes activity. [place] assists only prior to or following the activity. 4-Supervision or Touching Assistance-helper provides verbal cues and/or touching/steadying and/or contact guard assistance as patient completes activity. Assistance may be provided throughout the activity or intermittently. 3-Partial/Moderate Assistance-helper does LESS THAN HALF the effort. [place] lif ts, holds or supports trunk or limbs, but provides less than half the effort. 2-Substantial/Maximal Assistance-helper does MORE THAN HALF the effort. [place] lifts or holds trunk or limbs and provides more than half the effort. 7-[place] does ALL the effort. Patient does none of the effort to complete the activity. Or, the assistance of 2 or more helpers is required for the patient to complete the activity. If activity was not attempted, code reason: 7-Patient Refused. 9-Not Applicable-not attempted and the patient did not perform the activity before the current illness, exacerbation or injury. 10-Not Attempted due to Environmental Limitations-(lack of equipment, weather restraints, etc.). 88-Not Attempted due to Medical Conditions or Safety Concerns. Sit to Stand (QC): 5 Weight Bearing Right Lower Extremity: Right Full Weight Bearing Left Lower Extremity: Left Full Weight Bearing sternal precautions Gait Training Does the Patient Walk?: Yes Distance: 150 Walk 10 feet (QC): 5 Walk 50 ft with 2 Turns(QC): 5 Walk 150 ft (QC): 5 Gait Persons Needed: 1 Gait Assistive Device: FWW SBA for ambulation with FWW Wheelchair Training Does the Pt Use a Wheelchair?: No Type of Wheelchair: N/A Exercises NuStep Minutes: 8 (LE only) NuStep Workload: 2 Treatments Gait with FWW, NuStep for general functional activity tolerance, functional strength. Up in BR with needs met post treatment. Assessment Current Status: Good Progress Pt tolerated well. Slow but steady gait and transfers. PT Short Term Goals Short Term Goals Time Frame: Apr 17, 2021 Roll Left & Right: 4 Sit to lyin Lying to sitting on side of be: 3 Sit to stand: 4 Chair/plh-xa-garyk transfer: 4 Walk 10 feet: 4 Walk 50 feet with two turns: 4 PT [facility] Goals Day Care Aide Goals PT [facility] Goals Time Frame: May 01, 2021 Roll Left & Right (QC): 6 Sit to Lying (QC): 4 (SBA) Lying-Sitting on Side/Bed(QC): 4 (SBA) Sit to Stand (QC): 6 Chair/Epi-gk-Jjboy Xfer(QC): 6 Toilet Transfer (QC): 6 Car Transfer (QC): 6 Does the Patient Walk: Yes Walk 10 feet (QC): 6 Walk 50ft with 2 Turns (QC): 6 Walk 150 ft (QC): 6 Walking 10ft on Uneven Surface: 6 1 Step (curb) (QC): 6 4 Steps (QC): 6 12 Steps (QC): 88 Picking up an Object (QC): 6 Wheel 50 feet with 2 turns (QC: 88 Wheel 150 feet: 88 PT Plan Problem List Problem List: Activity Tolerance, Functional Strength, Safety, Balance, Gait, Transfer, Bed Mobility Treatment/Plan Treatment Plan: Continue Plan of Care Treatment Plan: Bed Mobility, Education, Functional Activity Song, Functional Strength, Group Therapy, Gait, Safety, Therapeutic Exercise, Transfers Treatment Duration: May 01, 2021 Frequency: At least 5 of 7 days/Wk (IRF) Estimated Hrs Per Day: 1.5 hours per day Patient and/or Family Agrees t: Yes Time/GCodes Time In: 0750 Time Out: 0820 Total Billed Treatment Time: 30 Total Billed Treatment 1, EX x 10', GT x 20' DENISSE MORILLO DPAnthony Apr 15, 2021 09:07
--- NOTE | 2021-04-15 10:56 | PM&R Progress Note ---
Subjective HPI/CC On Admission Date Seen by Provider: Apr 15, 2021 Time Seen by Provider: 11:00 Subjective/Events-last exam 04/15/2021: Patient doing really well RN has no concerns Chest tube site wound management will need close monitoring Daughter at the bedside 04/14/2021: Pt doing really well Denies any significant new problems Took a shower today Wound evaluation managed by wound care 04/13/2021: Pt doing really well No bowels moving yet so laxatives given Checked meds and labs No falls 04/12/2021: Pt doing a lot better Slept better with increased Melatonin Legs are better with wraps Oozing of her right leg is improved Lisa is following the wounds 04/11/2021: Pt doing really well Slept on/off last night Skin tears are happening with the least amount of trauma Hgb 10.2 Manuel wraps will be placed on the legs Bowels moved yesterday Dr. Baker provided consultation and he is appreciated Increasing Melatonin because her sleep was still disrupted Review of Systems General: Fatigue, Malaise Musculoskeletal: leg pain Objective Exam Vital Signs Vital Signs Date Time Temp Pulse Resp B/P (MAP) Pulse Ox O2 Delivery O2 Flow Rate FiO2 04/15/21 09:04 Room Air 04/15/21 07:30 37.0 95 20 136/71 (92) 94 Capillary Refill : General Appearance: No Apparent Distress, WD/WN, Chronically ill HEENT: PERRL/EOMI, Normal ENT Inspection, Pharynx Normal Neck: Full Range of Motion, Normal Inspection, Non Tender, Supple, Carotid Bruit Respiratory: Chest Non Tender, Lungs Clear, Normal Breath Sounds, No Accessory Muscle Use, No Respiratory Distress Cardiovascular: Regular Rate, Rhythm, No Edema, No Gallop, No JVD, No Murmur, Normal Peripheral Pulses Gastrointestinal: Normal Bowel Sounds, No Organomegaly, No Pulsatile Mass, Non Tender, Soft Back: Normal Inspection, No CVA Tenderness, No Vertebral Tenderness Extremity: Normal Capillary Refill, Normal Inspection, Normal Range of Motion, Non Tender, No Calf Tenderness, No Pedal Edema Neurologic/Psychiatric: Alert, Oriented x3, Normal Mood/Affect, Motor Weakness (Right-sided 3/5) Skin: Normal Color, Warm/Dry Lymphatic: No Adenopathy Results/Procedures Lab Patient resulted labs reviewed. FIM Transfers Therapy Code Descriptions/Definitions Functional [place] Measure: 0=Not Assessed/NA 4=Minimal Assistance 1=Total Assistance 5=Supervision or Setup 2=Maximal Assistance 6=Modified [place] 3=Moderate Assistance 7=Complete IndependenceSCALE: Activities may be completed with or without assistive devices. 9-Ushkzibpmg-wmsxhyx completes the activity by him/herself with no assistance from a helper. 5-Set-up or Clean-up Assistance-helper sets up or cleans up; patient completes activity. [place] assists only prior to or following the activity. 4-Supervision or Touching Assistance-helper provides verbal cues and/or touching/steadying and/or contact guard assistance as patient completes activity. Assistance may be provided throughout the activity or intermittently. 3-Partial/Moderate Assistance-helper does LESS THAN HALF the effort. [place] lifts, holds or supports trunk or limbs, but provides less than half the effort. 2-Substantial/Maximal Assistance-helper does MORE THAN HALF the effort. [place] lifts or holds trunk or limbs and provides more than half the effort. 5-Nfbfkzzob-eovpfm does ALL the effort. Patient does none of the effort to complete the activity. Or, the assistance of 2 or more helpers is required for the patient to complete the activity. If activity was not attempted, code reason: 7-Patient Refused. 9-Not Applicable-not attempted and the patient did not perform the activity before the current illness, exacerbation or injury. 10-Not Attempted due to Environmental Limitations-(lack of equipment, weather restraints, etc.). 88-Not Attempted due to Medical Conditions or Safety Concerns. Roll Left to Right (QC): 3 Sit to Lying (QC): 5 Sit to Stand (QC): 5 Chair/Mae-wr-Cpxhk Xfer(QC): 5 Car Transfer (QC): 3 Gait Training Does the Patient Walk?: Yes Distance: 150 Walk 10 feet (QC): 5 Walk 50 ft with 2 Turns(QC): 5 Walk 150 ft (QC): 5 Walking 10ft/uneven surface-QC: 4 Gait Persons Needed: 1 Gait Assistive Device: FWW Wheelchair Training Does the Pt Use a Wheelchair?: No Wheel 50 ft with 2 turns (QC): 5 Wheel 150 ft (QC): 5 Type of Wheelchair: N/A Stair Training 1 Step (curb) (QC): 88 4 Steps (QC): 88 12 Steps (QC): 88 Balance Picking up an Object (QC): 88 ADL-Treatment Eating (QC): 6 Oral Hygiene (QC): 6 (IND seated at sink) Shower/Bathe Self (QC): 4 Upper Body Dressing (QC): 5 Lower Body Dressing (QC): 4 On/Off Footwear (QC): 2 (Pt able to doff gripper socks, assist to don manuel wraps and gripper socks.) Toileting Hygiene (QC): 3 Toilet Transfer (QC): 4 Assessment/Plan Assessment and Plan Assess & Plan/Chief Complaint Assessment: Debility S/P left atrial thrombectomy and MAZE procedure April 03 at [facility] S/P Watchman procedure December 2020 Paroxysmal atrial fibrillation HOCM CKD stage 3 HTN HLP GERD Hx of CVA 2014 w R sided residual weakness Obesity Hx of DVT Hx of PE Plan: Inpatient rehab protocol Dr. Baker consult Anticoagulation Monitor labs 04/11/2021: Appreciate Dr. Baker Monitor for falls Skin tear management 04/12/2021: Wrapped legs Melatonin Appreciate cardiology 04/13/2021: Continue wrapping legs Slept very well last night Close monitoring 04/14/2021: Wound care appreciated Manuel wraps to legs Monitor closely 04/15/2021: Supportive care Wrap legs Gain stamina (1) CVA (cerebral vascular accident) (2) Atrial fibrillation LEONIE ANGULO DO Apr 15, 2021 10:55
[2021-04-15 20:00] VITALS: BP 149/75
[2021-04-15] MEDS: MELATONIN 3 MG TABLET PO SCH (20:52)
[2021-04-16] MEDS: BUMETANIDE 1 MG (BUMEX) TAB PO SCH ×2 (06:12→17:38)
[2021-04-16] MEDS: KCL 20 MEQ TAB (K-DUR) PO SCH (06:12)
--- NOTE | 2021-04-16 06:38 | PM&R Progress Note ---
Subjective HPI/CC On Admission Date Seen by Provider: Apr 16, 2021 Time Seen by Provider: 12:30 Subjective/Events-last exam 04/16/2021: Patient doing really well Getting up to go to the bathroom Melatonin is really helped her Pain is well controlled 04/15/2021: Patient doing really well RN has no concerns Chest tube site wound management will need close monitoring Daughter at the bedside 04/14/2021: Pt doing really well Denies any significant new problems Took a shower today Wound evaluation managed by wound care 04/13/2021: Pt doing really well No bowels moving yet so laxatives given Checked meds and labs No falls 04/12/2021: Pt doing a lot better Slept better with increased Melatonin Legs are better with wraps Oozing of her right leg is improved Lisa is following the wounds 04/11/2021: Pt doing really well Slept on/off last night Skin tears are happening with the least amount of trauma Hgb 10.2 Manuel wraps will be placed on the legs Bowels moved yesterday Dr. Baker provided consultation and he is appreciated Increasing Melatonin because her sleep was still disrupted Review of Systems General: Fatigue, Malaise Musculoskeletal: leg pain Objective Exam Vital Signs Vital Signs Date Time Temp Pulse Resp B/P (MAP) Pulse Ox O2 Delivery O2 Flow Rate FiO2 04/16/21 21:25 Room Air 04/16/21 20:00 37.0 88 20 143/77 (99) 93 Capillary Refill : General Appearance: No Apparent Distress, WD/WN, Chronically ill HEENT: PERRL/EOMI, Normal ENT Inspection, Pharynx Normal Neck: Full Range of Motion, Normal Inspection, Non Tender, Supple, Carotid Bruit Respiratory: Chest Non Tender, Lungs Clear, Normal Breath Sounds, No Accessory Muscle Use, No Respiratory Distress Cardiovascular: Regular Rate, Rhythm, No Edema, No Gallop, No JVD, No Murmur, Normal Peripheral Pulses Gastrointestinal: Normal Bowel Sounds, No Organomegaly, No Pulsatile Mass, Non Tender, Soft Back: Normal Inspection, No CVA Tenderness, No Vertebral Tenderness Extremity: Normal Capillary Refill, Normal Inspection, Normal Range of Motion, Non Tender, No Calf Tenderness, No Pedal Edema Neurologic/Psychiatric: Alert, Oriented x3, Normal Mood/Affect, Motor Weakness Skin: Normal Color, Warm/Dry Lymphatic: No Adenopathy Results/Procedures Lab Laboratory Tests 04/16/21 16:01 Patient resulted labs reviewed. FIM Transfers Therapy Code Descriptions/Definitions Functional [place] Measure: 0=Not Assessed/NA 4=Minimal Assistance 1=Total Assistance 5=Supervision or Setup 2=Maximal Assistance 6=Modified [place] 3=Moderate Assistance 7=Complete IndependenceSCALE: Activities may be completed with or without assistive devices. 1-Ckhokprdnb-vpsjpjj completes the activity by him/herself with no assistance from a helper. 5-Set-up or Clean-up Assistance-helper sets up or cleans up; patient completes activity. [place] assists only prior to or following the activity. 4-Supervision or Touching Assistance-helper provides verbal cues and/or touching/steadying and/or contact guard assistance as patient completes activity. Assistance may be provided throughout the activity or intermittently. 3-Partial/Moderate Assistance-helper does LESS THAN HALF the effort. [place] lifts, holds or supports trunk or limbs, but provides less than half the effort. 2-Substantial/Maximal Assistance-helper does MORE THAN HALF the effort. [place] lifts or holds trunk or limbs and provides more than half the effort. 2-Zechojzua-zlailf does ALL the effort. Patient does none of the effort to complete the activity. Or, the assistance of 2 or more helpers is required for the patient to complete the activity. If activity was not attempted, code reason: 7-Patient Refused. 9-Not Applicable-not attempted and the patient did not perform the activity before the current illness, exacerbation or injury. 10-Not Attempted due to Environmental Limitations-(lack of equipment, weather restraints, etc.). 88-Not Attempted due to Medical Conditions or Safety Concerns. Roll Left to Right (QC): 3 Sit to Lying (QC): 5 Sit to Stand (QC): 5 Chair/Jme-ta-Vwqjh Xfer(QC): 5 Car Transfer (QC): 3 Gait Training Does the Patient Walk?: Yes Distance: 150 Walk 10 feet (QC): 5 Walk 50 ft with 2 Turns(QC): 5 Walk 150 ft (QC): 5 Walking 10ft/uneven surface-QC: 4 Gait Persons Needed: 1 Gait Assistive Device: FWW Wheelchair Training Does the Pt Use a Wheelchair?: No Wheel 50 ft with 2 turns (QC): 5 Wheel 150 ft (QC): 5 Type of Wheelchair: N/A Stair Training 1 Step (curb) (QC): 88 4 Steps (QC): 88 12 Steps (QC): 88 Balance Picking up an Object (QC): 88 ADL-Treatment Eating (QC): 6 Oral Hygiene (QC): 6 (IND seated at sink) Shower/Bathe Self (QC): 4 Upper Body Dressing (QC): 5 Lower Body Dressing (QC): 4 On/Off Footwear (QC): 2 (Pt able to doff gripper socks, assist to don manuel wraps and gripper socks.) Toileting Hygiene (QC): 3 Toilet Transfer (QC): 4 Assessment/Plan Assessment and Plan Assess & Plan/Chief Complaint Assessment: Debility S/P left atrial thrombectomy and MAZE procedure April 03 at [facility] S/P Watchman procedure December 2020 Paroxysmal atrial fibrillation HOCM CKD stage 3 HTN HLP GERD Hx of CVA 2014 w R sided residual weakness Obesity Hx of DVT Hx of PE Plan: Inpatient rehab protocol Dr. Baker consult Anticoagulation Monitor labs 04/11/2021: Appreciate Dr. Baker Monitor for falls Skin tear management 04/12/2021: Wrapped legs Melatonin Appreciate cardiology 04/13/2021: Continue wrapping legs Slept very well last night Close monitoring 04/14/2021: Wound care appreciated Manuel wraps to legs Monitor closely 04/15/2021: Supportive care Wrap legs Gain stamina 04/16/2021: Continue supportive care Aggressive therapy (1) CVA (cerebral vascular accident) (2) Atrial fibrillation LEONIE ANGULO DO Apr 16, 2021 06:38
[2021-04-16 08:30] VITALS: BP 132/73
[2021-04-16] MEDS: VITAMIN D3 125 MCG (5,000 UNITS) CAPSULE PO SCH (09:50)
[2021-04-16] MEDS: LORATADINE (CLARITIN) 10 MG TAB PO SCH (09:51)
[2021-04-16] MEDS: SPIRONOLACTONE 25 MG (ALDACTONE) TAB PO SCH (09:51)
[2021-04-16] MEDS: LACTOBACILLUS ACIDOPHILUS (PROBIOTIC) CAPSULE PO SCH (09:51)
[2021-04-16] MEDS: APIXABAN 5 MG (ELIQUIS) TABLET PO SCH ×2 (09:51→21:18)
[2021-04-16] MEDS: ASPIRIN E.C. 81 MG (ECOTRIN) TAB PO SCH (09:51)
[2021-04-16] MEDS: OMEGA 3 (FISH OIL) 1000 MG CAP PO SCH (09:51)
[2021-04-16] MEDS: DOCUSATE SODIUM 100 MG (COLACE) CAP PO SCH ×2 (10:13→21:17)
[2021-04-16] MEDS: SENNA W/DOCUSATE (SENOKOT S) TABLET PO SCH ×2 (10:14→21:17)
[2021-04-16] MEDS: polyethylene glycoL POWDER 17 GM (MIRALAX) PACK PO SCH ×2 (10:14→21:20)
[2021-04-16 13:58] VITALS: BP 156/75
[2021-04-16] MEDS ORDERED: meTOproloL SUCCINATE 50 MG (TOPROL XL) TAB PO NR (15:45)
--- NOTE | 2021-04-16 15:55 | Cardiology Progress Note ---
Progress Note-Cardiology Events since last exam Date Seen by Provider: Apr 16, 2021 Time Seen by Provider: 15:53 Events since last exam We are seeing her due to atrial fibrillation. This afternoon she developed palpitations with the sensation of a fluttering in her chest. This lasted less than 10 minutes then resolved. She told her nurse who then did an ECG. The palpitations have not recurred. This felt like her atrial fibrillation. She denies chest pain, dyspnea, or syncope. Certain portions of this document may have been dictated utilizing voice recognition technology. Inherent to this technology, typographical and grammatical errors may exist. As much as I am diligent to identify and correct these mistakes, some errors may remain in the document. Vitals Last set of Vitals Signs Vital Signs 04/16/21 04/16/21 08:30 13:58 Temp 36.6 Pulse 109 Resp 20 B/P (MAP) 156/75 (102) Pulse Ox 95 O2 Delivery Room Air Exam Vital Signs Vital Signs Date Time Temp Pulse Resp B/P (MAP) Pulse Ox O2 Delivery O2 Flow Rate FiO2 04/16/21 13:58 109 20 156/75 (102) 95 Room Air 04/16/21 08:30 36.6 Physical Exam General: Alert. No acute distress. Eye: No xanthelasma. HENT: Normocephalic. Neck: Jugular venous pressure does not appear elevated. Respiratory: Lungs are clear to auscultation. Respirations are non-labored. Breath sounds are equal. Symmetrical chest wall expansion. Cardiovascular: Tachycardia with a regular rhythm. 2/6 systolic ejection murmur. No gallop. No edema. Gastrointestinal: Soft. Normal bowel sounds. Skin: Warm. Dry. Both legs are wrapped in Manuel bandages. Neurologic: Alert and oriented to person, place, time. Cranial nerves 3-11 grossly intact. Psychiatric: Cooperative. Appropriate mood & affect. Labs Electrocardiogram: Atrial fibrillation with a rapid ventricular rate up to the 150 bpm range. Diagnosis/Problems Diagnosis/Problems (1) Persistent atrial fibrillation Assessment & Plan: I suspect she may have permanent atrial fibrillation given t hat she has a Watchman device. Nonetheless, she was not having palpitations until just today and now she has tachycardia. I recommend resuming diltiazem CD which she had been taking prior to her most recent hospitalization at [facility]. Continue apixaban for stroke prophylaxis. We may need to titrate up the diltiazem to get her heart rates adequately controlled. I also ordered a set of electrolytes just to be sure there is no electrolyte abnormality that would cause this tachycardia. (2) Primary hypertension Assessment & Plan: We will need to watch her blood pressure with the addition of diltiazem. (3) Hypertrophic cardiomyopathy Assessment & Plan: She had a previous alcohol septal ablation. She has a faint systolic murmur. She does not seem to be in heart failure at this time. (4) Mixed hyperlipidemia Assessment & Plan: Continue statin medication. RADHA HARDEN JR, MD Apr 16, 2021 15:55
[2021-04-16 16:21] LABS: POTASSIUM 3.7 MMOL/L (3.6-5.0)
[2021-04-16 16:22] LABS: CALCIUM 9.4 MG/DL (8.5-10.1)
[2021-04-16 16:26] LABS: CREATININE SERUM 1.3 MG/DL (0.60-1.30)
[2021-04-16 16:29] LABS: MAGNESIUM 1.4 MG/DL (1.6-2.4)
[2021-04-16] MEDS ORDERED: dilTIAZem120 MG (CARDIZEM CD) CAP PO NR (16:30)
[2021-04-16 20:00] VITALS: BP 143/77
[2021-04-16] MEDS: MELATONIN 3 MG TABLET PO SCH (21:18)
[2021-04-17] MEDS: BUMETANIDE 1 MG (BUMEX) TAB PO SCH ×2 (06:01→17:39)
[2021-04-17] MEDS: KCL 20 MEQ TAB (K-DUR) PO SCH ×2 (06:01→20:53)
[2021-04-17 06:14] LABS: BASOPHILS # (AUTO) 0.1 10^3/uL (0.0-0.1); BASOPHILS % (AUTO) 1 % (0-10); EOSINOPHILS # (AUTO) 0.3 10^3/uL (0.0-0.3); EOSINOPHILS % (AUTO) 4 % (0-10); HEMATOCRIT 31 % (35-52); HEMOGLOBIN 9.8 g/dL (11.5-16.0); LYMPHOCYTES # (AUTO) 1.6 10^3/uL (1.0-4.0); LYMPHOCYTES % (AUTO) 17 % (12-44); MEAN CORPUSCULAR HEMOGLOBIN 28 pg (25-34); MEAN CORPUSCULAR HGB CONC 32 g/dL (32-36); MEAN CORPUSCULAR VOLUME 88 fL (80-99); MEAN PLATELET VOLUME 9.3 fL (9.0-12.2); MONOCYTES # (AUTO) 0.8 10^3/uL (0.0-1.0); MONOCYTES % (AUTO) 9 % (0-12); NEUTROPHILS # (AUTO) 6.2 10^3/uL (1.8-7.8); NEUTROPHILS % (AUTO) 68 % (42-75); PLATELET COUNT 362 10^3/uL (130-400); WHITE BLOOD COUNT 9.1 10^3/uL (4.3-11.0)
[2021-04-17 06:32] LABS: ALBUMIN 2.6 GM/DL (3.2-4.5); BILIRUBIN,TOTAL 0.6 MG/DL (0.1-1.0); CALCIUM 9.5 MG/DL (8.5-10.1); CREATININE SERUM 0.96 MG/DL (0.60-1.30); POTASSIUM 3.3 MMOL/L (3.6-5.0); TOTAL PROTEIN 5.3 GM/DL (6.4-8.2)
[2021-04-17 07:44] VITALS: BP 118/69
[2021-04-17] MEDS: SPIRONOLACTONE 25 MG (ALDACTONE) TAB PO SCH (08:06)
[2021-04-17] MEDS: LORATADINE (CLARITIN) 10 MG TAB PO SCH (08:06)
[2021-04-17] MEDS: VITAMIN D3 125 MCG (5,000 UNITS) CAPSULE PO SCH (08:06)
[2021-04-17] MEDS: APIXABAN 5 MG (ELIQUIS) TABLET PO SCH ×2 (08:06→20:54)
[2021-04-17] MEDS: ASPIRIN E.C. 81 MG (ECOTRIN) TAB PO SCH (08:06)
[2021-04-17] MEDS: LACTOBACILLUS ACIDOPHILUS (PROBIOTIC) CAPSULE PO SCH (08:06)
[2021-04-17] MEDS: OMEGA 3 (FISH OIL) 1000 MG CAP PO SCH (08:06)
[2021-04-17] MEDS: SENNA W/DOCUSATE (SENOKOT S) TABLET PO SCH ×2 (08:08→20:54)
[2021-04-17] MEDS: polyethylene glycoL POWDER 17 GM (MIRALAX) PACK PO SCH ×2 (08:08→19:30)
[2021-04-17] MEDS: DOCUSATE SODIUM 100 MG (COLACE) CAP PO SCH ×2 (08:08→20:54)
[2021-04-17] MEDS ORDERED: meTOproloL SUCCINATE 50 MG (TOPROL XL) TAB PO SCH (09:00)
[2021-04-17] MEDS ORDERED: dilTIAZem120 MG (CARDIZEM CD) CAP PO SCH ×2 (09:00→09:15)
--- NOTE | 2021-04-17 09:12 | Speech Therapy Daily Note ---
Speech Daily Progress Note Subjective Date Seen by Provider: Apr 17, 2021 Time Seen by Provider: 00:30 Patient was sitting up in her chair c/o ulna nerve pain. Objective Patient completed a series of questions related to current health issues with 95% without cues. Assessment Assessment Current Status: Good Progress Treatment Plan Continue Plan of Care Speech Short Term Goals Short Term Goals Short Term Goals 1) The patient will complete memory tasks with 80% or greater with minimal cues. 2) The patient will complete word finding tasks with 80% or greater with minimal cues. 3) The patient will complete safety awareness tasks with 80% or greater with minimal cues. Speech Longterm Goals Special Police Goals Patient will improve cognitive communication abilities so that she may require less assist. Speech-Plan Patient/Family Goals Patient/Family Goals: Patient plans on returning to her home where she lives with her friend. Treatment Plan Speech Therapy Treatment Plan: Continue Plan of Care Treatment Duration: Apr 25, 2021 Frequency: 4 times per week (Patient will receive skilled ST 4-5x per week) Estimated Hrs Per Day: .5 hour per day Rehab Potential: Fair Barriers to Learning: Patient's recent health decline. Mild cognitive deficit, however mostly resolved Pt/Family Agrees to Plan: Yes Safety Risks/Education Teaching Recipient: Patient Teaching Methods: Demonstration, Discussion Response to Teaching: Verbalize Understanding, Return Demonstration Education Topics Provided: Continued safety within her room and upon her return home Time Speech Therapy Time In: 09:00 Speech Therapy Time Out: 09:30 Total Billed Time: 30 Billed Treatment Time [address] ST Apr 17, 2021 09:12
--- NOTE | 2021-04-17 09:21 | Cardiology Progress Note ---
Subjective Date Seen by Provider: Apr 17, 2021 Time Seen by Provider: 08:40 Subjective/Events-last exam Patient is sitting up in chair, denies any chest pain. Back to atrial fibrillation Review of Systems General: No Chills, No Night Sweats, No Fatigue, No Malaise, No Appetite, No Other HEENT: No Head Aches, No Visual Changes, No Eye Pain, No Ear Pain, No Dysphasia, No Sinus Congestion, No Post Nasal Drip, No Sore Throat, No Other Pulmonary: No Dyspnea, No Cough, No Pleuritic Chest Pain, No Other Cardiovascular: No: Chest Pain, Palpitations, Orthopnea, Paroxysmal Noc. Dyspnea, Edema, Lt Headedness, Other Objective-Cardiology Exam Last Set of Vital Signs Vital Signs 04/17/21 04/17/21 07:44 09:06 Temp 36.8 Pulse 100 Resp 16 B/P (MAP) 118/69 (85) Pulse Ox 92 O2 Delivery Room Air I&O Intake and Output 04/17/21 00:00 Intake Total 1580 ml Output Total 2100 ml Balance -520 ml Intake Oral 1580 ml Output Urine Total 2100 ml # Voids 1 General: Alert, Oriented X3, Cooperative HEENT: Atraumatic, PERRLA Neck: Supple, No JVD, No Thyromegaly Lungs: Clear to Auscultation, Normal Air Movement Heart: Normal S1, Normal S2, No Murmurs, Other (Atrial fibrillation) Abdomen: Normal Bowel Sounds, Soft, No Tenderness, No Hepatosplenomegaly, No Masses Extremities: No Clubbing, No Cyanosis, No Edema, Normal Pulses, No Tenderness/Swelling Skin: No Rashes, No Breakdown, No Significant Lesion Neuro: Normal Gait, Normal Speech, Strength at 5/5 X4 Ext, Normal Tone, Sensat ion Intact Psych/Mental Status: Mental Status NL, Mood NL Results Lab Laboratory Tests 04/16/21 16:01 04/17/21 05:40 A/P-Cardiology Admission Diagnosis PAF HOCM HTN HLP Assessment/Plan Paroxysmal atrial fibrillation, currently in afib, slightly tachycardic. hx of Watchman procedure 12/21. S/P left atrial thrombectomy and MAZE procedure April 03, [address] Wise at . Maintained on Eliquis. I will increase Cardizem CD to 360mg, continue to monitor. DVT/bilateral PE, maintained on Eliquis Nonobstructive CAD per cardiac catheterization done at [facility] March 2021. HOCM, hx of septal ablation in 2016. Carotid artery stenosis with occluded L ICA. Hypertension, controlled, continue to monitor. Hypomagnesium, replace and continue to monitor. Hypokalemia, replace and monitor. HLP, monitored as outpatient. 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 GERD Hx of CVA 2014 w R sided residual weakness Obesity Patient was seen and evaluated with Drea, examination performed, management plan was discussed, agree with the current scribed note, I made few changes to the note using Italic font Patient was seen at bedside, back in atrial fibrillation with borderline tachycardia, was started on Cardizem CD 120 mg daily, I will increase the dose to 360 and evaluate tolerance and response Maintained on Eliquis, had history of watchman procedure in December 2020, underwent left atrial thrombectomy and maze procedure in April 2021 History of hypertrophic obstructive cardiomyopathy and septal ablation in 2016 Mild coronary artery disease. Supervisory-Addendum Brief Supervisory Addendum Participated in pt care: history, MDM, physical Personally performed: exam, history, MDM Care discussed with: PA Results interpretation: Verified all documentation DREA PALOMINO Apr 17, 2021 09:21 PERRY DAVID MD Apr 17, 2021 09:30
--- NOTE | 2021-04-17 09:34 | Occupational Ther Daily Note ---
OT Current Status-Daily Note Subjective Pt alert, sitting in recliner. Pt c/o pain at L elbow. Slight swelling noted on lateral epicondyle, cross friction and ice pack to decrease pain and swelling. Reported to nrsg. Pt agrees to therapy. Pain Location: Right, Lateral Location Body Site: Elbow Pain Description: Burning, Tingling, Numbness Mental Status/Objective Patient Orientation: Person, Place, Time, Situation Attachments: Other-See Comments (chest binder) ADL-Treatment Therapy Code Descriptions/Definitions Functional [place] Measure: 0=Not Assessed/NA 4=Minimal Assistance 1=Total Assistance 5=Supervision or Setup 2=Maximal Assistance 6=Modified [place] 3=Moderate Assistance 7=Complete IndependenceSCALE: Activities may be completed with or without assistive devices. 4-Sukwogjzbo-pwunmyl completes the activity by him/herself with no assistance from a helper. 5-Set-up or Clean-up Assistance-helper sets up or cleans up; patient completes activity. [place] assists only prior to or following the activity. 4-Supervision or Touching Assistance-helper provides verbal cues and/or touching/steadying and/or contact guard assistance as patient completes activity. Assistance may be provided throughout the activity or intermittently. 3-Partial/Moderate Assistance-helper does LESS THAN HALF the effort. [place] lifts, holds or supports trunk or limbs, but provides less than half the effort. 2-Substantial/Maximal Assistance-helper does MORE THAN HALF the effort. [place] lifts or holds trunk or limbs and provides more than half the effort. 1-Tbfshuxrn-rrmyef does ALL the effort. Patient does none of the effort to complete the activity. Or, the assistance of 2 or more helpers is required for the patient to complete the activity. If activity was not attempted, code reason: 7-Patient Refused. 9-Not Applicable-not attempted and the patient did not perform the activity before the current illness, exacerbation or injury. 10-Not Attempted due to Environmental Limitations-(lack of equipment, weather restraints, etc.). 88-Not Attempted due to Medical Conditions or Safety Concerns. Eating (QC): 5 (Due to pain at R elbow, assist given to set up meal. Pt independent to eat with regular utensils.) Oral Hygiene (QC): 6 (Sitting at sink, pt completes oral care independently.) Bathing Location: L Arm, R Arm, L Upper Leg, R Upper Leg, L Lower Leg (including foot), R Lower Leg (including foot), Chest, Abdomen, Buttocks, Perineal Area Shower/Bathe Self (QC): 4 (Supervision while sitting on shower bench using grabbars and hand held shower to complete all areas.) Upper Body Dressing (QC): 3 (After set up, pt requires assistance to hook bra due to increase pain of L elbow. Pt able to don/doff shirt by self.) Lower Body Dressing (QC): 3 (Mod A due to increased R elbow pain. Assisted pt to thread feet into pant legs then pt able to stand and hike pants over hips by self.) On/Off Footwear: 3 (Pt able to don/doff socks by self. Assisted to don R shoe due to increased edema of R foot. Pt don/doff L shoe by self.) Other Treatment Educated pt on ulnar stretching, cross friction and ice pack to decrease pain and swelling to R lateral epicondyle. Pt demonstrated understanding of each technique though will require further instruction to become proficient. After therapy, pt sitting in recliner with call light/phone in reach. Nrsg in room. All needs met. OT Short Term Goals Short Term Goals Time Frame: Apr 21, 2021 Shower/bathe self: 4 Lower body dressin Putting on/taking off footwear: 4 OT Flume Tender Goals Snf Goals Time Frame: May 05, 2021 Eating (QC): 6 Oral Hygiene (QC): 6 Toileting Hygiene (QC): 6 Shower/Bathe Self (QC): 6 Upper Body Dressing (QC): 6 Lower Body Dressing (QC): 6 On/Off Footwear (QC): 6 Additional Goals: 1-Demonstrate ADL Tasks, 2-Verbalize Understanding, 3- ImproveStrength/Song 1=Demonstrate adherence to instructed precautions during ADL tasks. 2=Patient will verbalize/demonstrate understanding of assistive devices/modifications for ADL. 3=Patient will improve strength/tolerance for activity to enable patient to perform ADL's. OT Education/Plan Problem List/Assessment Assessment: Decreased Activ Tolerance, Decreased UE Strength, Impaired Self- Care Skills, Restricted Funct UE ROM Discharge Recommendations Plan/Recommendations: Continue POC Treatment Plan/Plan of Care Patient would benefit from OT for education, treatment and training to promote independence in ADL's, mobility, safety and/or upper extremity function for ADL's. Plan of Care: ADL Retraining, Functional Mobility, Group Exercise/Act as Ind, UE Funct Exercise/Act Treatment Duration: May 05, 2021 Frequency: At least 5 of 7 days/Wk (IRF) Estimated Hrs Per Day: 1.5 hours per day Rehab Potential: Fair Time/GCodes Start Time: 07:00 Stop Time: 08:15 Total Time Billed (hr/min): 75 Billed Treatment Time 1 visit-ADL 4 (60 min) EX 1 (15 min) SAMIR GERARDO Apr 17, 2021 09:33
--- NOTE | 2021-04-17 09:51 | PM&R Progress Note ---
Subjective HPI/CC On Admission Date Seen by Provider: Apr 17, 2021 Time Seen by Provider: 10:00 Subjective/Events-last exam 04/17/2021: Pt doing pretty well Had some palpitations so Cardizem was adjusted by cardiology Potassium 3.3 will initiate potassium 20 twice a day instead of just once a day Dr. Hernandez assessed the right elbow and will place on Celebrex for a short time to see if that helps along with local OT techniques 04/16/2021: Patient doing really well Getting up to go to the bathroom Melatonin is really helped her Pain is well controlled 04/15/2021: Patient doing really well RN has no concerns Chest tube site wound management will need close monitoring Daughter at the bedside 04/14/2021: Pt doing really well Denies any significant new problems Took a shower today Wound evaluation managed by wound care 04/13/2021: Pt doing really well No bowels moving yet so laxatives given Checked meds and labs No falls 04/12/2021: Pt doing a lot better Slept better with increased Melatonin Legs are better with wraps Oozing of her right leg is improved Lisa is following the wounds 04/11/2021: Pt doing really well Slept on/off last night Skin tears are happening with the least amount of trauma Hgb 10.2 Manuel wraps will be placed on the legs Bowels moved yesterday Dr. Baker provided consultation and he is appreciated Increasing Melatonin because her sleep was still disrupted Review of Systems General: Fatigue Musculoskeletal: arm pain Objective Exam Vital Signs Vital Signs Date Time Temp Pulse Resp B/P (MAP) Pulse Ox O2 Delivery O2 Flow Rate FiO2 04/17/21 20:00 37.3 86 18 124/62 (82) 93 Room Air Capillary Refill : General Appearance: No Apparent Distress, WD/WN, Chronically ill HEENT: PERRL/EOMI, Normal ENT Inspection, Pharynx Normal Neck: Full Range of Motion, Normal Inspection, Non Tender, Supple, Carotid Bruit Respiratory: Chest Non Tender, Lungs Clear, Normal Breath Sounds, No Accessory Muscle Use, No Respiratory Distress Cardiovascular: Regular Rate, Rhythm, No Edema, No Gallop, No JVD, No Murmur, Normal Peripheral Pulses Gastrointestinal: Normal Bowel Sounds, No Organomegaly, No Pulsatile Mass, Non Tender, Soft Back: Normal Inspection, No CVA Tenderness, No Vertebral Tenderness Extremity: Normal Capillary Refill, Normal Inspection, Normal Range of Motion, Non Tender, No Calf Tenderness, No Pedal Edema Neurologic/Psychiatric: Alert, Oriented x3, Normal Mood/Affect, Motor Weakness Skin: Normal Color, Warm/Dry Lymphatic: No Adenopathy Results/Procedures Lab Patient resulted labs reviewed. FIM Transfers Therapy Code Descriptions/Definitions Functional [place] Measure: 0=Not Assessed/NA 4=Minimal Assistance 1=Total Assistance 5=Supervision or Setup 2=Maximal Assistance 6=Modified [place] 3=Moderate Assistance 7=Complete IndependenceSCALE: Activities may be completed with or without assistive devices. 5-Wiboghwafi-sjujyhe completes the activity by him/herself with no assistance from a helper. 5-Set-up or Clean-up Assistance-helper sets up or cleans up; patient completes activity. [place] assists only prior to or following the activity. 4-Supervision or Touching Assistance-helper provides verbal cues and/or touching/steadying and/or contact guard assistance as patient completes activity. Assistance may be provided throughout the activity or intermittently. 3-Partial/Moderate Assistance-helper does LESS THAN HALF the effort. [place] lifts, holds or supports trunk or limbs, but provides less than half the effort. 2-Substantial/Maximal Assistance-helper does MORE THAN HALF the effort. [place] lifts or holds trunk or limbs and provides more than half the effort. 2-Fegsqumvw-fzghar does ALL the effort. Patient does none of the effort to complete the activity. Or, the assistance of 2 or more helpers is required for the patient to complete the activity. If activity was not attempted, code reason: 7-Patient Refused. 9-Not Applicable-not attempted and the patient did not perform the activity before the current illness, exacerbation or injury. 10-Not Attempted due to Environmental Limitations-(lack of equipment, weather restraints, etc.). 88-Not Attempted due to Medical Conditions or Safety Concerns. Roll Left to Right (QC): 3 Sit to Lying (QC): 5 Sit to Stand (QC): 5 Chair/Mly-ov-Gzetz Xfer(QC): 5 Car Transfer (QC): 3 Gait Training Does the Patient Walk?: Yes Distance: 150 Walk 10 feet (QC): 5 Walk 50 ft with 2 Turns(QC): 5 Walk 150 ft (QC): 5 Walking 10ft/uneven surface-QC: 4 Gait Persons Needed: 1 Gait Assistive Device: FWW Wheelchair Training Does the Pt Use a Wheelchair?: No Wheel 50 ft with 2 turns (QC): 5 Wheel 150 ft (QC): 5 Type of Wheelchair: N/A Stair Training 1 Step (curb) (QC): 88 4 Steps (QC): 88 12 Steps (QC): 88 Balance Picking up an Object (QC): 88 ADL-Treatment Eating (QC): 5 (Due to pain at R elbow, assist given to set up meal. Pt ind ependent to eat with regular utensils.) Oral Hygiene (QC): 6 (Sitting at sink, pt completes oral care independently.) Bathing Location: L Arm, R Arm, L Upper Leg, R Upper Leg, L Lower Leg (including foot), R Lower Leg (including foot), Chest, Abdomen, Buttocks, Perineal Area Shower/Bathe Self (QC): 4 (Supervision while sitting on shower bench using grabbars and hand held shower to complete all areas.) Upper Body Dressing (QC): 3 (After set up, pt requires assistance to hook bra due to increase pain of L elbow. Pt able to don/doff shirt by self.) Lower Body Dressing (QC): 3 (Mod A due to increased R elbow pain. Assisted pt to thread feet into pant legs then pt able to stand and hike pants over hips by self.) On/Off Footwear (QC): 3 (Pt able to don/doff socks by self. Assisted to don R shoe due to increased edema of R foot. Pt don/doff L shoe by self.) Toileting Hygiene (QC): 3 Toilet Transfer (QC): 4 Assessment/Plan Assessment and Plan Assess & Plan/Chief Complaint Assessment: Debility S/P left atrial thrombectomy and MAZE procedure April 03 at [facility] S/P Watchman procedure December 2020 Paroxysmal atrial fibrillation HOCM CKD stage 3 HTN HLP GERD Hx of CVA 2014 w R sided residual weakness Obesity Hx of DVT Hx of PE Right olecranon bursitis Plan: Inpatient rehab protocol Dr. Baker consult Anticoagulation Monitor labs 04/11/2021: Appreciate Dr. Baker Monitor for falls Skin tear management 04/12/2021: Wrapped legs Melatonin Appreciate cardiology 04/13/2021: Continue wrapping legs Slept very well last night Close monitoring 04/14/2021: Wound care appreciated Manuel wraps to legs Monitor closely 04/15/2021: Supportive care Wrap legs Gain stamina 04/16/2021: Continue supportive care Aggressive therapy 04/17/2021: Appreciate Dr. Hernandez Celebrex 100 mg twice daily (1) Persistent atrial fibrillation Assessment & Plan: I suspect she may have permanent atrial fibrillation given that she has a Watchman device. Nonetheless, she was not having palpitations until just today and now she has tachycardia. I recommend resuming diltiazem CD which she had been taking prior to her most recent hospitalization at [facility]. Continue apixaban for stroke prophylaxis. We may need to titrate up the diltiazem to get her heart rates adequately controlled. I a lso ordered a set of electrolytes just to be sure there is no electrolyte abnormality that would cause this tachycardia. (2) Primary hypertension Assessment & Plan: We will need to watch her blood pressure with the addition of diltiazem. (3) Hypertrophic cardiomyopathy Assessment & Plan: She had a previous alcohol septal ablation. She has a faint systolic murmur. She does not seem to be in heart failure at this time. (4) Mixed hyperlipidemia Assessment & Plan: Continue statin medication. LEONIE ANGULO DO Apr 17, 2021 09:51
[2021-04-17] MEDS ORDERED: CELECOXIB 100 MG (CeleBREX) CAP PO ONE (11:15)
--- NOTE | 2021-04-17 11:31 | Consultation - Ortho ---
Consult - Ortho Subjective Date of Exam 04/17/21 Chief Complaint Right elbow pain HPI/Events since last exam Mrs. Cruz is a 70-year-old white female has been complaining of right elbow pain for 2 days. She denies any specific injury. She stated it hurt a little bit yesterday and then today it was worse. Again she denies any injury but is using a walker for ambulation. She has a previous history of cubital tunnel requiring surgery several years ago. She has not had any problems with the elbow since. She denies any numbness or tingling just pain in the elbow. Medical, Surgical History Reviewed and no additions or changes Social History Reviewed and no additions or changes Family History Reviewed and no additions or changes Review of Systems Reviewed and no additions or changes Allergies: Coded Allergies: metoprolol (Verified Allergy, Unknown, 04/16/21) CAUSES HER TO BE VERY LETHARGIC Home Meds Reported Medications Zolpidem Tartrate (Ambien) 10 Mg Tablet, 10 MG PO DAILY, TAB 04/12/21 Diltiazem HCl (Diltiazem ER) 360 Mg Capsule.er, 360 MG PO DAILY, CAP 04/12/21 Spironolactone (Spironolactone) 25 Mg Tablet, 25 MG PO DAILY, TAB 04/10/21 [Magnesi L Threonate] No Conflict Check, 1 CAP PO DAILY 04/10/21 Omeprazole (Omeprazole) 40 Mg Capsule.dr, 40 MG PO DAILY PRN for HEARTBURN, CAP 04/10/21 Cholecalciferol (Vitamin D3) (Vitamin D3) 125 Mcg Tablet, 125 MCG PO DAILY, TAB 04/10/21 Aspirin (Aspirin EC) 81 Mg Tablet.dr, 81 MG PO DAILY, TAB 04/10/21 Bumetanide (Bumetanide) 1 Mg Tablet, 1 MG PO DAILY, TAB 04/10/21 Acetaminophen (Tylenol) 325 Mg Tablet, 650 MG PO Q6H PRN for PAIN-MILD (1-4), TAB 04/10/21 Albuterol Sulfate (VENTOLIN HFA) 1 Puff Puff, 2 PUFF IH Q6H PRN for SHORTNESS OF BREATH, PUFF 02/04/17 Loratadine (Loratadine) 10 Mg Tablet, 10 MG PO DAILY, TAB 02/04/17 Lactobacillus Rhamnosus GG (Culturelle) 1 Each Capsule, 1 CAP PO DAILY, CAP 02/04/17 Ubidecarenone (Co Q-10) 100 Mg Capsule, 100 MG PO DAILY, CAP 02/04/17 Discontinued Reported Medications Multivitamin (Multivitamins) 1 Each Tablet, 1 TAB PO DAILY, TAB 02/04/17 Rivaroxaban (XARELTO TABLET) 20 Mg Tablet, 20 MG PO DAILY, TAB 02/04/17 Triamterene/Hydrochlorothiazid (Dyazide 37.5-25 Capsule) 1 Each Capsule, 1 CAP PO DAILY, CAP 02/04/17 Zolpidem Tartrate (Zolpidem Tartrate) 12.5 Mg Tab.mphase, 10 MG PO HS 03/12/14 Potassium Chloride (K-Dur) 10 Meq Tab.prt.sr, 10 MEQ PO DAILY 03/12/14 Krill/Om3/Dha/Epa/Om6/Lip/Astx (KRILL OIL 1,500 MG SOFTGEL) 1 Each Capsule, 1 CAP PO DAILY 12/23/12 Discontinued Scripts Prednisone (Prednisone) 20 Mg Tab, 40 MG PO DAILY, #10 TAB 0 Refills Prov:LEIA EDGAR MD 08/15/18 Diltiazem HCl (Diltiazem 24Hr Cd) 180 Mg Cap.er.24h, 360 MG PO DAILY, #30 CAP 5 Refills Prov:JORI MCCRACKEN 02/05/17 Objective Exam Constitutional: [] HEENT: [] Neck: [] Cardiovascular: [] Respiratory: [] Gastrointestinal: [] Genitourinary: [] Skin: [] Back/Spine: [] Extremities: [Exam of the right upper extremity shows decreased range of motion of the elbow. Flexion above 90 degrees causes increased pain. I cannot extend her completely. She lacks 40 degrees of full extension. She has full pronation and supination without pain. She does have pain with attempted extension. She has pain over the medial and lateral epicondyles. She has a previous incision medially from her cubital tunnel. I do not palpate the ulnar nerve anterior to the medial epicondyle and she does have pain over the cubital tunnel so I am assuming the ulnar nerve is still in the cubital tunnel and she had a neurolysis. She has a positive Tinel's over the cubital tunnel/ulnar nerve. She has good range of motion of the wrist without pain. But with resisted flexion extension of the wrist she does have increased pain over the epicondyles. The same with handgrip. She has normal sensation of the fingers and thumb with good cap refill good radial pulse.] Neurologic: [] Psychiatric: [] Hematologic/lymphatic/immunologic: [] Vital Signs Vital Signs Date Time Temp Pulse Resp B/P (MAP) Pulse Ox O2 Delivery O2 Flow Rate FiO2 04/17/21 09:06 Room Air 04/17/21 07:44 36.8 100 16 118/69 (85) 92 Room Air 04/16/21 21:25 Room Air 04/16/21 20:00 37.0 88 20 143/77 (99) 93 Room Air 04/16/21 19:45 93 Room Air 04/16/21 17:42 95 20 96 Room Air 04/16/21 13:58 109 20 156/75 (102) 95 Room Air I & O 04/17/21 07:00 Intake Total 1680 ml Output Total 3001 ml Balance -1321 ml Lab Results Laboratory Tests 04/16/21 16:01: Sodium Level 136, Potassium Level 3.7, Chloride Level 99, Carbon Dioxide Level 26, Anion Gap 11, Blood Urea Nitrogen 13, Creatinine 1.30, Estimat Glomerular Filtration Rate 41, BUN/Creatinine Ratio 10, Glucose Level 123H, Calcium Level 9.4, Magnesium Level 1.4L 04/17/21 05:40: Sodium Level 139, Potassium Level 3.3L, Chloride Level 103, Carbon Dioxide Level 25, Anion Gap 11, Blood Urea Nitrogen 11, Creatinine 0.96, Estimat Glomerular Filtration Rate 58, BUN/Creatinine Ratio 11, Glucose Level 84, Calcium Level 9.5, White Blood Count 9.1, Red Blood Count 3.51L, Hemoglobin 9.8L, Hematocrit 31L, Mean Corpuscular Volume 88, Mean Corpuscular Hemoglobin 28, Mean Co rpuscular Hemoglobin Concent 32, Red Cell Distribution Width 15.7H, Platelet Count 362, Mean Platelet Volume 9.3, Immature Granulocyte % (Auto) 1, Neutrophils (%) (Auto) 68, Lymphocytes (%) (Auto) 17, Monocytes (%) (Auto) 9, Eosinophils (%) (Auto) 4, Basophils (%) (Auto) 1, Neutrophils # (Auto) 6.2, Lymphocytes # (Auto) 1.6, Monocytes # (Auto) 0.8, Eosinophils # (Auto) 0.3, Basophils # (Auto) 0.1, Immature Granulocyte # (Auto) 0.1, Corrected Calcium 10.6H, Total Bilirubin 0.6, Aspartate Amino Transf (AST/SGOT) 19, Alanine Aminotransferase (ALT/SGPT) 11, Alkaline Phosphatase 91, Total Protein 5.3L, Albumin 2.6L Imaging X-rays were reviewed of the right elbow taken this morning which shows No evidence of fracture. There is some sclerotic changes over the lateral epicondyle probably secondary to chronic epicondylitis Assessment and Plan Assessment Right elbow pain Problem List Medial and lateral epicondylitis right elbow Cubital tunnel syndrome status post ulnar nerve neurolysis Plan I discussed the above with the patient. Since she has multiple areas of pain I do not think injections Is going to help significantly. We will try some occupational therapy to work on motion and decrease her inflammation. Also talked Dr. Pedroza. She is presently on Eliquis and the only anti-inflammatory that is safe to take while on anticoagulants Is Celebrex. We discussed this and will try her on Celebrex 200 mg once a day with food.Obviously if she continues to use a walker for ambulation she is going to continue to stress the elbow which can Prolonged the tendinitis/neuritis of the elbow. Final Diagonsis Medial and lateral epicondylitis right elbow Cubital tunnel syndrome right elbow Level of the visit: Level 3 DANIA OVIEDO MD Apr 17, 2021 11:31
--- NOTE | 2021-04-17 12:00 | Progress Note ---
GÓMEZ PEÑA MED STUDENT 04/17/21 1200: Progress Note Marilou Cruz is a 70 year old white female who presents to the acute rehab unit by private conveyance after a 2 week hospital stay at after which having had a left atrial thrombectomy and MAZE procedure on 04-03-21. 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 She presents to receive aggressive inpatient therapy with hopes of being able to return home to reside with her roommate. Apparently on March 16 she was found lying on the floor by her roommate and was subsequently transferred to [facility] where her troponin and leukocyte counts were elevated along with dyspnea. She was subsequently transferred to for further care. She states she's suffering from generalized deconditioning and weakness after a prolonged inpatient hospital stay at . She was admitted to via [place] [facility] inpatient rehab to work with PT/OT in the hopes of being able to return back to home with her roommate. Today is inpatient rehab unit day 7. She reports that she's tolerating po intake well. Denies nausea, vomiting, diarrhea, headache, SOB, palpitations, and syncopal episodes. Does report scant drainage from her right posterior thigh skin tear and some scant drainage from her midline sternotomy incision. Nursing is performing daily woundcare. Does report severe right elbow pain that seems to have developed as a result of using the walker and working with therapy. Dr. Hernandez was consulted and suspects cubital tunnel syndrom, medial and lateral epicondylitis. Will not do a steriod injection, instead celebrex was ordered to help treat her pain. She is working well with PT/OT and ambulating with the assist of the walker. She reports feeling stronger than she did on admission and is thinking she will be ready for discharge by the week's end. Her vitals have remained stable and she has remained on RA. She is anticoagulated with eliquis given her history. I agree with the patient and suspect she will likely be ready for possible discharge by this Saturday if she continues on her current trajectory. DAXA ANGULO DO 04/18/21 0600: Supervisory-Addendum Brief Verification & Attestation Participated in pt care: history, MDM, physical Personally performed: exam, history, MDM, supervision of care Care discussed with: Medical Student Procedures: n/a Results interpretation: Verified all documentation Verification and Attestation of Medical Student E/M Service A medical student performed and documented this service in my presence. I reviewed and verified all information documented by the medical student and made modifications to such information, when appropriate. I personally performed the physical exam and medical decision making. Daxa Angulo, Apr 18, 2021,06:00 GÓMEZ PEÑA MED STUDENT Apr 17, 2021 12:00 DAXA ANGULO DO Apr 18, 2021 06:00
--- NOTE | 2021-04-17 12:28 | Diagnostic Imaging Report ---
INDICATION: Right elbow pain. FINDINGS: 3 views of the right elbow shows no fracture, dislocation or other acute bony abnormality. There is some chondrocalcinosis present. There appears to be joint fluid present. IMPRESSION: There are mild degenerative changes present with no acute bony abnormality seen. Dictated by: Dictated on workstation # [id number]
--- NOTE | 2021-04-17 14:52 | Physical Therapy Daily Note ---
PT Daily Note-Current Subjective Patient sitting in chair upon PT arrival, agreeable to treatment but notes she woke up yesterday morning with severe pain in her right elbow. Rates it currently ay 06/11. Nurse has been notified and dispensed Celebrex post PT treatment. Mental Status Patient Orientation: Person, Place, Time, Situation Transfers SCALE: Activities may be completed with or without assistive devices. 8-Ppfijeijks-jkoxyiu completes the activity by him/herself with no assistance from a helper. 5-Set-up or Clean-up Assistance-helper sets up or cleans up; patient completes activity. [place] assists only prior to or following the activity. 4-Supervision or Touching Assistance-helper provides verbal cues and/or touching/steadying and/or contact guard assistance as patient completes activity. Assistance may be provided throughout the activity or intermittently. 3-Partial/Moderate Assistance-helper does LESS THAN HALF the effort. [place] lifts, holds or supports trunk or limbs, but provides less than half the effort. 2-Substantial/Maximal Assistance-helper does MORE THAN HALF the effort. [place] lifts or holds trunk or limbs and provides more than half the effort. 3-Lzswylotv-hyykrs does ALL the effort. Patient does none of the effort to complete the activity. Or, the assistance of 2 or more helpers is required for the patient to complete the activity. If activity was not attempted, code reason: 7-Patient Refused. 9-Not Applicable-not attempted and the patient did not perform the activity before the current illness, exacerbation or injury. 10-Not Attempted due to Environmental Limitations-(lack of equipment, weather restraints, etc.). 88-Not Attempted due to Medical Conditions or Safety Concerns. Sit to Stand (QC): 4 Chair/Gof-uy-Qhbld Xfer(QC): 4 Toilet Transfer (QC): 4 Weight Bearing Right Lower Extremity: Right Full Weight Bearing Left Lower Extremity: Left Full Weight Bearing sternal precautions Gait Training Does the Patient Walk?: Yes Distance: 120 x 2 Walk 10 feet (QC): 5 Walk 50 ft with 2 Turns(QC): 5 Walk 150 ft (QC): 5 Gait Persons Needed: 1 Gait Assistive Device: FWW Patient ambulates with minimal increase in forward trunk posture, decreased use of right UE for control of FWW. Wheelchair Training Does the Pt Use a Wheelchair?: Yes Wheel 50 ft with 2 turns (QC): 4 Wheel 150 ft (QC): 4 Type of Wheelchair: Manual Exercises Supine Ex: Ankle pumps, Quad Set, Glut sets Supine Reps: 20 Seated Therapy Exercises: Ankle pumps, Long arc quads, Hip flexion, Hamstring Curls, Hip abd/add Seated Reps: 20 NuStep Minutes: 10 NuStep Workload: 5 Treatments Visit, Gait training x 2, Exercise x 2 Assessment Current Status: Fair Progress Patient tolerated treatment fair, but was limited by onset of right elbow pain. Patient continues to demonstrates fair gait distance with min A at times for safety, progression and control of FWW. Patient tolerated therapeutic exercise well with appropriate rest breaks. Patient in chair post treatment with all needs met, nursing notified, call light in hand. PT Short Term Goals Short Term Goals Time Frame: Apr 17, 2021 Roll Left & Right: 4 Sit to lyin Lying to sitting on side of be: 3 Sit to stand: 4 Chair/ufv-pm-uewmp transfer: 4 Walk 10 feet: 4 Walk 50 feet with two turns: 4 PT Tree Pruner Goals Tree Pruner Goals PT Tree Pruner Goals Time Frame: May 01, 2021 Roll Left & Right (QC): 6 Sit to Lying (QC): 4 (SBA) Lying-Sitting on Side/Bed(QC): 4 (SBA) Sit to Stand (QC): 6 Chair/Heb-zf-Mdfdi Xfer(QC): 6 Toilet Transfer (QC): 6 Car Transfer (QC): 6 Does the Patient Walk: Yes Walk 10 feet (QC): 6 Walk 50ft with 2 Turns (QC): 6 Walk 150 ft (QC): 6 Walking 10ft on Uneven Surface: 6 1 Step (curb) (QC): 6 4 Steps (QC): 6 12 Steps (QC): 88 Picking up an Object (QC): 6 Wheel 50 feet with 2 turns (QC: 88 Wheel 150 feet: 88 PT Plan Treatment/Plan Treatment Plan: Continue Plan of Care Treatment Plan: Bed Mobility, Education, Functional Activity Song, Functional Strength, Group Therapy, Gait, Safety, Therapeutic Exercise, Transfers Treatment Duration: May 01, 2021 Frequency: At least 5 of 7 days/Wk (IRF) Estimated Hrs Per Day: 1.5 hours per day Patient and/or Family Agrees t: Yes Safety Risks/Education Patient Education: Gait Training, Reviewed Precautions, Safety Issues Teaching Recipient: Patient Teaching Methods: Demonstration, Discussion Response to Teaching: Verbalize Understanding, Return Demonstration Time/GCodes Time In: 1100 Time Out: 1200 Total Billed Treatment Time: 60 Total Billed Treatment Visit, Tucker (2), Ex (2) MICHELLE ENCINAS PT Apr 17, 2021 14:52
--- NOTE | 2021-04-17 14:58 | Physical Therapy Daily Note ---
PT Daily Note-Current Subjective Patient sitting in chair having just finished lunch, agreeable to treatment. Patient reports right elbow pain not improved with taking of Celebrex. Mental Status Patient Orientation: Person, Place, Time, Situation Transfers SCALE: Activities may be completed with or without assistive devices. 1-Khsnyovotu-lpeifuc completes the activity by him/herself with no assistance from a helper. 5-Set-up or Clean-up Assistance-helper sets up or cleans up; patient completes activity. [place] assists only prior to or following the activity. 4-Supervision or Touching Assistance-helper provides verbal cues and/or touching/steadying and/or contact guard assistance as patient completes activity. Assistance may be provided throughout the activity or intermittently. 3-Partial/Moderate Assistance-helper does LESS THAN HALF the effort. [place] lifts, holds or supports trunk or limbs, but provides less than half the effort. 2-Substantial/Maximal Assistance-helper does MORE THAN HALF the effort. [place] lifts or holds trunk or limbs and provides more than half the effort. 2-Ehbtggdvo-jadfbr does ALL the effort. Patient does none of the effort to complete the activity. Or, the assistance of 2 or more helpers is required for the patient to complete the activity. If activity was not attempted, code reason: 7-Patient Refused. 9-Not Applicable-not attempted and the patient did not perform the activity before the current illness, exacerbation or injury. 10-Not Attempted due to Environmental Limitations-(lack of equipment, weather restraints, etc.). 88-Not Attempted due to Medical Conditions or Safety Concerns. Sit to Stand (QC): 4 Chair/Uub-un-Mvhrs Xfer(QC): 4 Toilet Transfer (QC): 4 Weight Bearing Right Lower Extremity: Right Full Weight Bearing Left Lower Extremity: Left Full Weight Bearing sternal precautions Gait Training Does the Patient Walk?: Yes Distance: 150 x 2 Walk 10 feet (QC): 5 Walk 50 ft with 2 Turns(QC): 5 Walk 150 ft (QC): 5 Gait Persons Needed: 1 Gait Assistive Device: FWW Exercises Supine Ex: Ankle pumps, Quad Set, Glut sets, Straight leg raise Supine Reps: 20 Seated Therapy Exercises: Long arc quads, Hip flexion, Hamstring Curls, Hip abd/add Seated Reps: 20 Treatments Visit, Gait, Ex Assessment Current Status: Fair Progress Patient reports no improvement in right elbow pain at this time, however was able to tolerate increased gait distance using FWW with no report of increased pain. Patient tolerated treatment well. Demonstrates good overall improvement in transfers compared to morning treatment. Patient in chair post treatment with all needs met, nursing notified, call light in hand. PT Short Term Goals Short Term Goals Time Frame: Apr 17, 2021 Roll Left & Right: 4 Sit to lyin Lying to sitting on side of be: 3 Sit to stand: 4 Chair/uws-ag-wrwkt transfer: 4 Walk 10 feet: 4 Walk 50 feet with two turns: 4 PT Clip And Hanger Attacher Goals Care Home Goals PT Care Home Goals Time Frame: May 01, 2021 Roll Left & Right (QC): 6 Sit to Lying (QC): 4 (SBA) Lying-Sitting on Side/Bed(QC): 4 (SBA) Sit to Stand (QC): 6 Chair/Xpj-be-Ogddv Xfer(QC): 6 Toilet Transfer (QC): 6 Car Transfer (QC): 6 Does the Patient Walk: Yes Walk 10 feet (QC): 6 Walk 50ft with 2 Turns (QC): 6 Walk 150 ft (QC): 6 Walking 10ft on Uneven Surface: 6 1 Step (curb) (QC): 6 4 Steps (QC): 6 12 Steps (QC): 88 Picking up an Object (QC): 6 Wheel 50 feet with 2 turns (QC: 88 Wheel 150 feet: 88 PT Plan Treatment/Plan Treatment Plan: Continue Plan of Care Treatment Plan: Bed Mobility, Education, Functional Activity Song, Functional Strength, Group Therapy, Gait, Safety, Therapeutic Exercise, Transfers Treatment Duration: May 01, 2021 Frequency: At least 5 of 7 days/Wk (IRF) Estimated Hrs Per Day: 1.5 hours per day Patient and/or Family Agrees t: Yes Safety Risks/Education Patient Education: Gait Training, Reviewed Precautions, Safety Issues Teaching Recipient: Family Teaching Methods: Demonstration, Discussion Response to Teaching: Verbalize Understanding, Return Demonstration Time/GCodes Time In: 1300 Time Out: 1330 Total Billed Treatment Time: 30 Total Billed Treatment Visit, Gait, Ex MICHELLE ENCINAS PT Apr 17, 2021 14:58
[2021-04-17] MEDS: MAGNESIUM OXIDE (MAG-OX)400 MG TAB PO SCH (17:39)
[2021-04-17 20:00] VITALS: BP 124/62
[2021-04-17] MEDS: MELATONIN 3 MG TABLET PO SCH (20:53)
[2021-04-18] MEDS: BUMETANIDE 1 MG (BUMEX) TAB PO SCH ×2 (06:08→17:52)
[2021-04-18 08:00] VITALS: BP 133/81
[2021-04-18] MEDS: ASPIRIN E.C. 81 MG (ECOTRIN) TAB PO SCH (08:07)
[2021-04-18] MEDS: APIXABAN 5 MG (ELIQUIS) TABLET PO SCH ×2 (08:07→20:44)
[2021-04-18] MEDS: SPIRONOLACTONE 25 MG (ALDACTONE) TAB PO SCH (08:07)
[2021-04-18] MEDS: OMEGA 3 (FISH OIL) 1000 MG CAP PO SCH (08:07)
[2021-04-18] MEDS: CELECOXIB 100 MG (CeleBREX) CAP PO SCH (08:07)
[2021-04-18] MEDS: LORATADINE (CLARITIN) 10 MG TAB PO SCH (08:07)
[2021-04-18] MEDS: KCL 20 MEQ TAB (K-DUR) PO SCH ×2 (08:07→20:44)
[2021-04-18] MEDS: MAGNESIUM OXIDE (MAG-OX)400 MG TAB PO SCH ×2 (08:07→17:52)
[2021-04-18] MEDS: VITAMIN D3 125 MCG (5,000 UNITS) CAPSULE PO SCH (08:07)
[2021-04-18] MEDS: LACTOBACILLUS ACIDOPHILUS (PROBIOTIC) CAPSULE PO SCH (08:07)
[2021-04-18] MEDS: dilTIAZem120 MG (CARDIZEM CD) CAP PO SCH (08:08)
[2021-04-18] MEDS: polyethylene glycoL POWDER 17 GM (MIRALAX) PACK PO SCH ×2 (08:17→20:04)
[2021-04-18] MEDS: SENNA W/DOCUSATE (SENOKOT S) TABLET PO SCH ×2 (08:17→20:44)
[2021-04-18] MEDS: DOCUSATE SODIUM 100 MG (COLACE) CAP PO SCH ×2 (08:17→20:44)
--- NOTE | 2021-04-18 08:28 | Cardiology Progress Note ---
Subjective Date Seen by Provider: Apr 18, 2021 Time Seen by Provider: 08:27 Subjective/Events-last exam With PT, no new complaints. Review of Systems General: No Chills, No Night Sweats, No Fatigue, No Malaise, No Appetite, No Other HEENT: No Head Aches, No Visual Changes, No Eye Pain, No Ear Pain, No Dysphasia, No Sinus Congestion, No Post Nasal Drip, No Sore Throat, No Other Pulmonary: No Dyspnea, No Cough, No Pleuritic Chest Pain, No Other Cardiovascular: No: Chest Pain, Palpitations, Orthopnea, Paroxysmal Noc. Dyspnea, Edema, Lt Headedness, Other Objective-Cardiology Exam Last Set of Vital Signs Vital Signs 04/18/21 08:00 Temp 36.6 Pulse 92 Resp 16 B/P (MAP) 133/81 (98) Pulse Ox 94 O2 Delivery Room Air I&O Intake and Output 04/18/21 00:00 Intake Total 1400 ml Output Total 2001 ml Balance -601 ml Intake Oral 1400 ml Output Urine Total 2000 ml Stool Total 1 ml General: Alert, Oriented X3, Cooperative HEENT: Atraumatic, PERRLA Neck: Supple, No JVD, No Thyromegaly Lungs: Clear to Auscultation, Normal Air Movement Heart: Normal S1, Normal S2, No Murmurs, Other (Atrial fibrillation) Abdomen: Normal Bowel Sounds, Soft, No Tenderness, No Hepatosplenomegaly, No Masses Extremities: No Clubbing, No Cyanosis, No Edema, Normal Pulses, No Tenderness/Swelling Skin: No Rashes, No Breakdown, No Significant Lesion Neuro: Normal Gait, Normal Speech, Strength at 5/5 X4 Ext, Normal Tone, Sensation Intact Psych/Mental Status: Mental Status NL, Mood NL A/P-Cardiology Admission Diagnosis PAF HOCM HTN HLP Assessment/Plan Paroxysmal atrial fibrillation, currently in afib, slightly tachycardic. hx of Watchman procedure 12/21. S/P left atrial thrombectomy and MAZE procedure April 03, [address] Wise at . Maintained on Eliquis, Cardizem CD 360.Planning to start antiarrhythmic DVT/bilateral PE, maintained on Eliquis Nonobstructive CAD per cardiac catheterization done at March 2021. HOCM, hx of septal ablation in 2015. Carotid artery stenosis with occluded L ICA. Hypertension, controlled, continue to monitor. Hypomagnesium, replace and continue to monitor. Hypokalemia, replace and monitor. HLP, monitored as outpatient. 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 GERD Hx of CVA 2014 w R sided residual weakness Obesity Patient was seen and evaluated with Drea, examination performed, management plan was discussed, agree with the current scribed note, I made few changes to the note using Italic font Patient was seen during physical therapy session, doing well. Still in atrial fibrillation, maintained on amiodarone and Cardizem Continue to monitor, no changes are recommended Supervisory-Addendum Brief Supervisory Addendum Participated in pt care: history, MDM, physical Personally performed: exam, history, MDM Care discussed with: MENA Results interpretation: Verified all documentation DREA PALOMINO Apr 18, 2021 08:28 PERRY DAVID MD Apr 18, 2021 08:38
--- NOTE | 2021-04-18 08:51 | Occupational Ther Daily Note ---
OT Current Status-Daily Note Subjective Pt. alert and seated in bed eating breakfast upon entry to room. Pt. stated she had iced off and on and done the stretching exercises advised during last visit for R elbow. Pt. stated no pain at elbow site, just tender. Pt. agrees to therapy. Mental Status/Objective Patient Orientation: Person, Place, Time Attachments: Other-See Comments (chest binder) ADL-Treatment Pt. doffed hospital gown and cleaned face with warm wet cloth. Pt. doffed/donned underwear, cleaned maggy area after set up. Pt. threaded legs through shorts and stood to hike shorts up over hips after set up. Pt. thread arms and head through proper holes in shirt after set up. Therapy Code Descriptions/Definitions Functional [place] Measure: 0=Not Assessed/NA 4=Minimal Assistance 1=Total Assistance 5=Supervision or Setup 2=Maximal Assistance 6=Modified [place] 3=Moderate Assistance 7=Complete IndependenceSCALE: Activities may be completed with or without assistive devices. 7-Bwvkwowsux-pwigakf completes the activity by him/herself with no assistance from a helper. 5-Set-up or Clean-up Assistance-helper sets up or cleans up; patient completes activity. [place] assists only prior to or following the activity. 4-Supervision or Touching Assistance-helper provides verbal cues and/or touching/steadying and/or contact guard assistance as patient completes activity. Assistance may be provided throughout the activity or intermittently. 3-Partial/Moderate Assistance-helper does LESS THAN HALF the effort. [place] lifts, holds or supports trunk or limbs, but provides less than half the effort. 2-Substantial/Maximal Assistance-helper does MORE THAN HALF the effort. [place] lifts or holds trunk or limbs and provides more than half the effort. 6-Slalrdwet-xbunqx does ALL the effort. Patient does none of the effort to complete the activity. Or, the assistance of 2 or more helpers is required for the patient to complete the activity. If activity was not attempted, code reason: 7-Patient Refused. 9-Not Applicable-not attempted and the patient did not perform the activity before the current illness, exacerbation or injury. 10-Not Attempted due to Environmental Limitations-(lack of equipment, weather restraints, etc.). 88-Not Attempted due to Medical Conditions or Safety Concerns. Eating (QC): 6 Oral Hygiene (QC): 7 Upper Body Dressing (QC): 5 Lower Body Dressing (QC): 5 On/Off Footwear: 3 (assist given to wrap legs with dionne wrap.) Toileting Hygiene (QC): 6 (Pt. independent with toilet hygiene.) Toilet Transfer (QC): 6 (Pt. independent with toilet transfer using BSC, grabbars, FWW.) Other Treatment Pt ambulated to/from therapy gym using FWW with close SBA for safety. Pt completed arm bike with multiple recovery breaks to increase strength and activity tolerance for daily functional tasks. Ice massage to lateral epicondyle and cross friction to decrease tenderness, swelling and increase movements. After therapy, pt sitting in recliner with call light/phone in reach. All needs met in room. OT Short Term Goals Short Term Goals Time Frame: Apr 21, 2021 Shower/bathe self: 4 Lower body dressin Putting on/taking off footwear: 4 OT [place] Guide Goals Nursing Home Goals Time Frame: May 05, 2021 Eating (QC): 6 Oral Hygiene (QC): 6 Toileting Hygiene (QC): 6 Shower/Bathe Self (QC): 6 Upper Body Dressing (QC): 6 Lower Body Dressing (QC): 6 On/Off Footwear (QC): 6 Additional Goals: 1-Demonstrate ADL Tasks, 2-Verbalize Understanding, 3-ImproveStrength/Song 1=Demonstrate adherence to instructed precautions during ADL tasks. 2=Patient will verbalize/demonstrate understanding of assistive devices/modifications for ADL. 3=Patient will improve strength/tolerance for activity to enable patient to perform ADL's. OT Education/Plan Problem List/Assessment Assessment: Decreased Activ Tolerance, Decreased UE Strength, Impaired Funct Balance, Impaired Self-Care Skills Discharge Recommendations Plan/Recommendations: Continue POC Treatment Plan/Plan of Care Patient would benefit from OT for education, treatment and training to promote independence in ADL's, mobility, safety and/or upper extremity function for AD L's. Plan of Care: ADL Retraining, Functional Mobility, Group Exercise/Act as Ind, UE Funct Exercise/Act Treatment Duration: May 05, 2021 Frequency: At least 5 of 7 days/Wk (IRF) Estimated Hrs Per Day: 1.5 hours per day Rehab Potential: Fair Time/GCodes Start Time: 07:30 Stop Time: 08:45 Total Time Billed (hr/min): 75 Billed Treatment Time 1 visit-ADL 2 (30 min) EX 2 (30 min) FA 1 (15 min) SAMIR GERARDO Apr 18, 2021 08:51
[2021-04-18] MEDS ORDERED: dilTIAZem120 MG (CARDIZEM CD) CAP PO SCH (09:00)
--- NOTE | 2021-04-18 09:55 | PM&R Progress Note ---
Subjective HPI/CC On Admission Date Seen by Provider: Apr 18, 2021 Time Seen by Provider: 10:00 Subjective/Events-last exam 04/18/2021: Pt feels like her elbow is a bit better Celebrex 100 BID seems to be helping Icing the elbow also Bowels moved yesterday Dr. Baker checked an EKG and he is altering her medications Flecanide may be her next step 04/17/2021: Pt doing pretty well Had some palpitations so Cardizem was adjusted by cardiology Potassium 3.3 will initiate potassium 20 twice a day instead of just once a day Dr. Hernandez assessed the right elbow and will place on Celebrex for a short time to see if that helps along with local OT techniques 04/16/2021: Patient doing really well Getting up to go to the bathroom Melatonin is really helped her Pain is well controlled 04/15/2021: Patient doing really well RN has no concerns Chest tube site wound management will need close monitoring Daughter at the bedside 04/14/2021: Pt doing really well Denies any significant new problems Took a shower today Wound evaluation managed by wound care 04/13/2021: Pt doing really well No bowels moving yet so laxatives given Checked meds and labs No falls 04/12/2021: Pt doing a lot better Slept better with increased Melatonin Legs are better with wraps Oozing of her right leg is improved Lisa is following the wounds 04/11/2021: Pt doing really well Slept on/off last night Skin tears are happening with the least amount of trauma Hgb 10.2 Manuel wraps will be placed on the legs Bowels moved yesterday Dr. Baker provided consultation and he is appreciated Increasing Melatonin because her sleep was still disrupted Review of Systems General: Fatigue, Malaise Musculoskeletal: arm pain, leg pain Objective Exam Vital Signs Vital Signs Date Time Temp Pulse Resp B/P (MAP) Pulse Ox O2 Delivery O2 Flow Rate FiO2 04/18/21 20:45 Room Air 04/18/21 20:00 36.5 75 18 143/78 (99) 95 Capillary Refill : General Appearance: No Apparent Distress, WD/WN, Chronically ill HEENT: PERRL/EOMI, Normal ENT Inspection, Pharynx Normal Neck: Full Range of Motion, Normal Inspection, Non Tender, Supple, Carotid Bruit Respiratory: Chest Non Tender, Lungs Clear, Normal Breath Sounds, No Accessory Muscle Use, No Respiratory Distress Cardiovascular: Regular Rate, Rhythm, No Edema, No Gallop, No JVD, No Murmur, Normal Peripheral Pulses Gastrointestinal: Normal Bowel Sounds, No Organomegaly, No Pulsatile Mass, Non Tender, Soft Back: Normal Inspection, No CVA Tenderness, No Vertebral Tenderness Extremity: Normal Capillary Refill, Normal Inspection, Normal Range of Motion, Non Tender, No Calf Tenderness, No Pedal Edema Neurologic/Psychiatric: Alert, Oriented x3, Normal Mood/Affect, Motor Weakness Skin: Normal Color, Warm/Dry Lymphatic: No Adenopathy Results/Procedures Lab Patient resulted labs reviewed. FIM Transfers Therapy Code Descriptions/Definitions Functional [place] Measure: 0=Not Assessed/NA 4=Minimal Assistance 1=Total Assistance 5=Supervision or Setup 2=Maximal Assistance 6=Modified [place] 3=Moderate Assistance 7=Complete IndependenceSCALE: Activities may be completed with or without assistive devices. 0-Bhixzjnvrd-rzxhrxr completes the activity by him/herself with no assistance from a helper. 5-Set-up or Clean-up Assistance-helper sets up or cleans up; patient completes activity. [place] assists only prior to or following the activity. 4-Supervision or Touching Assistance-helper provides verbal cues and/or touching/steadying and/or contact guard assistance as patient completes activity. Assistance may be provided throughout the activity or intermittently. 3-Partial/Moderate Assistance-helper does LESS THAN HALF the effort. [place] lifts, holds or supports trunk or limbs, but provides less than half the effort. 2-Substantial/Maximal Assistance-helper does MORE THAN HALF the effort. [place] lifts or holds trunk or limbs and provides more than half the effort. 9-Rpsnxzmlg-mqfuog does ALL the effort. Patient does none of the effort to compl ete the activity. Or, the assistance of 2 or more helpers is required for the patient to complete the activity. If activity was not attempted, code reason: 7-Patient Refused. 9-Not Applicable-not attempted and the patient did not perform the activity before the current illness, exacerbation or injury. 10-Not Attempted due to Environmental Limitations-(lack of equipment, weather restraints, etc.). 88-Not Attempted due to Medical Conditions or Safety Concerns. Roll Left to Right (QC): 3 Sit to Lying (QC): 5 Sit to Stand (QC): 4 Chair/Ent-oj-Wzkae Xfer(QC): 4 Car Transfer (QC): 3 Gait Training Does the Patient Walk?: Yes Distance: 150 x 2 Walk 10 feet (QC): 5 Walk 50 ft with 2 Turns(QC): 5 Walk 150 ft (QC): 5 Walking 10ft/uneven surface-QC: 4 Gait Persons Needed: 1 Gait Assistive Device: FWW Wheelchair Training Does the Pt Use a Wheelchair?: Yes Wheel 50 ft with 2 turns (QC): 4 Wheel 150 ft (QC): 4 Type of Wheelchair: Manual Stair Training 1 Step (curb) (QC): 88 4 Steps (QC): 88 12 Steps (QC): 88 Balance Picking up an Object (QC): 88 ADL-Treatment Eating (QC): 6 Oral Hygiene (QC): 7 Bathing Location: L Arm, R Arm, L Upper Leg, R Upper Leg, L Lower Leg (including foot), R Lower Leg (including foot), Chest, Abdomen, Buttocks, Perineal Area Shower/Bathe Self (QC): 4 (Supervision while sitting on shower bench using grabbars and hand held shower to complete all areas.) Upper Body Dressing (QC): 5 Lower Body Dressing (QC): 5 On/Off Footwear (QC): 3 (assist given to wrap legs with manuel wrap.) Toileting Hygiene (QC): 6 (Pt. independent with toilet hygiene.) Toilet Transfer (QC): 6 (Pt. independent with toilet transfer using BSC, grabbars, FWW.) Assessment/Plan Assessment and Plan Assess & Plan/Chief Complaint Assessment: Debility S/P left atrial thrombectomy and MAZE procedure April 03 at [facility] S/P Watchman procedure December 2020 Paroxysmal atrial fibrillation HOCM CKD stage 3 HTN HLP GERD Hx of CVA 2014 w R sided residual weakness Obesity Hx of DVT Hx of PE Right olecranon bursitis Plan: Inpatient rehab protocol Dr. Baker consult Anticoagulation Monitor labs 04/11/2021: Appreciate Dr. Baker Monitor for falls Skin tear management 04/12/2021: Wrapped legs Melatonin Appreciate cardiology 04/13/2021: Continue wrapping legs Slept very well last night Close monitoring 04/14/2021: Wound care appreciated Manuel wraps to legs Monitor closely 04/15/2021: Supportive care Wrap legs Gain stamina 04/16/2021: Continue supportive care Aggressive therapy 04/17/2021: Appreciate Dr. Hernandez Celebrex 100 mg twice daily 04/18/2021: Right arm improved Supportive care (1) Persistent atrial fibrillation Assessment & Plan: I suspect she may have permanent atrial fibrillation given that she has a Watchman device. Nonetheless, she was not having palpitations until just today and now she has tachycardia. I recommend resuming diltiazem CD which she had been taking prior to her most recent hospitalization at [facility]. Continue apixaban for stroke prophylaxis. We may need to titrate up the diltiazem to get her heart rates adequately controlled. I also ordered a set of electrolytes just to be sure there is no electrolyte abnormality that would cause this tachycardia. (2) Primary hypertension Assessment & Plan: We will need to watch her blood pressure with the addition of diltiazem. (3) Hypertrophic cardiomyopathy Assessment & Plan: She had a previous alcohol septal ablation. She has a faint systolic murmur. She does not seem to be in heart failure at this time. (4) Mixed hyperlipidemia Assessment & Plan: Continue statin medication. LEONIE ANGULO DO Apr 18, 2021 09:55
--- NOTE | 2021-04-18 09:58 | Speech Therapy Daily Note ---
Speech Daily Progress Note Subjective Date Seen by Provider: Apr 18, 2021 Time Seen by Provider: 00:30 Patient was resting in her recliner following her other therapies. Patient states her arm is feeling much better and she was observed using it more today. Objective Patient completed a series of questions related to her discharge with 90% given minimal cues. Assessment Assessment Current Status: Good Progress Treatment Plan Continue Plan of Care Speech Short Term Goals Short Term Goals Short Term Goals 1) The patient will complete memory tasks with 80% or greater with minimal cues. 2) The patient will complete word finding tasks with 80% or greater with minimal cues. 3) The patient will complete safety awareness tasks with 80% or greater with minimal cues. Speech Chcf Goals Human Resources Operations Manager Goals Patient will improve cognitive communication abilities so that she may require less assist. Speech-Plan Patient/Family Goals Patient/Family Goals: Patient plans on returning to her home where she lives with her friend. Treatment Plan Speech Therapy Treatment Plan: Continue Plan of Care Treatment Duration: Apr 25, 2021 Frequency: 4 times per week (Patient will receive skilled ST 4-5x per week) Estimated Hrs Per Day: .5 hour per day Rehab Potential: Fair Barriers to Learning: Mild cognitive deficits which are resolving well Pt/Family Agrees to Plan: Yes Safety Risks/Education Teaching Recipient: Patient Teaching Methods: Demonstration, Discussion Response to Teaching: Verbalize Understanding, Return Demonstration Education Topics Provided: Continued safety upon discharge and communication of wants/needs Time Speech Therapy Time In: 10:30 Speech Therapy Time Out: 11:00 Total Billed Time: 30 Billed Treatment Time 1, SLTS No QUALITY CODES EXPRESSION OF IDEAS/WANTS: 4 UNDERSTANDING VERBAL CONTENT: 4 BRIEF INTERVIEW MENTAL STATUS: YES REPETITION OF 3 WORDS: 3 TEMPORAL ORIENTATION: YEAR: CORRECT, MONTH: CORRECT, DAY: CORRECT RECALL: SOCK: YES, COLOR: YES, BED: YES MEMORY/RECALL ABILITY: SEASON, LOCATION OF ROOM, STAFF NAMES, THAT SHE IS IN THE HOSPITAL PAULINE BOND Apr 18, 2021 09:58
[2021-04-18 10:16] VITALS: BP 141/75
[2021-04-18] MEDS: AMIODARONE 200 MG (CORDARONE) TAB PO SCH ×2 (10:16→20:44)
--- NOTE | 2021-04-18 12:04 | Physical Therapy Daily Note ---
PT Daily Note-Current Subjective Patient sitting in chair finishing with Speech Therapy upon PT arrival, agreeable to treatment. Reports she is still experiencing some pain in her right elbow, "but it is doing much better today." Mental Status Patient Orientation: Person, Place, Time, Situation Transfers SCALE: Activities may be completed with or without assistive devices. 4-Gezplbtunc-cyrndwf completes the activity by him/herself with no assistance from a helper. 5-Set-up or Clean-up Assistance-helper sets up or cleans up; patient completes activity. [place] assists only prior to or following the activity. 4-Supervision or Touching Assistance-helper provides verbal cues and/or touching/steadying and/or contact guard assistance as patient completes activity. Assistance may be provided throughout the activity or intermittently. 3-Partial/Moderate Assistance-helper does LESS THAN HALF the effort. [place] lifts, holds or supports trunk or limbs, but provides less than half the effort. 2-Substantial/Maximal Assistance-helper does MORE THAN HALF the effort. [place] lifts or holds trunk or limbs and provides more than half the effort. 6-Tjxddzbli-hnmril does ALL the effort. Patient does none of the effort to complete the activity. Or, the assistance of 2 or more helpers is required for the patient to complete the activity. If activity was not attempted, code reason: 7-Patient Refused. 9-Not Applicable-not attempted and the patient did not perform the activity before the current illness, exacerbation or injury. 10-Not Attempted due to Environmental Limitations-(lack of equipment, weather restraints, etc.). 88-Not Attempted due to Medical Conditions or Safety Concerns. Sit to Stand (QC): 5 Chair/Qpj-ic-Zviax Xfer(QC): 5 Toilet Transfer (QC): 5 Weight Bearing Right Lower Extremity: Right Full Weight Bearing Left Lower Extremity: Left Full Weight Bearing sternal precautions Gait Training Does the Patient Walk?: Yes Distance: 250 x 2 Walk 10 feet (QC): 5 Walk 50 ft with 2 Turns(QC): 5 Walk 150 ft (QC): 5 Gait Persons Needed: 1 Gait Assistive Device: FWW Wheelchair Training Does the Pt Use a Wheelchair?: Yes Wheel 50 ft with 2 turns (QC): 4 Wheel 150 ft (QC): 4 Type of Wheelchair: Manual Exercises Supine Ex: Ankle pumps, Quad Set, Glut sets, Straight leg raise Supine Reps: 20 Seated Therapy Exercises: Long arc quads, Hip flexion, Hamstring Curls, Hip abd/add Seated Reps: 20 NuStep Minutes: 10 NuStep Workload: 5 Assessment Current Status: Good Progress Patient sitting in chair upon PT arrival, agreeable to treatment. Patient performs all observed transfers with SBA and verbal cues. Patient demonstrates significant improvement in gait ambulating 250 feet x 2 with FWW with SBA and verbal cues for safety, progression and conservation of energy. Patient performs Nu Step and therapeutic exercise as listed above. Patient in chair post treatment with all needs met, nursing notified, call light in reach. PT Short Term Goals Short Term Goals Time Frame: Apr 17, 2021 Roll Left & Right: 4 Sit to lyin Lying to sitting on side of be: 3 Sit to stand: 4 Chair/dkg-ge-ktnwy transfer: 4 Walk 10 feet: 4 Walk 50 feet with two turns: 4 PT Mcc Goals Special Delivery Clerk Goals PT Mcc Goals Time Frame: May 01, 2021 Roll Left & Right (QC): 6 Sit to Lying (QC): 4 (SBA) Lying-Sitting on Side/Bed(QC): 4 (SBA) Sit to Stand (QC): 6 Chair/Zof-cy-Wjota Xfer(QC): 6 Toilet Transfer (QC): 6 Car Transfer (QC): 6 Does the Patient Walk: Yes Walk 10 feet (QC): 6 Walk 50ft with 2 Turns (QC): 6 Walk 150 ft (QC): 6 Walking 10ft on Uneven Surface: 6 1 Step (curb) (QC): 6 4 Steps (QC): 6 12 Steps (QC): 88 Picking up an Object (QC): 6 Wheel 50 feet with 2 turns (QC: 88 Wheel 150 feet: 88 PT Plan Treatment/Plan Treatment Plan: Continue Plan of Care Treatment Plan: Bed Mobility, Education, Functional Activity Song, Functional Strength, Group Therapy, Gait, Safety, Therapeutic Exercise, Transfers Treatment Duration: May 01, 2021 Frequency: At least 5 of 7 days/Wk (IRF) Estimated Hrs Per Day: 1.5 hours per day Patient and/or Family Agrees t: Yes Safety Risks/Education Patient Education: Gait Training, Reviewed Precautions Teaching Recipient: Patient Teaching Methods: Demonstration, Discussion Response to Teaching: Verbalize Understanding, Return Demonstration Time/GCodes Time In: 1100 Time Out: 1200 Total Billed Treatment Time: 60 Total Billed Treatment Visit, Ex (2), Gait (2) MICHELLE ENCINAS PT Apr 18, 2021 12:04
--- NOTE | 2021-04-18 15:41 | Physical Therapy Daily Note ---
PT Daily Note-Current Subjective Patient reports 0/10 pain currently, agreeable to treatment. Mental Status Patient Orientation: Person, Place, Time, Situation Transfers SCALE: Activities may be completed with or without assistive devices. 7-Xxaezyceta-giiirgd completes the activity by him/herself with no assistance from a helper. 5-Set-up or Clean-up Assistance-helper sets up or cleans up; patient completes activity. [place] assists only prior to or following the activity. 4-Supervision or Touching Assistance-helper provides verbal cues and/or touching/steadying and/or contact guard assistance as patient completes activity. Assistance may be provided throughout the activity or intermittently. 3-Partial/Moderate Assistance-helper does LESS THAN HALF the effort. [place] lift s, holds or supports trunk or limbs, but provides less than half the effort. 2-Substantial/Maximal Assistance-helper does MORE THAN HALF the effort. [place] lifts or holds trunk or limbs and provides more than half the effort. 1-Dfzgflsdu-nezxay does ALL the effort. Patient does none of the effort to complete the activity. Or, the assistance of 2 or more helpers is required for the patient to complete the activity. If activity was not attempted, code reason: 7-Patient Refused. 9-Not Applicable-not attempted and the patient did not perform the activity before the current illness, exacerbation or injury. 10-Not Attempted due to Environmental Limitations-(lack of equipment, weather restraints, etc.). 88-Not Attempted due to Medical Conditions or Safety Concerns. Sit to Stand (QC): 5 Chair/Pie-rx-Scchp Xfer(QC): 5 Toilet Transfer (QC): 5 Weight Bearing Right Lower Extremity: Right Full Weight Bearing Left Lower Extremity: Left Full Weight Bearing sternal precautions Gait Training Does the Patient Walk?: Yes Distance: 150 x 2 Walk 10 feet (QC): 5 Walk 50 ft with 2 Turns(QC): 5 Walk 150 ft (QC): 5 Gait Persons Needed: 1 Gait Assistive Device: FWW Exercises Supine Ex: Ankle pumps, Quad Set, Glut sets Supine Reps: 20 Seated Therapy Exercises: Ankle pumps, Long arc quads, Hip flexion, Hamstring Curls, Hip abd/add Seated Reps: 20 Assessment Current Status: Fair Progress Patient sitting in chair upon PT arrival, agreeable to treatment. Patient performs all observed transfers with SBA and verbal cues. Patient demonstrates improvement in gait ambulating 150 feet x 2 with FWW with SBA and verbal cues for safety, progression and conservation of energy. Patient performs therapeutic exercise as listed above. Patient in chair post treatment with all needs met, nursing notified, call light in reach. PT Short Term Goals Short Term Goals Time Frame: Apr 17, 2021 Roll Left & Right: 4 Sit to lyin Lying to sitting on side of be: 3 Sit to stand: 4 Chair/whm-yx-thamv transfer: 4 Walk 10 feet: 4 Walk 50 feet with two turns: 4 PT Marine Radio Installer And Servicer Goals Marine Radio Installer And Servicer Goals PT Marine Radio Installer And Servicer Goals Time Frame: May 01, 2021 Roll Left & Right (QC): 6 Sit to Lying (QC): 4 (SBA) Lying-Sitting on Side/Bed(QC): 4 (SBA) Sit to Stand (QC): 6 Chair/Axd-bw-Tqpar Xfer(QC): 6 Toilet Transfer (QC): 6 Car Transfer (QC): 6 Does the Patient Walk: Yes Walk 10 feet (QC): 6 Walk 50ft with 2 Turns (QC): 6 Walk 150 ft (QC): 6 Walking 10ft on Uneven Surface: 6 1 Step (curb) (QC): 6 4 Steps (QC): 6 12 Steps (QC): 88 Picking up an Object (QC): 6 Wheel 50 feet with 2 turns (QC: 88 Wheel 150 feet: 88 PT Plan Treatment/Plan Treatment Plan: Continue Plan of Care Treatment Plan: Bed Mobility, Education, Functional Activity Song, Functional Strength, Group Therapy, Gait, Safety, Therapeutic Exercise, Transfers Treatment Duration: May 01, 2021 Frequency: At least 5 of 7 days/Wk (IRF) Estimated Hrs Per Day: 1.5 hours per day Patient and/or Family Agrees t: Yes Safety Risks/Education Patient Education: Gait Training, Reviewed Precautions, Safety Issues Teaching Recipient: Patient Teaching Methods: Demonstration, Discussion Response to Teaching: Verbalize Understanding Time/GCodes Time In: 1300 Time Out: 1330 Total Billed Treatment Time: 30 Total Billed Treatment Visit, gait, MICHELLE Chawla PT Apr 18, 2021 15:41
[2021-04-18 20:00] VITALS: BP 143/78
[2021-04-18] MEDS: MELATONIN 3 MG TABLET PO SCH (20:45)
[2021-04-19] MEDS: BUMETANIDE 1 MG (BUMEX) TAB PO SCH ×2 (05:03→17:19)
[2021-04-19 08:00] VITALS: BP 137/82
--- NOTE | 2021-04-19 08:59 | Cardiology Progress Note ---
Subjective Date Seen by Provider: Apr 19, 2021 Time Seen by Provider: 08:57 Subjective/Events-last exam Patient in bed, denies any chest pain, reports occasional episode of palpit ations. EKG showing atrial fibrillation, slightly tachycardic. Review of Systems General: No Chills, No Night Sweats, No Fatigue, No Malaise, No Appetite, No Other HEENT: No Head Aches, No Visual Changes, No Eye Pain, No Ear Pain, No Dysphasia, No Sinus Congestion, No Post Nasal Drip, No Sore Throat, No Other Pulmonary: No Dyspnea, No Cough, No Pleuritic Chest Pain, No Other Cardiovascular: No: Chest Pain, Palpitations, Orthopnea, Paroxysmal Noc. Dyspnea, Edema, Lt Headedness, Other Objective-Cardiology Exam Last Set of Vital Signs Vital Signs 04/19/21 08:00 Temp 37.1 Pulse 80 Resp 16 B/P (MAP) 137/82 (100) Pulse Ox 95 O2 Delivery Room Air I&O Intake and Output 04/19/21 00:00 Intake Total 1960 ml Output Total 1500 ml Balance 460 ml Intake Oral 1960 ml Output Urine Total 1500 ml General: Alert, Oriented X3, Cooperative HEENT: Atraumatic, PERRLA Neck: Supple, No JVD, No Thyromegaly Lungs: Clear to Auscultation, Normal Air Movement Heart: Normal S1, Normal S2, No Murmurs, Other (Atrial fibrillation) Abdomen: Normal Bowel Sounds, Soft, No Tenderness, No Hepatosplenomegaly, No Masses Extremities: No Clubbing, No Cyanosis, No Edema, Normal Pulses, No Tenderness/Swelling Skin: No Rashes, No Breakdown, No Significant Lesion Neuro: Normal Gait, Normal Speech, Strength at 5/5 X4 Ext, Normal Tone, Sensation Intact Psych/Mental Status: Mental Status NL, Mood NL A/P-Cardiology Admission Diagnosis PAF HOCM HTN HLP Assessment/Plan Paroxysmal atrial fibrillation, currently in afib, slightly tachycardic. hx of Watchman procedure 12/21. S/P left atrial thrombectomy and MAZE procedure April 03, [address] Wise at . Maintained on Eliquis, Cardizem CD 360. Planning for cardioversion this morning and starting on antiarrhythmics. DVT/bilateral PE, maintained on Eliquis Nonobstructive CAD per cardiac catheterization done at March 2021. HOCM, hx of septal ablation in 2016. Carotid artery stenosis with occluded L ICA. Hypertension, controlled, continue to monitor. Hypomagnesium, replace and continue to monitor. Hypokalemia, replace and monitor. HLP, monitored as outpatient. CKD, stage 3, continue to monitor renal function Hypercalemia with likely primary Hyperparathyroidism, has follow up appt with bariatric physician as outpatient. GERD Hx of CVA 2014 w R sided residual weakness Obesity Patient was seen and evaluated with Drea, examination performed, management plan was discussed, agree with the current scribed note, I made few changes to the note using Italic font Patient is still in atrial fibrillation, feeling well. Has been on continuous oral anticoagulation uninterrupted. Discussed the possibility of CAROLYNN and electrical cardioversion, patient is very hesitant for CAROLYNN, we will proceed with cardioversion knowing that she did not have any gap in her oral anticoagulation treatment. She was in sinus rhythm and converted to atrial fibrillation while she is in the hospital. Procedure was explained in length. All pros and cons were explained. Patient agreed on the procedure Continue to monitor blood pressure and lipids. No changes are recommended Tolerating higher dose of diltiazem and amiodarone. Supervisory-Addendum Brief Supervisory Addendum Participated in pt care: history, MDM, physical Personally performed: exam, history, MDM Care discussed with: MENA Results interpretation: Verified all documentation DREA PALOMINO Apr 19, 2021 08:59 PERRY DAVID MD Apr 19, 2021 09:10
--- NOTE | 2021-04-19 09:01 | Occupational Ther Daily Note ---
OT Current Status-Daily Note Subjective Pt alert, lying in bed. Pt did not sleep well last night due to anxiety over a procedure that is occurring today. Nrsg and PA in room during session to discuss procedure with pt. Pt does agree to therapy. No c/o pain. Mental Status/Objective Patient Orientation: Person, Place, Time, Situation Attachments: Other-See Comments (chest binder) ADL-Treatment Due to procedure set up was required for pt. surgical bath. Pt. was able to cleanse and dry all areas of body. Pt. able to don hospital gown. Pt. was also able to complete oral hygiene routine independently while sitting at sink. Set up for footwear though pt requires assistance to wrap B LE to decrease edema. Therapy Code Descriptions/Definitions Functional [place] Measure: 0=Not Assessed/NA 4=Minimal Assistance 1=Total Assistance 5=Supervision or Setup 2=Maximal Assistance 6=Modified [place] 3=Moderate Assistance 7=Complete IndependenceSCALE: Activities may be completed with or without assistive devices. 7-Pymmcukhmf-lbigxgc completes the activity by him/herself with no assistance from a helper. 5-Set-up or Clean-up Assistance-helper sets up or cleans up; patient completes a ctivity. [place] assists only prior to or following the activity. 4-Supervision or Touching Assistance-helper provides verbal cues and/or touching/steadying and/or contact guard assistance as patient completes activity. Assistance may be provided throughout the activity or intermittently. 3-Partial/Moderate Assistance-helper does LESS THAN HALF the effort. [place] lifts, holds or supports trunk or limbs, but provides less than half the effort. 2-Substantial/Maximal Assistance-helper does MORE THAN HALF the effort. [place] lifts or holds trunk or limbs and provides more than half the effort. 6-Tleabvsyx-hnxwxz does ALL the effort. Patient does none of the effort to complete the activity. Or, the assistance of 2 or more helpers is required for the patient to complete the activity. If activity was not attempted, code reason: 7-Patient Refused. 9-Not Applicable-not attempted and the patient did not perform the activity before the current illness, exacerbation or injury. 10-Not Attempted due to Environmental Limitations-(lack of equipment, weather restraints, etc.). 88-Not Attempted due to Medical Conditions or Safety Concerns. Bathing Location: L Arm, R Arm, L Upper Leg, R Upper Leg, L Lower Leg (including foot), R Lower Leg (including foot), Chest, Abdomen, Buttocks, Perineal Area Shower/Bathe Self (QC): 5 Lower Body Dressing (QC): 5 On/Off Footwear: 3 Toileting Hygiene (QC): 6 Toilet Transfer (QC): 6 Other Treatment Pt able to complete 3 B UE exercises 1 set 10 reps before staff came to transport pt to procedure. All needs met. OT Short Term Goals Short Term Goals Time Frame: Apr 21, 2021 Shower/bathe self: 4 Lower body dressin Putting on/taking off footwear: 4 OT Detention Goals Circuit Board Repair Technician Goals Time Frame: May 05, 2021 Eating (QC): 6 Oral Hygiene (QC): 6 Toileting Hygiene (QC): 6 Shower/Bathe Self (QC): 6 Upper Body Dressing (QC): 6 Lower Body Dressing (QC): 6 On/Off Footwear (QC): 6 Additional Goals: 1-Demonstrate ADL Tasks, 2-Verbalize Understanding, 3- ImproveStrength/Song 1=Demonstrate adherence to instructed precautions during ADL tasks. 2=Patient will verbalize/demonstrate understanding of assistive devices/modifications for ADL. 3=Patient will improve strength/tolerance for activity to enable patient to perform ADL's. OT Education/Plan Problem List/Assessment Assessment: Decreased Activ Tolerance, Impaired Self-Care Skills Discharge Recommendations Plan/Recommendations: Continue POC Treatment Plan/Plan of Care Patient would benefit from OT for education, treatment and training to promote independence in ADL's, mobility, safety and/or upper extremity function for ADL's. Plan of Care: ADL Retraining, Functional Mobility, Group Exercise/Act as Ind, UE Funct Exercise/Act Treatment Duration: May 05, 2021 Frequency: At least 5 of 7 days/Wk (IRF) Estimated Hrs Per Day: 1.5 hours per day Rehab Potential: Fair Time/GCodes Start Time: 07:30 Stop Time: 09:00 Total Time Billed (hr/min): 90 Billed Treatment Time 1 visit-ADL 5 (75 min) EX 1 (15 min) SAMIR GERARDO Apr 19, 2021 09:01
--- NOTE | 2021-04-19 09:10 | Conscious Sedation/ASA ---
Conscious Sedation Pre-Proced Time 09:10 ASA Score 3 For ASA 3 and 4: Consider anesthesia and medical clearance. Also, for patients with a history of failed moderate sedation consider anesthesia. Airway Lungs Heart ASA score ASA 1: a normal healthy patient ASA 2: a patient with a mild systemic disease (mid diabetes, controlled hypertension, obesity x ASA 3: a patient with a severe systemic disease that limits activity (angina, COPD, prior Myocardial infarction) ASA 4: a patient with an incapacitating disease that is a constant threat to life (CHF, renal failure) ASA 5: a moribund patient not expected to survive 24 hrs. (ruptured aneurysm) ASA 6: a declared brain- patient whose organs are being harvested. For emergent operations, add the letter E after the classification Mallampati Classification Grade 3 Sedation Plan Analgesia, Amnesia, Plan communicated to team members, Discussed options with patient/fam, Discussed risks with patient/fam The patient is an appropriate candidate to undergo the planned procedure, sedation, and anesthesia. The patient immediately re-assessed prior to indication. PERRY DAVID MD Apr 19, 2021 09:10
--- NOTE | 2021-04-19 09:51 | Physical Therapy Progress Note ---
Therapy Progress Note Pt is out of room for Cardiac procedure for this morning tx. PT will check back to attempt tx later today as pt is able to participate. CLAUDIO PEREZ INSTALLMENT ACCOUNT CHECKER Apr 19, 2021 09:51
[2021-04-19] MEDS: LACTOBACILLUS ACIDOPHILUS (PROBIOTIC) CAPSULE PO SCH (11:27)
[2021-04-19] MEDS: CELECOXIB 100 MG (CeleBREX) CAP PO SCH (11:27)
[2021-04-19] MEDS: SENNA W/DOCUSATE (SENOKOT S) TABLET PO SCH ×2 (11:27→19:56)
[2021-04-19] MEDS: ASPIRIN E.C. 81 MG (ECOTRIN) TAB PO SCH (11:27)
[2021-04-19] MEDS: dilTIAZem120 MG (CARDIZEM CD) CAP PO SCH (11:27)
[2021-04-19] MEDS: MAGNESIUM OXIDE (MAG-OX)400 MG TAB PO SCH ×2 (11:27→17:19)
[2021-04-19] MEDS: APIXABAN 5 MG (ELIQUIS) TABLET PO SCH ×2 (11:28→19:53)
[2021-04-19] MEDS: LORATADINE (CLARITIN) 10 MG TAB PO SCH (11:28)
[2021-04-19] MEDS: OMEGA 3 (FISH OIL) 1000 MG CAP PO SCH (11:28)
[2021-04-19] MEDS: KCL 20 MEQ TAB (K-DUR) PO SCH ×2 (11:28→19:52)
[2021-04-19] MEDS: SPIRONOLACTONE 25 MG (ALDACTONE) TAB PO SCH (11:28)
[2021-04-19] MEDS: DOCUSATE SODIUM 100 MG (COLACE) CAP PO SCH ×2 (11:28→19:53)
[2021-04-19] MEDS: AMIODARONE 200 MG (CORDARONE) TAB PO SCH ×2 (11:28→19:52)
[2021-04-19] MEDS: VITAMIN D3 125 MCG (5,000 UNITS) CAPSULE PO SCH (11:40)
[2021-04-19] MEDS: polyethylene glycoL POWDER 17 GM (MIRALAX) PACK PO SCH ×2 (11:41→19:56)
--- NOTE | 2021-04-19 12:18 | Physical Therapy Progress Note ---
Therapy Progress Note Per Nurse, pt is to rest this afternoon and Therapy on hold until tomorrow (04/20). PT will check on pt and resume Therapy as able. CLAUDIO PEREZ AUTOMOTIVE FLEET SUPERVISOR Apr 19, 2021 12:18
--- NOTE | 2021-04-19 14:45 | Anesthesia-General Post-Op ---
MAC Patient Condition Mental Status/LOC: Same as Preop Cardiovascular: Satisfactory Nausea/Vomiting: Absent Respiratory: Satisfactory Pain: Controlled Complications: Absent Post Op Complications Complications None Follow Up Care/Instructions Patient Instructions None needed. Anesthesiology Discharge Order Discharge Order Patient is doing well, no complaints, stable vital signs, no apparent adverse anesthesia problems. No complications reported per nursing. SHAILA CLEMENTS CRNA Apr 19, 2021 14:45
[2021-04-19] MEDS: HYDROcodone/APAP 5 MG/325 MG (LORTAB) TAB PO PRN (19:54)
[2021-04-19 20:13] VITALS: BP 123/72
--- NOTE | 2021-04-19 21:20 | PM&R Progress Note ---
Subjective HPI/CC On Admission Date Seen by Provider: Apr 19, 2021 Time Seen by Provider: 10:00 Subjective/Events-last exam 04/19/2021: Patient doing really well Attempted cardioversion today but unsuccessful Elbows improved ADLs are doing well 04/18/2021: Pt feels like her elbow is a bit better Celebrex 100 BID seems to be helping Icing the elbow also Bowels moved yesterday Dr. Baker checked an EKG and he is altering her medications Flecanide may be her next step 04/17/2021: Pt doing pretty well Had some palpitations so Cardizem was adjusted by cardiology Potassium 3.3 will initiate potassium 20 twice a day instead of just once a day Dr. Hernandez assessed the right elbow and will place on Celebrex for a short time to see if that helps along with local OT techniques 04/16/2021: Patient doing really well Getting up to go to the bathroom Melatonin is really helped her Pain is well controlled 04/15/2021: Patient doing really well RN has no concerns Chest tube site wound management will need close monitoring Daughter at the bedside 04/14/2021: Pt doing really well Denies any significant new problems Took a shower today Wound evaluation managed by wound care 04/13/2021: Pt doing really well No bowels moving yet so laxatives given Checked meds and labs No falls 04/12/2021: Pt doing a lot better Slept better with increased Melatonin Legs are better with wraps Oozing of her right leg is improved Lisa is following the wounds 04/11/2021: Pt doing really well Slept on/off last night Skin tears are happening with the least amount of trauma Hgb 10.2 Manuel wraps will be placed on the legs Bowels moved yesterday Dr. Baker provided consultation and he is appreciated Increasing Melatonin because her sleep was still disrupted Review of Systems General: Fatigue, Malaise Objective Exam Vital Signs Vital Signs Date Time Temp Pulse Resp B/P (MAP) Pulse Ox O2 Delivery O2 Flow Rate FiO2 04/19/21 21:00 Room Air 04/19/21 20:13 36.6 56 18 123/72 (89) 94 Capillary Refill : General Appearance: No Apparent Distress, WD/WN, Chronically ill HEENT: PERRL/EOMI, Normal ENT Inspection, Pharynx Normal Neck: Full Range of Motion, Normal Inspection, Non Tender, Supple, Carotid Bruit Respiratory: Chest Non Tender, Lungs Clear, Normal Breath Sounds, No Accessory Muscle Use, No Respiratory Distress Cardiovascular: No Edema, No Gallop, No JVD, No Murmur, Normal Peripheral Pulses, Irregularly Irregular, Tachycardia Gastrointestinal: Normal Bowel Sounds, No Organomegaly, No Pulsatile Mass, Non Tender, Soft Back: Normal Inspection, No CVA Tenderness, No Vertebral Tenderness Extremity: Normal Capillary Refill, Normal Inspection, Normal Range of Motion, Non Tender, No Calf Tenderness, No Pedal Edema Neurologic/Psychiatric: Alert, Oriented x3, Normal Mood/Affect, Motor Weakness Skin: Normal Color, Warm/Dry Lymphatic: No Adenopathy Results/Procedures Lab Patient resulted labs reviewed. FIM Transfers Therapy Code Descriptions/Definitions Functional [place] Measure: 0=Not Assessed/NA 4=Minimal Assistance 1=Total Assistance 5=Supervision or Setup 2=Maximal Assistance 6=Modified [place] 3=Moderate Assistance 7=Complete IndependenceSCALE: Activities may be completed with or without assistive devices. 0-Dcnvpaxnrf-ezpfows completes the activity by him/herself with no assistance from a helper. 5-Set-up or Clean-up Assistance-helper sets up or cleans up; patient completes activity. [place] assists only prior to or following the activity. 4-Supervision or Touching Assistance-helper provides verbal cues and/or touching/steadying and/or contact guard assistance as patient completes activity. Assistance may be provided throughout the activity or intermittently. 3-Partial/Moderate Assistance-helper does LESS THAN HALF the effort. [place] lifts, holds or supports trunk or limbs, but provides less than half the effort. 2-Substantial/Maximal Assistance-helper does MORE THAN HALF the effort. [place] lifts or holds trunk or limbs and provides more than half the effort. 1-Jtzikxyhz-ekhxtt does ALL the effort. Patient does none of the effort to complete the activity. Or, the assistance of 2 or more helpers is required for the patient to complete the activity. If activity was not attempted, code reason: 7-Patient Refused. 9-Not Applicable-not attempted and the patient did not perform the activity before the current illness, exacerbation or injury. 10-Not Attempted due to Environmental Limitations-(lack of equipment, weather restraints, etc.). 88-Not Attempted due to Medical Conditions or Safety Concerns. Roll Left to Right (QC): 3 Sit to Lying (QC): 5 Sit to Stand (QC): 5 Chair/Tpf-oq-Crpbr Xfer(QC): 5 Car Transfer (QC): 3 Gait Training Does the Patient Walk?: Yes Distance: 150 x 2 Walk 10 feet (QC): 5 Walk 50 ft with 2 Turns(QC): 5 Walk 150 ft (QC): 5 Walking 10ft/uneven surface-QC: 4 Gait Persons Needed: 1 Gait Assistive Device: FWW Wheelchair Training Does the Pt Use a Wheelchair?: Yes Wheel 50 ft with 2 turns (QC): 4 Wheel 150 ft (QC): 4 Type of Wheelchair: Manual Stair Training 1 Step (curb) (QC): 88 4 Steps (QC): 88 12 Steps (QC): 88 Balance Picking up an Object (QC): 88 ADL-Treatment Eating (QC): 6 Oral Hygiene (QC): 7 Bathing Location: L Arm, R Arm, L Upper Leg, R Upper Leg, L Lower Leg (including foot), R Lower Leg (including foot), Chest, Abdomen, Buttocks, Perineal Area Shower/Bathe Self (QC): 5 Upper Body Dressing (QC): 5 Lower Body Dressing (QC): 5 On/Off Footwear (QC): 3 Toileting Hygiene (QC): 6 Toilet Transfer (QC): 6 Assessment/Plan Assessment and Plan Assess & Plan/Chief Complaint Assessment: Debility S/P left atrial thrombectomy and MAZE procedure April 03 at [facility] S/P Watchman procedure December 2020 Paroxysmal atrial fibrillation HOCM CKD stage 3 HTN HLP GERD Hx of CVA 2014 w R sided residual weakness Obesity Hx of DVT Hx of PE Right olecranon bursitis Plan: Inpatient rehab protocol Dr. Baker consult Anticoagulation Monitor labs 04/11/2021: Appreciate Dr. Baker Monitor for falls Skin tear management 04/12/2021: Wrapped legs Melatonin Appreciate cardiology 04/13/2021: Continue wrapping legs Slept very well last night Close monitoring 04/14/2021: Wound care appreciated Manuel wraps to legs Monitor closely 04/15/2021: Supportive care Wrap legs Gain stamina 04/16/2021: Continue supportive care Aggressive therapy 04/17/2021: Appreciate Dr. Hernandez Celebrex 100 mg twice daily 04/18/2021: Right arm improved Supportive care 04/19/2021: Right elbow much improved Status post cardioversion not successful (1) Persistent atrial fibrillation Assessment & Plan: I suspect she may have permanent atrial fibrillation given that she has a Watchman device. Nonetheless, she was not having palpitations until just today and now she has tachycardia. I recommend resuming diltiazem CD which she had been taking prior to her most recent hospitalization at [facility]. Continue apixaban for stroke prophylaxis. We may need to titrate up the diltiazem to get her heart rates adequately controlled. I also ordered a set of electrolytes just to be sure there is no electrolyte abnormality that would cause this tachycardia. (2) Primary hypertension Assessment & Plan: We will need to watch her blood pressure with the addition of diltiazem. (3) Hypertrophic cardiomyopathy Assessment & Plan: She had a previous alcohol septal ablation. She has a faint systolic murmur. She does not seem to be in heart failure at this time. (4) Mixed hyperlipidemia Assessment & Plan: Continue statin medication. LEONIE ANGULO DO Apr 19, 2021 21:19
[2021-04-19] MEDS: MELATONIN 3 MG TABLET PO SCH (21:21)
[2021-04-19] MEDS: MICONAZOLE 2% POWDER (DESENEX AF) 90 GM TOP SCH (21:39)
[2021-04-20] MEDS: BUMETANIDE 1 MG (BUMEX) TAB PO SCH ×2 (06:31→18:15)
[2021-04-20 08:00] VITALS: BP 128/62
--- NOTE | 2021-04-20 08:14 | Cardiology Progress Note ---
Subjective Date Seen by Provider: Apr 20, 2021 Time Seen by Provider: 08:12 Subjective/Events-last exam Patient was seen at bedside, feeling tired today. No chest pain. Review of Systems General: No Chills, No Night Sweats; Fatigue; No Malaise, No Appetite, No Other HEENT: No Head Aches, No Visual Changes, No Eye Pain, No Ear Pain, No Dysphasia, No Sinus Congestion, No Post Nasal Drip, No Sore Throat, No Other Pulmonary: No Dyspnea, No Cough, No Pleuritic Chest Pain, No Other Cardiovascular: No: Chest Pain, Palpitations, Orthopnea, Paroxysmal Noc. Dyspnea, Edema, Lt Headedness, Other Objective-Cardiology Exam Last Set of Vital Signs Vital Signs 04/19/21 04/19/21 20:13 21:00 Temp 36.6 Pulse 56 Resp 18 B/P (MAP) 123/72 (89) Pulse Ox 94 O2 Delivery Room Air I&O Intake and Output 04/20/21 00:00 Intake Total 1250 ml Output Total 1800 ml Balance -550 ml Intake Oral 1250 ml Output Urine Total 1800 ml # Voids 4 # Bowel Movements 1 General: Alert, Oriented X3, Cooperative HEENT: Atraumatic, PERRLA Neck: Supple, No JVD, No Thyromegaly Lungs: Clear to Auscultation, Normal Air Movement Heart: Normal S1, Normal S2, No Murmurs, Other (Atrial fibrillation) Abdomen: Normal Bowel Sounds, Soft, No Tenderness, No Hepatosplenomegaly, No Masses Extremities: No Clubbing, No Cyanosis, No Edema, Normal Pulses, No Tenderness/Swelling Skin: No Rashes, No Breakdown, No Significant Lesion Neuro: Normal Gait, Normal Speech, Strength at 5/5 X4 Ext, Normal Tone, Sensation Intact Psych/Mental Status: Mental Status NL, Mood NL A/P-Cardiology Admission Diagnosis PAF HOCM HTN HLP Assessment/Plan Paroxysmal atrial fibrillation, history of watchman procedure on December 21, 2020, left atrial thrombectomy and maze procedure done on April 03, [address] Wise at , underwent electrical cardioversion on April 19, 2021 and failed to convert to sinus rhythm. Was bradycardic last night, I will cut down Cardizem to 120 mg daily and monitor tolerance and response DVT/bilateral PE, maintained on Eliquis Nonobstructive CAD per cardiac catheterization done at March 2021. HOCM, hx of septal ablation in 2016. Carotid artery stenosis with occluded L ICA. Hypertension, controlled, continue to monitor. Hypomagnesium, replace and continue to monitor. Hypokalemia, replace and monitor. HLP, monitored as outpatient. CKD, stage 3, continue to monitor renal function Hypercalemia with likely primary Hyperparathyroidism, has follow up appt with contact center consultant as outpatient. GERD Hx of CVA 2014 w R sided residual weakness Obesity PERRY DAVID MD Apr 20, 2021 08:14
[2021-04-20] MEDS: MAGNESIUM OXIDE (MAG-OX)400 MG TAB PO SCH ×2 (08:50→18:15)
[2021-04-20] MEDS: LORATADINE (CLARITIN) 10 MG TAB PO SCH (08:51)
[2021-04-20] MEDS: KCL 20 MEQ TAB (K-DUR) PO SCH ×2 (08:51→20:28)
[2021-04-20] MEDS: OMEGA 3 (FISH OIL) 1000 MG CAP PO SCH (08:51)
[2021-04-20] MEDS: LACTOBACILLUS ACIDOPHILUS (PROBIOTIC) CAPSULE PO SCH (08:51)
[2021-04-20] MEDS: APIXABAN 5 MG (ELIQUIS) TABLET PO SCH ×2 (08:51→20:27)
[2021-04-20] MEDS: AMIODARONE 200 MG (CORDARONE) TAB PO SCH ×2 (08:51→20:28)
[2021-04-20] MEDS: VITAMIN D3 125 MCG (5,000 UNITS) CAPSULE PO SCH (08:51)
[2021-04-20] MEDS: CELECOXIB 100 MG (CeleBREX) CAP PO SCH (08:51)
[2021-04-20] MEDS: SPIRONOLACTONE 25 MG (ALDACTONE) TAB PO SCH (08:52)
[2021-04-20] MEDS: ASPIRIN E.C. 81 MG (ECOTRIN) TAB PO SCH (08:52)
[2021-04-20] MEDS: SENNA W/DOCUSATE (SENOKOT S) TABLET PO SCH ×2 (08:52→20:29)
[2021-04-20] MEDS: DOCUSATE SODIUM 100 MG (COLACE) CAP PO SCH ×2 (08:52→20:29)
[2021-04-20] MEDS: polyethylene glycoL POWDER 17 GM (MIRALAX) PACK PO SCH ×2 (08:52→19:39)
[2021-04-20] MEDS: dilTIAZem120 MG (CARDIZEM CD) CAP PO SCH (08:52)
[2021-04-20] MEDS: MICONAZOLE 2% POWDER (DESENEX AF) 90 GM TOP SCH ×2 (08:54→20:28)
--- NOTE | 2021-04-20 10:45 | PM&R Progress Note ---
Subjective HPI/CC On Admission Date Seen by Provider: Apr 20, 2021 Time Seen by Provider: 10:45 Subjective/Events-last exam 04/20/2021: Pt doing pretty well but she was having some issues because of the low HR Diltiazam changed to [address] Baker Amiodarone 400 mg will be maintained Discharge is planned for tomorrow 04/19/2021: Patient doing really well Attempted cardioversion today but unsuccessful Elbows improved ADLs are doing well 04/18/2021: Pt feels like her elbow is a bit better Celebrex 100 BID seems to be helping Icing the elbow also Bowels moved yesterday Dr. Baker checked an EKG and he is altering her medications Flecanide may be her next step 04/17/2021: Pt doing pretty well Had some palpitations so Cardizem was adjusted by cardiology Potassium 3.3 will initiate potassium 20 twice a day instead of just once a day Dr. Hernandez assessed the right elbow and will place on Celebrex for a short time to see if that helps along with local OT techniques 04/16/2021: Patient doing really well Getting up to go to the bathroom Melatonin is really helped her Pain is well controlled 04/15/2021: Patient doing really well RN has no concerns Chest tube site wound management will need close monitoring Daughter at the bedside 04/14/2021: Pt doing really well Denies any significant new problems Took a shower today Wound evaluation managed by wound care 04/13/2021: Pt doing really well No bowels moving yet so laxatives given Checked meds and labs No falls 04/12/2021: Pt doing a lot better Slept better with increased Melatonin Legs are better with wraps Oozing of her right leg is improved Lisa is following the wounds 04/11/2021: Pt doing really well Slept on/off last night Skin tears are happening with the least amount of trauma Hgb 10.2 Manuel wraps will be placed on the legs Bowels moved yesterday Dr. Baker provided consultation and he is appreciated Increasing Melatonin because her sleep was still disrupted Review of Systems General: Fatigue, Malaise Objective Exam Vital Signs Vital Signs Date Time Temp Pulse Resp B/P (MAP) Pulse Ox O2 Delivery O2 Flow Rate FiO2 04/20/21 20:44 Room Air 04/20/21 19:31 36.5 68 20 116/61 (78) 08 Capillary Refill : General Appearance: No Apparent Distress, WD/WN, Chronically ill HEENT: PERRL/EOMI, Normal ENT Inspection, Pharynx Normal Neck: Full Range of Motion, Normal Inspection, Non Tender, Supple, Carotid Bruit Respiratory: Chest Non Tender, Lungs Clear, Normal Breath Sounds, No Accessory Muscle Use, No Respiratory Distress Cardiovascular: No Edema, No Gallop, No JVD, No Murmur, Normal Peripheral Pulses, Irregularly Irregular, Tachycardia Gastrointestinal: Normal Bowel Sounds, No Organomegaly, No Pulsatile Mass, Non Tender, Soft Back: Normal Inspection, No CVA Tenderness, No Vertebral Tenderness Extremity: Normal Capillary Refill, Normal Inspection, Normal Range of Motion, Non Tender, No Calf Tenderness, No Pedal Edema Neurologic/Psychiatric: Alert, Oriented x3, Normal Mood/Affect, Motor Weakness Skin: Normal Color, Warm/Dry Lymphatic: No Adenopathy Results/Procedures Lab Patient resulted labs reviewed. FIM Transfers Therapy Code Descriptions/Definitions Functional [place] Measure: 0=Not Assessed/NA 4=Minimal Assistance 1=Total Assistance 5=Supervision or Setup 2=Maximal Assistance 6=Modified [facility] 3=Moderate Assistance 7=Complete IndependenceSCALE: Activities may be completed with or without assistive devices. 3-Oozniqvijh-xmjairc completes the activity by him/herself with no assistance from a helper. 5-Set-up or Clean-up Assistance-helper sets up or cleans up; patient completes activity. [place] assists only prior to or following the activity. 4-Supervision or Touching Assistance-helper provides verbal cues and/or touching/steadying and/or contact guard assistance as patient completes activity. Assistance may be provided throughout the activity or intermittently. 3-Partial/Moderate Assistance-helper does LESS THAN HALF the effort. [place] lifts, holds or supports trunk or limbs, but provides less than half the effort. 2-Substantial/Maximal Assistance-helper does MORE THAN HALF the effort. [place] lifts or holds trunk or limbs and provides more than half the effort. 5-Lcnddwdcu-nvgatt does ALL the effort. Patient does none of the effort to complete the activity. Or, the assistance of 2 or more helpers is required for the patient to complete the activity. If activity was not attempted, code reason: 7-Patient Refused. 9-Not Applicable-not attempted and the patient did not perform the activity before the current illness, exacerbation or injury. 10-Not Attempted due to Environmental Limitations-(lack of equipment, weather restraints, etc.). 88-Not Attempted due to Medical Conditions or Safety Concerns. Roll Left to Right (QC): 3 Sit to Lying (QC): 5 Sit to Stand (QC): 5 Chair/Cid-ke-Elakp Xfer(QC): 5 Car Transfer (QC): 3 Gait Training Does the Patient Walk?: Yes Distance: 150 x 2 Walk 10 feet (QC): 5 Walk 50 ft with 2 Turns(QC): 5 Walk 150 ft (QC): 5 Walking 10ft/uneven surface-QC: 4 Gait Persons Needed: 1 Gait Assistive Device: FWW Wheelchair Training Does the Pt Use a Wheelchair?: Yes Wheel 50 ft with 2 turns (QC): 4 Wheel 150 ft (QC): 4 Type of Wheelchair: Manual Stair Training 1 Step (curb) (QC): 88 4 Steps (QC): 88 12 Steps (QC): 88 Balance Picking up an Object (QC): 88 ADL-Treatment Eating (QC): 6 Oral Hygiene (QC): 7 Bathing Location: L Arm, R Arm, L Upper Leg, R Upper Leg, L Lower Leg (including foot), R Lower Leg (including foot), Chest, Abdomen, Buttocks, Perineal Area Shower/Bathe Self (QC): 5 Upper Body Dressing (QC): 5 Lower Body Dressing (QC): 5 On/Off Footwear (QC): 3 Toileting Hygiene (QC): 6 Toilet Transfer (QC): 6 Assessment/Plan Assessment and Plan Assess & Plan/Chief Complaint Assessment: Debility S/P left atrial thrombectomy and MAZE procedure April 03 at [facility] S/P Watchman procedure December 2020 Paroxysmal atrial fibrillation HOCM CKD stage 3 HTN HLP GERD Hx of CVA 2014 w R sided residual weakness Obesity Hx of DVT Hx of PE Right olecranon bursitis Plan: Inpatient rehab protocol Dr. Baker consult Anticoagulation Monitor labs 04/11/2021: Appreciate Dr. Baker Monitor for falls Skin tear management 04/12/2021: Wrapped legs Melatonin Appreciate cardiology 04/13/2021: Continue wrapping legs Slept very well last night Close monitoring 04/14/2021: Wound care appreciated Manuel wraps to legs Monitor closely 04/15/2021: Supportive care Wrap legs Gain stamina 04/16/2021: Continue supportive care Aggressive therapy 04/17/2021: Appreciate Dr. Hernandez Celebrex 100 mg twice daily 04/18/2021: Right arm improved Supportive care 04/19/2021: Right elbow much improved Status post cardioversion not successful 04/20/2021: Discharge home tomorrow Celebrex for 7 days (1) Persistent atrial fibrillation Assessment & Plan: I suspect she may have permanent atrial fibrillation given that she has a Watchman device. Nonetheless, she was not having palpitations until just today and now she has tachycardia. I recommend resuming diltiazem CD which she had been taking prior to her most recent hospitalization at [facility]. Continue apixaban for stroke prophylaxis. We may need to titrate up the diltiazem to get her heart rates adequately controlled. I also ordered a set of electrolytes just to be sure there is no electrolyte abnormality that would cause this tachycardia. (2) Primary hypertension Assessment & Plan: We will need to watch her blood pressure with the addition of diltiazem. (3) Hypertrophic cardiomyopathy Assessment & Plan: She had a previous alcohol septal ablation. She has a faint systolic murmur. She does not seem to be in heart failure at this time. (4) Mixed hyperlipidemia Assessment & Plan: Continue statin medication. LEONIE ANGULO DO Apr 20, 2021 10:45
--- NOTE | 2021-04-20 11:00 | Physical Therapy Daily Note ---
PT Daily Note-Current Subjective Pt sitting in recliner upon arrival. Pt agrees to PT. Pt reports not feeling great today. Pain Location: No Pain Reported Mental Status Patient Orientation: Person, Place, Time, Situation Transfers SCALE: Activities may be completed with or without assistive devices. 9-Vfqbwwlyux-futwlst completes the activity by him/herself with no assistance from a helper. 5-Set-up or Clean-up Assistance-helper sets up or cleans up; patient completes activity. [place] assists only prior to or following the activity. 4-Supervision or Touching Assistance-helper provides verbal cues and/or touching/steadying and/or contact guard assistance as patient completes activity. Assistance may be provided throughout the activity or intermittently. 3-Partial/Moderate Assistance-helper does LESS THAN HALF the effort. [place] lifts, holds or supports trunk or limbs, but provides less than half the effort. 2-Substantial/Maximal Assistance-helper does MORE THAN HALF the effort. [place] lifts or holds trunk or limbs and provides more than half the effort. 6-Eftgjlota-kgumix does ALL the effort. Patient does none of the effort to complete the activity. Or, the assistance of 2 or more helpers is required for the patient to complete the activity. If activity was not attempted, code reason: 7-Patient Refused. 9-Not Applicable-not attempted and the patient did not perform the activity before the current illness, exacerbation or injury. 10-Not Attempted due to Environmental Limitations-(lack of equipment, weather restraints, etc.). 88-Not Attempted due to Medical Conditions or Safety Concerns. Roll Left & Right (QC): 6 Sit to Lying (QC): 6 Lying to Sitting/Side of Bed(Q: 6 Sit to Stand (QC): 6 Chair/Mzw-vy-Pilrh Xfer(QC): 6 Toilet Transfer (QC): 6 Car Transfer (QC): 6 Weight Bearing Right Lower Extremity: Right Full Weight Bearing Left Lower Extremity: Left Full Weight Bearing sternal precautions Gait Training Does the Patient Walk?: Yes Distance: 450' Walk 10 feet (QC): 5 Walk 50 ft with 2 Turns(QC): 5 Walk 150 ft (QC): 5 Walking 10ft/uneven surface-QC: 5 Gait Persons Needed: 1 Gait Assistive Device: FWW Wheelchair Training Does the Pt Use a Wheelchair?: No Exercises Supine Ex: Ankle pumps, Quad Set, Heel Slides, Hip abd/add Supine Reps: 15 Seated Therapy Exercises: Ankle pumps, Long arc quads, Hip flexion, Hamstring Curls, Hip abd/add, Glut set Seated Reps: 15 Treatments 900-1000: TF to standing and amb. in hallway. Pt completes Seated EX, short RB then TF to Therapy mat to complete Supine EX. Pt amb. in hallway, returning to room and uses BR. All needs met, call light in hand. [id number]: Pt completed QC scoring items listed above including ambulation. Pt returns to room to rest with all needs met, call light in hand. Assessment Current Status: Good Progress Pt is nervous but excited about going home. CRYOGENIC TRANSPORT DRIVER reassured pt of progress made on ARU and pt is capable of now. PT Short Term Goals Short Term Goals Time Frame: Apr 17, 2021 Roll Left & Right: 4 Sit to lyin Lying to sitting on side of be: 3 Sit to stand: 4 Chair/toq-qb-cveox transfer: 4 Walk 10 feet: 4 Walk 50 feet with two turns: 4 PT Half-Way Goals Half-Way Goals PT Pinsetter Mechanic Helper Goals Time Frame: May 01, 2021 Roll Left & Right (QC): 6 Sit to Lying (QC): 4 (SBA) Lying-Sitting on Side/Bed(QC): 4 (SBA) Sit to Stand (QC): 6 Chair/Wio-cs-Gqhyd Xfer(QC): 6 Toilet Transfer (QC): 6 Car Transfer (QC): 6 Does the Patient Walk: Yes Walk 10 feet (QC): 6 Walk 50ft with 2 Turns (QC): 6 Walk 150 ft (QC): 6 Walking 10ft on Uneven Surface: 6 1 Step (curb) (QC): 6 4 Steps (QC): 6 12 Steps (QC): 88 Picking up an Object (QC): 6 Wheel 50 feet with 2 turns (QC: 88 Wheel 150 feet: 88 PT Plan Problem List Problem List: Activity Tolerance Treatment/Plan Treatment Plan: Continue Plan of Care Treatment Plan: Bed Mobility, Education, Functional Activity Song, Functional Strength, Group Therapy, Gait, Safety, Therapeutic Exercise, Transfers Treatment Duration: May 01, 2021 Frequency: At least 5 of 7 days/Wk (IRF) Estimated Hrs Per Day: 1.5 hours per day Patient and/or Family Agrees t: Yes Safety Risks/Education Patient Education: Transfer Techniques, Steps, Correct Positioning, Safety Issues Teaching Recipient: Patient Teaching Methods: Discussion Response to Teaching: Verbalize Understanding Time/GCodes Time In: 900 Time Out: 1000 Total Billed Treatment Time: 60 Total Billed Treatment 900-1000: 1, GT (15m), FA (15m) & EX x2 (30m) [id number]: 1, FA (30m) CLAUDIO PEREZ CRYOGENIC TRANSPORT DRIVER Apr 20, 2021 11:00
--- NOTE | 2021-04-20 11:37 | Occupational Ther Daily Note ---
OT Current Status-Daily Note Subjective Pt alert, sitting in recliner. Pt agrees to therapy. No c/o pain. During session, nrsg reported that pt is discharging 04-21-2021. QC's assessed. Mental Status/Objective Patient Orientation: Person, Place, Time, Situation Attachments: Other-See Comments (chest binder) ADL-Treatment Pt. gathered clothes independently using FWW. Pt. performed toileting hygi rafaela/clothing manipulation independently using grabbars and FWW. Toilet transfer independent used FWW and grabbars. Pt. performed cleansing independently sitting on shower bench. Pt. don/doff all upper clothing articles, including chest binder independently. Pt. don/doff LE clothing independently. Pt. performed oral care independently sitting at sink. Pt. transferred from recliner and walked to gym. Therapy Code Descriptions/Definitions Functional [place] Measure: 0=Not Assessed/NA 4=Minimal Assistance 1=Total Assistance 5=Supervision or Setup 2=Maximal Assistance 6=Modified [place] 3=Moderate Assistance 7=Complete IndependenceSCALE: Activities may be completed with or without assistive devices. 7-Xowvzzygdv-rmkgzer completes the activity by him/herself with no assistance from a helper. 5-Set-up or Clean-up Assistance-helper sets up or cleans up; patient completes activity. [place] assists only prior to or following the activity. 4-Supervision or Touching Assistance-helper provides verbal cues and/or touching/steadying and/or contact guard assistance as patient completes activity. Assistance may be provided throughout the activity or intermittently. 3-Partial/Moderate Assistance-helper does LESS THAN HALF the effort. [place] lifts, holds or supports trunk or limbs, but provides less than half the effort. 2-Substantial/Maximal Assistance-helper does MORE THAN HALF the effort. [place] lifts or holds trunk or limbs and provides more than half the effort. 7-Vfurlbclv-rhrsoz does ALL the effort. Patient does none of the effort to complete the activity. Or, the assistance of 2 or more helpers is required for the patient to complete the activity. If activity was not attempted, code reason: 7-Patient Refused. 9-Not Applicable-not attempted and the patient did not perform the activity before the current illness, exacerbation or injury. 10-Not Attempted due to Environmental Limitations-(lack of equipment, weather restraints, etc.). 88-Not Attempted due to Medical Conditions or Safety Concerns. Oral Hygiene (QC): 6 Bathing Location: L Arm, R Arm, L Upper Leg, R Upper Leg, L Lower Leg (including foot), R Lower Leg (including foot), Chest, Abdomen, Buttocks, Perineal Area Shower/Bathe Self (QC): 6 Upper Body Dressing (QC): 6 Lower Body Dressing (QC): 6 On/Off Footwear: 6 (Pt is able to don/doff sock and shoes by self. Pt has compression stockings at home.) Toileting Hygiene (QC): 6 Toilet Transfer (QC): 6 Other Treatment Pt. participated in B UE exercises to increase strength and activity tolerance for daily functional tasks. Arm bike for 15 min at minimal resistance with 3 recovery break. Resistive clothes pins completed with each hand 1x. After therapy, pt sitting in recliner with call light/phone in reach. All needs met in room. OT Short Term Goals Short Term Goals Time Frame: Apr 21, 2021 Shower/bathe self: 4 Lower body dressin Putting on/taking off footwear: 4 OT Surgical Nurse Goals Residential Goals Time Frame: May 05, 2021 Eating (QC): 6 (met) Oral Hygiene (QC): 6 (met) Toileting Hygiene (QC): 6 (met) Shower/Bathe Self (QC): 6 (met) Upper Body Dressing (QC): 6 (met) Lower Body Dressing (QC): 6 (met) On/Off Footwear (QC): 6 (met) Additional Goals: 1-Demonstrate ADL Tasks, 2-Verbalize Understanding, 3- ImproveStrength/Song 1=Demonstrate adherence to instructed precautions during ADL tasks. 2=Patient will verbalize/demonstrate understanding of assistive devices/modifications for ADL. 3=Patient will improve strength/tolerance for activity to enable patient to perform ADL's. OT Education/Plan Problem List/Assessment Assessment: Decreased UE Strength, Edema, Impaired Self-Care Skills Discharge Recommendations Plan/Recommendations: Continue POC Therapy Discharge Recommendati: Post Acute OT Treatment Plan/Plan of Care Patient would benefit from OT for education, treatment and training to promote independence in ADL's, mobility, safety and/or upper extremity function for ADL's. Plan of Care: ADL Retraining, Functional Mobility, Group Exercise/Act as Ind, UE Funct Exercise/Act Treatment Duration: May 05, 2021 Frequency: At least 5 of 7 days/Wk (IRF) Estimated Hrs Per Day: 1.5 hours per day Rehab Potential: Fair Time/GCodes Start Time: 10:30 Stop Time: 12:00 Total Time Billed (hr/min): 90 Billed Treatment Time 1 visit- ADL 5 (70 min), EX 1 (20 min). SAMIR GERARDO Apr 20, 2021 11:37
[2021-04-20] MEDS ORDERED: DILT-27 PO (11:43)
[2021-04-20] MEDS ORDERED: MICO90PO TOP (11:43)
[2021-04-20] MEDS ORDERED: ACHD5005 PO (11:43)
[2021-04-20] MEDS ORDERED: TRM50T PO (11:43)
[2021-04-20] MEDS ORDERED: MAGN400T8 PO (11:43)
[2021-04-20] MEDS ORDERED: POTA20TA8 PO (11:43)
[2021-04-20] MEDS ORDERED: ATOR40TA PO (11:43)
[2021-04-20] MEDS ORDERED: APIX5TAB PO (11:43)
[2021-04-20] MEDS ORDERED: BUME1TAB8 PO (11:43)
[2021-04-20] MEDS ORDERED: OMG1KC PO (11:43)
[2021-04-20] MEDS ORDERED: CELE100C PO (11:43)
[2021-04-20] MEDS ORDERED: AMIO200T6 PO (11:43)
--- NOTE | 2021-04-20 11:44 | D/C HH Face to Face Order ---
D/C Face to Face Orders Reconcile Patient Problems Problems Reviewed?: Yes Instructions for Patient Via [facility] [employer], Patient Instructions/FollowUp: PCP [address] Baker 1 week Physician to follow Patient: PCP Discharge Diet for Home: Cardiac Diet Patient Problems: A fib Edema Patient Data-Allergies,Ht & Wt Patient Allergies: Coded Allergies: metoprolol (Verified Allergy, Unknown, 04/16/21) CAUSES HER TO BE VERY LETHARGIC Height (Feet): 5 Height (Inches): 4.00 Weight (Pounds): 195 Weight (Ounces): 1.6 Home Health Need/Face to Face Date of Face to Face: Apr 20, 2021 Clinical Findings: Generalized weakness and fatigue, Instability, Muscle w eakness, Shortness of breath, Unsteady gait I have seen Pt [id number]: Yes Discharged To: Home Diagnosis/Conditions: af Patient is Homebound due to: Brooklynn fall risk due to instabilty, Muscle weakness Homebound Status Due to the above stated illness, injury or surgical procedure (medical condition or diagnosis) and associated clinical findings, the patient is homebound because of his/her inability to leave home except with aid of a supportive device and/or person AND leaving the home requires a considerable and taxing effort or is medically contraindicated. Pt req the following assistanc: Walker Home Health Nursing Orders Home Health Services Order: Nursing Services, Personnel Arbitrator-Evaluate & Treat, Physical Therapy-Evaluate & Treat Certify Stmt I certify that this patient is under my care and that I, a nurse practitioner or a physician; a video production assistant working with me, had a face to face encounter that - meets the physician face to face encounter requirements with this patient as dated. LEONIE ANGULO DO Apr 20, 2021 11:44
[2021-04-20] MEDS ORDERED: AMIO400T5 PO (11:49)
--- NOTE | 2021-04-20 12:19 | Progress Note ---
GÓMEZ PEÑA MED STUDENT 04/20/21 1218: Progress Note Hospital Course: Marilou Cruz is a 70 year old white female who presented to the acute rehab unit by private conveyance after a 2 week hospital stay at after which having had a left atrial thrombectomy and MAZE procedure on 04-03-21. PMH is significant for PAF, HTN, HLP, HOCM, chronic diastolic dysfunction, GERD, CKD stage 3, DVT, PE, watchman procedure, and a CVA in 2014 with minimal right sided residual weakness. She presented to receive aggressive inpatient therapy with hopes of being able to return home to reside with her roommate. Apparently on March 16 she was found lying on the floor by her roommate and was subsequently [place] [facility] [place] troponin and leukocyte counts were elevated along with dyspnea. She was subsequently transferred to for further care. She states she has been suffering from generalized deconditioning and weakness after a prolonged inpatient hospital stay at . She was admitted to [facility] inpatient rehab on April 10, 2021 to work with PT/OT in the hopes of being able to return back to home with her roommate. Today is inpatient rehab unit day 10. She reports that she's tolerating po intake well. Denies nausea, vomiting, diarrhea, headache, SOB, chest pain, and fevers. Reports decreasing drainage from her midline sternotomy incison site as well as chest tuber insertion sites. Nursing is performing daily wound care. She developed severe right elbow pain most likely as a result of working with therapy and using the walker. Orthopedics saw her on the 04-17 and diagnosed her with medial and lateral epicondylitis as well as cubital tunnel syndrome. Celebrex was started and that drastically decreased her pain in the elbow and returned to her prior level of function within one day. She is working well with PT/OT and ambulating with the assist of the walker. Her vitals have remained mostly stable and she's remained on RA for the duration of her stay thus far. Cardiology has been seeing her as well the entire stay. They had adjusted her medications several days ago as she began reporting increasing frequency of palpitations. They subsequently increased her cardizem and had placed her on amioadarone. On april 19 she went for a synchronized cardioversion, but failed to convert out of atrial fibrillation after one attempt. She reported some nausea and vomiting post cardioversion likely attributed to the anesthesia. She became bradycardic into the upper 40's early today on 04-20 and they decreased her dose of cardizem She is anticoagulated with eliquis given her history. She has been ambulating well and working with PT/OT everyday. She reports wanting to be discharged to home and feels that her functional level currently has been higher than it's been in the last 6-8 weeks. She thinks that she can manage for herself at home without difficulty. Plan is to reassess her readiness for discharge to home tomorrow with input from nursing, PT/OT, and other field support technician. DAXA ANGULO DO 04/20/212117: Supervisory-Addendum Brief Verification & Attestation Participated in pt care: history, MDM, physical Personally performed: exam, history, MDM, supervision of care Care discussed with: Medical Student Procedures: n/a Results interpretation: Verified all documentation Verification and Attestation of Medical Student E/M Service A medical student performed and documented this service in my presence. I reviewed and verified all information documented by the medical student and made modifications to such information, when appropriate. I personally performed the physical exam and medical decision making. Daxa Angulo, Apr 20, 2021,21:18 GÓMEZ PEÑA MED STUDENT Apr 20, 2021 12:18 DAXA ANGULO DO Apr 20, 2021 21:18
[2021-04-20] MEDS: HYDROcodone/APAP 5 MG/325 MG (LORTAB) TAB PO PRN (18:59)
[2021-04-20 19:31] VITALS: BP 116/61
[2021-04-20] MEDS: MELATONIN 3 MG TABLET PO SCH (20:28)
--- NOTE | 2021-04-21 05:44 | Discharge Summary ---
Diagnosis/Chief Complaint Date of Admission Apr 10, 2021 at 14:10 Date of Discharge Discharge Date: Apr 21, 2021 Discharge Diagnosis Assessment: Debility S/P left atrial thrombectomy and MAZE procedure April 03 at S/P Watchman procedure December 2020 Paroxysmal atrial fibrillation HOCM CKD stage 3 HTN HLP GERD Hx of CVA 2014 w R sided residual weakness Obesity Hx of DVT Hx of PE Right olecranon bursitis Plan: Inpatient rehab protocol Dr. Baker consult Anticoagulation Monitor labs 04/11/2021: Appreciate Dr. Baker Monitor for falls Skin tear management 04/12/2021: Wrapped legs Melatonin Appreciate cardiology 04/13/2021: Continue wrapping legs Slept very well last night Close monitoring 04/14/2021: Wound care appreciated Manuel wraps to legs Monitor closely 04/15/2021: Supportive care Wrap legs Gain stamina 04/16/2021: Continue supportive care Aggressive therapy 04/17/2021: Appreciate Dr. Hernandez Celebrex 100 mg twice daily 04/18/2021: Right arm improved Supportive care 04/19/2021: Right elbow much improved Status post cardioversion not successful 04/20/2021: Discharge home tomorrow Celebrex for 7 days Discharge Summary Discharge Physical Examination Allergies: Coded Allergies: metoprolol (Verified Allergy, Unknown, 04/16/21) CAUSES HER TO BE VERY LETHARGIC Vitals & I&Os Vital Signs Date Time Temp Pulse Resp B/P (MAP) Pulse Ox O2 Delivery O2 Flow Rate FiO2 04/21/21 17:33 36.6 50 24 136/68 92 Room Air General Appearance: Alert, Oriented X3, Cooperative HEENT: Atraumatic Respiratory: Clear to Auscultation Neuro: Normal Gait Psych/Mental Status: Mental Status NL Hospital Course Was the Problem List Reviewed?: Yes GÓMEZ PEÑA MS IV Hospital Course: Marilou Cruz is a 70 year old white female who presented to the acute rehab unit by private conveyance after a 2 week hospital stay at after which having had a left atrial thrombectomy and MAZE procedure on 04-03-21. PMH is significant for PAF, HTN, HLP, HOCM, chronic diastolic dysfunction, GERD, CKD stage 3, DVT, PE, watchman procedure, and a CVA in 2014 with minimal right sided residual weakness. She presented to receive aggressive inpatient therapy with hopes of being able to return home to reside with her roommate. Apparently on March 16 she was found lying on the floor by her roommate and was subsequently [place] [facility] [place] troponin and leukocyte counts were elevated along with dyspnea. She was subsequently transferred to for further care. She states she has been suffering from generalized deconditioning and weakness after a prolonged inpatient hospital stay at . She was admitted to [facility] inpatient rehab on April 10, 2021 to work with PT/OT in the hopes of being able to return back to home with her roommate. Today is inpatient rehab unit day 10. She reports that she's tolerating po intake well. Denies nausea, vomiting, diarrhea, headache, SOB, chest pain, and fevers. Reports decreasing drainage from her midline sternotomy incison site as well as chest tuber insertion sites. Nursing is performing daily wound care. She developed severe right elbow pain most likely as a result of working with therapy and using the walker. Orthopedics saw her on the 04-17 and diagnosed her with medial and lateral epicondylitis as well as cubital tunnel syndrome. Celebrex was started and that drastically decreased her pain in the elbow and returned to her prior level of function within one day. She is working well with PT/OT and ambulating with the assist of the walker. Her vitals have remained mostly stable and she's remained on RA for the duration of her stay thus far. Cardiology has been seeing her as well the entire stay. They had adjusted her medications several days ago as she began reporting increasing frequency of palpitations. They subsequently increased her cardizem and had placed her on amioadarone. On april 19 she went for a sync hronized cardioversion, but failed to convert out of atrial fibrillation after one attempt. She reported some nausea and vomiting post cardioversion likely attributed to the anesthesia. She became bradycardic into the upper 40's early today on 04-20 and they decreased her dose of cardizem She is anticoagulated with eliquis given her history. She has been ambulating well and working with PT/OT everyday. She reports wanting to be discharged to home and feels that her functional level currently has been higher than it's been in the last 6-8 weeks. She thinks that she can manage for herself at home without difficulty. Plan is to reassess her readiness for discharge to home tomorrow with input from nursing, PT/OT, and other production support specialist. Labs (last 24 hrs) Laboratory Tests 04/11/21 05:20: White Blood Count 9.5, Red Blood Count 3.65L, Hemoglobin 10.2L, Hematocrit 32L, Mean Corpuscular Volume 88, Mean Corpuscular Hemoglobin 28, Mean Corpuscular Hemoglobin Concent 32, Red Cell Distribution Width 15.2H, Platelet Count 374, Mean Platelet Volume 9.3, Immature Granulocyte % (Auto) 4, Neutrophils (%) (Auto) 72, Lymphocytes (%) (Auto) 13, Monocytes (%) (Auto) 9, Eosinophils (%) (Auto) 2, Basophils (%) (Auto) 0, Neutrophils # (Auto) 6.9, Lymphocytes # (Auto) 1.2, Monocytes # (Auto) 0.8, Eosinophils # (Auto) 0.2, Basophils # (Auto) 0.0, Immature Granulocyte # (Auto) 0.4H, Sodium Level 136, Potassium Level 4.1, Chloride Level 97L, Carbon Dioxide Level 29, Anion Gap 10, Blood Urea Nitrogen 14, Creatinine 0.99, Estimat Glomerular Filtration Rate 56, BUN/Creatinine Ratio 14, Glucose Level 93, Calcium Level 10.1, Corrected Calcium 11.3H, Total Bilirubin 0.8, Aspartate Amino Transf (AST/SGOT) 19, Alanine Aminotransferase (ALT/SGPT) 8, Alkaline Phosphatase 70, Total Protein 5.5L, Albumin 2.5L 04/16/21 16:01: Sodium Level 136, Potassium Level 3.7, Chloride Level 99, Carbon Dioxide Level 26, Anion Gap 11, Blood Urea Nitrogen 13, Creatinine 1.30, Estimat Glomerular Filtration Rate 41, BUN/Creatinine Ratio 10, Glucose Level 123H, Calcium Level 9.4, Magnesium Level 1.4L 04/17/21 05:40: White Blood Count 9.1, Red Blood Count 3.51L, Hemoglobin 9.8L, Hematocrit 31L, Mean Corpuscular Volume 88, Mean Corpuscular Hemoglobin 28, Mean Corpuscular Hemoglobin Concent 32, Red Cell Distribution Width 15.7H, Platelet Count 362, Mean Platelet Volume 9.3, Immature Granulocyte % (Auto) 1, Neutrophils (%) (Auto) 68, Lymphocytes (%) (Auto) 17, Monocytes (%) (Auto) 9, Eosinophils (%) (Auto) 4, Basophils (%) (Auto) 1, Neutrophils # (Auto) 6.2, Lymphocytes # (Auto) 1.6, Monocytes # (Auto) 0.8, Eosinophils # (Auto) 0.3, Basophils # (Auto) 0.1, Immature Granulocyte # (Auto) 0.1, Sodium Level 139, Potassium Level 3.3L, Chloride Level 103, Carbon Dioxide Level 25, Anion Gap 11, Blood Urea Nitrogen 11, Creatinine 0.96, Estimat Glomerular Filtration Rate 58, BUN/Creatinine Ratio 11, Glucose Level 84, Calcium Level 9.5, Corrected Calcium 10.6H, Total Bilirubin 0.6, Aspartate Amino Transf (AST/SGOT) 19, Alanine Aminotransferase (ALT/SGPT) 11, Alkaline Phosphatase 91, Total Protein 5.3L, Albumin 2.6L 04/21/21 05:33: White Blood Count 9.5, Red Blood Count 3.43L, Hemoglobin 9.6L, Hematocrit 31L, Mean Corpuscular Volume 90, Mean Corpuscular Hemoglobin 28, Mean Corpuscular Hemoglobin Concent 31L, Red Cell Distribution Width 16.2H, Platelet Count 336, Mean Platelet Volume 9.6, Sodium Level 132L, Potassium Level 5.1H, Chloride Level 102, Carbon Dioxide Level 19L, Anion Gap 11, Blood Urea Nitrogen 21H, Creatinine 1.85H, Estimat Glomerular Filtration Rate 27, BUN/Creatinine Ratio 11, Glucose Level 85, Calcium Level 10.0, Magnesium Level 2.0 Microbiology 04/17/21 Gram Stain - Final, Resulted 04/17/21 Wound Culture - Preliminary, Resulted Pseudomonas aeruginosa Mixed Bacterial Charlene Pending Labs Microbiology Date/Time Source Procedure Growth Status 04/17/21 13:04 Incision Chest Gram Stain - Final Resulted 04/17/21 13:04 Wound Culture - Preliminary Pseudomonas aeruginosa Mixed Bacterial Charlene Resulted Laboratory Tests 04/11/21 05:20: White Blood Count 9.5, Red Blood Count 3.65, Hemoglobin 10.2, Hematocrit 32, Mean Corpuscular Volume 88, Mean Corpuscular Hemoglobin 28, Mean Corpuscular Hemoglobin Concent 32, Red Cell Distribution Width 15.2, Platelet Count 374, Mean Platelet Volume 9.3, Immature Granulocyte % (Auto) 4, Neutrophils (%) (Auto) 72, Lymphocytes (%) (Auto) 13, Monocytes (%) (Auto) 9, Eosinophils (%) (Auto) 2, Basophils (%) (Auto) 0, Neutrophils # (Auto) 6.9, Lymphocytes # (Auto) 1.2, Monocytes # (Auto) 0.8, Eosinophils # (Auto) 0.2, Basophils # (Auto) 0.0, Immature Granulocyte # (Auto) 0.4, Sodium Level 136, Potassium Level 4.1, Chloride Level 97, Carbon Dioxide Level 29, Anion Gap 10, Blood Urea Nitrogen 14, Creatinine 0.99, Estimat Glomerular Filtration Rate 56, BUN/Creatinine Ratio 14, Glucose Level 93, Calcium Level 10.1, Corrected Calcium 11.3, Total Bilirubin 0.8, Aspartate Amino Transf (AST/SGOT) 19, Alanine Aminotransferase (ALT/SGPT) 8, Alkaline Phosphatase 70, Total Protein 5.5, Albumin 2.5 04/16/21 16:01: Sodium Level 136, Potassium Level 3.7, Chloride Level 99, Carbon Dioxide Level 26, Anion Gap 11, Blood Urea Nitrogen 13, Creatinine 1.30, Estimat Glomerular Filtration Rate 41, BUN/Creatinine Ratio 10, Glucose Level 123, Calcium Level 9.4, Magnesium Level 1.4 04/17/21 05:40: White Blood Count 9.1, Red Blood Count 3.51, Hemoglobin 9.8, Hematocrit 31, Mean Corpuscular Volume 88, Mean Corpuscular Hemoglobin 28, Mean Corpuscular Hemoglobin Concent 32, Red Cell Distribution Width 15.7, Platelet Count 362, Mean Platelet Volume 9.3, Immature Granulocyte % (Auto) 1, Neutrophils (%) (Auto) 68, Lymphocytes (%) (Auto) 17, Monocytes (%) (Auto) 9, Eosinophils (%) (Auto) 4, Basophils (%) (Auto) 1, Neutrophils # (Auto) 6.2, Lymphocytes # (Auto) 1.6, Monocytes # (Auto) 0.8, Eosinophils # (Auto) 0.3, Basophils # (Auto) 0.1, Immature Granulocyte # (Auto) 0.1, Sodium Level 139, Potassium Level 3.3, Chloride Level 103, Carbon Dioxide Level 25, Anion Gap 11, Blood Urea Nitrogen 11, Creatinine 0.96, Estimat Glomerular Filtration Rate 58, BUN/Creatinine Ratio 11, Glucose Level 84, Calcium Level 9.5, Corrected Calcium 10.6, Total Bilirubin 0.6, Aspartate Amino Transf (AST/SGOT) 19, Alanine Aminotransferase (ALT/SGPT) 11, Alkaline Phosphatase 91, Total Protein 5.3, Albumin 2.6 04/21/21 05:33: White Blood Count 9.5, Red Blood Count 3.43, Hemoglobin 9.6, Hematocrit 31, Mean Corpuscular Volume 90, Mean Corpuscular Hemoglobin 28, Mean Corpuscular Hemoglobin Concent 31, Red Cell Distribution Width 16.2, Platelet Count 336, Mean Platelet Volume 9.6, Sodium Level 132, Potassium Level 5.1, Chloride Level 102, Carbon Dioxide Level 19, Anion Gap 11, Blood Urea Nitrogen 21, Creatinine 1.85, Estimat Glomerular Filtration Rate 27, BUN/Creatinine Ratio 11, Glucose Level 85, Calcium Level 10.0, Magnesium Level 2.0 Discharge Home Medications: Active Scripts Active Amiodarone HCl 400 Mg Tablet 400 Mg PO DAILY Lotrimin AF (Miconazole Nitrate) 90 Gm Powder 0 Gm TOP BID Magnesium Oxide 400 Mg Tablet 400 Mg PO BIDPC Bumetanide 1 Mg Tablet 1 Mg PO LASIXBID Klor-Con M20 (Potassium Chloride) 20 Meq Tab.er.prt 20 Meq PO DAILY Tramadol HCl 50 Mg Tablet 0 Mg PO Q6H PRN HYDROcodone/APAP 5 MG/325 MG TAB (Acetaminophen/Hydrocodone Bitart) 1 Tab Tab 1 Ea PO Q4H PRN Celebrex (Celecoxib) 100 Mg Capsule 200 Mg PO DAILY@0900 Diltiazem 24Hr ER (Diltiazem HCl) 120 Mg Cap.er.24h 120 Mg PO DAILY Fish Oil 1,000 mg Capsule (Strawn 3 Polyunsat Fatty Acids) 1,000 Mg Cap 1,000 Mg PO DAILY@0800 Eliquis (Apixaban) 5 Mg Tablet 5 Mg PO BID Lipitor (Atorvastatin Calcium) 40 Mg Tablet 40 Mg PO DAILY Reported Ambien (Zolpidem Tartrate) 10 Mg Tablet 10 Mg PO DAILY Spironolactone 25 Mg Tablet 25 Mg PO DAILY [Magnesi L Threonate] 1 Cap PO DAILY Omeprazole 40 Mg Capsule.dr 40 Mg PO DAILY PRN Vitamin D3 (Cholecalciferol (Vitamin D3)) 125 Mcg Tablet 125 Mcg PO DAILY Aspirin EC (Aspirin) 81 Mg Tablet.dr 81 Mg PO DAILY Tylenol (Acetaminophen) 325 Mg Tablet 650 Mg PO Q6H PRN Ventolin Hfa (Albuterol Sulfate) 1 Puff Puff 2 Puff IH Q6H PRN Loratadine 10 Mg Tablet 10 Mg PO DAILY Culturelle (Lactobacillus Rhamnosus GG) 1 Each Capsule 1 Cap PO DAILY Co Q-10 (Ubidecarenone) 100 Mg Capsule 100 Mg PO DAILY Instructions to patient/family Please see electronic discharge instructions given to patient. Diagnosis/Problems Diagnosis/Problems (1) CVA (cerebral vascular accident) (2) Atrial fibrillation LEONIE ANGULO DO Apr 21, 2021 05:44
[2021-04-21 05:58] LABS: HEMATOCRIT 31 % (35-52); HEMOGLOBIN 9.6 g/dL (11.5-16.0); MEAN CORPUSCULAR HEMOGLOBIN 28 pg (25-34); MEAN CORPUSCULAR HGB CONC 31 g/dL (32-36); MEAN CORPUSCULAR VOLUME 90 fL (80-99); MEAN PLATELET VOLUME 9.6 fL (9.0-12.2); PLATELET COUNT 336 10^3/uL (130-400); WHITE BLOOD COUNT 9.5 10^3/uL (4.3-11.0)
[2021-04-21] MEDS: BUMETANIDE 1 MG (BUMEX) TAB PO SCH (06:13)
[2021-04-21 06:14] LABS: POTASSIUM 5.1 MMOL/L (3.6-5.0)
[2021-04-21 06:20] LABS: CREATININE SERUM 1.85 MG/DL (0.60-1.30)
[2021-04-21 07:38] VITALS: BP 136/68
[2021-04-21] MEDS: OMEGA 3 (FISH OIL) 1000 MG CAP PO SCH (08:14)
[2021-04-21] MEDS: LACTOBACILLUS ACIDOPHILUS (PROBIOTIC) CAPSULE PO SCH (08:14)
[2021-04-21] MEDS: APIXABAN 5 MG (ELIQUIS) TABLET PO SCH (08:14)
[2021-04-21] MEDS: CELECOXIB 100 MG (CeleBREX) CAP PO SCH (08:14)
[2021-04-21] MEDS: KCL 20 MEQ TAB (K-DUR) PO SCH (08:15)
[2021-04-21] MEDS: SPIRONOLACTONE 25 MG (ALDACTONE) TAB PO SCH (08:15)
[2021-04-21] MEDS: VITAMIN D3 125 MCG (5,000 UNITS) CAPSULE PO SCH (08:15)
[2021-04-21] MEDS: ASPIRIN E.C. 81 MG (ECOTRIN) TAB PO SCH (08:15)
[2021-04-21] MEDS: LORATADINE (CLARITIN) 10 MG TAB PO SCH (08:15)
[2021-04-21] MEDS: MAGNESIUM OXIDE (MAG-OX)400 MG TAB PO SCH (08:15)
[2021-04-21] MEDS: AMIODARONE 200 MG (CORDARONE) TAB PO SCH (08:16)
[2021-04-21] MEDS: dilTIAZem120 MG (CARDIZEM CD) CAP PO SCH (08:16)
[2021-04-21] MEDS: SENNA W/DOCUSATE (SENOKOT S) TABLET PO SCH (08:16)
[2021-04-21] MEDS: polyethylene glycoL POWDER 17 GM (MIRALAX) PACK PO SCH (08:16)
[2021-04-21] MEDS: DOCUSATE SODIUM 100 MG (COLACE) CAP PO SCH (08:16)
[2021-04-21] MEDS: MICONAZOLE 2% POWDER (DESENEX AF) 90 GM TOP SCH (08:17)
--- NOTE | 2021-04-21 08:58 | Progress Note - Ortho ---
Progress Note Subjective Date of Exam 04/21/21 Chief Complaint Pain/tendinitis right elbow HPI/Events since last exam Mrs. Cruz is doing much better. She states she still Has a little discomfort but it significantly improved. She is using the arm normally.No problems ambulating with a walker Review of Systems No changes Allergies: Coded Allergies: metoprolol (Verified Allergy, Unknown, 04/16/21) CAUSES HER TO BE VERY LETHARGIC Home Meds Active Scripts Amiodarone HCl (Amiodarone HCl) 400 Mg Tablet, 400 MG PO DAILY, #30 TAB Prov:LEONIE ANGULO 04/20/21 Miconazole Nitrate (Lotrimin AF) 90 Gm Powder, 0 GM TOP BID, #1 EA Prov:KEVLEONIE DO 04/20/21 Magnesium Oxide (Magnesium Oxide) 400 Mg Tablet, 400 MG PO BIDPC, #60 TAB Prov:ANGULOKELLYTheodore OTERO 04/20/21 Bumetanide (Bumetanide) 1 Mg Tablet, 1 MG PO LASIXBID, #60 TAB Prov:KEVLEONIE DO 04/20/21 Potassium Chloride (Klor-Con M20) 20 Meq Tab.er.prt, 20 MEQ PO DAILY, #30 EA Prov:ANGULOKELLYTheodore OTERO 04/20/21 Tramadol HCl (Tramadol HCl) 50 Mg Tablet, 0 MG PO Q6H PRN for PAIN-MODERATE (5- 7), #15 TAB Prov:KEVLEONIE DO 04/20/21 Hydrocodone Bit/Acetaminophen (HYDROcodone/APAP 5 MG/325 MG TAB) 1 Tab Tab, 1 EA PO Q4H PRN for PAIN-MODERATE (5-7), #15 TAB Prov:ANGULOLEONIE 04/20/21 Celecoxib (Celebrex) 100 Mg Capsule, 200 MG PO DAILY@0900, #7 CAP Prov:KEVLEONIE DO 04/20/21 Diltiazem HCl (Diltiazem 24Hr ER) 120 Mg Cap.er.24h, 120 MG PO DAILY, #30 CAP Prov:ANGULOKELLYTheodore OTERO 04/20/21 [place] 3 Polyunsat Fatty Acids (Fish Oil 1,000 mg Capsule) 1,000 Mg Cap, 1000 MG PO DAILY@0800, #90 CAP Prov:LEONIE ANGULO DO 04/20/21 Apixaban (Eliquis) 5 Mg Tablet, 5 MG PO BID, #180 TAB Prov:LEONIE ANGULO DO 04/20/21 Atorvastatin Calcium (Lipitor) 40 Mg Tablet, 40 MG PO DAILY, #90 TAB Prov:LEONIE ANGULO DO 04/20/21 Reported Medications Zolpidem Tartrate (Ambien) 10 Mg Tablet, 10 MG PO DAILY, TAB 04/12/21 Diltiazem HCl (Diltiazem ER) 360 Mg Capsule.er, 360 MG PO DAILY, CAP 04/12/21 Spironolactone (Spironolactone) 25 Mg Tablet, 25 MG PO DAILY, TAB 04/10/21 [Magnesi L Threonate] No Conflict Check, 1 CAP PO DAILY 04/10/21 Omeprazole (Omeprazole) 40 Mg Capsule.dr, 40 MG PO DAILY PRN for HEARTBURN, CAP 04/10/21 Cholecalciferol (Vitamin D3) (Vitamin D3) 125 Mcg Tablet, 125 MCG PO DAILY, TAB 04/10/21 Aspirin (Aspirin EC) 81 Mg Tablet.dr, 81 MG PO DAILY, TAB 04/10/21 Bumetanide (Bumetanide) 1 Mg Tablet, 1 MG PO DAILY, TAB 04/10/21 Acetaminophen (Tylenol) 325 Mg Tablet, 650 MG PO Q6H PRN for PAIN-MILD (1-4), TAB 04/10/21 Albuterol Sulfate (VENTOLIN HFA) 1 Puff Puff, 2 PUFF IH Q6H PRN for SHORTNESS OF BREATH, PUFF 02/04/17 Loratadine (Loratadine) 10 Mg Tablet, 10 MG PO DAILY, TAB 02/04/17 Lactobacillus Rhamnosus GG (Culturelle) 1 Each Capsule, 1 CAP PO DAILY, CAP 02/04/17 Ubidecarenone (Co Q-10) 100 Mg Capsule, 100 MG PO DAILY, CAP 02/04/17 Objective Exam Constitutional: [] HEENT: [] Neck: [] Cardiovascular: [] Respiratory: [] Gastrointestinal: [] Genitourinary: [] Skin: [] Back/Spine: [] Extremities: [Full motion right elbow. Minimal pain over the cubital tunnel. Minimal pain over the medial and lateral epicondyles.] Neurologic: [] Psychiatric: [] Hematologic/lymphatic/immunologic: [] Vital Signs Vital Signs Date Time Temp Pulse Resp B/P (MAP) Pulse Ox O2 Delivery O2 Flow Rate FiO2 04/21/21 07:38 36.6 50 24 136/68 (90) 92 Room Air 04/20/21 20:44 Room Air 04/20/21 19:31 36.5 68 20 116/61 (79) 92 Room Air 04/20/21 09:11 Room Air I & O 04/21/21 07:00 Intake Total 1220 ml Output Total 1700 ml Balance -480 ml Lab Results Laboratory Tests 04/21/21 05:33: White Blood Count 9.5, Red Blood Count 3.43L, Hemoglobin 9.6L, Hematocrit 31L, Mean Corpuscular Volume 90, Mean Corpuscular Hemoglobin 28, Mean Corpuscular Hemoglobin Concent 31L, Red Cell Distribution Width 16.2H, Platelet Count 336, Mean Platelet Volume 9.6, Sodium Level 132L, Potassium Level 5.1H, Chloride Level 102, Carbon Dioxide Level 19L, Anion Gap 11, Blood Urea Nitrogen 21H, Creatinine 1.85H, Estimat Glomerular Filtration Rate 27, BUN/Creatinine Ratio 11, Glucose Level 85, Calcium Level 10.0, Magnesium Level 2.0 Microbiology 04/17/21 Gram Stain - Final, Resulted 04/17/21 Wound Culture - Preliminary, Resulted Pseudomonas aeruginosa Mixed Bacterial Charlene Assessment and Plan Assessment Much improved right elbow pain Problem List Unchanged Plan Continue with activities as tolerated.Celebrex per Dr. Angulo Final Diagonsis Tendinitis/cubital tunnel syndrome right elbow Level of the visit: Level 3 DANIA OVIEDO MD Apr 21, 2021 08:58
--- NOTE | 2021-04-21 13:09 | Therapy Team Discharge Summary ---
Therapy Discharge Summary Discharge Recommendations Date of Discharge Physical Therapy Patient came to rehab S/P REMOVAL OF LEFT ATRIAL THROMBUS AND MAZE PROCEDURE. Upon evaluation patient performed bed mobility with mod assist, supine <-> sit with max assist, sit <-> stand min assist, transfers CGA, car transfer mod assist, ambulated 30' with a rolling walker with CGA (including 10' over an uneven surface). Patient has been performing bed mobility and transfer training, balance and endurance training, functional strengthening, stair training, gait training, and education. Patient has made some progress and has met her [facility] goals for bed mobility and transfers. Now, patient performs bed mobility and transfers with independence, car transfer independent, ambulates 450' with a rolling walker with setup (including 50' with at least 2 turns of 90 degrees and 10' over an uneven surface). Patient is being discharged from this facility today and will be discharged from PT at this time. Occupational Therapy Decreased UE Strength, Edema, Impaired Self-Care Skills PT Usp Goals Interactive Media Project Manager Goals PT Usp Goals Time Frame: May 01, 2021 Roll Left to Right (QC): 6 Sit to Lying (QC): 4 (SBA) Lying-Sitting on Side/Bed(QC): 4 (SBA) Sit to Stand (QC): 6 Chair/Umu-nj-Zgwqb Xfer(QC): 6 Car Transfer (QC): 6 Does the Patient Walk: Yes Walk 10 feet (QC): 6 Walk 10ft-Uneven Surface(QC): 6 Walk 50ft with 2 Turns (QC): 6 Walk 150 ft (QC): 6 Wheel 50 feet with 2 turns (QC: 88 1 Step (curb) (QC): 6 4 Steps (QC): 6 12 Steps (QC): 88 Picking up an Object (QC): 6 OT Interactive Media Project Manager Goals Interactive Media Project Manager Goals Time Frame: May 05, 2021 Eating (FIM): 6 Eating (QC): 6 (met) Oral Hygiene (QC): 6 (met) Shower/Bathe Self (QC): 6 (met) Upper Body Dressing (QC): 6 (met) Lower Body Dressing (QC): 6 (met) On/Off Footwear (QC): 6 (met) Toileting(FIM): 6 Toileting Hygiene (QC): 6 (met) Toilet/Commode Transfer (QC): 6 Additional Goals: 1-Demonstrate ADL Tasks, 2-Verbalize Understanding, 3- ImproveStrength/Song 1=Demonstrate adherence to instructed precautions during ADL tasks. 2=Patient will verbalize/demonstrate understanding of assistive devices/modifications for ADL. 3=Patient will improve strength/tolerance for activity to enable patient to perform ADL's. Speech Usp Goals Usp Goals Patient will improve cognitive communication abilities so that she may require less assist. KENYETTA SLATER PT Apr 21, 2021 13:09
[2021-04-21] MEDS: HYDROcodone/APAP 5 MG/325 MG (LORTAB) TAB PO PRN (13:40)
--- NOTE | 2021-04-21 13:50 | Speech Therapy Daily Note ---
Speech Daily Progress Note Subjective Date Seen by Provider: Apr 21, 2021 Time Seen by Provider: 09:25 The pt was pleasant and cooperative with speech therapy. She indicates she is discharging today to home with a roommate. Objective Pt completed language activity with 90% accy. Memory task completed with 70% accy. Pt reports she has some difficulty remembering things. Memory strategies provided. Assessment Assessment Current Status: Good Progress Treatment Plan Continue Plan of Care Speech Short Term Goals Short Term Goals Short Term Goals 1) The patient will complete memory tasks with 80% or greater with minimal cues. 2) The patient will complete word finding tasks with 80% or greater with minimal cues. 3) The patient will complete safety awareness tasks with 80% or greater with minimal cues. Speech Jail Goals Jail Goals Patient will improve cognitive communication abilities so that she may require less assist. Speech-Plan Treatment Plan Speech Therapy Treatment Plan: Continue Plan of Care Treatment Duration: Apr 25, 2021 Frequency: 4 times per week (Patient will receive skilled ST 4-5x per week) Estimated Hrs Per Day: .5 hour per day Rehab Potential: Fair Time Speech Therapy Time In: 09:25 Speech Therapy Time Out: 09:40 Billed Treatment Time 15 min 1, SLTS Expression of Ideas/Wants: Exhibits (3) Understanding Verbal Content: Usually Understands (3) Brief Interview-Mental Status: Yes Repetition of Three Words: Three (3) Temporal Orientation: Year: Correct (3) Temporal Orientation: Month: Accurate within 5 days(2) Temporal Orientation: Day: Correct (2) Recall : Wear to say "Sock": Yes,after cueing (1) Recall : Color: Yes, no cue required (2) Recall : Bed: Yes,after cueing (1) ALEXIA LENNON Apr 21, 2021 13:50
--- NOTE | 2021-04-21 14:27 | Therapy Team Discharge Summary ---
Therapy Discharge Summary Discharge Recommendations Date of Discharge Occupational Therapy Pt admitted to ARU s/p removal of L atrial thrombus and maze procedure. At OF, pt was independent with ADLs and functional mobility without AD/AE. Upon initial evaluation, pt required set up assistance with eating, CGA oral care, min A showering, min A upper body dressing, max A lower body dressing, max A footwear and min A toileting. OT txs focused on increasing BUE strength and activity tolerance, and increasing independence with ADLs and functional mobility. At discharge, pt was independent with all ADLs, meeting all LTGs. Pt to discharge from facility, d/c from OT. Decreased UE Strength, Edema, Impaired Self-Care Skills PT Anthropology Instructor Goals Anthropology Instructor Goals PT Correction Goals Time Frame: May 01, 2021 Roll Left to Right (QC): 6 Sit to Lying (QC): 4 (SBA) Lying-Sitting on Side/Bed(QC): 4 (SBA) Sit to Stand (QC): 6 Chair/Dqe-xa-Drkqf Xfer(QC): 6 Car Transfer (QC): 6 Does the Patient Walk: Yes Walk 10 feet (QC): 6 Walk 10ft-Uneven Surface(QC): 6 Walk 50ft with 2 Turns (QC): 6 Walk 150 ft (QC): 6 Wheel 50 feet with 2 turns (QC: 88 1 Step (curb) (QC): 6 4 Steps (QC): 6 12 Steps (QC): 88 Picking up an Object (QC): 6 OT Anthropology Instructor Goals Correction Goals Time Frame: May 05, 2021 Eating (FIM): 6 Eating (QC): 6 (met) Oral Hygiene (QC): 6 (met) Shower/Bathe Self (QC): 6 (met) Upper Body Dressing (QC): 6 (met) Lower Body Dressing (QC): 6 (met) On/Off Footwear (QC): 6 (met) Toileting(FIM): 6 Toileting Hygiene (QC): 6 (met) Toilet/Commode Transfer (QC): 6 Additional Goals: 1-Demonstrate ADL Tasks, 2-Verbalize Understanding, 3- ImproveStrength/Song 1=Demonstrate adherence to instructed precautions during ADL tasks. 2=Patient will verbalize/demonstrate understanding of assistive devices/modifications for ADL. 3=Patient will improve strength/tolerance for activity to enable patient to perform ADL's. Speech Correction Goals Correction Goals Patient will improve cognitive communication abilities so that she may require less assist. JANY MUÑOZ OT Apr 21, 2021 14:27
[2021-04-21 17:33] VITALS: BP 136/68
--- NOTE | 2021-04-24 08:14 | Therapy Team Discharge Summary ---
Therapy Discharge Summary Discharge Recommendations Date of Discharge Apr 21, 2021 at 17:10 Occupational Therapy Decreased UE Strength, Edema, Impaired Self-Care Skills Speech-Language Pathology Patient was admitted to the ARU s/p heart surgery and debility. Patient initially exhibited mild cognitive deficits which resolved with skilled ST. Patient discharged to her home where she lives with her friend. She will receive home health services. 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 Operator Goals Safety Pin Assembling Machine Operator Goals PT Halfway Goals Time Frame: May 01, 2021 Roll Left to Right (QC): 6 Sit to Lying (QC): 4 (SBA) Lying-Sitting on Side/Bed(QC): 4 (SBA) Sit to Stand (QC): 6 Chair/Hbh-vv-Wxvsx Xfer(QC): 6 Car Transfer (QC): 6 Does the Patient Walk: Yes Walk 10 feet (QC): 6 Walk 10ft-Uneven Surface(QC): 6 Walk 50ft with 2 Turns (QC): 6 Walk 150 ft (QC): 6 Wheel 50 feet with 2 turns (QC: 88 1 Step (curb) (QC): 6 4 Steps (QC): 6 12 Steps (QC): 88 Picking up an Object (QC): 6 OT Safety Pin Assembling Machine Operator Goals Safety Pin Assembling Machine Operator Goals Time Frame: May 05, 2021 Eating (FIM): 6 Eating (QC): 6 (met) Oral Hygiene (QC): 6 (met) Shower/Bathe Self (QC): 6 (met) Upper Body Dressing (QC): 6 (met) Lower Body Dressing (QC): 6 (met) On/Off Footwear (QC): 6 (met) Toileting(FIM): 6 Toileting Hygiene (QC): 6 (met) Toilet/Commode Transfer (QC): 6 Additional Goals: 1-Demonstrate ADL Tasks, 2-Verbalize Understanding, 3- ImproveStrength/Song 1=Demonstrate adherence to instructed precautions during ADL tasks. 2=Patient will verbalize/demonstrate understanding of assistive devices/modifications for ADL. 3=Patient will improve strength/tolerance for activity to enable patient to perform ADL's. Speech Safety Pin Assembling Machine Operator Goals Halfway Goals Patient will improve cognitive communication abilities so that she may require less assist. PAULINE BOND Apr 24, 2021 08:14
== END 2021-04-21 17:10 | disposition home health service (06) | DRG 57 ==
PROVIDERS: ADMIT Internal Medicine; ATTEND Internal Medicine
DX: I69.351 Hemiplegia and hemiparesis following cerebral infarction affecting right dominant side (principal); I42.1 Obstructive hypertrophic cardiomyopathy; I69.398 Other sequelae of cerebral infarction; R53.83 Other fatigue; R53.1 Weakness; I48.0 Paroxysmal atrial fibrillation; N18.30 Chronic kidney disease, stage 3 unspecified; I13.10 Hypertensive heart and chronic kidney disease without heart failure, with stage 1 through stage 4 chronic kidney disease, or unspecified chronic kidney disease; K21.9 Gastro-esophageal reflux disease without esophagitis; E66.9 Obesity, unspecified; F32.9 Major depressive disorder, single episode, unspecified; E21.3 Hyperparathyroidism, unspecified; T81.31XD Disruption of external operation (surgical) wound, not elsewhere classified, subsequent encounter; E78.2 Mixed hyperlipidemia; M70.21 Olecranon bursitis, right elbow; R00.1 Bradycardia, unspecified; E87.6 Hypokalemia; T46.1X5A Adverse effect of calcium-channel blockers, initial encounter; I65.22 Occlusion and stenosis of left carotid artery; Z68.35 Body mass index [BMI] 35.0-35.9, adult; Z86.711 Personal history of pulmonary embolism; Z79.01 Long term (current) use of anticoagulants; Z86.718 Personal history of other venous thrombosis and embolism; Z87.891 Personal history of nicotine dependence; Z79.82 Long term (current) use of aspirin
CPT/HCPCS: 36415; 73080; 80048; 80053; 83735; 85025; 85027; 87070; 87077; 87184; 87205; 93005; 94760

== ENCOUNTER → 2021-04-19 | Day surgery (SDC) | payer MEDICARE, OTHER ==
[~2021-04-19] MED LIST changes: +ACET325T38 PO; +ACHD5005 PO; +AMIO200T6 PO; +AMIO400T5 PO; +APIX5TAB PO; +ASPI-1238 PO; +ATOR40TA PO; +ATOR40TA70 PO; +BUME1TAB8 PO; +CELE100C PO; +CHOL500044 PO; +DILT-27 PO; +KRIL1CAP18 PO; +MAGN400T8 PO; +MAGNESI PO; +MICO90PO TOP; +NS IV 1000 ML 1,000 ML ONE; +OMEP40CA6 PO; +OMG1KC PO; +POTA-53 PO; +POTA20TA8 PO; +SENN-109 PO; +SPIR25TA5 PO; +TRAM50TA3 PO; +TRM50T PO; +ZOLP10TA PO; +[UNRECOGNIZED DRUG - OTHER] PO; +proPOfol 200 MG/20 ML (DIPRIVAN) VIAL IV ONE
[2021-04-19 09:00] VITALS: BP 140/92
[2021-04-19 09:15] VITALS: BP 137/90
[2021-04-19 09:20] VITALS: BP 131/84
[2021-04-19 09:25] VITALS: BP 129/80
[2021-04-19 09:39] VITALS: BP 126/75
== END ==
LOC: CATH 08:48
PROVIDERS: ATTEND Internal Medicine Cardiovascular Disease
DX: I48.91 Unspecified atrial fibrillation (principal); I45.10 Unspecified right bundle-branch block
CPT/HCPCS: 92960; 93005

== ENCOUNTER → 2021-05-19 | Outpatient (CLI) | payer MEDICARE, OTHER ==
[~2021-05-19] MED LIST changes: -NS IV 1000 ML 1,000 ML ONE; -proPOfol 200 MG/20 ML (DIPRIVAN) VIAL IV ONE
--- NOTE | 2021-05-19 15:08 | Diagnostic Imaging Report ---
INDICATION: Hypercalcemia. TECHNIQUE: 21.5 mCi technetium-99m sestamibi is administered intravenously. Imaging was obtained over the head, neck, and upper chest at 20 minutes post injection and 2 hours post injection. Additional, SPECT-CT imaging was also obtained over the neck and upper chest. FINDINGS: There is a relatively symmetric and normal uptake about the salivary glands as well as in the thyroid bed at initial imaging. There appears to be very slight asymmetrically elongated right lobe of the thyroid gland compared to the left lobe, normal variation. On the delayed images, there is what appears to be normal and progressive washout through the thyroid gland. Some residual prominent uptake about the salivary gland distribution is noted. A definitive mass-like area of radiotracer accumulation on the delayed images is not suggested. SPECT-CT imaging is somewhat limited and suboptimal with moderate motion artifact present. However, there does appear to be a small area of somewhat nodular retention suggested inseparable from the posterior margin of the right thyroid bed. IMPRESSION: 1. Sestamibi scan demonstrates a questionable area of residual radiotracer accumulation at the posterior right thyroid bed. 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 Dictated by: Dictated on workstation # [id number]
== END ==
LOC: CARD 12:30
PROVIDERS: ATTEND Internal Medicine
DX: E83.52 Hypercalcemia (principal)
CPT/HCPCS: 78072; A9500

== ENCOUNTER 2022-05-14 12:35 | Emergency (ER) | payer MEDICARE, OTHER ==
[~2022-05-14 12:35] MED LIST changes: -AMIO200T6 PO; +AMIO200T65 PO; -MAGN400T8 PO; +MGX400T PO; +POTA-169 PO; -POTA20TA8 PO
[2022-05-14] MEDS ORDERED: dilTIAZem DRIP PRE-MIX 125 ML IV ONE (13:09)
[2022-05-14] MEDS ORDERED: dilTIAZem DRIP PRE-MIX 125 ML IV SCH (13:15)
[2022-05-14 13:18] LABS: BASOPHILS # (AUTO) 0.1 10^3/uL (0.0-0.1); BASOPHILS % (AUTO) 1 % (0-10); EOSINOPHILS # (AUTO) 0.2 10^3/uL (0.0-0.3); EOSINOPHILS % (AUTO) 2 % (0-10); HEMATOCRIT 38 % (35-52); HEMOGLOBIN 11.7 g/dL (11.5-16.0); LYMPHOCYTES # (AUTO) 1.4 10^3/uL (1.0-4.0); LYMPHOCYTES % (AUTO) 14 % (12-44); MEAN CORPUSCULAR HEMOGLOBIN 24 pg (25-34); MEAN CORPUSCULAR HGB CONC 31 g/dL (32-36); MEAN CORPUSCULAR VOLUME 77 fL (80-99); MEAN PLATELET VOLUME 9.3 fL (9.0-12.2); MONOCYTES # (AUTO) 0.7 10^3/uL (0.0-1.0); MONOCYTES % (AUTO) 7 % (0-12); NEUTROPHILS % (AUTO) 77 % (42-75); PLATELET COUNT 289 10^3/uL (130-400); WHITE BLOOD COUNT 10.4 10^3/uL (4.3-11.0)
--- NOTE | 2022-05-14 13:19 | Diagnostic Imaging Report ---
CLINICAL INDICATION: Patient with chest pain. EXAM: Portable chest x-ray, upright view. COMPARISON: Chest x-ray dated 02/05/2017. FINDINGS: Lungs/pleura: Lungs are clear. There is no pneumothorax. There is no pleural effusion. Mediastinum: Unremarkable. Pulmonary vasculature: Unremarkable. Heart: Upper limits of normal heart size seen for portable projection. There are interval postop changes with sternotomy wires placed.. Bones/extrathoracic soft tissue: There are degenerative spurs involving the thoracic spine. IMPRESSION: There is no radiographic evidence of acute cardiopulmonary process. Dictated by: Dictated on workstation # [id number]
[2022-05-14 13:28] LABS: ALBUMIN 3.9 GM/DL (3.2-4.5); INR 1.5 (0.8-1.4); POTASSIUM 3.7 MMOL/L (3.6-5.0); PROTHROMBIN TIME PATIENT 18.2 SEC (12.2-14.7)
[2022-05-14 13:29] LABS: CALCIUM 10.5 MG/DL (8.5-10.1)
[2022-05-14 13:30] LABS: TOTAL PROTEIN 6.9 GM/DL (6.4-8.2)
[2022-05-14 13:32] LABS: BILIRUBIN,TOTAL 0.6 MG/DL (0.1-1.0)
[2022-05-14 13:34] LABS: CREATININE SERUM 1.23 MG/DL (0.60-1.30)
[2022-05-14 13:36] LABS: MAGNESIUM 1.7 MG/DL (1.6-2.4)
[2022-05-14 13:44] LABS: CREATINE KINASE MB 2.4 NG/ML (<6.6)
--- NOTE | 2022-05-14 14:16 | ED General ---
General Chief Complaint: General Problems/Pain Stated Complaint: HIGH HEART RATE 150 Source of Information: Patient Exam Limitations: No Limitations History of Present Illness Date Seen by Provider: May 14, 2022 Time Seen by Provider: 13:05 Initial Comments This is a well appearing 72 yo female who presented to the ER via POV from Dr. Cain office for elevated heart rate. States she was following up for wellness visit with her primary care provider and staff noted her HR to be in 150's at the office. States she had no symptoms and did not "feel different". She has history of paroxysmal atrial fibrillation and is currently taking Eliquis BID. She denies palpitations, dizziness, shortness of breath, chest pain . Allergies and Home Medications Allergies Coded Allergies: metoprolol (Verified Allergy, Unknown, 04/16/21) CAUSES HER TO BE VERY LETHARGIC Patient Home Medication List Home Medication List Reviewed: Yes Acetaminophen (Tylenol) 325 Mg Tablet, 650 MG PO Q6H PRN for PAIN-MILD (1-4), (Reported) Entered as Reported by: TRESA ANDREWS on 04/10/21 1405 Albuterol Sulfate (Ventolin Hfa) 1 Puff Puff, 2 PUFF IH Q6H PRN for SHORTNESS OF BREATH, (Reported) Entered as Reported by: JAVIER MUHAMMAD on 02/04/17 1023 Amiodarone HCl (Amiodarone HCl) 400 Mg Tablet, 400 MG PO DAILY Prescribed by: LEONIE ANGULO on 04/20/21 1149 Apixaban (Eliquis) 5 Mg Tablet, 5 MG PO BID Prescribed by: LEONIE ANGULO on 04/20/21 1143 Aspirin (Aspirin EC) 81 Mg Tablet.dr, 81 MG PO DAILY, (Reported) Entered as Reported by: TRESA ANDREWS on 04/10/21 1405 Atorvastatin Calcium (Lipitor) 40 Mg Tablet, 40 MG PO DAILY Prescribed by: LEONIE ANGULO on 04/20/21 1143 Bumetanide (Bumetanide) 1 Mg Tablet, 1 MG PO LASIXBID Prescribed by: LEONIE ANGULO on 04/20/21 1143 Celecoxib (Celebrex) 100 Mg Capsule, 200 MG PO DAILY@0900 Prescribed by: LEONIE ANGULO on 04/20/21 1143 Cholecalciferol (Vitamin D3) (Vitamin D3) 125 Mcg Tablet, 125 MCG PO DAILY, (Reported) Entered as Reported by: TRESA ANDREWS on 04/10/21 1405 Diltiazem HCl (Diltiazem 24Hr ER) 120 Mg Cap.er.24h, 120 MG PO DAILY Prescribed by: LEONIE ANGULO on 04/20/21 1143 Hydrocodone Bit/Acetaminophen (HYDROcodone/APAP 5 MG/325 MG TAB) 1 Tab Tab, 1 E A PO Q4H PRN for PAIN-MODERATE (5-7) Prescribed by: LEONIE ANGULO on 04/20/21 1143 Lactobacillus Rhamnosus GG (Culturelle) 1 Each Capsule, 1 CAP PO DAILY, (Reported) Entered as Reported by: JAVIER MUHAMMAD on 02/04/17 1023 Loratadine (Loratadine) 10 Mg Tablet, 10 MG PO DAILY, (Reported) Entered as Reported by: JAVIER MUHAMMAD on 02/04/17 1023 Magnesium Oxide (Magnesium Oxide) 400 Mg Tablet, 400 MG PO BIDPC Prescribed by: LEONIE ANGULO on 04/20/21 1143 Miconazole Nitrate (Lotrimin AF) 90 Gm Powder, 0 GM TOP BID Prescribed by: LEONIE ANGULO on 04/20/21 1143 [place] 3 Polyunsat Fatty Acids (Fish Oil 1,000 mg Capsule) 1,000 Mg Cap, 1,000 MG PO DAILY@0800 Prescribed by: LEONIE ANGULO on 04/20/21 1143 Omeprazole (Omeprazole) 40 Mg Capsule.dr, 40 MG PO DAILY PRN for HEARTBURN, (Reported) Entered as Reported by: TRESA ANDREWS on 04/10/21 1405 Potassium Chloride (Klor-Con M20) 20 Meq Tab.er.prt, 20 MEQ PO DAILY Prescribed by: LEONIE ANGULO on 04/20/21 1143 Spironolactone (Spironolactone) 25 Mg Tablet, 25 MG PO DAILY, (Reported) Entered as Reported by: TRESA ANDREWS on 04/10/21 1405 Tramadol HCl (Tramadol HCl) 50 Mg Tablet, 0 MG PO Q6H PRN for PAIN-MODERATE (5- 7) Prescribed by: LEONIE ANGULO on 04/20/21 1143 Ubidecarenone (Co Q-10) 100 Mg Capsule, 100 MG PO DAILY, (Reported) Entered as Reported by: JAVIER MUHAMMAD on 02/04/17 1023 Zolpidem Tartrate (Ambien) 10 Mg Tablet, 10 MG PO DAILY, (Reported) Entered as Reported by: TRESA ANDREWS on 04/12/21 1347 [Magnesi L Threonate] , 1 CAP PO DAILY, (Reported) Entered as Reported by: TRESA ANDREWS on 04/10/21 1405 Review of Systems Review of Systems Constitutional: no symptoms reported EENTM: no symptoms reported Respiratory: no symptoms reported Cardiovascular: no symptoms reported Gastrointestinal: no symptoms reported Genitourinary: no symptoms reported Musculoskeletal: no symptoms reported Skin: no symptoms reported Psychiatric/Neurological: No Symptoms Reported Hematologic/Lymphatic: No Symptoms Reported Immunological/Allergic: no symptoms reported Past Dcsxllz-Prdtlx-Uhlnph Hx Patient Social History Tobacco Use?: No Use of E-Cig and/or Vaping dev: No Substance use?: No Alcohol Use?: Yes Alcohol type: Wine Alcohol Frequency: Rarely Pt feels they are or have been: No Immunizations Up To Date Tetanus Booster (TDap): More than 5yrs Influenza Vaccine Up-to-Date: No; Not Current First/Initial COVID19 Vaccinat: OCTOBER 2020 COVID19 Vaccine Daycare Teacher: LACY Seasonal Allergies Seasonal Allergies: Yes Past Medical History Surgery/Hospitalization HX: HX OF AFIB, CHF, CVA (08/27/2015), DVT, PE, CKD, FORMER SMOKER, OBESITY, BACK FUSION, BILATERAL TOTAL KNEE REPLACEMENT. WATCHMAN DEVICE PLACED IN DECEMBER 2020. REMOVAL OF LEFT ATRIAL THROMBUS AND MAZE PROCEDURE ON 04/03/21. 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 Sexually Transmitted Disease: No HIV/AIDS: No Genitourinary: No Gastrointestinal: Yes Gastroesophageal Reflux Musculoskeletal: Yes Arthritis Endocrine: No Cataract Cancer: No Psychosocial: Yes Sleep Difficulties Integumentary: Yes (strip cellulitis) Blood Disorders: No Family Medical History Cataract 19 FATHER Chest pain 19 FATHER Congenital heart disease 19 MOTHER Congestive heart failure 19 MOTHER Family history: Arthritis 19 FATHER 19 MOTHER Family history: Hypertension 19 FATHER 19 MOTHER Headache 19 MOTHER (MIGRAINES) Hearing loss 19 FATHER (NISQUALLY) Myocardial infarction 19 FATHER No Family History of: Abdominal aortic aneurysm Ham's disease Alcoholism Aphasia Cancer Cancer of colon Cystic fibrosis Dementia Dysphagia Family history: Allergy Family history: Alzheimer's disease Family history: Asthma Family history: Breast disease Family history: Cardiovascular disease Family history: Coronary thrombosis Family history: Diabetes mellitus Family history: Gastrointestinal disease Family history: Glaucoma Family history: Osteoporosis Family history: Thyroid disorder Heart disease Hereditary disease History of - anemia History of - disorder History of - respiratory disease History of drug abuse Human immunodeficiency virus (HIV) seropositivity Hypercholesterolemia Infertile Kidney disease Malignant neoplasm of lung Parkinson's disease Prostate cancer Psychotic disorder Seizure disorder Stroke Tuberculosis Visual impairment Physical Exam Vital Signs Vital Signs - First Documented 05/14/22 13:00 Temp 37.0 Pulse 156 Resp 20 B/P (MAP) 190/112 (138) Capillary Refill : Height, Weight, BMI Height: 5'4.00" Weight: 195lbs. 1.6oz. [id number]; 34.7 BMI Method:Stated General Appearance: No Apparent Distress, WD/WN Eyes: Bilateral Eye Normal Inspection, Bilateral Eye PERRL, Bilateral Eye EOMI HEENT: PERRL/EOMI, TMs Normal, Normal ENT Inspection, Pharynx Normal, Moist Mucous Membranes Neck: Normal Inspection, Supple Respiratory: Lungs Clear, Normal Breath Sounds Cardiovascular: Systolic Murmur, Irregularly Irregular Gastrointestinal: Normal Bowel Sounds, Non Tender, Soft Extremity: Normal Capillary Refill, Normal Inspection, Normal Range of Motion Neurologic/Psychiatric: Alert, Oriented x3, No Motor/Sensory Deficits, Normal Mood/Affect Skin: Normal Color, Warm/Dry Progress/Results/Core Measures Suspected Sepsis SIRS Temperature: Pulse: 157 Respiratory Rate: Laboratory Tests 05/14/22 13:06: White Blood Count 10.4 Blood Pressure 140 /100 Mean: 113 Laboratory Tests 05/14/22 13:06: Creatinine 1.23, INR Comment 1.5H, Platelet Count 289, Total Bilirubin 0.6 Results/Orders Lab Results Laboratory Tests Test 05/14/22 13:06 Range/Units White Blood Count 10.4 4.3-11.0 10^3/uL Red Blood Count 4.94 3.80-5.11 10^6/uL Hemoglobin 11.7 11.5-16.0 g/dL Hematocrit 38 35-52 % Mean Corpuscular Volume 77 L 80-99 fL Mean Corpuscular Hemoglobin 24 L 25-34 pg Mean Corpuscular Hemoglobin Concent 31 L 32-36 g/dL Red Cell Distribution Width 19.6 H 10.0-14.5 % Platelet Count 289 130-400 10^3/uL Mean Platelet Volume 9.3 9.0-12.2 fL Immature Granulocyte % (Auto) 1 % Neutrophils (%) (Auto) 77 H 42-75 % Lymphocytes (%) (Auto) 14 12-44 % Monocytes (%) (Auto) 7 0-12 % Eosinophils (%) (Auto) 2 0-10 % Basophils (%) (Auto) 1 0-10 % Neutrophils # (Auto) 8.0 H 1.8-7.8 10^3/uL Lymphocytes # (Auto) 1.4 1.0-4.0 10^3/uL Monocytes # (Auto) 0.7 0.0-1.0 10^3/uL Eosinophils # (Auto) 0.2 0.0-0.3 10^3/uL Basophils # (Auto) 0.1 0.0-0.1 10^3/uL Immature Granulocyte # (Auto) 0.1 0.0-0.1 10^3/uL Prothrombin Time 18.2 H 12.2-14.7 SEC INR Comment 1.5 H 0.8-1.4 Activated Partial Thromboplast Time 33 24-35 SEC D-Dimer 0.53 H 0.00-0.49 UG/ML Sodium Level 141 135-145 MMOL/L Potassium Level 3.7 3.6-5.0 MMOL/L Chloride Level 105 98-107 MMOL/L Carbon Dioxide Level 22 21-32 MMOL/L Anion Gap 14 5-14 MMOL/L Blood Urea Nitrogen 19 H 7-18 MG/DL Creatinine 1.23 0.60-1.30 MG/DL Estimat Glomerular Filtration Rate 47 BUN/Creatinine Ratio 15 Glucose Level 170 H 70-105 MG/DL Calcium Level 10.5 H 8.5-10.1 MG/DL Corrected Calcium 10.6 H 8.5-10.1 MG/DL Magnesium Level 1.7 1.6-2.4 MG/DL Total Bilirubin 0.6 0.1-1.0 MG/DL Aspartate Amino Transf (AST/SGOT) 19 5-34 U/L Alanine Aminotransferase (ALT/SGPT) 24 0-55 U/L Alkaline Phosphatase 103 40-136 U/L Total Creatine Kinase 80 29-168 U/L Creatine Kinase MB 2.4 <6.6 NG/ML Myoglobin 126.0 H 10.0-92.0 NG/ML Troponin I 0.036 H <0.028 NG/ML B-Type Natriuretic Peptide 104.7 H <100.0 PG/ML Total Protein 6.9 6.4-8.2 GM/DL Albumin 3.9 3.2-4.5 GM/DL My Orders Orders - ERIN ENGLISH APRN Ekg Tracing (05/14/22 12:54) Cbc With Automated Diff (05/14/22 13:05) Magnesium (05/14/22 13:05) Chest 1 View, Ap/Pa Only (05/14/22 13:05) Comprehensive Metabolic Panel (05/14/22 13:05) Myoglobin Serum (05/14/22 13:05) Protime With Inr (05/14/22 13:05) Partial Thromboplastin Time (05/14/22 13:05) O2 (05/14/22 13:05) Monitor-Rhythm Ecg Trace Only (05/14/22 13:05) Ed Iv/Invasive Line Start (05/14/22 13:05) Creatine Kinase (05/14/22 13:05) Creatine Kinase Mb (05/14/22 13:05) Bnp Susie (05/14/22 13:05) Fibrin Degradation Products (05/14/22 13:05) Troponin I [place] (05/14/22 13:05) Diltiazem Injection (Cardizem Injection) (05/14/22 13:15) Diltiazem Drip Pre-Mix (Cardizem Drip Pr (05/14/22 13:15) Ekg Tracing (05/14/22 13:51) Ekg Tracing (05/14/22 14:27) Medications Given in ED Vital Signs/I&O 05/14/22 05/14/22 05/14/22 13:00 13:20 15:57 Temp 37.0 37.0 Pulse 156 157 79 Resp 20 18 B/P (MAP) 190/112 (138) 140/100 140/85 Capillary Refill : Blood Pressure Mean: 113 Progress Note : Progress Note Patient examined and in no acute distress. She is asymptomatic at this time. She has history of A-fib with prior ablation, Maze, and Watchman procedures. However, reports failure with all procedures and was subsequently placed back on Eliquis. States she has also tried several antiarrhythmics and rate control medications: (metoprolol, Amioadarone, Multaq) but has found Diltiazem to work the best. She reports no symptoms, but notes over the past week she can "hear" her heartbeat frequently through the day which is new. She takes Diltiazem 120mg CD daily, and has taken her AM dose. Orders given for for Cardizem 20mg bolus IV and to start drip at 5ml/hr. Initiated cardiac workup. Labs reviewed. Slight elevation in troponin 0.036, likely demand related to protracted arrhythmia. HR stabilized at 70's. Discussed repeating troponin at 3 hours. She remained asymptomatic through ED visit. Discussed with Dr. Baker, as her rate is controlled and she is taking Eliquis she can discharge home. Discussed plan with patient, she states she is ready to discharge. Declined waiting for 3 hour troponin repeat. 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 Discharge POC reviewed and she is agreeable with plan. ECG Initial ECG Impression Date: May 14, 2022 Initial ECG Impression Time: 13:06 Initial ECG Rate: 154 Initial ECG Rhythm: A Fib/Flutter Initial ECG Impression: Atrial Fibrillation w/RVR EKG : EKG Time: 14:26 Rate: 78 Rhythm: A Fib/Flutter ECG Comparisson: Unchanged ECG Impression: Atrial Fibrillation Diagnostic Imaging Diagonstic Imaging: Xray Plain Films/CT/US/NM/MRI: chest Comments [facility]. [place], [place] NAME: ARIS BERTRAND Andres MED REC#: [id number] PT STATUS: DEP ER : 1950 PHYSICIAN: ERIN ENGLISH APRN ADMIT DATE: 05/14/22/ER Signed Date of Exam:05/14/22 CHEST 1 VIEW, AP/PA ONLY CLINICAL INDICATION: Patient with chest pain. EXAM: Portable chest x-ray, upright view. COMPARISON: Chest x-ray dated 02/05/2017. FINDINGS: Lungs/pleura: Lungs are clear. There is no pneumothorax. There is no pleural effusion. Mediastinum: Unremarkable. Pulmonary vasculature: Unremarkable. Heart: Upper limits of normal heart size seen for portable projection. There are interval postop changes with sternotomy wires placed.. Bones/extrathoracic soft tissue: There are degenerative spurs involving the thoracic spine. IMPRESSION: There is no radiographic evidence of acute cardiopulmonary process. Dictated by: Dictated on workstation # [id number] Dict: 05/14/22 1316 Trans: 05/14/22 1743 [id number] Interpreted by: TONIE AYALA MD Electronically signed by: TOINE AYALA MD 05/14/22 1743 Departure Communication (Admissions) Discussed with Dr. Baker, agrees patient stable for discharge. Impression Primary Impression: Atrial flutter with rapid ventricular response Disposition: 01 HOME, SELF-CARE Condition: Improved Departure-Patient Inst. Decision time for Depature: 15:44 Referrals: BRENDA CAIN DO (PCP/Family) Primary Care Physician Patient Instructions: Atrial Fibrillation Add. Discharge Instructions: Plan: 1. Follow-up with Dr. Cain next week. We were able to control your heart rate with diltiazem in the emergency department, if you continue to have in creased rate we may have to adjust your oral diltiazem at home. 2. Follow-up with your professor of poultry science as previously directed. 3. Return to the ER if you have any new, concerning, worsening symptoms. All discharge instructions reviewed with patient and/or family. Voiced understanding. Copy Copies To 1: BRENDA CAIN STORMY D SENIOR HADOOP DEVELOPER May 14, 2022 14:16
[2022-05-14 15:57] VITALS: BP 140/85
[2022-05-15] MEDS ORDERED: DILT-27 PO (17:58)
[2022-05-15] MEDS ORDERED: BUME1TAB8 PO (17:58)
[2022-05-16] MEDS ORDERED: FLEC100T PO (14:12)
== END 2022-05-14 15:59 | disposition home or self-care (01) ==
LOC: EDUNIT# 12:35 → ER 12:36
DX: I48.92 Unspecified atrial flutter (principal); R77.8 Other specified abnormalities of plasma proteins; I48.0 Paroxysmal atrial fibrillation; E66.9 Obesity, unspecified; Z87.891 Personal history of nicotine dependence; Z79.01 Long term (current) use of anticoagulants; Z68.34 Body mass index [BMI] 34.0-34.9, adult
CPT/HCPCS: 36415; 71045; 80053; 82550; 82553; 83735; 83874; 83880; 84484; 85025; 85379; 85610; 85730; 93005; 93041

== ENCOUNTER 2022-05-15 14:36 | Observation (INO) | payer MEDICARE, OTHER ==
[~2022-05-15] VITALS: Ht 162.6 cm; Wt 87.6 kg
--- NOTE | 2022-05-15 15:13 | ED Cardiac General ---
History of Present Illness General Chief Complaint: Cardiac/General Problems Stated Complaint: HEART RACING Nursing Triage Note: PT TO RM 6 WITH CC OF HIGH HR. PT SEEN IN ED YESTERDAY FOR SAME CONCERN. PT HAS CARDIAC HX. PT DENIES CHEST PAIN. PT REPORTS TRIED TO CALL PCP BUT WAS UNABLE TO CONTACT THEM. PT STATES HAS HAD NAUSEA AND FEELS LIGHT HEADED. PT A&OX4 Source: patient, old records Exam Limitations: no limitations History of Present Illness Date Seen by Provider: May 15, 2022 Time Seen by Provider: 15:13 Initial Comments This is a well-appearing 72-year-old female who presented to the ER with concerns of rapid heart rate. She was evaluated and treated in the emergency department yesterday for A. flutter with RVR, was able to give loading dose of diltiazem and drip yesterday, was able to convert and discharged home. States today she felt a little dizzy, checked her heart rate and was in the 150s. She attempted to contact her primary care provider but was unable to make contact. At this time she feels a little nauseated and lightheaded. Allergies and Home Medications Allergies Coded Allergies: metoprolol (Verified Allergy, Unknown, 04/16/21) CAUSES HER TO BE VERY LETHARGIC Patient Home Medication List Home Medication List Reviewed: Yes Albuterol Sulfate (Ventolin Hfa) 1 Puff Puff, 2 PUFF IH Q6H PRN for SHORTNESS OF BREATH, (Reported) Entered as Reported by: JAVIER MUHAMMAD on 02/04/17 1023 Last Action: Reviewed Apixaban (Eliquis) 5 Mg Tablet, 5 MG PO BID, (Reported) Entered as Reported by: TRESA ANRDEWS on 05/16/22 1247 Last Action: Reviewed Bumetanide (Bumetanide) 1 Mg Tablet, 1 MG PO DAILY, (Reported) Entered as Reported by: TRESA ANDREWS on 05/16/22 1247 Last Action: Reviewed Cholecalciferol (Vitamin D3) (Vitamin D3) 125 Mcg Tablet, 125 MCG PO DAILY, (Reported) Entered as Reported by: TRESA ANDREWS on 04/10/21 1405 Last Action: Reviewed Diltiazem HCl (Diltiazem ER) 120 Mg Capsule.er, 120 MG PO BID, (Reported) Entered as Reported by: TRESA ANDREWS on 05/16/22 1247 Last Action: Reviewed Flecainide Acetate (Flecainide Acetate) 100 Mg Tablet, 50 MG PO BID Prescribed by: NEIL GREEN on 05/16/22 1412 Hydrocodone/Acetaminophen (Hydrocodone-Acetamin 7.5-325) 7.5 Mg-325 Mg Tablet, 1 EA PO Q8H PRN for PAIN-MODERATE (5-7), (Reported) Entered as Reported by: TRESA ANDREWS on 05/16/22 124 Last Action: Reviewed Lactobacillus Rhamnosus GG (Culturelle) 1 Each Capsule, 1 CAP PO DAILY, (Reported) Entered as Reported by: JAVIER MUHAMMAD on 02/04/17 1023 Last Action: Reviewed Loratadine (Loratadine) 10 Mg Tablet, 10 MG PO DAILY, (Reported) Entered as Reported by: JAVIER MUHAMMAD on 02/04/17 1023 Last Action: Reviewed Magnesium (Magnesium) 250 Mg Tablet, 250 MG PO DAILY, (Reported) Entered as Reported by: TRESA ANDREWS on 05/16/22 1247 Last Action: Reviewed Omeprazole (Omeprazole) 40 Mg Capsule.dr, 40 MG PO HS, (Reported) Entered as Reported by: TRESA ANDREWS on 04/10/21 1405 Last Action: Reviewed Spironolactone (Spironolactone) 25 Mg Tablet, 25 MG PO DAILY, (Reported) Entered as Reported by: TRESA ANDREWS on 04/10/21 1405 Last Action: Reviewed Ubidecarenone (Co Q-10) 100 Mg Capsule, 100 MG PO DAILY, (Reported) Entered as Reported by: JAVIER MUHAMMAD on 02/04/17 1023 Last Action: Reviewed Zolpidem Tartrate (Ambien) 10 Mg Tablet, 10 MG PO HS, (Reported) Entered as Reported by: TRESA ANDREWS on 04/12/21 1347 Last Action: Reviewed Review of Systems Review of Systems Constitutional: No chills, No diaphoresis; dizziness; No fever EENTM: No Symptoms Reported Respiratory: No Symptoms Reported Cardiovascular: See HPI, Lightheadedness Gastrointestinal: Nausea; Denies Vomiting Genitourinary: No Symptoms Reported Musculoskeletal: no symptoms reported Skin: no symptoms reported Psychiatric/Neurological: No Symptoms Reported Endocrine: No Symptoms Reported Hematologic/Lymphatic: No Symptoms Reported Past Gefeznd-Effryz-Mytzis Hx Patient Social History Tobacco Use?: No Substance use?: No Alcohol Use?: No Pt feels they are or have been: No Immunizations Up To Date Tetanus Booster (TDap): More than 5yrs First/Initial COVID19 Vaccinat: OCTOBER 2020 Second COVID19 Vaccination Sergei: YES Third COVID19 Vaccination Date: YES Seasonal Allergies Seasonal Allergies: Yes Past Medical History Surgery/Hospitalization HX: HX OF AFIB, CHF, CVA (08/27/2015), DVT, PE, CKD, FORMER SMOKER, OBESITY, BACK FUSION, BILATERAL TOTAL KNEE REPLACEMENT. WATCHMAN DEVICE PLACED IN DECEMBER 2020. REMOVAL OF LEFT ATRIAL THROMBUS AND MAZE PROCEDURE ON 04/03/21. 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 Sexually Transmitted Disease: No HIV/AIDS: No Genitourinary: No Gastrointestinal: Yes Gastroesophageal Reflux Musculoskeletal: Yes Arthritis Endocrine: No Cataract Cancer: No Psychosocial: Yes Sleep Difficulties Integumentary: Yes (strip cellulitis) Blood Disorders: No Family Medical History Cataract 19 FATHER Chest pain 19 FATHER Congenital heart disease 19 MOTHER Congestive heart failure 19 MOTHER Family history: Arthritis 19 FATHER 19 MOTHER Family history: Hypertension 19 FATHER 19 MOTHER Headache 19 MOTHER (MIGRAINES) Hearing loss 19 FATHER ([place]) Myocardial infarction 19 FATHER No Family History of: Abdominal aortic aneurysm Bayside's disease Alcoholism Aphasia Cancer Cancer of colon Cystic fibrosis Dementia Dysphagia Family history: Allergy Family history: Alzheimer's disease Family history: Asthma Family history: Breast disease Family history: Cardiovascular disease Family history: Coronary thrombosis Family history: Diabetes mellitus Family history: Gastrointestinal disease Family history: Glaucoma Family history: Osteoporosis Family history: Thyroid disorder Heart disease Hereditary disease History of - anemia History of - disorder History of - respiratory disease History of drug abuse Human immunodeficiency virus (HIV) seropositivity Hypercholesterolemia Infertile Kidney disease Malignant neoplasm of lung Parkinson's disease Prostate cancer Psychotic disorder Seizure disorder Stroke Tuberculosis Visual impairment Physical Exam Vital Signs Capillary Refill : Less Than 3 Seconds Height, Weight, BMI Height: 5'4.00" Weight: 195lbs. 1.6oz. [id number]; 33.00 BMI Method:Stated General Appearance: No Apparent Distress, WD/WN HEENT: PERRL/EOMI, Normal ENT Inspection, Pharynx Normal, Moist Mucous Membranes Neck: Full Range of Motion, Normal Inspection, Supple Respiratory: Lungs Clear, Normal Breath Sounds, No Accessory Muscle Use, No Respiratory Distress Cardiovascular: Systolic Murmur Gastrointestinal: Normal Bowel Sounds, Non Tender, Soft Extremity: Normal Capillary Refill, Normal Inspection, Normal Range of Motion Neurologic/Psychiatric: Alert, Oriented x3, No Motor/Sensory Deficits, Normal Mood/Affect Skin: Normal Color, Warm/Dry Progress/Results/Core Measures Results/Orders Lab Results Laboratory Tests Test 05/15/22 15:00 Range/Units White Blood Count 9.7 4.3-11.0 10^3/uL Red Blood Count 4.93 3.80-5.11 10^6/uL Hemoglobin 11.9 11.5-16.0 g/dL Hematocrit 38 35-52 % Mean Corpuscular Volume 77 L 80-99 fL Mean Corpuscular Hemoglobin 24 L 25-34 pg Mean Corpuscular Hemoglobin Concent 32 32-36 g/dL Red Cell Distribution Width 19.5 H 10.0-14.5 % Platelet Count 308 130-400 10^3/uL Mean Platelet Volume 9.3 9.0-12.2 fL Prothrombin Time 16.6 H 12.2-14.7 SEC INR Comment 1.3 0.8-1.4 Activated Partial Thromboplast Time 33 24-35 SEC Sodium Level 142 135-145 MMOL/L Potassium Level 3.9 3.6-5.0 MMOL/L Chloride Level 105 98-107 MMOL/L Carbon Dioxide Level 23 21-32 MMOL/L Anion Gap 14 5-14 MMOL/L Blood Urea Nitrogen 19 H 7-18 MG/DL Creatinine 1.23 0.60-1.30 MG/DL Estimat Glomerular Filtration Rate 47 BUN/Creatinine Ratio 15 Glucose Level 100 70-105 MG/DL Calcium Level 10.4 H 8.5-10.1 MG/DL Corrected Calcium 10.4 H 8.5-10.1 MG/DL Magnesium Level 1.8 1.6-2.4 MG/DL Total Bilirubin 0.6 0.1-1.0 MG/DL Aspartate Amino Transf (AST/SGOT) 19 5-34 U/L Alanine Aminotransferase (ALT/SGPT) 26 0-55 U/L Alkaline Phosphatase 101 40-136 U/L Total Creatine Kinase 63 29-168 U/L Creatine Kinase MB 1.7 <6.6 NG/ML Troponin I 0.036 H <0.028 NG/ML B-Type Natriuretic Peptide 89.5 <100.0 PG/ML Total Protein 6.9 6.4-8.2 GM/DL Albumin 4.0 3.2-4.5 GM/DL My Orders Orders - ERIN ENGLISH APRN Diltiazem Injection (Cardizem Injection) (05/15/22 15:15) Diltiazem Drip Pre-Mix (Cardizem Drip Pr (05/15/22 15:15) Magnesium (05/15/22 15:05) Comprehensive Metabolic Panel (05/15/22 15:05) Protime With Inr (05/15/22 15:05) Partial Thromboplastin Time (05/15/22 15:05) O2 (05/15/22 15:05) Monitor-Rhythm Ecg Trace Only (05/15/22 15:05) Ed Iv/Invasive Line Start (05/15/22 15:05) Creatine Kinase (05/15/22 15:05) Creatine Kinase Mb (05/15/22 15:05) Bnp Phelps (05/15/22 15:05) Cbc No Diff (05/15/22 15:05) Troponin I Susie (05/15/22 15:05) Ed Admission (Communication) (05/15/22 16:13) Medications Given in ED Vital Signs/I&O Blood Pressure Mean: 129 Progress Progress Note : Progress Note Patient examined and in no acute distress. Her heart rate is in the 150s, a flutter with RVR. Discussed case with Dr. Baker, he was consulted yesterday and is aware of her previous visit. We will go ahead and admit and work on medicati on adjustment. Recommended giving loading dose and starting Cardizem drip, admit to cardiac unit. Reviewed plan of care with patient and she is agreeable with plan. Discussed case with Dr. Green, hospitalist he accepted admission to cardiac stepdown unit. Initial ECG Impression Time: 14:51 Initial ECG Rate: 155 Initial ECG Rhythm: A Fib/Flutter Initial ECG Impression: Atrial Fibrillation w/RVR (aflutter with RVR) Initial ECG Comparisson: Unchanged Departure Communication (Admissions) Time/Spoke to Admitting Phy: 15:30 Dr. Green Time/Spoke to Consulting Phy: 15:22 Dr. Baker Impression Primary Impression: Atrial flutter with rapid ventricular response Disposition: ADMITTED INPATIENT Condition: Stable Admissions Decision to Admit Reason: Admit from ER (General) Decision to Admit/Date: May 15, 2022 Time/Decision to Admit Time: 15:15 Departure-Patient Inst. Referrals: BRENDA SAWANT DO (PCP/Family) Primary Care Physician Scripts Flecainide Acetate (Flecainide Acetate) 100 Mg Tablet 50 MG PO BID for 30 Days, #60 TAB Prov: NEIL GREEN MD 05/16/22 ERIN ENGLISH APRN May 15, 2022 15:13
[2022-05-15 15:15] LABS: HEMATOCRIT 38 % (35-52); HEMOGLOBIN 11.9 g/dL (11.5-16.0); MEAN CORPUSCULAR HEMOGLOBIN 24 pg (25-34); MEAN CORPUSCULAR HGB CONC 32 g/dL (32-36); MEAN CORPUSCULAR VOLUME 77 fL (80-99); MEAN PLATELET VOLUME 9.3 fL (9.0-12.2); PLATELET COUNT 308 10^3/uL (130-400); WHITE BLOOD COUNT 9.7 10^3/uL (4.3-11.0)
[2022-05-15] MEDS ORDERED: dilTIAZem DRIP PRE-MIX 125 ML IV SCH (15:15)
[2022-05-15 15:21] LABS: INR 1.3 (0.8-1.4); POTASSIUM 3.9 MMOL/L (3.6-5.0); PROTHROMBIN TIME PATIENT 16.6 SEC (12.2-14.7)
[2022-05-15 15:23] LABS: CALCIUM 10.4 MG/DL (8.5-10.1)
[2022-05-15 15:24] LABS: TOTAL PROTEIN 6.9 GM/DL (6.4-8.2)
[2022-05-15 15:26] LABS: BILIRUBIN,TOTAL 0.6 MG/DL (0.1-1.0)
[2022-05-15 15:28] LABS: CREATININE SERUM 1.23 MG/DL (0.60-1.30)
[2022-05-15 15:30] LABS: MAGNESIUM 1.8 MG/DL (1.6-2.4)
[2022-05-15 15:37] LABS: CREATINE KINASE MB 1.7 NG/ML (<6.6)
[2022-05-15 16:34] VITALS: BP 143/96
[2022-05-15] MEDS ORDERED: CALCIUM CARBONATE 500 MG (TUMS) TAB.CHEW PO PRN (16:45)
[2022-05-15] MEDS ORDERED: ACETAMINOPHEN 325 MG TABLET PO PRN (16:45)
[2022-05-15] MEDS ORDERED: polyethylene glycoL POWDER 17 GM (MIRALAX) PACK PO PRN (16:45)
[2022-05-15] MEDS ORDERED: diphenhydrAMINE 25 MG TAB (BENADRYL) PO PRN (16:45)
[2022-05-15] MEDS ORDERED: LACTULOSE SYRUP 10GM/15ML (ENULOSE) 30ML UDC PO PRN (16:45)
[2022-05-15] MEDS ORDERED: ONDANSETRON 4 MG (ZOFRAN) ORAL DISSOLVE TAB PO PRN (16:45)
[2022-05-15] MEDS ORDERED: NS IV 500 ML 500 ML IV PRN (16:45)
[2022-05-15] MEDS ORDERED: ONDANSETRON 4 MG/2 ML (SDV) Z0FRAN IV PRN (16:45)
[2022-05-15] MEDS ORDERED: MELATONIN 3 MG TABLET PO PRN (16:45)
[2022-05-15] MEDS ORDERED: BISACODYL 10 MG SUPP (DULCOLAX) PR PRN (16:45)
[2022-05-15] MEDS ORDERED: ANTACID SUSP 30 ML UDC (MYLANTA) PO PRN (16:45)
[2022-05-15] MEDS ORDERED: diphenhydrAMINE 50 MG/ML INJ (BENADRYL) IVP PRN (16:45)
[2022-05-15] MEDS ORDERED: MILK OF MAGNESIA 400 MG/5 ML 30 ML UDC PO PRN (16:45)
[2022-05-15] MEDS: dilTIAZem DRIP PRE-MIX 125 ML IV SCH (16:49)
[2022-05-15] MEDS ORDERED: BUME1TAB8 PO (17:58)
[2022-05-15] MEDS ORDERED: DILT-27 PO (17:58)
--- NOTE | 2022-05-15 17:58 | Tele-ICU Consult ---
History of Present Illness History of Present Illness Date Seen by Provider: May 15, 2022 Time Seen by Provider: 17:58 Date of Admission Available chart/ vitals / labs / Images reviewed H&P is from ER notes Patient's information available about PMH, Shx, Fhx allergy reviewed inEMR. ROS as per chart and RN report Now in ICU, hemodynamically stable Video assessment done using teleICU camera, rest of exam as per RN Discussed with RN. 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 Discussed with RN to reach out if any questions or concerns A total of 15 minutes of critical care time was devoted to this patient today, required to treat and/or prevent further deterioration of critical care condition ( as above ) . Allergies and Home Medications Allergies Coded Allergies: metoprolol (Verified Allergy, Unknown, 04/16/21) CAUSES HER TO BE VERY LETHARGIC Home Medications Acetaminophen 325 Mg Tablet, 650 MG PO Q6H PRN for PAIN-MILD (1-4), (Reported) Albuterol Sulfate 1 Puff Puff, 2 PUFF IH Q6H PRN for SHORTNESS OF BREATH, (Reported) Amiodarone HCl 400 Mg Tablet, 400 MG PO DAILY Prescribed by: LEONIE ANGULO on 04/20/21 1149 Apixaban 5 Mg Tablet, 5 MG PO BID Prescribed by: LEONIE ANGULO on 04/20/21 1143 Bumetanide 1 Mg Tablet, 1 MG PO LASIXBID Prescribed by: LEONIE ANGULO on 04/20/21 1143 Celecoxib 100 Mg Capsule, 200 MG PO DAILY@0900 Prescribed by: LEONIE ANGULO on 04/20/21 1143 Cholecalciferol (Vitamin D3) 125 Mcg Tablet, 125 MCG PO DAILY, (Reported) Diltiazem HCl 120 Mg Cap.er.24h, 120 MG PO DAILY Prescribed by: LEONIE ANGULO on 04/20/21 1143 Hydrocodone Bit/Acetaminophen 1 Tab Tab, 1 EA PO Q4H PRN for PAIN-MODERATE (5-7) Prescribed by: LEONIE ANGULO on 04/20/21 1143 Lactobacillus Rhamnosus GG 1 Each Capsule, 1 CAP PO DAILY, (Reported) Loratadine 10 Mg Tablet, 10 MG PO DAILY, (Reported) Magnesium Oxide 400 Mg Tablet, 400 MG PO BIDPC Prescribed by: LEONIE ANGULO on 04/20/21 1143 Miconazole Nitrate 90 Gm Powder, 0 GM TOP BID Prescribed by: LEONIE ANGULO on 04/20/21 1143 [place] 3 Polyunsat Fatty Acids 1,000 Mg Cap, 1,000 MG PO DAILY@0800 Prescribed by: LEONIE ANGULO on 04/20/21 1143 Omeprazole 40 Mg Capsule.dr, 40 MG PO DAILY, (Reported) Potassium Chloride 20 Meq Tab.er.prt, 20 MEQ PO DAILY Prescribed by: LEONIE ANGULO on 04/20/21 1143 Spironolactone 25 Mg Tablet, 25 MG PO DAILY, (Reported) Tramadol HCl 50 Mg Tablet, 0 MG PO Q6H PRN for PAIN-MODERATE (5-7) Prescribed by: LEONIE ANGULO on 04/20/21 1143 Ubidecarenone 100 Mg Capsule, 100 MG PO DAILY, (Reported) Zolpidem Tartrate 10 Mg Tablet, 10 MG PO DAILY, (Reported) [Magnesi L Threonate] , 1 CAP PO DAILY, (Reported) Past Medical/Social/Family Hx Patient Social History Tobacco Use?: No Smokeless Tobacco Frequency: Former User Substance use?: No Alcohol Use?: Yes Alcohol type: Wine Pt stated abuse/neglect: No Immunizations Up To Date Influenza Vaccine Up-to-Date: No; Not Current First/Initial COVID19 Vaccinat: OCTOBER 2020 Second COVID19 Vaccination Sergei: YES Tetanus Booster (TDap): Unknown TB Skin Test: Negative Current Status status: No status: No Advance Directives: Yes Advance Directive Location: Home Communicates: Verbally Primary Language: Omani Preferred Spoken Language: [place]i Is interpretation needed?: No Sensory deficits: Vision impairment Implanted or Applied Medical D: Orthopedic hardware Review of Systems Constitutional: see HPI Focused Exam Height, Weight, BMI Height: 5'4.00" Weight: 195lbs. 1.6oz. 88.968285kk; 33.09 BMI Method:Stated Exam Exam Patient acknowledged, consented, and participated in this virtual visit which was conducted using real time audio/video Vital Signs Date Time Temp Pulse Resp B/P (MAP) Pulse Ox O2 Delivery O2 Flow Rate FiO2 05/15/22 17:00 74 34 133/97 (109) 96 Room Air 05/15/22 16:50 36.6 125 20 144/118 (127) 98 Room Air 05/15/22 16:45 118 05/15/22 16:34 35.9 99 99 143/96 95 Room Air 05/15/22 15:16 152 139/107 05/15/22 14:41 35.9 156 28 144/122 (129) 95 Room Air Height & Weight Height: 5'4.00" Weight: 195lbs. 1.6oz. 88.706155ue; 33.09 BMI Method:Stated General Appearance: No Apparent Distress Capillary Refill: Less Than 3 Seconds Results Lab Laboratory Tests 05/15/22 15:00 Assessment/Plan Assessment/Plan 1 ANTHONY AHUMADA MD May 15, 2022 17:58
[2022-05-15] MEDS: DOCUSATE SODIUM 100 MG (COLACE) CAP PO SCH (21:21)
[2022-05-15] MEDS: SENNOSIDES 8.6 MG (SENOKOT) TAB PO SCH (21:21)
[2022-05-15] MEDS: APIXABAN 5 MG (ELIQUIS) TABLET PO SCH (21:55)
[2022-05-15] MEDS: ZOLPIDEM 5 MG (AMBIEN) TAB PO SCH (21:55)
[2022-05-16] MEDS: HYDROcodone/APAP 5 MG/325 MG (LORTAB) TAB PO PRN ×3 (04:37→10:47)
[2022-05-16 04:45] LABS: BASOPHILS # (AUTO) 0.1 10^3/uL (0.0-0.1); BASOPHILS % (AUTO) 1 % (0-10); EOSINOPHILS # (AUTO) 0.4 10^3/uL (0.0-0.3); EOSINOPHILS % (AUTO) 5 % (0-10); HEMATOCRIT 33 % (35-52); HEMOGLOBIN 10.1 g/dL (11.5-16.0); LYMPHOCYTES # (AUTO) 1.6 10^3/uL (1.0-4.0); LYMPHOCYTES % (AUTO) 20 % (12-44); MEAN CORPUSCULAR HEMOGLOBIN 24 pg (25-34); MEAN CORPUSCULAR HGB CONC 31 g/dL (32-36); MEAN CORPUSCULAR VOLUME 77 fL (80-99); MEAN PLATELET VOLUME 9.3 fL (9.0-12.2); MONOCYTES # (AUTO) 0.7 10^3/uL (0.0-1.0); MONOCYTES % (AUTO) 8 % (0-12); NEUTROPHILS # (AUTO) 5.3 10^3/uL (1.8-7.8); NEUTROPHILS % (AUTO) 66 % (42-75); PLATELET COUNT 238 10^3/uL (130-400); WHITE BLOOD COUNT 7.9 10^3/uL (4.3-11.0)
[2022-05-16 05:00] LABS: CALCIUM 10.2 MG/DL (8.5-10.1)
[2022-05-16 05:04] LABS: CREATININE SERUM 1.03 MG/DL (0.60-1.30); PHOSPHORUS 2.9 MG/DL (2.3-4.7)
[2022-05-16 05:06] LABS: MAGNESIUM 1.7 MG/DL (1.6-2.4)
[2022-05-16] MEDS: MAGNESIUM 1 GM/100 ML IVPB 100 ML IV SCH ×2 (05:16→05:17)
[2022-05-16] MEDS: dilTIAZem DRIP PRE-MIX 125 ML IV SCH (05:48)
[2022-05-16] MEDS ORDERED: KCL 20 MEQ TAB (K-DUR) PO SCH (06:00)
[2022-05-16] MEDS ORDERED: MAGNESIUM 1 GM/100 ML IVPB 100 ML IV SCH (06:00)
[2022-05-16] MEDS ORDERED: POTASSIUM CL 10MEQ/50ML IVPB 50 ML IV SCH (06:00)
--- NOTE | 2022-05-16 08:51 | Consultation-Cardiology ---
HPI-Cardiology Cardiology Consultation Date of Consultation 05/16/22 Date of Admission Time Seen by Provider: 08:46 Indication: Afib with RVR HPI Patient is a 72 y/o female with history of afib/flutter with history of MAZE in April 2021, HOCM with hx of septal ablation, HTN, HLP. Presented to the ER on 05/14/22 with AFib with RVR. Coverted on Cardizem and discharged home. Returned back to ER on 05/15/22 with increased fatigue, dyspnea, palpitations, was back in AFib/flutter with RVR and started on Cardizem gtt. Patient has been maintained on Eliquis as outpatient. Denies any chest pain, dizziness or syncope. Home Medications & Allergies Allergies: Coded Allergies: metoprolol (Verified Allergy, Unknown, 04/16/21) CAUSES HER TO BE VERY LETHARGIC Home Medication List Reviewed: Yes CIJ-Hbilai-Ngtaxc Hx Patient Social History Marital Status: single 2nd Hand Smoke Exposure: No Have you traveled recently?: No Alcohol Use?: Yes Immunizations Up To Date Tetanus Booster (TDap): More than 5yrs Past Medical History PAF, HTN, HOCM, DVT/PE Family Medical History Significant Family History: No Pertinent Family Hx Family History: Cataract 19 FATHER Chest pain 19 FATHER Congenital heart disease 19 MOTHER Congestive heart failure 19 MOTHER Family history: Arthritis 19 FATHER 19 MOTHER Family history: Hypertension 19 FATHER 19 MOTHER Headache 19 MOTHER ([place]IGRAINES) Hearing loss 19 FATHER ([place]) Myocardial infarction 19 FATHER No Family History of: Abdominal aortic aneurysm Seward's disease Alcoholism Aphasia Cancer Cancer of colon Cystic fibrosis Dementia Dysphagia Family history: Allergy Family history: Alzheimer's disease Family history: Asthma Family history: Breast disease Family history: Cardiovascular disease Family history: Coronary thrombosis Family history: Diabetes mellitus Family history: Gastrointestinal disease Family history: Glaucoma Family history: Osteoporosis Family history: Thyroid disorder Heart disease Hereditary disease History of - anemia History of - disorder History of - respiratory disease History of drug abuse Human immunodeficiency virus (HIV) seropositivity Hypercholesterolemia Infertile Kidney disease Malignant neoplasm of lung Parkinson's disease Prostate cancer Psychotic disorder Seizure disorder Stroke Tuberculosis Visual impairment Review of Systems-General Review of Systems Constitutional: see HPI; No malaise, No weakness EENTM: see HPI, no symptoms reported Respiratory: see HPI, short of breath Cardiovascular: see HPI; No chest pain; palpitations; No syncope Gastrointestinal: No abdominal pain Genitourinary: No dysuria, No frequency Musculoskeletal: no symptoms reported Skin: no symptoms reported Psychiatric/Neurological: No Symptoms Reported, See HPI Reviewed Test Results Reviewed Test Results Lab Laboratory Tests 05/15/22 15:00: White Blood Count 9.7, Red Blood Count 4.93, Hemoglobin 11.9, Hematocrit 38, Mean Corpuscular Volume 77L, Mean Corpuscular Hemoglobin 24L, Mean Corpuscular Hemoglobin Concent 32, Red Cell Distribution Width 19.5H, Platelet Count 308, Mean Platelet Volume 9.3, Prothrombin Time 16.6H, INR Comment 1.3, Activated Partial Thromboplast Time 33, Sodium Level 142, Potassium Level 3.9, Chloride Level 105, Carbon Dioxide Level 23, Anion Gap 14, Blood Urea Nitrogen 19H, Creatinine 1.23, Estimat Glomerular Filtration Rate 47, BUN/Creatinine Ratio 15, Glucose Level 100, Calcium Level 10.4H, Corrected Calcium 10.4H, Magnesium Level 1.8, Total Bilirubin 0.6, Aspartate Amino Transf (AST/SGOT) 19, Alanine Aminotransferase (ALT/SGPT) 26, Alkaline Phosphatase 101, Total Creatine Kinase 63, Creatine Kinase MB 1.7, Troponin I 0.036H, B-Type Natriuretic Peptide 89.5, Total Protein 6.9, Albumin 4.0 05/16/22 04:31: White Blood Count 7.9, Red Blood Count 4.23, Hemoglobin 10.1L, Hematocrit 33L, Mean Corpuscular Volume 77L, Mean Corpuscular Hemoglobin 24L, Mean Corpuscular Hemoglobin Concent 31L, Red Cell Distribution Width 19.3H, Platelet Count 238, Mean Platelet Volume 9.3, Sodium Level 142, Potassium Level 4.0, Chloride Level 106, Carbon Dioxide Level 24, Anion Gap 12, Blood Urea Nitrogen 15, Creatinine 1.03, Estimat Glomerular Filtration Rate 58, BUN/Creatinine Ratio 15, Glucose Level 97, Calcium Level 10.2H, Magnesium Level 1.7, Immature Granulocyte % (Auto) 1, Neutrophils (%) (Auto) 66, Lymphocytes (%) (Auto) 20, Monocytes (%) (Auto) 8, Eosinophils (%) (Auto) 5, Basophils (%) (Auto) 1, Neutrophils # (Auto) 5.3, Lymphocytes # (Auto) 1.6, Monocytes # (Auto) 0.7, Eosinophils # (Auto) 0.4H , Basophils # (Auto) 0.1, Immature Granulocyte # (Auto) 0.0, Phosphorus Level 2.9 ECG Impression ECG Initial ECG Impression: Atrial Fibrillation w/RVR Physical Exam Physical Exam Vital Signs Vital Signs - First Documented 05/15/22 14:41 Temp 35.9 Pulse 156 Resp 28 B/P (MAP) 144/122 (129) Pulse Ox 95 O2 Delivery Room Air Capillary Refill : Less Than 3 Seconds Height, Weight, BMI Height: 5'4.00" Weight: 195lbs. 1.6oz. 88.640873yt; 33.13 BMI Method:Stated General Appearance: No Apparent Distress HEENT: PERRL/EOMI, Normal ENT Inspection Neck: Non Tender, Supple Respiratory: Lungs Clear, Normal Breath Sounds Cardiovascular: Systolic Murmur, Irregularly Irregular, Tachycardia Gastrointestinal: Non Tender, Soft Extremity: No Calf Tenderness Neurologic/Psychiatric: Alert, Oriented x3, tandem operator II-XII Norm as Tested A/P-Cardiology Admission Diagnosis Afib with RVR HOCM HTN Hx DVT/PE Assessment/Plan Paroxysmal AFib/flutter with RVR, diagnosed in March 2015. History of watchman procedure done on December 21, 2020 and history of left atrial thrombectomy and maze procedure done on April 03, [address] Wise at . Currently on Cardizem gtt, still in afib/flutter at this time I will proceed with electrical cardioversion today. History of intolerance to Multaq, metoprolol with generalized weakness and loss of energy. Intolerance to amiodarone. Intolerant to sotalol Has been on flecainide in the past, I will resume it Evaluate 2D echocardiogram History of DVT/bilateral pulmonary embolism March 2021, maintained on Eliquis Cardiac catheterization carried out at in March 2021 reported as nonobstructive coronary artery disease. Continue to monitor [id number] score is 6, yearly risk of stroke without oral anticoagulation is 6.7 percent. Maintained on Eliquis Hypertrophic obstructive cardiomyopathy, history of alcohol septal ablation done by Dr. Norberto Stone. Hypertension, continue to monitor blood pressure Chronic kidney disease stage III. Continue to monitor renal function History of gastroesophageal reflux disease. Status post acute CVA occurred on August 28, 2015 with residual right side weakness. Patient was not on oral anticoagulations at that time. History of cellulitis, back surgery, 2 knee replacement surgery. Thank you for allowing us to participate in the management of Ms. Cruz. This is Drea Pelletier PA-C, as a scribe for Dr. Baker. Patient was seen and evaluated with Drea, I interviewed and examined the patient, discussed the management plan with Drea, I agree with the current scribed note As mentioned above patient has paroxysmal atrial fibrillation, seen in the emergency room twice and she was admitted on the second visit Started on Cardizem drip, did not convert to sinus rhythm. I am restarting flecainide and monitor tolerance and response I am planning for electrical cardioversion today. DREA PALOMINO May 16, 2022 08:51 PERRY BAKER MD May 16, 2022 09:09
--- NOTE | 2022-05-16 08:54 | Cardiac Procedure Note-CS/ASA ---
Pre-Procedure Note Pre-Op Procedure Note Date of Available H&P: May 16, 2022 Date H&P Reviewed: May 16, 2022 Time H&P Reviewed: 08:53 History & Physical: H&P Reviewed, Patient Examed, No changes noted Pre-Operative Diagnosis: Atrial fibrillation Conscious Sedation Pre-Proced Time 08:54 ASA Score 3 For ASA 3 and 4: Consider anesthesia and medical clearance. Also, for patients with a history of failed moderate sedation consider anesthesia. Airway Lungs Heart ASA score ASA 1: a normal healthy patient ASA 2: a patient with a mild systemic disease (mid diabetes, controlled hypertension, obesity ASA 3: a patient with a severe systemic disease that limits activity (angina, COPD, prior Myocardial infarction) ASA 4: a patient with an incapacitating disease that is a constant threat to life (CHF, renal failure) ASA 5: a moribund patient not expected to survive 24 hrs. (ruptured aneurysm) ASA 6: a declared brain- patient whose organs are being harvested. For emergent operations, add the letter E after the classification Mallampati Classification Grade 3 Sedation Plan Analgesia, Amnesia, Plan communicated to team members, Discussed options with patient/fam, Discussed risks with patient/fam The patient is an appropriate candidate to undergo the planned procedure, sedation, and anesthesia. The patient immediately re-assessed prior to indication. PERRY DAVID MD May 16, 2022 08:54
[2022-05-16] MEDS ORDERED: LORATADINE (CLARITIN) 10 MG TAB PO SCH (09:00)
[2022-05-16] MEDS ORDERED: NON-FORMULARY MEDICATION 1 EA EA (Zolpidem Tartrate (Ambien) 10 MG) PO SCH (09:00)
[2022-05-16] MEDS ORDERED: proPOfol 200 MG/20 ML (DIPRIVAN) VIAL IV ONE (09:12)
--- NOTE | 2022-05-16 09:40 | Anesthesia-General Post-Op ---
MAC Patient Condition Mental Status/LOC: Same as Preop Cardiovascular: Satisfactory Nausea/Vomiting: Absent Respiratory: Satisfactory Pain: Controlled Complications: Absent Post Op Complications Complications None Follow Up Care/Instructions Patient Instructions None needed. Anesthesiology Discharge Order Discharge Order Patient is doing well, no complaints, stable vital signs, no apparent adverse anesthesia problems. No complications reported per nursing. SHELLEY REYES CRNA May 16, 2022 09:40
[2022-05-16] MEDS ORDERED: FLECAINIDE 100 MG (TAMBOCOR) TAB PO NR (10:30)
[2022-05-16] MEDS: APIXABAN 5 MG (ELIQUIS) TABLET PO SCH (10:46)
[2022-05-16] MEDS: SENNOSIDES 8.6 MG (SENOKOT) TAB PO SCH (10:47)
[2022-05-16] MEDS: DOCUSATE SODIUM 100 MG (COLACE) CAP PO SCH (10:47)
--- NOTE | 2022-05-16 12:01 | Physical Therapy Evaluation ---
PT Evaluation-General Medical Diagnosis Admission Date May 15, 2022 at 16:23 Medical Diagnosis: afib with RVR Onset Date: May 15, 2022 Therapy Diagnosis Therapy Diagnosis: impaired mobility, strength Height/Weight Height (Feet): 5 Height (Inches): 4.00 Weight (Pounds): 195 Weight (Ounces): 1.6 Precautions Precautions/Isolations: Fall Prevention, Standard Precautions Referral Physician: Zainab Reason for Referral: Evaluation/Treatment Medical History Pertinent Medical History: Atrial Fib, CVA, GERD Additional Medical History Past Medical History Surgery/Hospitalization HX: HX OF AFIB, CHF, CVA (08/27/2015), DVT, PE, CKD, FORMER SMOKER, OBESITY, BACK FUSION, BILATERAL TOTAL KNEE REPLACEMENT. WATCHMAN DEVICE PLACED IN DECEMBER 2020. REMOVAL OF LEFT ATRIAL THROMBUS AND MAZE PROCEDURE ON 04/03/21. 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 7-Fqhhjfzlep-gkoydoz completes the activity by him/herself with no assistance from a helper. 5-Set-up or Clean-up Assistance-helper sets up or cleans up; patient completes activity. Reliance assists only prior to or following the activity. 4-Supervision or Touching Assistance-helper provides verbal cues and/or touching/steadying and/or contact guard assistance as patient completes activity. Assistance may be provided throughout the activity or intermittently. 3-Partial/Moderate Assistance-helper does LESS THAN HALF the effort. Reliance lifts, holds or supports trunk or limbs, but provides less than half the effort. 2-Substantial/Maximal Assistance-helper does MORE THAN HALF the effort. Reliance lifts or holds trunk or limbs and provides more than half the effort. 0-Xgdlcrbub-iddzap does ALL the effort. Patient does none of the effort to complete the activity. Or, the assistance of 2 or more helpers is required for the patient to complete the activity. If activity was not attempted, code reason: 7-Patient Refused. 9-Not Applicable-not attempted and the patient did not perform the activity before the current illness, exacerbation or injury. 10-Not Attempted due to Environmental Limitations-(lack of equipment, weather restraints, etc.). 88-Not Attempted due to Medical Conditions or Safety Concerns. Bed Mobility: 6 Transfers (B,C,W/C): 6 Gait: 6 Stairs: 6 Indoor Mobility (Ambulation): Independent Stairs: Independent Prior Devices Use: Walker PT Evaluation-Current Subjective Patient sitting EOB pre tx, agrees to PT, has no complaints of pain. Pt/Family Goals to be independent at home Objective Patient Orientation: Person, Place, Situation ROM/Strength ROM Lower Extremities WNL Strength Lower Extremities LLE (hip flexion 3+/5, knee flexion 4+/5, knee extension 4+/5, dorsiflexion 4+/5), RLE (hip flexion 3+/5, knee flexion 4/5, knee extension 4/5, dorsiflexion 4/5) Sensory Hearing: Functional Sensation Right Lower Extremit: Intact Sensation Left Lower Extremity: Intact Transfers Sit to Stand (QC): 4 Chair/Apt-cc-Qbsgq Xfer(QC): 4 SBA Gait Does the Patient Walk?: Yes Mode of Locomotion: Walk Anticipated Mode of Locomotion: Walk Walk 10 feet (QC): 4 Walk 50 ft with 2 Turns(QC): 4 Walk 150 ft (QC): 4 Distance: 200' Gait Assistive Device: FWW Comments/Gait Description SBA, slow but steady ambulation, HR was 82 bpm after getting back to her room, patient sits in recliner when done for lunch Balance Sitting Static: Normal Sitting Dynamic: Normal Standing Static: Good Standing Dynamic: Good Assessment/Needs Patient in recliner post tx with nurse call, phone, tray, all needs met. Patient has impaired mobility and strength but states she is close to her baseline. She would benefit from outpatient therapy after discharge. Rehab Potential: Fair PT Chcf Goals Service Aide Goals PT Service Aide Goals Time Frame: May 23, 2022 Roll Left & Right (QC): 6 Sit to Lying (QC): 6 Lying-Sitting on Side/Bed(QC): 6 Sit to Stand (QC): 6 Chair/Wcs-bz-Jabqz Xfer(QC): 6 Walk 10 feet (QC): 6 Walk 50ft with 2 Turns (QC): 6 Walk 150 ft (QC): 6 PT Plan Problem List Problem List: Activity Tolerance, Functional Strength, Safety, Balance, Gait, Transfer, Bed Mobility, ROM Treatment/Plan Treatment Plan: Continue Plan of Care Treatment Plan: Bed Mobility, Education, Functional Activity Song, Functional Strength, Gait, Safety, Therapeutic Exercise, Transfers Treatment Duration: May 23, 2022 Frequency: 6 times per week Estimated Hrs Per Day: .25 hour per day Patient and/or Family Agrees t: Yes Safety Risks/Education Patient Education: Gait Training, Transfer Techniques, Correct Positioning, Safety Issues Teaching Recipient: Patient Teaching Methods: Demonstration, Discussion Response to Teaching: Reinforcement Needed Discharge Recommendations Plan Patient will perform bed mobility and transfer training, balance and endurance training, functional strengthening, stair training, gait training, and education to improve functional mobility and independence at home. Therapy Discharge Recommendati: Scheduled Assistance, Home & Family, Post Acute PT Time/GCodes Time In: 1129 Time Out: 1140 Total Billed Treatment Time: 11 Total Billed Treatment 1 visit KENYETTA SHAH PT May 16, 2022 12:01
[2022-05-16] MEDS ORDERED: DILT120C85 PO (12:47)
[2022-05-16] MEDS ORDERED: APIX5TAB PO (12:47)
[2022-05-16] MEDS ORDERED: BUME1TAB8 PO (12:47)
[2022-05-16] MEDS ORDERED: HYDR-3817 PO (12:47)
[2022-05-16] MEDS ORDERED: MAGN250T31 PO (12:47)
[2022-05-16] MEDS ORDERED: FLEC100T PO (14:12)
[2022-05-16] MEDS ORDERED: FLECAINIDE 100 MG (TAMBOCOR) TAB PO SCH (21:00)
--- NOTE | 2022-05-24 14:58 | Physician Query-Final Dx ---
Marilou Jones 05/24/22 1458: Final Diagnosis Give Final Diagnosis Please give Final Diagnosis PERRY DAVID MD 05/25/22 0641: Final Diagnosis Give Final Diagnosis Afib with RVR HOCM HTN Hx DVT/PE Marilou Jones May 24, 2022 14:58 PERRY DAVID MD May 25, 2022 06:41
--- NOTE | 2022-05-30 10:14 | Cardioversion ---
Cardioversion PROCEDURE PHYSICIAN: Perry Baker DATE OF PROCEDURE: 05/16/22 DIRECT EXTERNAL ELECTRICAL CARDIOVERSION: Indications: Atrial Flutter with rapid ventricular rate Preoperative diagnoses: Atrial Flutter with rapid ventricular rate Postoperative diagnosis: Sinus rhythm, Successful Electrical Cardioversion History: Anesthesia: By Anesthesia services Complications: None Specimen: None Contrast: 0 Flouroscopy: none Procedure Details: The patient was brought the cath laboratory technician after informed consent was taken, all the risks and complications were explained including the risk of stroke. Electrical cardioversion was carried out with anesthesia support with propofol. 200 joules of synchronized shock was delivered through external patches which promptly restored sinus rhythm. The patient tolerated the procedure well. Conclusions: Successful electrical cardioversion and terminating during atrial flutter PERRY BAKER MD May 30, 2022 10:14
== END 2022-05-16 14:14 | disposition home or self-care (01) ==
LOC: EDUNIT# 14:36 → ER 14:38 → UNDOADMOB 16:23 → ICU 16:23 → UNDODISOB 05-16 15:50
PROVIDERS: ADMIT Internal Medicine; ATTEND Internal Medicine
DX: I48.92 Unspecified atrial flutter (principal); I48.91 Unspecified atrial fibrillation; Z79.899 Other long term (current) drug therapy; Z79.01 Long term (current) use of anticoagulants
CPT/HCPCS: 80048; 80053; 82550; 82553; 83735 ×2; 83880; 84100; 84484; 85025; 85027; 85610; 85730; 87081; 93005 ×2; 93041; 96366 ×2; 96374; 96375; 96376; 97161; 99285; C8929; G0378; 36415; 93306

== ENCOUNTER 2022-10-11 15:21 | Emergency (ER) | payer MEDICARE, OTHER ==
[~2022-10-11] VITALS: Ht 162 cm; Wt 83.0 kg
[~2022-10-11 15:21] MED LIST changes: +DILT120C85 PO; +FLEC100T PO; +HYDR-3817 PO; +MAGN250T31 PO
[2022-10-11] MEDS ORDERED: ADENOSINE 6 MG/2 ML (ADENOCARD) VIAL IV ONE ×2 (15:35→16:00)
[2022-10-11 15:58] LABS: BASOPHILS % (AUTO) 0 % (0-10); EOSINOPHILS # (AUTO) 0.1 10^3/uL (0.0-0.3); EOSINOPHILS % (AUTO) 1 % (0-10); HEMATOCRIT 38 % (35-52); HEMOGLOBIN 12.1 g/dL (11.5-16.0); LYMPHOCYTES # (AUTO) 2.5 X 10^3 (1.0-4.0); LYMPHOCYTES % (AUTO) 21 % (12-44); MEAN CORPUSCULAR HEMOGLOBIN 23 pg (25-34); MEAN CORPUSCULAR HGB CONC 32 g/dL (32-36); MEAN CORPUSCULAR VOLUME 73 fL (80-99); MEAN PLATELET VOLUME 8.9 fL (9.0-12.2); MONOCYTES # (AUTO) 0.8 X 10^3 (0.0-1.0); MONOCYTES % (AUTO) 6 % (0-12); NEUTROPHILS # (AUTO) 8.5 X 10^3 (1.8-7.8); NEUTROPHILS % (AUTO) 71 % (42-75); PLATELET COUNT 341 10^3/uL (130-400)
[2022-10-11 15:59] LABS: POTASSIUM 2.8 MMOL/L (3.6-5.0)
[2022-10-11 16:00] LABS: CALCIUM 10.6 MG/DL (8.5-10.1)
[2022-10-11] MEDS ORDERED: dilTIAZem DRIP PRE-MIX 125 ML IV SCH (16:00)
[2022-10-11 16:05] LABS: CREATININE SERUM 1.18 MG/DL (0.60-1.30)
[2022-10-11 16:07] LABS: MAGNESIUM 1.3 MG/DL (1.6-2.4)
--- NOTE | 2022-10-11 16:24 | ED Cardiac General ---
History of Present Illness General Chief Complaint: Cardiac/General Problems Stated Complaint: RAPID HEARTRATE Nursing Triage Note: pt presents to ED via POV with c/o palpitations that began this morning when she awoke. pt denies accompanying sx. has hx of afib, controlled with meds. pt also reports BLE edema and weight gain over the last couple of days. Source: patient, old records Exam Limitations: no limitations History of Present Illness Date Seen by Provider: Oct 11, 2022 Time Seen by Provider: 15:29 Allergies and Home Medications Allergies Coded Allergies: metoprolol (Verified Allergy, Unknown, 04/16/21) CAUSES HER TO BE VERY LETHARGIC Patient Home Medication List Albuterol Sulfate (Ventolin Hfa) 1 Puff Puff, 2 PUFF IH Q6H PRN for SHORTNESS OF BREATH, (Reported) Entered as Reported by: JAVIER MUHAMMAD on 02/04/17 1023 Apixaban (Eliquis) 5 Mg Tablet, 5 MG PO BID, (Reported) Entered as Reported by: TRESA ANDREWS on 05/16/22 1247 Bumetanide (Bumetanide) 1 Mg Tablet, 1 MG PO DAILY, (Reported) Entered as Reported by: TRESA ANDREWS on 05/16/22 1247 Cholecalciferol (Vitamin D3) (Vitamin D3) 125 Mcg Tablet, 125 MCG PO DAILY, (Reported) Entered as Reported by: TRESA ANDREWS on 04/10/21 1405 Diltiazem HCl (Diltiazem ER) 120 Mg Capsule.er, 120 MG PO BID, (Reported) Entered as Reported by: TRESA ANDREWS on 05/16/22 1247 Flecainide Acetate (Flecainide Acetate) 100 Mg Tablet, 50 MG PO BID Prescribed by: NEIL GREEN on 05/16/22 1412 Hydrocodone/Acetaminophen (Hydrocodone-Acetamin 7.5-325) 7.5 Mg-325 Mg Tablet, 1 EA PO Q8H PRN for PAIN-MODERATE (5-7), (Reported) Entered as Reported by: TRESA ANDREWS on 05/16/22 1247 Lactobacillus Rhamnosus GG (Culturelle) 1 Each Capsule, 1 CAP PO DAILY, (Reported) Entered as Reported by: JAVIER MUHAMMAD on 02/04/17 1023 Loratadine (Loratadine) 10 Mg Tablet, 10 MG PO DAILY, (Reported) Entered as Reported by: JAVIER MUHAMMAD on 02/04/17 1023 Magnesium (Magnesium) 250 Mg Tablet, 250 MG PO DAILY, (Reported) Entered as Reported by: TRESA ANDREWS on 05/16/22 1247 Omeprazole (Omeprazole) 40 Mg Capsule.dr, 40 MG PO HS, (Reported) Entered as Reported by: TRESA ANDREWS on 04/10/21 1405 Spironolactone (Spironolactone) 25 Mg Tablet, 25 MG PO DAILY, (Reported) Entered as Reported by: TRESA ANDREWS on 04/10/21 1405 Ubidecarenone (Co Q-10) 100 Mg Capsule, 100 MG PO DAILY, (Reported) Entered as Reported by: JAVIER MUHAMMAD on 02/04/17 1023 Zolpidem Tartrate (Ambien) 10 Mg Tablet, 10 MG PO HS, (Reported) Entered as Reported by: TRESA ANDREWS on 04/12/21 1347 Past Iggeytw-Xoduzd-Winxqx Hx Immunizations Up To Date Tetanus Booster (TDap): More than 5yrs First/Initial COVID19 Vaccinat: OCTOBER 2020 Second COVID19 Vaccination Sergei: YES Third COVID19 Vaccination Date: YES Seasonal Allergies Seasonal Allergies: Yes Past Medical History Surgery/Hospitalization HX: HX OF AFIB, CHF, CVA (08/27/2015), DVT, PE, CKD, FORMER SMOKER, OBESITY, BACK FUSION, BILATERAL TOTAL KNEE REPLACEMENT. WATCHMAN DEVICE PLACED IN DECEMBER 2020. REMOVAL OF LEFT ATRIAL THROMBUS AND MAZE PROCEDURE ON 04/03/21. 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 Sexually Transmitted Disease: No HIV/AIDS: No Genitourinary: No Gastrointestinal: Yes Gastroesophageal Reflux Musculoskeletal: Yes Arthritis Endocrine: No Cataract Cancer: No Psychosocial: Yes Sleep Difficulties Integumentary: Yes (strip cellulitis) Blood Disorders: No Family Medical History Cataract 19 FATHER Chest pain 19 FATHER Congenital heart disease 19 MOTHER Congestive heart failure 19 MOTHER Family history: Arthritis 19 FATHER 19 MOTHER Family history: Hypertension 19 FATHER 19 MOTHER Headache 19 MOTHER ([place]) Hearing loss 19 FATHER ([place]) Myocardial infarction 19 FATHER No Family History of: Abdominal aortic aneurysm Pitt's disease Alcoholism Aphasia Cancer Cancer of colon Cystic fibrosis Dementia Dysphagia Family history: Allergy Family history: Alzheimer's disease Family history: Asthma Family history: Breast disease Family history: Cardiovascular disease Family history: Coronary thrombosis Family history: Diabetes mellitus Family history: Gastrointestinal disease Family history: Glaucoma Family history: Osteoporosis Family history: Thyroid disorder Heart disease Hereditary disease History of - anemia History of - disorder History of - respiratory disease History of drug abuse Human immunodeficiency virus (HIV) seropositivity Hypercholesterolemia Infertile Kidney disease Malignant neoplasm of lung Parkinson's disease Prostate cancer Psychotic disorder Seizure disorder Stroke Tuberculosis Visual impairment No Pertinent Family Hx Physical Exam Vital Signs Vital Signs - First Documented 10/11/22 15:39 Temp 36.6 Pulse 156 Resp 18 B/P (MAP) 134/111 (119) Pulse Ox 97 O2 Delivery Room Air Capillary Refill : Less Than 3 Seconds Height, Weight, BMI Height: 5'4.00" Weight: 195lbs. 1.6oz. [id number]; 31.00 BMI Method:Stated Progress/Results/Core Measures Results/Orders Lab Results Laboratory Tests Test 10/11/22 15:30 Range/Units White Blood Count 12.0 H 4.3-11.0 10^3/uL Red Blood Count 5.23 H 3.80-5.11 10^6/uL Hemoglobin 12.1 11.5-16.0 g/dL Hematocrit 38 35-52 % Mean Corpuscular Volume 73 L 80-99 fL Mean Corpuscular Hemoglobin 23 L 25-34 pg Mean Corpuscular Hemoglobin Concent 32 32-36 g/dL Red Cell Distribution Width 21.2 H 10.0-14.5 % Platelet Count 341 130-400 10^3/uL Mean Platelet Volume 8.9 L 9.0-12.2 fL Immature Granulocyte % (Auto) 1 % Neutrophils (%) (Auto) 71 42-75 % Lymphocytes (%) (Auto) 21 12-44 % Monocytes (%) (Auto) 6 0-12 % Eosinophils (%) (Auto) 1 0-10 % Basophils (%) (Auto) 0 0-10 % Neutrophils # (Auto) 8.5 H 1.8-7.8 X 10^3 Lymphocytes # (Auto) 2.5 1.0-4.0 X 10^3 Monocytes # (Auto) 0.8 0.0-1.0 X 10^3 Eosinophils # (Auto) 0.1 0.0-0.3 10^3/uL Basophils # (Auto) 0.0 0.0-0.1 10^3/uL Immature Granulocyte # (Auto) 0.1 0.0-0.1 10^3/uL Sodium Level 141 135-145 MMOL/L Potassium Level 2.8 L 3.6-5.0 MMOL/L Chloride Level 97 L 98-107 MMOL/L Carbon Dioxide Level 29 21-32 MMOL/L Anion Gap 15 H 5-14 MMOL/L Blood Urea Nitrogen 16 7-18 MG/DL Creatinine 1.18 0.60-1.30 MG/DL Estimat Glomerular Filtration Rate 49 BUN/Creatinine Ratio 14 Glucose Level 153 H 70-105 MG/DL Calcium Level 10.6 H 8.5-10.1 MG/DL Magnesium Level 1.3 L 1.6-2.4 MG/DL TSH [place] Testing 1.67 0.35-4.94 UIU/ML My Orders Orders - ABIMAEL MAJOR MD Ekg Tracing (10/11/22 15:29) Monitor-Rhythm Ecg Trace Only (10/11/22 15:29) Adenosine Injection (Adenocard Injection (10/11/22 15:35) Adenosine Injection (Adenocard Injection (10/11/22 16:00) Basic Metabolic Panel (10/11/22 15:49) Cbc With Automated Diff (10/11/22 15:49) Magnesium (10/11/22 15:49) Thyroid Analyzer (10/11/22 15:49) Ed Iv/Invasive Line Start (10/11/22 15:49) Ekg Tracing (10/11/22 15:49) Ekg Tracing (10/11/22 15:49) Diltiazem Drip Pre-Mix (Cardizem Drip Pr (10/11/22 16:00) Diltiazem Injection (Cardizem Injection) (10/11/22 16:00) Magnesium 1 Gm/100 Ml Ivpb (Magnesium [place] (10/11/22 16:45) Potassium Chloride (Tablet) (Klor Con Ta (10/11/22 16:45) Ns (Ivpb) (Sodium Chloride 0.9%) (10/11/22 16:45) Diltiazem Cd 24 Hr Capsule (Cardizem Cd (10/11/22 16:45) Potassium Chloride (Tablet) (Klor Con Ta (10/11/22 18:45) Medications Given in ED Current Medications Medications Dose Ordered Sig/Vinod Route Start Time Stop Time Status Last Admin Dose Admin Adenosine 6 mg ONCE ONCE IV 10/11/22 16:00 10/11/22 16:01 DC 10/11/22 15:41 6 MG Diltiazem HCl 10 mg ONCE ONCE IVP 10/11/22 16:00 10/11/22 16:01 DC 10/11/22 16:05 10 MG Diltiazem HCl 240 mg ONCE ONCE PO 10/11/22 16:45 10/11/22 16:46 DC 10/11/22 17:08 240 MG Magnesium Sulfate/ Dextrose 100 ml @ 100 mls/hr ONCE ONCE IV 10/11/22 16:45 10/11/22 17:44 DC 10/11/22 17:06 100 MLS/HR Potassium Chloride 40 meq ONCE ONCE PO 10/11/22 16:45 10/11/22 16:46 DC 10/11/22 17:06 40 MEQ Potassium Chloride 40 meq ONCE ONCE PO 10/11/22 18:45 10/11/22 18:46 DC 10/11/22 18:58 40 MEQ Sodium Chloride 250 ml @ 999 mls/hr Q16M ONCE IV 10/11/22 16:45 10/11/22 17:00 DC 10/11/22 17:06 999 MLS/HR Vital Signs/I&O 10/11/22 10/11/22 10/11/22 15:39 16:05 16:05 Temp 36.6 Pulse 156 154 154 Resp 18 B/P (MAP) 134/111 (119) Pulse Ox 97 O2 Delivery Room Air Blood Pressure Mean: 119 Departure Impression Primary Impression: Atrial flutter with rapid ventricular response Additional Impressions: Hypokalemia Hypomagnesemia Disposition: 01 HOME, SELF-CARE Condition: Improved Departure-Patient Inst. Decision time for Depature: 19:16 Referrals: BRENDA SAWANT DO (PCP/Family) Primary Care Physician Patient Instructions: Atrial Flutter, Low Magnesium Level, Hypokalemia Add. Discharge Instructions: Resume taking your potassium supplements until otherwise instructed. Increase your magnesium supplement to 400 mg twice daily instead of once daily Contact Dr. Sawant's office and Dr. Baker's office tomorrow to discuss your situation. Inquire if Dr. Sawant's office would like you to have your potassium and magnesium level checked sooner than Saturday. Continue taking diltiazem 360 mg in the morning as you have been. Add 120 mg as prescribed in the afternoon or evening. Follow-up with Dr. Baker and Dr. Sawant as soon as possible. Return to the ER if you have worsening symptoms despite following these instructions. Continue all other medications as previously prescribed. All discharge instructions reviewed with patient and/or family. Voiced understanding. Scripts Diltiazem HCl (Diltiazem 24Hr ER) 120 Mg Cap.er.24h 120 MG PO DAILY, #30 CAP In afternoon or evening. Prov: ABIMAEL MAJOR MD 10/11/22 Copy Copies To 1: BRENDA SAWANT DO Copies To 2: PERRY BAKER MD, JOSHUA T MD Oct 11, 2022 16:24
[2022-10-11 16:27] LABS: TSH (THYROID ANALYZER) 1.67 UIU/ML (0.35-4.94)
[2022-10-11] MEDS ORDERED: KCL 10 MEQ TAB (MICRO K) PO ONE ×2 (16:45→18:45)
[2022-10-11] MEDS ORDERED: MAGNESIUM 1 GM/100 ML IVPB 100 ML IV ONE (16:45)
[2022-10-11] MEDS ORDERED: NS (IVPB) 250 ML IV ONE (16:45)
[2022-10-11] MEDS ORDERED: DILT-27 PO (19:20)
[2022-10-11 19:35] VITALS: BP 129/96
== END 2022-10-11 19:48 | disposition home or self-care (01) ==
LOC: EDUNIT# 15:21 → ER 15:22
DX: I48.92 Unspecified atrial flutter (principal); I48.91 Unspecified atrial fibrillation; E66.9 Obesity, unspecified; E87.6 Hypokalemia; E83.42 Hypomagnesemia; Z79.01 Long term (current) use of anticoagulants; Z87.891 Personal history of nicotine dependence; Z68.31 Body mass index [BMI] 31.0-31.9, adult; Z79.899 Other long term (current) drug therapy
CPT/HCPCS: 36415; 80048; 83735; 84443; 85025; 93005; 93041; 96374; 96375

== ENCOUNTER → 2022-12-11 | Outpatient (CLI) | payer MEDICARE, OTHER | LOC: WOUNDCARE 09:27 | PROVIDERS: ATTEND Family Medicine | DX: S81.812A Laceration without foreign body, left lower leg, initial encounter (principal); I87.312 Chronic venous hypertension (idiopathic) with ulcer of left lower extremity; I89.0 Lymphedema, not elsewhere classified; E66.01 Morbid (severe) obesity due to excess calories; Z68.31 Body mass index [BMI] 31.0-31.9, adult | CPT/HCPCS: 99213 ==

== ENCOUNTER → 2022-12-17 | Outpatient (CLI) | payer MEDICARE, OTHER | LOC: WOUNDCARE 10:30 | PROVIDERS: ATTEND Family Medicine | DX: S81.812A Laceration without foreign body, left lower leg, initial encounter (principal); I89.0 Lymphedema, not elsewhere classified; I87.312 Chronic venous hypertension (idiopathic) with ulcer of left lower extremity; E66.01 Morbid (severe) obesity due to excess calories; I96 Gangrene, not elsewhere classified; Z68.31 Body mass index [BMI] 31.0-31.9, adult | CPT/HCPCS: 11042; 11045; G0463 ==

== ENCOUNTER → 2022-12-24 | Outpatient (CLI) | payer MEDICARE, OTHER | LOC: WOUNDCARE 10:30 | PROVIDERS: ATTEND Family Medicine | DX: I96 Gangrene, not elsewhere classified (principal); S81.812A Laceration without foreign body, left lower leg, initial encounter; I87.332 Chronic venous hypertension (idiopathic) with ulcer and inflammation of left lower extremity; I89.0 Lymphedema, not elsewhere classified; E66.01 Morbid (severe) obesity due to excess calories; Z68.31 Body mass index [BMI] 31.0-31.9, adult; X58.XXXA Exposure to other specified factors, initial encounter | CPT/HCPCS: 11042; G0463 ==

== ENCOUNTER → 2022-12-31 | Outpatient (CLI) | payer MEDICARE, OTHER | LOC: WOUNDCARE 10:29 | PROVIDERS: ATTEND Family Medicine | DX: S81.812A Laceration without foreign body, left lower leg, initial encounter (principal); I89.0 Lymphedema, not elsewhere classified; I87.312 Chronic venous hypertension (idiopathic) with ulcer of left lower extremity; E66.01 Morbid (severe) obesity due to excess calories; I96 Gangrene, not elsewhere classified; Z68.31 Body mass index [BMI] 31.0-31.9, adult | CPT/HCPCS: 11042; G0463 ==

== ENCOUNTER → 2023-01-07 | Outpatient (CLI) | payer MEDICARE, OTHER | LOC: WOUNDCARE 10:26 | PROVIDERS: ATTEND Family Medicine | DX: I96 Gangrene, not elsewhere classified (principal); S81.812A Laceration without foreign body, left lower leg, initial encounter; I87.332 Chronic venous hypertension (idiopathic) with ulcer and inflammation of left lower extremity; I89.0 Lymphedema, not elsewhere classified; E66.1 Drug-induced obesity; Z68.31 Body mass index [BMI] 31.0-31.9, adult; X58.XXXA Exposure to other specified factors, initial encounter | CPT/HCPCS: 11042; G0463 ==

== ENCOUNTER → 2023-01-14 | Outpatient (CLI) | payer MEDICARE, OTHER | LOC: WOUNDCARE 10:30 | PROVIDERS: ATTEND Family Medicine | DX: S81.812A Laceration without foreign body, left lower leg, initial encounter (principal); I89.0 Lymphedema, not elsewhere classified; I87.312 Chronic venous hypertension (idiopathic) with ulcer of left lower extremity; I96 Gangrene, not elsewhere classified; Z68.31 Body mass index [BMI] 31.0-31.9, adult; E66.01 Morbid (severe) obesity due to excess calories | CPT/HCPCS: 99212 ==

== ENCOUNTER 2023-02-07 18:10 | Emergency (ER) | payer MEDICARE, OTHER ==
[~2023-02-07] VITALS: Ht 162 cm; Wt 82.0 kg
[2023-02-07 18:15] VITALS: BP 0/0
[2023-02-07] MEDS ORDERED: LIDOCAINE/EPI 1%-1:100,000 (XYLOCAINE) 20ML ONE (19:39)
[2023-02-07] MEDS ORDERED: LIDOCAINE/EPI 2% 1:100,00 (XYLOCAINE) 20 ML VIAL INJ ONE (19:45)
[2023-02-07] MEDS ORDERED: TRANEXAMIC ACID 100 MG/ML 10 ML INJECTION IR ONE (19:45)
--- NOTE | 2023-02-07 19:56 | ED Integumentary General ---
General Chief Complaint: Skin/Wound Problems Stated Complaint: FALL/RIGHT KNEE LAC Nursing Triage Note: PT TO TRIAGE CO OF SKIN TEAR ON L KNEE FROM FALL THIS AM. PT HAS APPROX 9CM SKIN TEAR ACROSS L KNEE. PT STATES WAS SEEN AT WOUND CARE TODAY, L KNEE STARTED BLEEDING AGAIN THIS EVENING. PT IS ON A BLOOD THINNER. WOUND ON KNEE DRESSING REWRAPPED W PRESSURE DRESSING. PT REFUSED B/P Source: patient Exam Limitations: no limitations History of Present Illness Date Seen by Provider: Feb 07, 2023 Time Seen by Provider: 19:05 Initial Comments 72-year-old female presents to the ER for bleeding from wound on right knee. Patient fell this morning which resulted in a skin tear on her right knee. She was seen at wound care who dressed it. She states that it started bleeding around 5 PM tonight. She came in because she cannot get the bleeding to stop. She takes a blood thinner for A-fib. Allergies and Home Medications Allergies Coded Allergies: metoprolol (Verified Allergy, Unknown, 04/16/21) CAUSES HER TO BE VERY LETHARGIC Patient Home Medication List Home Medication List Reviewed: Yes Albuterol Sulfate (Ventolin Hfa) 1 Puff Puff, 2 PUFF IH Q6H PRN for SHORTNESS OF BREATH, (Reported) Entered as Reported by: JAVIER MUHAMMAD on 02/04/17 1023 Apixaban (Eliquis) 5 Mg Tablet, 5 MG PO BID, (Reported) Entered as Reported by: TRESA ANDREWS on 05/16/22 1247 Bumetanide (Bumetanide) 1 Mg Tablet, 1 MG PO DAILY, (Reported) Entered as Reported by: TRESA ANDREWS on 05/16/22 1247 Cholecalciferol (Vitamin D3) (Vitamin D3) 125 Mcg Tablet, 125 MCG PO DAILY, (Reported) Entered as Reported by: TRESA ANDREWS on 04/10/21 1405 Diltiazem HCl (Diltiazem ER) 120 Mg Capsule.er, 120 MG PO BID, (Reported) Entered as Reported by: TRESA ANDREWS on 05/16/22 1247 Diltiazem HCl (Diltiazem 24Hr ER) 120 Mg Cap.er.24h, 120 MG PO DAILY Prescribed by: ABIMAEL BROWN on 10/11/221919 Flecainide Acetate (Flecainide Acetate) 100 Mg Tablet, 50 MG PO BID Prescribed by: NEIL GREEN on 05/16/22 1412 Hydrocodone/Acetaminophen (Hydrocodone-Acetamin 7.5-325) 7.5 Mg-325 Mg Tablet, 1 EA PO Q8H PRN for PAIN-MODERATE (5-7), (Reported) Entered as Reported by: TRESA ANDREWS on 05/16/22 1247 Lactobacillus Rhamnosus GG (Culturelle) 1 Each Capsule, 1 CAP PO DAILY, (Reported) Entered as Reported by: JAVIER MUHAMMAD on 02/04/17 1023 Loratadine (Loratadine) 10 Mg Tablet, 10 MG PO DAILY, (Reported) Entered as Reported by: JAVIER MUHAMMAD on 02/04/17 1023 Magnesium (Magnesium) 250 Mg Tablet, 250 MG PO DAILY, (Reported) Entered as Reported by: TRESA ANDREWS on 05/16/22 1247 Omeprazole (Omeprazole) 40 Mg Capsule.dr, 40 MG PO HS, (Reported) Entered as Reported by: TRESA ANDREWS on 04/10/21 1405 Spironolactone (Spironolactone) 25 Mg Tablet, 25 MG PO DAILY, (Reported) Entered as Reported by: TRESA ANDREWS on 04/10/21 1405 Ubidecarenone (Co Q-10) 100 Mg Capsule, 100 MG PO DAILY, (Reported) Entered as Reported by: JAVIER MUHAMMAD on 02/04/17 1023 Zolpidem Tartrate (Ambien) 10 Mg Tablet, 10 MG PO HS, (Reported) Entered as Reported by: TRESA ANDREWS on 04/12/21 1347 Review of Systems Review of Systems Constitutional: see HPI Skin: see HPI Past Tfxwrey-Meqxzy-Wjihun Hx Patient Social History Tobacco Use?: No Smoking Status: Former Smoker Substance use?: No Alcohol Use?: No Pt feels they are or have been: No Immunizations Up To Date Tetanus Booster (TDap): More than 5yrs First/Initial COVID19 Vaccinat: OCTOBER 2020 Second COVID19 Vaccination Sergei: YES Third COVID19 Vaccination Date: YES Seasonal Allergies Seasonal Allergies: Yes Past Medical History Surgery/Hospitalization HX: HX OF AFIB, CHF, CVA (08/27/2015), DVT, PE, CKD, FORMER SMOKER, OBESITY, BACK FUSION, BILATERAL TOTAL KNEE REPLACEMENT. WATCHMAN DEVICE PLACED IN DECEMBER 2020. REMOVAL OF LEFT ATRIAL THROMBUS AND MAZE PROCEDURE ON 04/03/21. 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 Sexually Transmitted Disease: No HIV/AIDS: No Genitourinary: No Gastrointestinal: Yes Gastroesophageal Reflux Musculoskeletal: Yes Arthritis Endocrine: No Cataract Cancer: No Psychosocial: Yes Sleep Difficulties Integumentary: Yes (strip cellulitis) Blood Disorders: No Family Medical History Cataract 19 FATHER Chest pain 19 FATHER Congenital heart disease 19 MOTHER Congestive heart failure 19 MOTHER Family history: Arthritis 19 FATHER 19 MOTHER Family history: Hypertension 19 FATHER 19 MOTHER Headache 19 MOTHER (MIGRAINES) Hearing loss 19 FATHER (LYTTON) Myocardial infarction 19 FATHER No Family History of: Abdominal aortic aneurysm [place]'s disease Alcoholism Aphasia Cancer Cancer of colon Cystic fibrosis Dementia Dysphagia Family history: Allergy Family history: Alzheimer's disease Family history: Asthma Family history: Breast disease Family history: Cardiovascular disease Family history: Coronary thrombosis Family history: Diabetes mellitus Family history: Gastrointestinal disease Family history: Glaucoma Family history: Osteoporosis Family history: Thyroid disorder Heart disease Hereditary disease History of - anemia History of - disorder History of - respiratory disease History of drug abuse Human immunodeficiency virus (HIV) seropositivity Hypercholesterolemia Infertile Kidney disease Malignant neoplasm of lung Parkinson's disease Prostate cancer Psychotic disorder Seizure disorder Stroke Tuberculosis Visual impairment No Pertinent Family Hx Physical Exam Vital Signs Vital Signs - First Documented 02/07/23 18:15 Temp 37.0 Pulse 93 Resp 18 B/P (MAP) 0/0 (0) Pulse Ox 98 Capillary Refill : Less Than 3 Seconds General Appearance: WD/WN, no apparent distress Neck: supple, normal inspection Cardiovascular: regular rate, rhythm Respiratory: lungs clear, normal breath sounds, no respiratory distress, no accessory muscle use Neurologic/Psychiatric: alert, normal mood/affect Skin: normal color, warm/dry Skin Problem Location: lower extremities (right knee) Skin Problem Character: other (large sking tear) Procedures/Interventions Wound Location: Lower Extremities Other Wound Location right knee Wound's Depth, Shape: irregular, flap Wound Explored: clean Suture: Chromic Suture Size: 3-0, 4-0 Progress Skin tear to right knee. Attempted to control bleeding by injecting lidocaine with epinephrine, then placed mixture of lidocaine with epi plus TXA onto wound. This was in place for an hour. It did not control the bleeding. Attempted to cauterize location of bleeding. This did not stop bleeding either. Six 3-0 Chromic Gut sutures placed in the wound bed to try to control bleeding. This also did not stop bleeding. An additional 10 sutures used to try to close skin tear for hemostasis, not wound closure. This also did not completely control bleeding. Bleeding continued through some other locations where the sutures were placed due to poor integrity of skin. These areas were cauterized. Bleeding still continues. Bleeding is much milder than previous. Pressure dressing placed with nonadherent gauze, 4 x 4's, and Coban. Progress/Results/Core Measures Results/Orders My Orders Orders - JAYDON VELAZQUEZ APRN Tranexamic Acid Injection (Cyklokapron I (02/07/23 19:45) Lidocaine/Epi 2% 1:100,000 (Xylocaine/Ep (02/07/23 19:45) Lidocaine/Epi 1% 1:100,000 (Xylocaine /E (02/07/23 19:39) Knee Immobilizer (02/07/23 22:57) Medications Given in ED Vital Signs/I&O 02/07/23 18:15 Temp 37.0 Pulse 93 Resp 18 B/P (MAP) 0/0 (0) Pulse Ox 98 Blood Pressure Mean: 0 Progress Progress Note : Progress Note Patient seen and evaluated, resting comfortably in chair, no acute distress. Pressure dressing applied by nursing staff upon arrival to triage. Once removed, bleeding continued. Several inventions completed to stop bleeding. See procedure note. Bleeding still continued, although much less than upon arrival. Pressure dressing placed. Will place patient in knee immobilizer to prevent her from bending her knee. Patient instructed to call wound care in the morning for follow-up. Patient given discharge instructions and return precautions. Departure Impression Primary Impression: Bleeding from wound Disposition: 01 HOME, SELF-CARE Condition: Stable Departure-Patient Inst. Decision time for Depature: 22:56 Referrals: BRENDA SAWANT DO (PCP/Family) Primary Care Physician Patient Instructions: Wound Care (DC) Add. Discharge Instructions: Keep dressing in place until you see wound care. Wear immobilizer to keep knee from bending. Stay off of your leg is much as possible. Return for significant bleeding, dizziness, lightheadedness, passing out, or any other new, concerning, or worsening symptoms. All discharge instructions reviewed with patient and/or family. Voiced understanding. JAYDON VELAZQUEZ APRN Feb 07, 2023 19:56
== END 2023-02-07 23:43 | disposition home or self-care (01) ==
LOC: EDUNIT# 18:10 → ER 18:12
DX: S81.011A Laceration without foreign body, right knee, initial encounter (principal); I48.91 Unspecified atrial fibrillation; E66.9 Obesity, unspecified; Z68.31 Body mass index [BMI] 31.0-31.9, adult; Z79.01 Long term (current) use of anticoagulants; Z87.891 Personal history of nicotine dependence; W19.XXXA Unspecified fall, initial encounter
CPT/HCPCS: 99281

== ENCOUNTER → 2023-02-07 | Outpatient (CLI) | payer MEDICARE, OTHER ==
[~2023-02-07] MED LIST changes: +DILT120C71 PO; -DILT120C85 PO; +DILT360C22 PO
== END ==
LOC: WOUNDCARE 10:36
PROVIDERS: ATTEND Family Medicine
DX: S81.011A Laceration without foreign body, right knee, initial encounter (principal); I89.0 Lymphedema, not elsewhere classified; I87.312 Chronic venous hypertension (idiopathic) with ulcer of left lower extremity; Z68.31 Body mass index [BMI] 31.0-31.9, adult; E66.01 Morbid (severe) obesity due to excess calories
CPT/HCPCS: 99213

== ENCOUNTER → 2023-02-08 | Outpatient (CLI) | payer MEDICARE, OTHER | LOC: WOUNDCARE 09:07 | PROVIDERS: ATTEND Family Medicine | DX: I89.0 Lymphedema, not elsewhere classified (principal); I87.312 Chronic venous hypertension (idiopathic) with ulcer of left lower extremity; E66.01 Morbid (severe) obesity due to excess calories; S81.011A Laceration without foreign body, right knee, initial encounter; R58 Hemorrhage, not elsewhere classified; Z68.31 Body mass index [BMI] 31.0-31.9, adult | CPT/HCPCS: 99212 ==

== ENCOUNTER → 2023-02-12 | Outpatient (CLI) | payer MEDICARE, OTHER | LOC: WOUNDCARE 10:05 | PROVIDERS: ATTEND Family Medicine | DX: I89.0 Lymphedema, not elsewhere classified (principal); I87.312 Chronic venous hypertension (idiopathic) with ulcer of left lower extremity; E66.01 Morbid (severe) obesity due to excess calories; S81.011A Laceration without foreign body, right knee, initial encounter; R58 Hemorrhage, not elsewhere classified; I96 Gangrene, not elsewhere classified; Z68.31 Body mass index [BMI] 31.0-31.9, adult | CPT/HCPCS: 11042; G0463 ==

== ENCOUNTER → 2023-02-19 | Outpatient (CLI) | payer MEDICARE, OTHER | LOC: WOUNDCARE 10:01 | PROVIDERS: ATTEND Family Medicine | DX: I96 Gangrene, not elsewhere classified (principal); S81.011A Laceration without foreign body, right knee, initial encounter; I89.0 Lymphedema, not elsewhere classified; I87.312 Chronic venous hypertension (idiopathic) with ulcer of left lower extremity; E66.01 Morbid (severe) obesity due to excess calories; R58 Hemorrhage, not elsewhere classified; A49.9 Bacterial infection, unspecified; Z68.31 Body mass index [BMI] 31.0-31.9, adult | CPT/HCPCS: 11042; 11045; 87070; 87077; 87205; A6260; G0463 ==

== ENCOUNTER → 2023-02-26 | Outpatient (CLI) | payer MEDICARE, OTHER ==
[2023-02-26 10:45] LABS: BASOPHILS % (AUTO) 0 % (0-10); EOSINOPHILS # (AUTO) 0.1 10^3/uL (0.0-0.3); EOSINOPHILS % (AUTO) 1 % (0-10); HEMATOCRIT 36 % (35-52); LYMPHOCYTES # (AUTO) 2.1 10^3/uL (1.0-4.0); LYMPHOCYTES % (AUTO) 22 % (12-44); MEAN CORPUSCULAR HEMOGLOBIN 22 pg (25-34); MEAN CORPUSCULAR HGB CONC 31 g/dL (32-36); MEAN CORPUSCULAR VOLUME 72 fL (80-99); MEAN PLATELET VOLUME 8.8 fL (9.0-12.2); MONOCYTES # (AUTO) 0.7 10^3/uL (0.0-1.0); MONOCYTES % (AUTO) 7 % (0-12); NEUTROPHILS # (AUTO) 6.8 10^3/uL (1.8-7.8); NEUTROPHILS % (AUTO) 68 % (42-75); PLATELET COUNT 412 10^3/uL (130-400); WHITE BLOOD COUNT 9.9 10^3/uL (4.3-11.0)
[2023-02-26 10:56] LABS: ALBUMIN 3.8 GM/DL (3.2-4.5); POTASSIUM 3.7 MMOL/L (3.6-5.0)
[2023-02-26 10:57] LABS: CALCIUM 10.8 MG/DL (8.5-10.1)
[2023-02-26 10:58] LABS: TOTAL PROTEIN 6.7 GM/DL (6.4-8.2)
[2023-02-26 11:00] LABS: BILIRUBIN,TOTAL 0.5 MG/DL (0.1-1.0)
[2023-02-26 11:02] LABS: CREATININE SERUM 1.61 MG/DL (0.60-1.30)
== END ==
LOC: WOUNDCARE 10:00
PROVIDERS: ATTEND Family Medicine
DX: I96 Gangrene, not elsewhere classified (principal); S81.011A Laceration without foreign body, right knee, initial encounter; I89.0 Lymphedema, not elsewhere classified; E66.01 Morbid (severe) obesity due to excess calories; I87.312 Chronic venous hypertension (idiopathic) with ulcer of left lower extremity; R58 Hemorrhage, not elsewhere classified; B96.5 Pseudomonas (aeruginosa) (mallei) (pseudomallei) as the cause of diseases classified elsewhere; Z68.31 Body mass index [BMI] 31.0-31.9, adult
CPT/HCPCS: 11042; 80053; 85025; A6197; A6212; G0463; 36415

== ENCOUNTER → 2023-03-07 | Outpatient (CLI) | payer MEDICARE, OTHER | LOC: WOUNDCARE 12:23 | PROVIDERS: ATTEND Family Medicine | DX: I96 Gangrene, not elsewhere classified (principal); S81.011A Laceration without foreign body, right knee, initial encounter; I89.0 Lymphedema, not elsewhere classified; E66.01 Morbid (severe) obesity due to excess calories; I87.312 Chronic venous hypertension (idiopathic) with ulcer of left lower extremity; R58 Hemorrhage, not elsewhere classified; B96.5 Pseudomonas (aeruginosa) (mallei) (pseudomallei) as the cause of diseases classified elsewhere; Z68.31 Body mass index [BMI] 31.0-31.9, adult | CPT/HCPCS: 11042; G0463 ==

== ENCOUNTER → 2023-03-12 | Outpatient (CLI) | payer MEDICARE, OTHER ==
[2023-03-12 11:50] LABS: CALCIUM 10.6 MG/DL (8.5-10.1); CREATININE SERUM 1.35 MG/DL (0.60-1.30); POTASSIUM 4.3 MMOL/L (3.6-5.0)
== END ==
LOC: WOUNDCARE 10:26
PROVIDERS: ATTEND Family Medicine
DX: I89.0 Lymphedema, not elsewhere classified (principal); I87.312 Chronic venous hypertension (idiopathic) with ulcer of left lower extremity; E66.01 Morbid (severe) obesity due to excess calories; S81.011A Laceration without foreign body, right knee, initial encounter; Z68.31 Body mass index [BMI] 31.0-31.9, adult
CPT/HCPCS: 11042; 80048; A6212; G0463; 36415

== ENCOUNTER → 2023-03-26 | Outpatient (CLI) | payer MEDICARE, OTHER | LOC: WOUNDCARE 10:27 | PROVIDERS: ATTEND Family Medicine | DX: I89.0 Lymphedema, not elsewhere classified (principal); I87.312 Chronic venous hypertension (idiopathic) with ulcer of left lower extremity; E66.01 Morbid (severe) obesity due to excess calories; S81.011A Laceration without foreign body, right knee, initial encounter | CPT/HCPCS: A6212; G0463; 99212 ==

== ENCOUNTER → 2023-06-05 | Outpatient (CLI) | payer MEDICARE, OTHER | LOC: WOUNDCARE 14:33 | PROVIDERS: ATTEND Family Medicine | DX: L97.222 Non-pressure chronic ulcer of left calf with fat layer exposed (principal); I89.0 Lymphedema, not elsewhere classified; Z79.01 Long term (current) use of anticoagulants; E66.01 Morbid (severe) obesity due to excess calories; L97.212 Non-pressure chronic ulcer of right calf with fat layer exposed; I96 Gangrene, not elsewhere classified | CPT/HCPCS: 99213 ==

== ENCOUNTER → 2023-06-05 | Outpatient (CLI) | payer MEDICARE, OTHER ==
--- NOTE | 2023-06-05 17:09 | Diagnostic Imaging Report ---
PROCEDURE: US Bilateral lower extremity arterial. TECHNIQUE: Multiple real-time grayscale images are obtained through both lower extremity arterial systems with color Doppler imaging and color Doppler spectral analysis. 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 The common femoral artery, deep femoral artery, superficial femoral artery, popliteal artery, posterior tibial artery and dorsalis pedis demonstrate normal blood flow and normal velocities. No high-grade stenosis or occlusion is seen. There is atherosclerosis throughout the right lower extremity. The heart rate is occasionally irregular. Left lower extremity: There are triphasic waveforms throughout the left lower extremity. There is atherosclerosis. The common femoral artery, deep femoral artery, superficial femoral artery, popliteal artery, posterior tibial artery and dorsalis pedis demonstrate normal velocity with no high-grade stenosis or occlusion. IMPRESSION: 1. Atherosclerosis in the bilateral lower extremities with no stenosis or occlusion. 2. Cardiac arrhythmia. Dictated by: Dictated on workstation # [id number]
== END ==
LOC: RAD 13:03
PROVIDERS: ATTEND Family Medicine
DX: I70.203 Unspecified atherosclerosis of native arteries of extremities, bilateral legs (principal); I49.9 Cardiac arrhythmia, unspecified; L97.219 Non-pressure chronic ulcer of right calf with unspecified severity; L97.222 Non-pressure chronic ulcer of left calf with fat layer exposed; I89.0 Lymphedema, not elsewhere classified; S80.821A Blister (nonthermal), right lower leg, initial encounter; Z79.01 Long term (current) use of anticoagulants; E66.01 Morbid (severe) obesity due to excess calories
CPT/HCPCS: 93925

== ENCOUNTER → 2023-06-13 | Outpatient (CLI) | payer MEDICARE, OTHER | LOC: WOUNDCARE 10:50 | PROVIDERS: ATTEND Family Medicine | DX: I96 Gangrene, not elsewhere classified (principal); L97.222 Non-pressure chronic ulcer of left calf with fat layer exposed; L97.212 Non-pressure chronic ulcer of right calf with fat layer exposed; I89.0 Lymphedema, not elsewhere classified; E66.01 Morbid (severe) obesity due to excess calories; Z79.01 Long term (current) use of anticoagulants; Z68.31 Body mass index [BMI] 31.0-31.9, adult | CPT/HCPCS: 11042; 11045; G0463 ==

== ENCOUNTER → 2023-06-20 | Outpatient (CLI) | payer MEDICARE, OTHER | LOC: WOUNDCARE 10:51 | PROVIDERS: ATTEND Family Medicine | DX: I96 Gangrene, not elsewhere classified (principal); I89.0 Lymphedema, not elsewhere classified; L97.212 Non-pressure chronic ulcer of right calf with fat layer exposed; E66.01 Morbid (severe) obesity due to excess calories; Z79.01 Long term (current) use of anticoagulants; Z68.31 Body mass index [BMI] 31.0-31.9, adult | CPT/HCPCS: 11042; 11045; 87070; 87077; 87186; 87205; G0463 ==

== ENCOUNTER → 2023-06-27 | Outpatient (CLI) | payer MEDICARE, OTHER | LOC: WOUNDCARE 10:56 | PROVIDERS: ATTEND Family Medicine | DX: I96 Gangrene, not elsewhere classified (principal); I89.0 Lymphedema, not elsewhere classified; E66.01 Morbid (severe) obesity due to excess calories; L97.212 Non-pressure chronic ulcer of right calf with fat layer exposed; Z79.01 Long term (current) use of anticoagulants | CPT/HCPCS: 11042; A6212; G0463 ==

== ENCOUNTER → 2023-07-04 | Outpatient (CLI) | payer MEDICARE, OTHER | LOC: WOUNDCARE 11:01 | PROVIDERS: ATTEND Family Medicine | DX: I89.0 Lymphedema, not elsewhere classified (principal); L97.212 Non-pressure chronic ulcer of right calf with fat layer exposed; E66.01 Morbid (severe) obesity due to excess calories; Z79.01 Long term (current) use of anticoagulants | CPT/HCPCS: 99212 ==